=== PATIENT | female | born 1945 | race Caucasian/White ===

== ENCOUNTER 2017-12-05 09:08 | Day surgery (SDC) | payer MEDICARE ==
[2017-12-03 10:54] VITALS: BMI 25.8
[~2017-12-05 09:08] MED LIST: LACTATED RINGERS 1,000 ML IV ONE; LIDOCAINE 1% 20 ML VIAL (10MG/ML) FOR IV START INTRADERMA PRN
[2017-12-05 09:32] VITALS: RESP 16; TEMP 97.8
[2017-12-05 09:34] LABS: Glucose,Whole Blood 150 mg/dL (75-99)
[2017-12-05] MEDS ORDERED: PROPOFOL 10 MG/ML 20 ML VIAL IV ONE (10:19)
--- NOTE | 2017-12-05 10:48 | P.PCN ---
Date of Procedure: 12/05/17 Procedure(s) Performed: BRIEF HISTORY: Patient is a 72-year-old pleasant white female, scheduled for an elective colonoscopy as a part of evaluation of change in bowel habits for the last 2 months duration. She has severe constipation but denies any rectal bleeding. PROCEDURE PERFORMED: Colonoscopy with biopsy. PREOPERATIVE DIAGNOSIS: Change in bowel habits. IV sedation per Anesthesia. PROCEDURE: After informed consent was obtained, the patient, was brought into the endoscopy unit. IV sedation was administered by Anesthesia under continuous monitoring. Digital rectal examination revealed prolapsed rectal mucosa measuring 2 cm. Initially the Olympus CF-160 flexible video colonoscope was then inserted in the rectum, gradually advanced into the cecum without any difficulty. Careful examination was performed as the scope was gradually being withdrawn. Ileocecal valve and the appendiceal orifice were visualized and appeared normal. Prep was excellent. Mucosa of the cecum, ascending colon, transverse colon, descending colon, sigmoid colon, and rectum appeared normal. Retroflexion was performed in the rectum and 2 cm polypoid area identified with slightly friable mucosa and multiple biopsies were done from this area to evaluate for rectal prolapse versus rectal polyp. The patient tolerated the procedure well. IMPRESSION: 2 cm polypoid area in the distal rectum possibly representing rectal prolapse versus rectal polyp status post multiple biopsies Rest of the colon appeared normal Small internal hemorrhoids. RECOMMENDATIONS: Findings of this examination were discussed with the patient as well as a family. She was advised to start on MiraLAX 1 scoop daily and continue with a high-fiber diet. She'll be seen in the office in 2 weeks to discuss the biopsy results.
[2017-12-05 11:18] VITALS: BP 152/70; PULSE 80
== END 2017-12-05 11:41 | disposition home or self-care (01) ==
LOC: ORWHC2ENDO 09:08
PROVIDERS: ATTEND Internal Medicine Gastroenterology
DX: K62.1 Rectal polyp (principal); K64.8 Other hemorrhoids; K62.3 Rectal prolapse; I10 Essential (primary) hypertension; J44.9 Chronic obstructive pulmonary disease, unspecified; Z87.891 Personal history of nicotine dependence; Z88.1 Allergy status to other antibiotic agents; Z86.73 Personal history of transient ischemic attack (TIA), and cerebral infarction without residual deficits; Z79.899 Other long term (current) drug therapy; Z79.84 Long term (current) use of oral hypoglycemic drugs
CPT/HCPCS: 88305; 45380; J2704

== ENCOUNTER 2018-05-06 10:05 | Observation (INO) | payer MEDICARE ==
[2018-05-06] MEDS ORDERED: ONDANSETRON 4 MG/2 ML VIAL IVP STA ×2 (11:00→15:19)
[2018-05-06] MEDS ORDERED: SODIUM CHLORIDE 0.9% 500 ML IV STA (11:00)
[2018-05-06] MEDS ORDERED: SODIUM CHLORIDE 0.9% 1,000 ML IV STA (11:00)
[2018-05-06] MEDS ORDERED: FAMOTIDINE 20 MG/2 ML VIAL IV STA (11:01)
[2018-05-06] MEDS ORDERED: fentaNYL (PF) 50 MCG/ML 2 ML AMP IV STA (11:01)
--- NOTE | 2018-05-06 11:08 | ED ---
Abdominal Pain HPI - General Chief Complaint: Abdominal Pain Stated Complaint: Stomach pain Time Seen by Provider: 05/06/18 10:35 Source: patient, family, RN notes reviewed Mode of arrival: ambulatory Limitations: no limitations - History of Present Illness Initial Comments: This is a 72-year-old female who states she's had about one month of constant midepigastric achy pain. She states she's had a 13 pound weight loss since this time with decrease oral intake. She does have a history of GERD ulcers many years ago cholecystectomy and was told she has low iron. She states the pain is 9/10 severity some associated nausea she also states she's been having intermittent episodes of left CVA/flank pain he gets better with urination. No prior history kidney stones. No other associated symptoms at this time she was told to come in by her doctor because of the unrelenting pain she does have a scheduled appointment with Dr. Moise from GI but has not told next month. She states she has had some black stools does admit to taking Pepto-Bismol but she has not taken any for 3 days and still is having black stools. MD Complaint: abdominal pain - Related Data Home Medications Medication Instructions Recorded Confirmed Allopurinol [Zyloprim] 100 mg PO BID 07/05/16 05/06/18 Lisinopril [Prinivil] 20 mg PO BID 07/05/16 05/06/18 Multivitamins, Thera [Multivitamin] 1 tab PO DAILY 07/05/16 05/06/18 amLODIPine BESYLATE [Norvasc] 5 mg PO BID 07/05/16 05/06/18 glipiZIDE [Glucotrol] 5 mg PO QAM 07/05/16 05/06/18 Gabapentin [Neurontin] 300 mg PO BID 09/13/17 05/06/18 Lovastatin [Mevacor] 40 mg PO HS 09/13/17 05/06/18 Acetaminophen [Tylenol Arthritis] 650 mg PO BID 05/06/18 05/06/18 Cholecalciferol [Vitamin D3] 5,000 unit PO DAILY 05/06/18 05/06/18 Omeprazole 20 mg PO DAILY 05/06/18 05/06/18 traMADol HCL [Ultram] 100 mg PO BID 05/06/18 05/06/18 Allergies Allergy/AdvReac Type Severity Reaction Status Date / Time erythromycin base Allergy Severe TONGUE Verified 05/06/18 13:48 MARILYNN gatifloxacin [From Tequin] Allergy Severe TONGUE Verified 05/06/18 13:48 MARLIYNN Review of Systems ROS Statement: Those systems with pertinent positive or pertinent negative responses have been documented in the HPI. ROS Other: All systems not noted in ROS Statement are negative. Past Medical History Past Medical History: CVA/TIA, Diabetes Mellitus, GERD/Reflux, Hyperlipidemia, Hypertension, Osteoarthritis (OA), Skin Disorder Additional Past Medical History / Comment(s): TIA 2012-rt side weakness, varicose veins, sore on rt leg, constipation, hx frequent nighttime urination, History of Any Multi-Drug Resistant Organisms: None Reported Past Surgical History: Appendectomy, Bladder Surgery, Breast Surgery, Hysterectomy, Tonsillectomy Additional Past Surgical History / Comment(s): left oophorectomy, martinez breast implants, Past Anesthesia/Blood Transfusion Reactions: Motion Sickness Past Psychological History: Depression Smoking Status: Former smoker Past Alcohol Use History: None Reported Past Drug Use History: None Reported - Past Family History Mother Family Medical History: No Reported History General Exam - General Exam Comments Initial Comments: This is a well-developed asthenic appearing female who is awake and alert oriented 3 Limitations: no limitations General appearance: alert, in no apparent distress Head exam: Present: atraumatic, normocephalic, normal inspection Eye exam: Present: normal appearance, PERRL, EOMI. Absent: scleral icterus, conjunctival injection, periorbital swelling ENT exam: Present: mucous membranes dry Neck exam: Present: normal inspection. Absent: tenderness, meningismus, lymphadenopathy Respiratory exam: Present: normal lung sounds bilaterally. Absent: respiratory distress, wheezes, rales, rhonchi, stridor Cardiovascular Exam: Present: regular rate, normal rhythm, normal heart sounds. Absent: systolic murmur, diastolic murmur, rubs, gallop, clicks GI/Abdominal exam: Present: soft, tenderness (Tennis palpation of the midepigastrium with no guarding rebound masses or bruits some mild left flank pain left CVA tenderness palpation or percussion.), normal bowel sounds. Absent : distended, guarding, rebound, rigid Extremities exam: Present: normal inspection, full ROM, normal capillary refill. Absent: tenderness, pedal edema, joint swelling, calf tenderness Back exam: Present: normal inspection, full ROM, CVA tenderness (L). Absent: CVA tenderness (R), muscle spasm, paraspinal tenderness, vertebral tenderness, rash noted Neurological exam: Present: alert, oriented X3, CN II-XII intact Psychiatric exam: Present: normal affect, normal mood Skin exam: Present: warm, dry, intact, normal color. Absent: rash Course Vital Signs 05/06/18 05/06/18 05/06/18 10:28 13:35 15:38 Temperature 97.9 F Pulse Rate 78 79 84 Respiratory 18 18 18 Rate Blood Pressure 152/72 137/65 163/72 O2 Sat by Pulse 98 93 L 96 Oximetry Medical Decision Making - Medical Decision Making Patient persisted having nausea and abdominal pain. She will be admitted I did discuss case with Dr. Nunez. - Lab Data Result diagrams: 05/06/18 12:38 05/06/18 12:38 Lab Results 05/06/18 05/06/18 05/06/18 Range/Units 12:38 12:38 12:38 WBC 9.0 (3.8-10.6) k/uL RBC 4.48 (3.80-5.40) m/uL Hgb 11.1 L (11.4-16.0) gm/dL Hct 35.2 (34.0-46.0) % MCV 78.4 L (80.0-100.0) fL MCH 24.8 L (25.0-35.0) pg MCHC 31.6 (31.0-37.0) g/dL RDW 17.8 H (11.5-15.5) % Plt Count 377 (150-450) k/uL Neutrophils % 69 % Lymphocytes % 21 % Monocytes % 7 % Eosinophils % 1 % Basophils % 1 % Neutrophils # 6.2 (1.3-7.7) k/uL Lymphocytes # 1.9 (1.0-4.8) k/uL Monocytes # 0.6 (0-1.0) k/uL Eosinophils # 0.1 (0-0.7) k/uL Basophils # 0.1 (0-0.2) k/uL Hypochromasia Slight Anisocytosis Slight Microcytosis Slight PT (9.0-12.0) sec INR (<1.2) APTT (22.0-30.0) sec Sodium 142 (137-145) mmol/L Potassium 4.6 (3.5-5.1) mmol/L Chloride 104 (98-107) mmol/L Carbon Dioxide 29 (22-30) mmol/L Anion Gap 9 mmol/L BUN 28 H (7-17) mg/dL Creatinine 1.10 H (0.52-1.04) mg/dL Est GFR (CKD-EPI)AfAm 58 (>60 ml/min/1.73 sqM) Est GFR (CKD-EPI)NonAf 50 (>60 ml/min/1.73 sqM) Glucose 88 (74-99) mg/dL Plasma Lactic Acid Ariel (0.7-2.0) mmol/L Calcium 9.8 (8.4-10.2) mg/dL Total Bilirubin 0.3 (0.2-1.3) mg/dL AST 15 (14-36) U/L ALT 18 (9-52) U/L Alkaline Phosphatase 93 (38-126) U/L Total Creatine Kinase 35 (30-135) U/L CK-MB (CK-2) 0.9 (0.0-2.4) ng/mL CK-MB (CK-2) Rel Index 2.6 Troponin I <0.012 (0.000-0.034) ng/mL Total Protein 7.9 (6.3-8.2) g/dL Albumin 4.2 (3.5-5.0) g/dL Amylase 39 (30-110) U/L Lipase 64 (23-300) U/L Urine Color Urine Appearance (Clear) Urine pH (5.0-8.0) Ur Specific [place] (1.001-1.035) Urine Protein (Negative) Urine Glucose (UA) (Negative) Urine Ketones (Negative) Urine Blood (Negative) Urine Nitrite (Negative) Urine Bilirubin (Negative) Urine Urobilinogen (<2.0) mg/dL Ur Leukocyte Esterase (Negative) Stool Occult Blood (Negative) Blood Type Blood Type Recheck Antibody Screen Spec Expiration Date 05/06/18 05/06/18 05/06/18 Range/Units 12:38 12:38 12:38 WBC (3.8-10.6) k/uL RBC (3.80-5.40) m/uL Hgb (11.4-16.0) gm/dL Hct (34.0-46.0) % MCV (80.0-100.0) fL MCH (25.0-35.0) pg MCHC (31.0-37.0) g/dL RDW (11.5-15.5) % Plt Count (150-450) k/uL Neutrophils % % Lymphocytes % % Monocytes % % Eosinophils % % Basophils % % Neutrophils # (1.3-7.7) k/uL Lymphocytes # (1.0-4.8) k/uL Monocytes # (0-1.0) k/uL Eosinophils # (0-0.7) k/uL Basophils # (0-0.2) k/uL Hypochromasia Anisocytosis Microcytosis PT 10.2 (9.0-12.0) sec INR 1.0 (<1.2) APTT 23.0 (22.0-30.0) sec Sodium (137-145) mmol/L Potassium (3.5-5.1) mmol/L Chloride (98-107) mmol/L Carbon Dioxide (22-30) mmol/L Anion Gap mmol/L BUN (7-17) mg/dL Creatinine (0.52-1.04) mg/dL Est GFR (CKD-EPI)AfAm (>60 ml/min/1.73 sqM) Est GFR (CKD-EPI)NonAf (>60 ml/min/1.73 sqM) Glucose (74-99) mg/dL Plasma Lactic Acid Ariel 0.8 (0.7-2.0) mmol/L Calcium (8.4-10.2) mg/dL Total Bilirubin (0.2-1.3) mg/dL AST (14-36) U/L ALT (9-52) U/L Alkaline Phosphatase (38-126) U/L Total Creatine Kinase (30-135) U/L CK-MB (CK-2) (0.0-2.4) ng/mL CK-MB (CK-2) Rel Index Troponin I (0.000-0.034) ng/mL Total Protein (6.3-8.2) g/dL Albumin (3.5-5.0) g/dL Amylase (30-110) U/L Lipase (23-300) U/L Urine Color Urine Appearance (Clear) Urine pH (5.0-8.0) Ur Specific [place] (1.001-1.035) Urine Protein (Negative) Urine Glucose (UA) (Negative) Urine Ketones (Negative) Urine Blood (Negative) Urine Nitrite (Negative) Urine Bilirubin (Negative) Urine Urobilinogen (<2.0) mg/dL Ur Leukocyte Esterase (Negative) Stool Occult Blood (Negative) Blood Type A Positive Blood Type Recheck No Antibody Screen NEGATIVE Spec Expiration Date 05/09/2018233705/06/18 05/06/18 Range/Units 15:00 15:00 WBC (3.8-10.6) k/uL RBC (3.80-5.40) m/uL Hgb (11.4-16.0) gm/dL Hct (34.0-46.0) % MCV (80.0-100.0) fL MCH (25.0-35.0) pg MCHC (31.0-37.0) g/dL RDW (11.5-15.5) % Plt Count (150-450) k/uL Neutrophils % % Lymphocytes % % Monocytes % % Eosinophils % % Basophils % % Neutrophils # (1.3-7.7) k/uL Lymphocytes # (1.0-4.8) k/uL Monocytes # (0-1.0) k/uL Eosinophils # (0-0.7) k/uL Basophils # (0-0.2) k/uL Hypochromasia Anisocytosis Microcytosis PT (9.0-12.0) sec INR (<1.2) APTT (22.0-30.0) sec Sodium (137-145) mmol/L Potassium (3.5-5.1) mmol/L Chloride (98-107) mmol/L Carbon Dioxide (22-30) mmol/L Anion Gap mmol/L BUN (7-17) mg/dL Creatinine (0.52-1.04) mg/dL Est GFR (CKD-EPI)AfAm (>60 ml/min/1.73 sqM) Est GFR (CKD-EPI)NonAf (>60 ml/min/1.73 sqM) Glucose (74-99) mg/dL Plasma Lactic Acid Ariel (0.7-2.0) mmol/L Calcium (8.4-10.2) mg/dL Total Bilirubin (0.2-1.3) mg/dL AST (14-36) U/L ALT (9-52) U/L Alkaline Phosphatase (38-126) U/L Total Creatine Kinase (30-135) U/L CK-MB (CK-2) (0.0-2.4) ng/mL CK-MB (CK-2) Rel Index Troponin I (0.000-0.034) ng/mL Total Protein (6.3-8.2) g/dL Albumin (3.5-5.0) g/dL Amylase (30-110) U/L Lipase (23-300) U/L Urine Color Light Yellow Urine Appearance Clear (Clear) Urine pH 6.5 (5.0-8.0) Ur Specific [place] 1.014 (1.001-1.035) Urine Protein Negative (Negative) Urine Glucose (UA) Negative (Negative) Urine Ketones Negative (Negative) Urine Blood Negative (Negative) Urine Nitrite Negative (Negative) Urine Bilirubin Negative (Negative) Urine Urobilinogen <2.0 (<2.0) mg/dL Ur Leukocyte Esterase Negative (Negative) Stool Occult Blood Negative (Negative) Blood Type Blood Type Recheck Antibody Screen Spec Expiration Date - Radiology Data Radiology results: report reviewed (I did review the imaging and report no acute findings.), image reviewed Disposition Clinical Impression: Abdominal pain, Intractable nausea and vomiting, Renal insufficiency Disposition: ADMITTED IP TO THIS [facility] Condition: Stable Referrals: David Turner DO [Primary Care Provider] - 1-2 days
[2018-05-06 13:02] LABS: Anisocytosis Slight; Basophils # (A) 0.1 k/uL (0-0.2); Basophils % (A) 1 %; Eosinophils # (A) 0.1 k/uL (0-0.7); Eosinophils % (A) 1 %; HCT 35.2 % (34.0-46.0); HGB 11.1 gm/dL (11.4-16.0); Hypochromasia Slight; Lymphocytes # (A) 1.9 k/uL (1.0-4.8); Lymphocytes % (A) 21 %; MCH 24.8 pg (25.0-35.0); MCHC 31.6 g/dL (31.0-37.0); MCV 78.4 fL (80.0-100.0); Mean Platelet Volume 6.8; Microcytosis Slight; Monocytes # (A) 0.6 k/uL (0-1.0); Monocytes % (A) 7 %; Neutrophils # (A) 6.2 k/uL (1.3-7.7); Neutrophils % (A) 69 %; Platelet Count 377 k/uL (150-450); RBC 4.48 m/uL (3.80-5.40); RDW 17.8 % (11.5-15.5)
--- NOTE | 2018-05-06 13:09 | XR ---
EXAMINATION TYPE: XR KUB DATE OF EXAM: 05/06/2018 COMPARISON: NONE HISTORY: Pain TECHNIQUE: One view abdominal series FINDINGS: The osseous structures are intact. The bowel gas pattern is nonspecific. Lung bases are clear. Curv ature the spine with degenerative changes are seen. There are punctate calcifications overlying the m id right kidney which may represent tiny right renal calculi. Surgical clip overlying the left inferi or pubic ramus. Arthropathy of the hips. Vascular calcifications noted. IMPRESSION: 1. Nonspecific abdomen. 2. Correlate for right-sided renal calculi.
[2018-05-06 13:13] LABS: Prothrombin Time 10.2 sec (9.0-12.0)
[2018-05-06 13:17] LABS: Albumin 4.2 g/dL (3.5-5.0); Calcium 9.8 mg/dL (8.4-10.2); Potassium 4.6 mmol/L (3.5-5.1); Total Bilirubin 0.3 mg/dL (0.2-1.3); Total Protein 7.9 g/dL (6.3-8.2)
[2018-05-06 13:24] LABS: Creatine Kinase 35 U/L (30-135)
[2018-05-06 13:36] LABS: Creatine Kinase MB 0.9 ng/mL (0.0-2.4); Troponin I <0.012 ng/mL (0.000-0.034)
[2018-05-06 15:17] LABS: Appearance,Urine Clear (Clear); Bilirubin,Urine Negative (Negative); Blood,Urine Negative (Negative); Color,Urine Light Yellow; Glucose,Urine (UA) Negative (Negative); Ketones,Urine Negative (Negative); Leukocyte Esterase,Urine Negative (Negative); Nitrite,Urine Negative (Negative); PH, Urine 6.5 (5.0-8.0); Protein,Urine Negative (Negative); Specific Gravity,Urine 1.014 (1.001-1.035); Urobilinogen,Urine <2.0 mg/dL (<2.0)
[2018-05-06] MEDS ORDERED: NALOXONE 0.4 MG/ML 1 ML VIAL IV PRN (16:06)
[2018-05-06] MEDS: SODIUM CHLORIDE 0.9% 1,000 ML IV SCH (17:32)
[2018-05-06] MEDS: LISINOPRIL 20 MG TAB PO SCH (17:32)
[2018-05-06] MEDS: amLODIPine 5 MG TAB PO SCH (17:32)
[2018-05-06 17:47] LABS: Glucose,Whole Blood 75 mg/dL (75-99)
[2018-05-06] MEDS: ONDANSETRON 4 MG/2 ML VIAL IVP PRN (20:14)
[2018-05-06] MEDS: HYDROmorphone 1 MG/ML 1 ML SYRINGE IVP PRN (20:15)
[2018-05-06 21:03] LABS: Glucose,Whole Blood 115 mg/dL (75-99)
[2018-05-06] MEDS: ALLOPURINOL 100 MG TAB PO SCH (22:13)
[2018-05-06] MEDS: PANTOPRAZOLE 40 MG/10 ML VIAL IV SCH (22:13)
[2018-05-06] MEDS: ATORVASTATIN 10 MG TAB PO SCH (22:13)
[2018-05-06] MEDS: MELATONIN 5 MG TABLET PO SCH (22:13)
[2018-05-06] MEDS: GABAPENTIN 300 MG CAP PO SCH (22:13)
[2018-05-06] MEDS: traMADol 50 MG TAB PO SCH (22:25)
[2018-05-06] MEDS: ACETAMINOPHEN TAB 325 MG TAB PO SCH (22:25)
[2018-05-07] MEDS ORDERED: ALPRAZolam 0.25 MG TAB PO PRN (00:48)
[2018-05-07] MEDS ORDERED: TEMAZEPAM 15 MG CAP PO PRN (00:48)
[2018-05-07] MEDS ORDERED: HYDROcodone/APAP 5-325MG 1 EACH TAB PO PRN (00:48)
[2018-05-07 04:21] LABS: T4, Free (Free Thyroxine) 1.83 ng/dL (0.78-2.19)
[2018-05-07] MEDS: IOPAMIDOL-300 CONTRAST 30 ML VIAL (ORAL USE) PO PRN ×2 (06:30→07:40)
[2018-05-07] MEDS: SODIUM CHLORIDE 0.9% 1,000 ML IV SCH ×2 (06:31→17:09)
--- NOTE | 2018-05-07 06:45 | HP ---
HISTORY AND PHYSICAL DATE OF SERVICE: 05/06/2018 CHIEF COMPLAINT: Abdominal pain. HISTORY OF PRESENT ILLNESS: This 72-year-old woman with a past medical history of multiple medical problems including CVA, TIA, diabetes mellitus, GERD, hypertension, hyperlipidemia, history of appendectomy, history of bladder surgery, being followed by Dr. Turner in the outpatient setting complaining of abdominal pain for the last several days. The pain is mostly in the epigastrium and the patient also reported about a 13-pound weight loss. The patient also had history of GERD. Patient also had cholecystectomy. Because of severe pain and some nausea, the patient came to [facility] and admitted for evaluation and treatment. The patient had a scheduled appointment with Dr. Moise next month. The patient had some black stools. Patient is also taking Pepto- Bismol. There is no history of fever, rigors. No history of headache, loss of conscious or seizures. PAST MEDICAL HISTORY: History of CVA, TIA, diabetes mellitus, GERD, hypertension, hyperlipidemia, history of DJD, history of TIA. MEDICATIONS: Medications prior to admission include home medications are: 1. Ultram 100 mg p.o. b.i.d. 2. Glucotrol 5 mg p.o. q.a.m. 3. Norvasc 5 mg p.o. b.i.d. 4. Omeprazole 20 mg daily. 5. Multivitamins 1 p.o. daily. 6. Mevacor 40 mg at bedtime. 7. Prinivil 10 mg p.o. b.i.d. 8. Neurontin 300 mg p.o. b.i.d. 9. Vitamin D3, 5000 daily. 10.Zyloprim 100 mg p.o. b.i.d. 11.Tylenol 650 mg p.o. b.i.d. ALLERGIES: ERYTHROMYCIN BASE, TEQUIN. FAMILY HISTORY: No history of heart disease or strokes in the family. SOCIAL HISTORY: Previous history of smoking. No history of current smoking or alcohol intake. REVIEW OF SYSTEMS: ENT: No diminished hearing or diminished vision. CARDIOVASCULAR SYSTEM: No angina. RESPIRATORY SYSTEM: As mentioned earlier. GI: No nausea. : No dysuria. NERVOUS SYSTEM: No numbness or weakness. ALLERGY/IMMUNOLOGY: No asthma. MUSCULOSKELETAL: As mentioned earlier. HEMATOLOGY/ONCOLOGY: No history of anemia. ENDOCRINE: Diabetes mellitus. CONSTITUTIONAL: As mentioned earlier. DERMATOLOGY: Negative. RHEUMATOLOGY: Negative. PSYCHIATRY: As mentioned earlier. PHYSICAL EXAMINATION: The patient is alert and oriented x3. Pulse 73, blood pressure 117/64, respiration 18, temperature 97.1, pulse ox 94% on room air. HEENT: Conjunctivae normal. Oral mucosa moist. Neck is no jugular venous distention. No carotid bruit. No lymph node enlargement. CARDIOVASCULAR: S1 and S2 muffled. No S3 or S4. RESPIRATORY: Breath sounds diminished at the bases. No rhonchi, no crackles. ABDOMEN: Soft. Mild diffuse tenderness in the epigastrium present. No guarding. No rigidity. No mass palpable. LEGS: No edema. No swelling. NERVOUS SYSTEM: Higher function as mentioned earlier. Moves all 4 limbs. No focal motor or sensory deficits. LYMPHATICS: No lymphadenopathy of the neck, axillae or groin. SKIN: No ulcer, rash or bleeding. LABS: Labs are at this time WBC 9 hemoglobin 11.1. Creatinine is 1.10. ASSESSMENT: 1. Intractable abdominal pain with failure of outpatient treatment, possibly peptic ulcer disease. 2. History of weight loss. 3. Cerebrovascular accident, transient ischemic attack. 4. Diabetes mellitus type 2. 5. Gastroesophageal reflux disease. 6. Hypertension. 7. Hyperlipidemia. 8. History of degenerative joint disease. 9. History of transient ischemic attack. 10.History of appendectomy. 11.History of bladder surgery. 12.Depression. 13.Remote history of nicotine dependence. RECOMMENDATIONS AND DISCUSSION: This 72-year-old woman who presented with multiple complex medical issues at this time I recommend to continue current medications and symptomatic treatment. I recommend gastroenterology evaluation for possible EGD and colonoscopy. I would also recommend a CAT of the abdomen and pelvis because of history of weight loss to rule out the possibly malignancy. Otherwise I would recommend continue the rest of the medications and I would also resume the home medications and closely follow with Dr. Turner. Protonix IV b.i.d. has been recommended. See orders for the details. Prognosis guarded because of multiple complex medical issues. Further recommendations to follow. MMODL / IJN: [id number] / MTDD
[2018-05-07 07:35] LABS: Glucose,Whole Blood 95 mg/dL (75-99)
[2018-05-07] MEDS: PANTOPRAZOLE 40 MG/10 ML VIAL IV SCH ×2 (07:43→20:48)
[2018-05-07] MEDS: glipiZIDE 5 MG TAB PO SCH (07:46)
[2018-05-07] MEDS: amLODIPine 5 MG TAB PO SCH ×2 (08:33→20:48)
[2018-05-07] MEDS: ALLOPURINOL 100 MG TAB PO SCH ×2 (08:33→20:48)
[2018-05-07] MEDS: ACETAMINOPHEN TAB 325 MG TAB PO SCH ×2 (08:33→20:48)
[2018-05-07] MEDS: MULTIVITAMINS, THERA 1 EACH TAB PO SCH (08:33)
[2018-05-07] MEDS: LISINOPRIL 20 MG TAB PO SCH ×2 (08:33→20:48)
[2018-05-07] MEDS: traMADol 50 MG TAB PO SCH ×2 (08:33→20:47)
[2018-05-07] MEDS: GABAPENTIN 300 MG CAP PO SCH ×2 (08:33→20:47)
[2018-05-07] MEDS: ONDANSETRON 4 MG/2 ML VIAL IVP PRN (08:34)
[2018-05-07] MEDS: HEPARIN SODIUM,PORCINE 5,000 UNIT/ML 1 ML VIAL SQ SCH ×2 (08:36→20:48)
--- NOTE | 2018-05-07 08:45 | CT ---
EXAMINATION TYPE: CT abdomen pelvis w con DATE OF EXAM: 05/07/2018 COMPARISON: 02/24/2012 HISTORY: generalized pain CT DLP: 1189 mGycm CONTRAST: CT scan of the abdomen and pelvis is performed with Oral Contrast and with IV Contrast, patient injec godwin with 80 mL of Isovue 300. FINDINGS: LUNG BASES-: No visible nodule. No infiltrate. Basilar scarring noted. Small sliding-type hiatal her sabino. LIVER/GB: No calcified gallstones. No space occupying hepatic lesion. Biliary tree is of normal ca liber. PANCREAS: No inflammation. No distinct mass. SPLEEN: No splenic enlargement. No lesion seen. ADRENALS: No nodule. No thickening. KIDNEYS/BLADDER: No hydronephrosis. No nephrolithiasis. No distinct renal mass. Urinary bladder g rossly unremarkable. BOWEL: Normal appendix. Normal bowel caliber. No inflammation. Sigmoid diverticulosis without diver ticulitis. GENITAL ORGANS: No gross abnormality. LYMPH NODES: No greater than 1cm abdominal or pelvic lymph nodes are appreciated. AORTA: Atheromatous and ectatic change noted. OSSEOUS STRUCTURES: Degenerative changes lumbar spine. Grade 1 anterolisthesis L4 and L5. OTHER: No significant additional abnormality is seen. IMPRESSION: 1. Sigmoid diverticulosis without diverticulitis. 2. No acute process appreciated at this time.
[2018-05-07] MEDS: CHOLECALCIFEROL 1,000 UNIT TAB PO SCH (09:27)
[2018-05-07 11:56] LABS: Glucose,Whole Blood 106 mg/dL (75-99)
[2018-05-07 14:01] LABS: Anisocytosis Slight; Basophils % (A) 1 %; Eosinophils # (A) 0.2 k/uL (0-0.7); Eosinophils % (A) 3 %; Hypochromasia Moderate; Lymphocytes # (A) 1.4 k/uL (1.0-4.8); Lymphocytes % (A) 26 %; MCH 25.1 pg (25.0-35.0); MCHC 31.1 g/dL (31.0-37.0); MCV 80.5 fL (80.0-100.0); Microcytosis Slight; Monocytes # (A) 0.4 k/uL (0-1.0); Monocytes % (A) 6 %; Neutrophils # (A) 3.6 k/uL (1.3-7.7); Neutrophils % (A) 63 %; Platelet Count 266 k/uL (150-450); RBC 3.85 m/uL (3.80-5.40); RDW 17.8 % (11.5-15.5); WBC 5.6 k/uL (3.8-10.6)
[2018-05-07 14:02] LABS: HGB 9.7 gm/dL (11.4-16.0)
[2018-05-07 14:05] LABS: Calcium 8.5 mg/dL (8.4-10.2)
--- NOTE | 2018-05-07 15:09 | P.PN ---
Subjective Progress Note Date: 05/07/18 Progress note being dictated for Dr. Muñoz Interval history: This is a 72-year-old female admitted with intractable abdominal pain, failure of outpatient treatment, possibly peptic ulcer disease and multiple other medical issues. Maintained on PPI and gentle IV fluid hydration. CT of abdomen and pelvis reporting sigmoid diverticulosis without diverticulitis, no acute process. Complains of diffuse abdominal pain, relieved by Ultram. Nausea, no emesis. No diarrhea, no bowel movement. Denies any hemoptysis, rectal bleeding. Hemoglobin decreased to 9.7. GI consult in place with recommendations pending. Denies chest pain, palpitations or increasing shortness of breath. Objective - Vital Signs Vital signs: Vital Signs Temp 97.2 F L 05/07/18 14:13 Pulse 68 05/07/18 14:13 Resp 16 05/07/18 14:13 BP 110/59 05/07/18 14:13 Pulse Ox 91 L 05/07/18 14:13 Intake & Output 05/06/18 05/07/18 05/07/18 18:59 06:59 18:59 Intake Total 2290 650 640 Balance 2290 650 640 Weight 72.575 kg Intake: IV 640 Sodium Chloride 0.9% 1, 640 000 ml @ 80 mls/hr IV . [id number] MARIBEL Rx#:[id number] Amount of Fluid Infused ( 2000 ml) Oral 290 650 Other: Voiding Method Toilet # Voids 2 2 2 - Exam PHYSICAL EXAM: VITAL SIGNS: As above GENERAL: Sitting up in bed, visiting with family at bedside, no acute distress HEENT: Conjunctivae normal. eyes normal. Oral mucosa moist NECK: No JVD. No thyroid enlargement. No LNs CARDIOVASCULAR: S1, S2 muffled. No murmur RESPIRATION: Breath sounds diminished in the bases. No rhonchi or crackles. ABDOMEN: Soft, mild diffuse epigastric tenderness. No guarding. no masses palpable. Bowel sounds heard. LEGS: No edema. no swelling PSYCHIATRY: Alert and oriented -3, mood and affect normal. NERVOUS SYSTEM: Cranial N 2-12 grossly normal. Moves all 4 limbs. Diffuse weakness No focal deficits. Skin: no ulcer no rash Lymphatic system. No LN neck axilla or groin. - Labs CBC & Chem 7: 05/07/18 13:38 05/07/18 13:38 Labs: Abnormal Lab Results - Last 24 Hours (Table) 05/06/18 05/06/18 05/07/18 Range/Units 12:38 20:54 11:47 Hgb (11.4-16.0) gm/dL Hct (34.0-46.0) % RDW (11.5-15.5) % Glucose (74-99) mg/dL POC Glucose (mg/dL) 115 H 106 H (75-99) mg/dL TSH 0.289 L (0.465-4.680) mIU/L 05/07/18 05/07/18 Range/Units 13:38 13:38 Hgb 9.7 L (11.4-16.0) gm/dL Hct 31.0 L (34.0-46.0) % RDW 17.8 H (11.5-15.5) % Glucose 128 H (74-99) mg/dL POC Glucose (mg/dL) (75-99) mg/dL TSH (0.465-4.680) mIU/L Assessment and Plan Assessment: 1. Intractable abdominal pain with failure of outpatient treatment, possibly peptic ulcer disease 2. History of weight loss 3. History of CVA, TIA 4. Diabetes mellitus type 2 5. Gastroesophageal reflux disease Plan: Continue on current medication regime ,monitoring and symptomatic treatment. Maintain gentle IV fluid hydration, PPI. GI consult in place with recommendations pending, possibly endoscopy. Close monitoring of hemoglobin with repeat labs ordered for a.m. Further recommendations to follow. Discharge planning in progress for tomorrow, pending GI clearance. The impression and plan of care has been dictated as directed. : I performed a history and examination of this patient, discussed the same with the dictator. I agree with the dictator's note ,documented as a scribe. Any additional findings or plans will be noted.
[2018-05-07 17:03] LABS: Glucose,Whole Blood 101 mg/dL (75-99)
[2018-05-07 20:48] LABS: Glucose,Whole Blood 141 mg/dL (75-99)
[2018-05-07] MEDS: MELATONIN 5 MG TABLET PO SCH (20:48)
[2018-05-07] MEDS: ATORVASTATIN 10 MG TAB PO SCH (20:48)
[2018-05-07] MEDS: DRY MOUTH SPRAY 44.3 SPRAY/44.3 ML SPRAY MUCOUS MEM PRN (21:31)
--- NOTE | 2018-05-08 00:18 | P.CONS ---
History of Present Illness - Reason for Consult Consult date: 05/07/18 Abdominal pain - Chief Complaint Abdominal pain - History of Present Illness Patient is a pleasant 72-year-old female who presents with complaints of abdominal pain and nausea without vomiting. The patient reports that the abdominal pain has been present for approximately one month in duration. She reports that over this time she has lost approximately 13 pounds secondary to the pain. She describes the pain as constant and achy in nature. She reports that at times the pain can be very severe. She does report a remote history of peptic ulcer disease approximately 25 years ago but denies any history of upper endoscopy. The patient also has a long-standing history of constipation for which she reports approximately 2 bowel movements per week. She reports that she started MiraLAX therapy with improvement of her constipation. The patient is on home PPI therapy with omeprazole taken daily, she denies any NSAID use. During our conversation the patient denies any signs or symptoms of GI bleeding with no hematochezia, melena or hematemesis. However on review of documentation in the EMR patient did state that she had episodes of melena while using Pepto-Bismol which continued even after she stopped using the Pepto- Bismol. The patient had a CT of the abdomen and pelvis on presentation which was significant for diverticular disease without any evidence of diverticulitis. She was noted to have a normocytic anemia on presentation and had a stool test for blood which was negative. She reports a recent colonoscopy this past summer which she states was positive for rectal prolapse but has not had upper endoscopy as stated. Review of Systems Constitutional: Reports fatigue, Reports weakness, Reports weight loss, Denies chills, Denies fever Eyes: denies pain, denies photophobia Cardiovascular: Denies chest pain, Denies edema, Denies irregular heart beat, Denies syncope Respiratory: Denies cough, Denies hemoptysis, Denies wheezing Gastrointestinal: Reports abdominal pain, Reports change in bowel habits, Reports constipation, Reports heartburn, Denies BRBPR, Denies coffee ground emesis, Denies hematemesis, Denies hematochezia, Denies jaundice, Denies melena Integumentary: Denies pruritus, Denies rash Neurological: Denies confusion, Denies convulsions, Denies seizures Endocrine: Reports fatigue Past Medical History Past Medical History: CVA/TIA, Diabetes Mellitus, GERD/Reflux, Hyperlipidemia, Hypertension, Osteoarthritis (OA), Skin Disorder Additional Past Medical History / Comment(s): TIA 2012-rt side weakness, varicose veins, sore on rt leg, constipation, hx frequent nighttime urination, History of Any Multi-Drug Resistant Organisms: None Reported Past Surgical History: Appendectomy, Bladder Surgery, Breast Surgery, Hysterectomy, Tonsillectomy Additional Past Surgical History / Comment(s): left oophorectomy, martinez breast implants, Past Anesthesia/Blood Transfusion Reactions: No Reported Reaction Smoking Status: Former smoker - Past Family History Mother Family Medical History: No Reported History Additional Family Medical History / Comment(s): mom is healthy at age 90 and smokes 2ppd Father History Unknown: Yes Medications and Allergies Home Medications Medication Instructions Recorded Confirmed Type Allopurinol [Zyloprim] 100 mg PO BID 07/05/16 05/06/18 History Lisinopril [Prinivil] 20 mg PO BID 07/05/16 05/06/18 History Multivitamins, Thera [Multivitamin] 1 tab PO DAILY 07/05/16 05/06/18 History amLODIPine BESYLATE [Norvasc] 5 mg PO BID 07/05/16 05/06/18 History glipiZIDE [Glucotrol] 5 mg PO QAM 07/05/16 05/06/18 History Gabapentin [Neurontin] 300 mg PO BID 09/13/17 05/06/18 History Lovastatin [Mevacor] 40 mg PO HS 09/13/17 05/06/18 History Acetaminophen [Tylenol Arthritis] 650 mg PO BID 05/06/18 05/06/18 History Cholecalciferol [Vitamin D3] 5,000 unit PO DAILY 05/06/18 05/06/18 History Omeprazole 20 mg PO DAILY 05/06/18 05/06/18 History traMADol HCL [Ultram] 100 mg PO BID 05/06/18 05/06/18 History Allergies Allergy/AdvReac Type Severity Reaction Status Date / Time erythromycin base Allergy Severe TONGUE Verified 05/06/18 13:48 SWELLS gatifloxacin [From Tequin] Allergy Severe TONGUE Verified 05/06/18 13:48 SWELLS Physical Exam Vitals: Vital Signs Temp Pulse Resp BP Pulse Ox 05/07/18 23:00 97.3 F L 62 18 108/53 90 L 05/07/18 14:13 97.2 F L 68 16 110/59 91 L 05/07/18 06:29 97.3 F L 63 18 121/64 97 Intake and Output 05/07/18 05/07/18 05/08/18 14:59 22:59 06:59 Intake Total 640 350 Balance 640 350 Intake: IV 640 Sodium Chloride 0.9% 1, 640 000 ml @ 80 mls/hr IV . [id number] [facility] Rx#:[id number] Oral 350 Other: Voiding Method Toilet # Voids 2 3 Weight 72.575 kg - Constitutional General appearance: average body habitus, cooperative - EENT Eyes: EOMI, no scleral icterus - Respiratory Respiratory: bilateral: diminished, negative: rhonchi, wheezing - Cardiovascular Rhythm: regular Heart sounds: normal: S1, S2 - Gastrointestinal General gastrointestinal: no distended, normal bowel sounds, soft, tenderness Localized gastrointestinal: tender: epigastric periumbilical - Integumentary Integumentary: no cellulitis, no jaundiced, no rash - Psychiatric Psychiatric: A&O x's 3, appropriate affect Results CBC & Chem 7: 05/07/18 13:38 05/07/18 13:38 Labs: Abnormal Lab Results - Last 24 Hours (Table) 05/06/18 05/07/18 05/07/18 Range/Units 12:38 11:47 13:38 Hgb 9.7 L (11.4-16.0) gm/dL Hct 31.0 L (34.0-46.0) % RDW 17.8 H (11.5-15.5) % Glucose (74-99) mg/dL POC Glucose (mg/dL) 106 H (75-99) mg/dL TSH 0.289 L (0.465-4.680) mIU/L 05/07/18 05/07/18 05/07/18 Range/Units 13:38 16:59 20:42 Hgb (11.4-16.0) gm/dL Hct (34.0-46.0) % RDW (11.5-15.5) % Glucose 128 H (74-99) mg/dL POC Glucose (mg/dL) 101 H 141 H (75-99) mg/dL TSH (0.465-4.680) mIU/L CT scan - abdomen: report reviewed Assessment and Plan (1) Abdominal pain Narrative/Plan: The patient reports approximately one month of intractable epigastric abdominal pain. The patient does report a prior history of peptic ulcer disease but denies any current risk factors such as NSAID use and is on omeprazole therapy. She reports a recent colonoscopy but has not had evaluation with EGD. She was found to be anemic on presentation with a hemoglobin of 9.7 with normocytic indices. Stool testing for blood was negative. In the setting of these findings the differential is broad including peptic ulcer disease, gastritis, dyspepsia, functional bowel disease or other etiology. Current Visit: Yes Status: Acute Code(s): R10.9 - UNSPECIFIED ABDOMINAL PAIN SNOMED Code(s): 61900077 (2) Normocytic anemia Narrative/Plan: Hemoglobin 9.7 on presentation with normal MCV and stool test negative for blood. Per the patient's recent colonoscopy was negative for any pathology related to anemia. She has not had an EGD in the past but does report prior history of peptic ulcer disease. Current Visit: Yes Status: Acute Code(s): D64.9 - ANEMIA, UNSPECIFIED SNOMED Code(s): 660714025 (3) Intractable nausea and vomiting Narrative/Plan: Secondary to above. Current Visit: Yes Status: Acute Code(s): R11.2 - NAUSEA WITH VOMITING, UNSPECIFIED SNOMED Code(s): 676182879 Plan: 1. Continue supportive care. 2. Okay for clear liquid diets with nothing by mouth after midnight. 3. Will plan for EGD in tomorrow. 4. Continue PPI therapy with Protonix. 5. Iron studies ordered. 6. Reticulocyte count, B12 and folate levels ordered. 7. Will continue to follow. Thank you for the opportunity to participate in care of this patient.
[2018-05-08] MEDS: SODIUM CHLORIDE 0.9% 1,000 ML IV SCH ×2 (04:43→17:05)
[2018-05-08 07:11] VITALS: TEMP 98.7
[2018-05-08] MEDS: DRY MOUTH SPRAY 44.3 SPRAY/44.3 ML SPRAY MUCOUS MEM PRN ×2 (07:33→15:58)
[2018-05-08 07:38] LABS: Glucose,Whole Blood 89 mg/dL (75-99)
[2018-05-08] MEDS: HYDROmorphone 1 MG/ML 1 ML SYRINGE IVP PRN ×2 (08:02→13:50)
[2018-05-08] MEDS: ONDANSETRON 4 MG/2 ML VIAL IVP PRN (08:02)
[2018-05-08] MEDS: PANTOPRAZOLE 40 MG/10 ML VIAL IV SCH (08:02)
[2018-05-08 08:25] LABS: Anisocytosis Slight; Basophils % (A) 1 %; Eosinophils # (A) 0.1 k/uL (0-0.7); Eosinophils % (A) 2 %; HCT 29.7 % (34.0-46.0); HGB 9.2 gm/dL (11.4-16.0); Hypochromasia Moderate; Lymphocytes # (A) 1.1 k/uL (1.0-4.8); Lymphocytes % (A) 18 %; MCH 24.8 pg (25.0-35.0); MCHC 30.9 g/dL (31.0-37.0); MCV 80.2 fL (80.0-100.0); Mean Platelet Volume 6.8; Microcytosis Slight; Monocytes # (A) 0.4 k/uL (0-1.0); Monocytes % (A) 7 %; Neutrophils # (A) 4.3 k/uL (1.3-7.7); Neutrophils % (A) 71 %; Platelet Count 260 k/uL (150-450); RDW 17.7 % (11.5-15.5); WBC 5.9 k/uL (3.8-10.6)
[2018-05-08 08:34] LABS: Calcium 8.6 mg/dL (8.4-10.2); Potassium 4.2 mmol/L (3.5-5.1)
[2018-05-08 09:40] LABS: Reticulocyte % 1.8 % (0.5-2.0)
[2018-05-08 12:47] LABS: Glucose,Whole Blood 92 mg/dL (75-99)
[2018-05-08] MEDS: glipiZIDE 5 MG TAB PO SCH (12:57)
[2018-05-08] MEDS: HEPARIN SODIUM,PORCINE 5,000 UNIT/ML 1 ML VIAL SQ SCH (12:57)
[2018-05-08] MEDS: ACETAMINOPHEN TAB 325 MG TAB PO SCH (12:57)
[2018-05-08] MEDS: ALLOPURINOL 100 MG TAB PO SCH (13:52)
[2018-05-08] MEDS: LISINOPRIL 20 MG TAB PO SCH (13:52)
[2018-05-08] MEDS: GABAPENTIN 300 MG CAP PO SCH (13:52)
[2018-05-08] MEDS: amLODIPine 5 MG TAB PO SCH (13:52)
[2018-05-08] MEDS: traMADol 50 MG TAB PO SCH (13:53)
[2018-05-08] MEDS ORDERED: PROPOFOL 10 MG/ML 20 ML VIAL IV ONE (15:02)
[2018-05-08] MEDS ORDERED: LIDOCAINE 1% INJ 10MG/ML (20 ML MDV) ONE (15:02)
[2018-05-08] MEDS ORDERED: MIDAZOLAM 2 MG/2 ML VIAL ONE (15:02)
[2018-05-08] MEDS ORDERED: fentaNYL (PF) 50 MCG/ML 2 ML AMP ONE (15:02)
[2018-05-08] MEDS ORDERED: IV FLUID CONTINUATION 1,000 ML IV ONE (15:14)
[2018-05-08] MEDS: MULTIVITAMINS, THERA 1 EACH TAB PO SCH (15:55)
[2018-05-08] MEDS: CHOLECALCIFEROL 1,000 UNIT TAB PO SCH (15:55)
--- NOTE | 2018-05-08 16:02 | P.PCN ---
Date of Procedure: 05/08/18 Description of Procedure: BRIEF HISTORY: Patient is a 72-year-old, pleasant, female with a known history of gastroesophageal reflux disease on daily PPI therapy who presents with complaints of severe epigastric pain of 1 month duration. The patient denies any NSAID use and reports that the abdominal pain has been associated with weight loss. She has had a recent colonoscopy with Dr. Moise as an outpatient. PROCEDURE PERFORMED: Esophagogastroduodenoscopy. PREOPERATIVE DIAGNOSIS: Epigastric abdominal pain, known history of GERD. IV sedation per anesthesia. PROCEDURE: After informed consent was obtained, the patient was brought into the endoscopy unit. IV sedation was administered by Anesthesia under continuous monitoring. Initially the Olympus GIF-160 video endoscope was inserted into the mouth. Esophagus intubated without any difficulty. It was gradually advanced into the stomach and duodenum and carefully examined. The bulb and the second part of the duodenum appeared normal. The scope at this time was withdrawn to the stomach, adequately insufflated with air, and upon careful examination, mucosa of the antrum, body, cardia and the fundus appeared grossly normal except for scattered areas of mild erythema suggestive of gastritis in the body and antrum which were biopsied. The scope was then withdrawn into the esophagus. The Z line and GE junction appeared normal. The esophagus appeared normal, with a small hiatal hernia noted. There were no erosions or ulcerations seen and the patient tolerated the procedure well. IMPRESSION: 1. Mild gastritis of the antrum and body, biopsied. 2. Small hiatal hernia. RECOMMENDATIONS: The findings of this examination were discussed with the patient and she was instructed to follow-up with the GI clinic. The patient was instructed to increase her PPI therapy to twice daily and follow-up for further evaluation as an outpatient of her epigastric abdominal pain. The patient would likely benefit from an outpatient ultrasound to rule out symptomatic cholelithiasis. She also has a known history of constipation and is being treated with MiraLAX with some success. The patient is okay to restart regular diet. Lifestyle modifications for improvement of GERD have been discussed with the patient.
[2018-05-08 16:36] VITALS: BP 152/78; PULSE 73; RESP 16
[2018-05-08 17:08] LABS: Iron Saturation 8.17 (12.00-45.00)
[2018-05-08 17:18] LABS: Folate, Serum 22.4 ng/mL
--- NOTE | 2018-05-08 22:34 | DS ---
DISCHARGE SUMMARY FINAL DIAGNOSES: 1. Epigastric pain. Possibly gastritis, peptic ulcer ruled out. 2. Mild hiatal hernia. 3. History of weight loss. 4. Cerebrovascular accident/transient ischemic attack. 5. Diabetes type 2. 6. Gastroesophageal reflux disease. DISCHARGE DISPOSITION: The patient being discharged in stable condition with guarded prognosis. Discharge cleared by gastroenterology. HISTORY OF PRESENT ILLNESS: This 72-year-old with a past medical history of multiple medical problems was admitted with intractable abdominal pain, treated symptomatically. Patient improved significantly. Gastroenterology performed EGD which showed mild gastritis of the antrum body and small hiatal hernia. On exam vitals are stable. Cardiovascular: S1, S2. Abdomen soft. Central nervous system: No focal deficits. DISCHARGE MEDICATIONS AND ADVICE: 1. Diet is cardiac diet. 2. Activity limited until followup. 3. Follow up with Dr. Turner in 2-3 days. 4. Follow up with the graphics specialist as advised. MEDS: Medications will be as follows: 1. Tylenol 650 p.o. b.i.d. 2. Zyloprim 100 mg p.o. b.i.d. 3. Amlodipine 5 mg p.o. b.i.d. 4. Vitamin D3 5000 daily. 5. Neurontin 300 mg b.i.d. 6. Glucotrol 5 mg q.a.m. 7. Prinivil 20 mg b.i.d. 8. Mevacor 40 mg q.h.s. 9. Multivitamins 1 p.o. daily. 10.Ultram 50 mg p.o. b.i.d. 11.Protonix 40 mg p.o. b.i.d. Once again, the patient is being discharged in stable condition with guarded prognosis. MMODL / IJN: [id number] /
== END 2018-05-08 17:36 | disposition home or self-care (01) ==
LOC: EC 10:05 → 4MS4W 16:06
PROVIDERS: ADMIT Internal Medicine; ATTEND Internal Medicine
DX: R10.13 Epigastric pain (principal); R11.2 Nausea with vomiting, unspecified; K44.9 Diaphragmatic hernia without obstruction or gangrene; R63.4 Abnormal weight loss; E11.9 Type 2 diabetes mellitus without complications; K21.9 Gastro-esophageal reflux disease without esophagitis; Z90.49 Acquired absence of other specified parts of digestive tract; E78.5 Hyperlipidemia, unspecified; I10 Essential (primary) hypertension; M19.90 Unspecified osteoarthritis, unspecified site; I69.351 Hemiplegia and hemiparesis following cerebral infarction affecting right dominant side; I83.90 Asymptomatic varicose veins of unspecified lower extremity; K59.00 Constipation, unspecified; F32.9 Major depressive disorder, single episode, unspecified; Z87.891 Personal history of nicotine dependence; Z87.11 Personal history of peptic ulcer disease; D64.9 Anemia, unspecified; K62.3 Rectal prolapse; N28.9 Disorder of kidney and ureter, unspecified; Z79.84 Long term (current) use of oral hypoglycemic drugs; Z79.891 Long term (current) use of opiate analgesic; Z79.899 Other long term (current) drug therapy; Z98.82 Breast implant status; Z88.1 Allergy status to other antibiotic agents; Z88.8 Allergy status to other drugs, medicaments and biological substances
CPT/HCPCS: 99285; 96374 ×2; 96375 ×4; 96376 ×5; 96361 ×9; 96372; 36415; 86900; 86901; 84439; 80053; 80048 ×2; 84443; 82607; 82728; 82150; 82550; 82553; 82746; 83540; 83550; 83605; 83690; 84484; 85025 ×3; 85610; 85045; 85730; 86850; 82272; 81003; 84466; 74018; 74177; 43239; G0378 ×3; J2250; J1644; J2405 ×3; J2001; J3010 ×2; J1170 ×2; J2704; C9113 ×3; Q9967; 88305

== ENCOUNTER → 2018-05-22 | Outpatient (CLI) | payer MEDICARE ==
--- NOTE | 2018-05-22 13:27 | US ---
EXAMINATION TYPE: US abdomen complete DATE OF EXAM: 05/22/2018 COMPARISON: NONE CLINICAL HISTORY: 72-year-old female R10.11 right upper quadrant pain. TECHNIQUE: Multiple sonographic images of the abdomen are obtained. FINDINGS: EXAM MEASUREMENTS: Liver Length: 15.4 cm Gallbladder Wall: 0.2 cm CBD: 0.6 cm Spleen: 7.5 cm Right Kidney: 10.2 x 4.4 x 4.6 cm Left Kidney: 8.4 x 4.2 x 3.9 cm Pancreas: Tail obscured by overlying bowel gas Liver: wnl Gallbladder: wnl Evidence for sonographic Wen's sign: No CBD: wnl for patient's age Spleen: wnl Right Kidney: wnl Left Kidney: No hydronephrosis. Measuring smaller than the right Upper IVC: wnl Abd Aorta: Atherosclerotic changed visualized . Mid and distal abdominal aorta ectatic at 2.6 cm. IMPRESSION: 1. Ectatic mid and distal abdominal aorta at 2.6 cm. 2. Slightly atrophic left kidney. 3. Otherwise, no specific abnormality seen.
== END | disposition home or self-care (01) ==
LOC: RADUSWWP 09:18
PROVIDERS: ATTEND Family Medicine
DX: N26.1 Atrophy of kidney (terminal) (principal); I77.811 Abdominal aortic ectasia
CPT/HCPCS: 76700

== ENCOUNTER → 2018-11-23 | Outpatient (CLI) | payer MEDICARE ==
--- NOTE | 2018-11-23 15:18 | US ---
EXAMINATION TYPE: US kidneys/renal and bladder DATE OF EXAM: 11/23/2018 COMPARISON: US abdomen 05/22/2018 CLINICAL HISTORY: Acute Kidney Injury N17.9. Difficult exam due to overlying bowel gas EXAM MEASUREMENTS: Right Kidney: 10.1 x 4.3 x 4.0 cm Left Kidney: 9.1 x 3.9 x 3.6 cm Right Kidney: No hydronephrosis or masses seen Left Kidney: No hydronephrosis or masses seen Bladder: wnl Bilateral Jets seen: Right jet only visualized There is no evidence for hydronephrosis at this point in time. No nephrolithiasis is seen. No john s are identified. The urinary bladder is anechoic. Right ureteral jet are seen. IMPRESSION: No sonographic evidence of hydronephrosis or nephrolithiasis.
== END ==
LOC: RADUSWWP 14:34
PROVIDERS: ATTEND Internal Medicine Nephrology
DX: N17.9 Acute kidney failure, unspecified (principal)
CPT/HCPCS: 76770

== ENCOUNTER → 2019-06-08 | Outpatient (CLI) | payer MEDICARE ==
[2019-06-08 13:40] LABS: Anisocytosis Slight; HCT 38.6 % (34.0-46.0); Hypochromasia Slight; MCH 26.9 pg (25.0-35.0); MCV 86.8 fL (80.0-100.0); Mean Platelet Volume 6.6; Platelet Count 361 k/uL (150-450); RBC 4.44 m/uL (3.80-5.40); RDW 16.7 % (11.5-15.5)
[2019-06-08 13:51] LABS: Potassium 4.7 mmol/L (3.5-5.1)
== END | disposition home or self-care (01) ==
LOC: LABPAT 12:45
PROVIDERS: ATTEND Internal Medicine Cardiovascular Disease
DX: Z01.812 Encounter for preprocedural laboratory examination (principal); I48.3 Typical atrial flutter
CPT/HCPCS: 36415; 80051; 82565; 84520; 85027

== ENCOUNTER 2019-06-15 06:20 | Day surgery (SDC) | payer MEDICARE ==
[~2019-06-15 06:20] MED LIST changes: -LACTATED RINGERS 1,000 ML IV ONE; -LIDOCAINE 1% 20 ML VIAL (10MG/ML) FOR IV START INTRADERMA PRN; +SODIUM CHLORIDE 0.9% 1,000 ML IV SCH
[2019-06-15] MEDS ORDERED: ceFAZolin 1,000 MG in SODIUM CHLORIDE 0.9% IRRIGATIO 250 ML IRRIGATION ONE (06:30)
[2019-06-15 07:08] LABS: Glucose,Whole Blood 124 mg/dL (75-99)
[2019-06-15] MEDS ORDERED: SODIUM CHLORIDE 0.9% 500 ML 500 ML IV ONE (07:13)
[2019-06-15] MEDS: fentaNYL (PF) 50 MCG/ML 2 ML AMP IV ONE ×2 (07:54→08:02)
[2019-06-15] MEDS: MIDAZOLAM (PF) 2 MG/2 ML VIAL IVP ONE ×2 (07:54→08:02)
[2019-06-15] MEDS ORDERED: IOPAMIDOL-370 50ML BTL INJ ONE (08:00)
[2019-06-15] MEDS ORDERED: LIDOCAINE 1% INJ 10MG/ML (20 ML MDV) SQ ONE ×2 (08:07→08:10)
[2019-06-15] MEDS: METOPROLOL TARTRATE 5 MG/5 ML VIAL IVP ONE ×2 (08:16→08:40)
[2019-06-15] MEDS ORDERED: ACETAMINOPHEN TAB 325 MG TAB PO PRN (08:47)
--- NOTE | 2019-06-15 08:56 | P.PCN ---
Date of Procedure: 06/15/19 Preoperative Diagnosis: Sick sinus syndrome Postoperative Diagnosis: The same Procedure(s) Performed: Single-chamber permanent pacemaker implantation, axillary venography Description of Procedure: HISTORY: This is a 73-year-old female with history of sick sinus syndrome with atrial fibrillation with rapid ventricular response and pauses of more than 5 seconds associated with dizziness. Patient is advised to have permanent pac emaker implantation. CONSENT:I have discussed the risks, benefits and alternative therapies for the above-mentioned procedure and for both sedation/analgesia as well as necessary blood product administration, if indicated, as they pertain to this patient. The patient has indicated understanding and acceptance of the risks and procedures discussed. PROCEDURE: Patient was brought to the lab in a fasting state. Patient was prepped and draped in the usual fashion. Patient was given IV sedation with fentanyl and Versed. The skin below the left clavicle was infiltrated with lidocaine. An incision was made parallel to deltopectoral groove was deepened until the pectoral fascia was exposed. A pocket was created by blunt dissection and cautery. Axillary venography was performed to delineate the course of the axillary vein. A single venous stick were performed into extrathoracic portion of the axillary vein and a single sheath was advanced over the guidewires and left in subclavian vein. Conscious Sedation: Versed 1mg Fentanyl 50 g Duration 36minutes LEADS: VENTRICULAR: This is manufactured by [employer]. Model number is 5076-52 and the serial number is [id number]. THE DEVICE: This is manufactured by [employer]. Model number is [id number] and the serial number is [id number]. The ventricular lead is maneuvered l with help of a straight and curved stylets into the left ventricle apical region. Satisfactory position was obtained and threshold measurements were made. THRESHOLDS: VENTRICLE: The minimal patient threshold is 0.7 at pulse width of 0.5. The impedance is 5099. The R-wave is 8.6 The leads and pulse generator remained in the pocket after it was washed with antibiotics. Pocket was closed in the usual fashion. The fascia was closed with 2-0 Prolene ,the subcutaneous tissue was closed with 3-0 Prolene and the skin was closed with 4-0 Prolene. PROGRAMMING: MODE: VVIR RATE: 60 to 130 OUTPUT: Ventricle: 3.5 FINAL IMPRESSION: #1. Successful implantation of single-chamber permanent pacemaker #2. Axillary venography COMPLICATIONS: None PLAN:. Patient will monitored on the telemetry unit. A lactic antibacterial be continued. Patient will resume her on beta blockers. The anti-coagulation therapy will be started from tomorrow.
[2019-06-15] MEDS: METOPROLOL TARTRATE 25 MG TAB PO SCH ×2 (12:15→19:57)
[2019-06-15] MEDS: glipiZIDE 5 MG TAB PO SCH (12:15)
[2019-06-15] MEDS: ACETAMINOPHEN TAB 500 MG TAB PO SCH ×2 (12:22→19:59)
[2019-06-15 12:46] VITALS: RESP 18
[2019-06-15 13:06] VITALS: BMI 27.0
[2019-06-15] MEDS: traMADol 50 MG TAB PO PRN (15:34)
[2019-06-15 16:41] LABS: Glucose,Whole Blood 139 mg/dL (75-99)
[2019-06-15] MEDS: PANTOPRAZOLE 40 MG TABLET PO SCH (17:10)
[2019-06-15] MEDS: ALLOPURINOL 100 MG TAB PO SCH (19:58)
[2019-06-15] MEDS: GABAPENTIN 300 MG CAP PO SCH (20:00)
[2019-06-15] MEDS ORDERED: TROSPIUM CHLORIDE 20 MG TABLET PO SCH (20:30)
[2019-06-15 20:39] LABS: Glucose,Whole Blood 143 mg/dL (75-99)
[2019-06-15] MEDS ORDERED: ATORVASTATIN 10 MG TAB PO SCH (21:00)
[2019-06-16 06:39] LABS: Glucose,Whole Blood 138 mg/dL (75-99)
[2019-06-16 07:28] VITALS: BP 130/78; PULSE 67; TEMP 98
--- NOTE | 2019-06-16 08:14 | P.DS ---
Providers Date of admission: 06/15/2019 Attending physician: Susanne Galan Primary care physician: David Turner - Discharge Diagnosis(es) (1) Sick sinus syndrome Current Visit: Yes Status: Acute (2) Chronic atrial flutter Current Visit: Yes Status: Acute (3) Presence of permanent cardiac pacemaker Current Visit: Yes Status: Acute Hospital Course: This patient was brought in as an outpatient for permanent pacemaker implantation because of sick sinus syndrome. Patient had a single-chamber device. Yesterday. Patient remained stable. Chest x-ray showed proper lead position without any evidence of complications, like pneumothorax. The site looks good without any hematoma. The patient's rate is controlled since we restart the beta jed. Patient is receiving antibiotics. Patient will be discharged home later today after completion of the antibiotics and after the device is interrogated by [employer]. Follow-up in the office in one week. She'll follow usual instructions. Especially she is advised to white anemia, lifting, pushing and pulling with the left arm. She is also advised to keep the left arm into the shoulder level. She is advised to call the office if she any and the swelling, fever, chills. Plan - Discharge Summary Discharge Rx Participant: No New Discharge Prescriptions: New Metoprolol Tartrate 25 mg PO BID #60 tab No Action Lisinopril [Prinivil] 20 mg PO QAM glipiZIDE [Glucotrol] 5 mg PO QAM Allopurinol [Zyloprim] 100 mg PO BID amLODIPine BESYLATE [Norvasc] 5 mg PO QAM Lovastatin [Mevacor] 40 mg PO HS Gabapentin [Neurontin] 300 mg PO BID traMADol HCL [Ultram] 100 mg PO Q6HR PRN PRN Reason: Pain Acetaminophen [Tylenol Arthritis] 1,300 mg PO BID Pantoprazole Sodium [Protonix] 40 mg PO BID #60 tablet. Apixaban [Eliquis] 2.5 mg PO BID Solifenacin Succinate [Vesicare] 5 mg PO 2030 Cannabidiol (Cbd) Extract [Epidiolex] 0 mg PO DAILY PRN PRN Reason: Pain Discharge Medication List Allopurinol [Zyloprim] 100 mg PO BID 07/05/16 [History] Lisinopril [Prinivil] 20 mg PO QAM 07/05/16 [History] amLODIPine BESYLATE [Norvasc] 5 mg PO QAM 07/05/16 [History] glipiZIDE [Glucotrol] 5 mg PO QAM 07/05/16 [History] Gabapentin [Neurontin] 300 mg PO BID 09/13/17 [History] Lovastatin [Mevacor] 40 mg PO HS 09/13/17 [History] Acetaminophen [Tylenol Arthritis] 1,300 mg PO BID 05/06/18 [History] traMADol HCL [Ultram] 100 mg PO Q6HR PRN 05/06/18 [History] Pantoprazole Sodium [Protonix] 40 mg PO BID #60 tablet. 05/08/18 [Rx] Apixaban [Eliquis] 2.5 mg PO BID 06/10/19 [History] Cannabidiol (Cbd) Extract [Epidiolex] 0 mg PO DAILY PRN 06/10/19 [History] Solifenacin Succinate [Vesicare] 5 mg PO 2030 06/10/19 [History] Metoprolol Tartrate 25 mg PO BID #60 tab 06/16/19 [Rx] Follow up Appointment(s)/Referral(s): Susanne Galan MD [STAFF PHYSICIAN] - 1 Week Discharge Disposition: HOME SELF-CARE
[2019-06-16] MEDS: METOPROLOL TARTRATE 25 MG TAB PO SCH (08:20)
[2019-06-16] MEDS: ALLOPURINOL 100 MG TAB PO SCH (08:20)
[2019-06-16] MEDS: GABAPENTIN 300 MG CAP PO SCH (08:21)
[2019-06-16] MEDS: ACETAMINOPHEN TAB 500 MG TAB PO SCH (08:21)
[2019-06-16] MEDS: glipiZIDE 5 MG TAB PO SCH (08:21)
[2019-06-16] MEDS: PANTOPRAZOLE 40 MG TABLET PO SCH (08:21)
[2019-06-16] MEDS: traMADol 50 MG TAB PO PRN (08:22)
[2019-06-16] MEDS ORDERED: amLODIPine 5 MG TAB PO SCH (09:00)
[2019-06-16] MEDS ORDERED: LISINOPRIL 20 MG TAB PO SCH (09:00)
--- NOTE | 2019-06-16 09:07 | XR ---
EXAMINATION TYPE: XR chest 2V DATE OF EXAM: 06/16/2019 COMPARISON: Prior chest x-ray 07/17/2012 HISTORY: Lead placement check TECHNIQUE: Frontal and lateral views of the chest are obtained. FINDINGS: There is been interval placement of a generator in the left pectoral region, lead is prese nt in the right ventricle. There are overlying cardiac leads. No evident pneumothorax or pleural effu bal. Prominence of pulmonary artery may be indicative of pulmonary artery hypertension. Aorta is den se. Heart size is within normal limits. There is spinal curvature. Arthropathy noted in the shoulders . IMPRESSION: No evident complication status post lead placement. Additional findings above.
== END 2019-06-16 10:32 | disposition home or self-care (01) ==
LOC: CATHEP 06:20 → 1SOBS 08:36 → CATHEP 06-16 10:32
PROVIDERS: ATTEND Internal Medicine Cardiovascular Disease
DX: I49.5 Sick sinus syndrome (principal); Z79.01 Long term (current) use of anticoagulants; Z79.84 Long term (current) use of oral hypoglycemic drugs; Z79.899 Other long term (current) drug therapy; I48.91 Unspecified atrial fibrillation
CPT/HCPCS: 33207; 71046; C1769 ×2; C1892; C1898; C1786; J0690 ×2; J2001; J3010; Q9967; J2250

== ENCOUNTER 2019-09-02 01:12 | Inpatient (IN) | payer MEDICARE ==
[2019-09-02 01:25] LABS: Glucose,Whole Blood 168 mg/dL (75-99)
[2019-09-02 01:32] LABS: Basophils # (A) 0.1 k/uL (0-0.2); Basophils % (A) 1 %; Eosinophils # (A) 0.4 k/uL (0-0.7); Eosinophils % (A) 4 %; HCT 36.5 % (34.0-46.0); HGB 11.6 gm/dL (11.4-16.0); Hypochromasia Slight; Lymphocytes # (A) 2.7 k/uL (1.0-4.8); Lymphocytes % (A) 28 %; MCHC 31.7 g/dL (31.0-37.0); MCV 88.5 fL (80.0-100.0); Mean Platelet Volume 7.7; Monocytes # (A) 0.6 k/uL (0-1.0); Monocytes % (A) 6 %; Neutrophils # (A) 5.8 k/uL (1.3-7.7); Neutrophils % (A) 60 %; Platelet Count 269 k/uL (150-450); RBC 4.13 m/uL (3.80-5.40); RDW 15.7 % (11.5-15.5); WBC 9.8 k/uL (3.8-10.6)
--- NOTE | 2019-09-02 01:37 | XR ---
EXAMINATION TYPE: XR chest 1V portable DATE OF EXAM: 09/02/2019 COMPARISON: 06/16/2019 HISTORY: Short of breath TECHNIQUE: Single view FINDINGS: There is coarse linear interstitial density in the mid and lower lung lewis. There is no d efinite heart failure. Costophrenic angles are fairly clear. There is a left axillary pacemaker with the lead tip in the right ventricle. There are chest leads. IMPRESSION: Patchy bilateral atelectasis is new compared to last exam. No obvious heart failure. Pace maker unchanged.
[2019-09-02 01:45] LABS: Albumin 4.1 g/dL (3.5-5.0); Calcium 9.1 mg/dL (8.4-10.2); Partial Thromboplastin Time 26.5 sec (22.0-30.0); Prothrombin Time 10.6 sec (9.0-12.0); Total Bilirubin 0.8 mg/dL (0.2-1.3)
[2019-09-02 01:55] LABS: D-Dimer 2.17 mg/L FEU (<0.60)
[2019-09-02 01:56] LABS: Potassium 4.3 mmol/L (3.5-5.1)
[2019-09-02] MEDS ORDERED: ENOXAPARIN 80 MG/0.8 ML SYRINGE SQ STA (01:56)
[2019-09-02] MEDS ORDERED: MORPHINE SULFATE 4 MG/ML SYRINGE IV STA (01:57)
[2019-09-02] MEDS ORDERED: NITROGLYCERIN OINT 1 INCH/GM PACKET TOPICAL STA (01:57)
--- NOTE | 2019-09-02 02:06 | ED ---
SOB HPI - General Chief Complaint: Shortness of Breath Stated Complaint: Resp failure Time Seen by Provider: 09/02/19 01:21 Source: patient, EMS Mode of arrival: EMS Limitations: no limitations - History of Present Illness Initial Comments: This patient is 74-year-old woman who presents by ambulance to be evaluated for shortness of breath. The patient states that her symptoms had started approximately 4 hours ago with a little bit of shortness of breath and then seemed to progress over the next few hours. She had not had preceding fever or chills. No cough. No chest pain. Patient denies change in urination, leg pain or swelling. MD Complaint: shortness of breath Onset/Timin -: hour(s) Consistency: constant Improves With: oxygen Associated Symptoms: cough Treatments Prior to Arrival: bronchodilator, NIPPV - Related Data Home Oxygen Therapy: No Home Medications Medication Instructions Recorded Confirmed Allopurinol [Zyloprim] 100 mg PO BID 07/05/16 06/15/19 Lisinopril [Prinivil] 20 mg PO QAM 07/05/16 06/15/19 amLODIPine BESYLATE [Norvasc] 5 mg PO QAM 07/05/16 06/15/19 glipiZIDE [Glucotrol] 5 mg PO QAM 07/05/16 06/15/19 Gabapentin [Neurontin] 300 mg PO BID 09/13/17 06/15/19 Lovastatin [Mevacor] 40 mg PO HS 09/13/17 06/15/19 Acetaminophen [Tylenol Arthritis] 1,300 mg PO BID 05/06/18 06/15/19 traMADol HCL [Ultram] 100 mg PO Q6HR PRN 05/06/18 06/15/19 Apixaban [Eliquis] 2.5 mg PO BID 06/10/19 06/15/19 Cannabidiol (Cbd) Extract 0 mg PO DAILY PRN 06/10/19 06/15/19 [Epidiolex] Solifenacin Succinate [Vesicare] 5 mg PO 2030 06/10/19 06/15/19 Previous Rx's Medication Instructions Recorded Pantoprazole Sodium [Protonix] 40 mg PO BID #60 tablet. 05/08/18 Metoprolol Tartrate 25 mg PO BID #60 tab 06/16/19 Allergies Allergy/AdvReac Type Severity Reaction Status Date / Time erythromycin base Allergy Severe TONGUE Verified 06/10/19 15:40 SWELLS gatifloxacin [From Tequin] Allergy Severe TONGUE Verified 06/10/19 15:40 SWELLS aspirin AdvReac Nausea Verified 06/10/19 15:46 Review of Systems ROS Statement: Those systems with pertinent positive or pertinent negative responses have been documented in the HPI. ROS Other: All systems not noted in ROS Statement are negative. Constitutional: Denies: fever, chills Respiratory: Reports: dyspnea. Denies: cough, hemoptysis Cardiovascular: Reports: orthopnea. Denies: chest pain, palpitations, edema, syncope Gastrointestinal: Denies: abdominal pain, vomiting, diarrhea, melena, hematochezia Genitourinary: Denies: dysuria, hematuria Musculoskeletal: Denies: back pain Skin: Denies: rash Neurological: Denies: headache, weakness Past Medical History Past Medical History: Atrial Fibrillation, Blood Disorder, CVA/TIA, Diabetes Mellitus, GERD/Reflux, Hyperlipidemia, Hypertension, Osteoarthritis (OA), Pneumonia, Renal Disease, Vascular Disorder Additional Past Medical History / Comment(s): TIA 2011-no residual effects, varicose veins, constipation, hx frequent nighttime urination, urinary leakage, constipation, gout, hx anemia, History of Any Multi-Drug Resistant Organisms: None Reported Past Surgical History: Appendectomy, Bladder Surgery, Breast Surgery, H ysterectomy, Tonsillectomy Additional Past Surgical History / Comment(s): left oophorectomy, martinez breast implants, bladder suspension Past Anesthesia/Blood Transfusion Reactions: No Reported Reaction Past Psychological History: No Psychological Hx Reported Smoking Status: Former smoker Past Alcohol Use History: None Reported Past Drug Use History: Marijuana - Past Family History Father History Unknown: Yes Family Medical History: Cancer Additional Family Medical History / Comment(s): lung General Exam Limitations: no limitations General appearance: alert, in distress Head exam: Present: atraumatic, normocephalic Eye exam: Present: normal appearance. Absent: scleral icterus, conjunctival injection Neck exam: Present: normal inspection Respiratory exam: Present: respiratory distress, wheezes, rales, accessory muscle use. Absent: rhonchi, stridor, decreased breath sounds, prolonged expiratory Cardiovascular Exam: Present: regular rate, normal rhythm, normal heart sounds. Absent: systolic murmur, diastolic murmur, rubs, gallop GI/Abdominal exam: Present: soft. Absent: distended, tenderness, guarding, rebound, rigid Extremities exam: Present: normal inspection, normal capillary refill. Absent: pedal edema, calf tenderness Back exam: Present: normal inspection. Absent: CVA tenderness (R), CVA tenderness (L) Neurological exam: Present: alert Skin exam: Present: warm, dry, intact, normal color. Absent: rash Course Vital Signs 09/02/19 01:14 Temperature 97.6 F Pulse Rate 95 Respiratory 23 Rate Blood Pressure 150/80 O2 Sat by Pulse 93 L Oximetry Medical Decision Making - Medical Decision Making Patient is 74-year-old woman presenting by ambulance for dyspnea. At this point suspect is multifactorial in origin. There appears to be component of acute exacerbation CHF. Based on patient's history suspect there is also some underlying pulmonary hypertension and possibly some underlying COPD. The patient's vital signs are improving with the BiPAP and patient be admitted for further evaluation and treatment. - Lab Data Result diagrams: 09/02/19 01:15 09/02/19 01:15 Lab Results 09/02/19 09/02/19 09/02/19 Range/Units 01:15 01:15 01:15 WBC 9.8 (3.8-10.6) k/uL RBC 4.13 (3.80-5.40) m/uL Hgb 11.6 (11.4-16.0) gm/dL Hct 36.5 (34.0-46.0) % MCV 88.5 (80.0-100.0) fL MCH 28.0 (25.0-35.0) pg MCHC 31.7 (31.0-37.0) g/dL RDW 15.7 H (11.5-15.5) % Plt Count 269 (150-450) k/uL Neutrophils % 60 % Lymphocytes % 28 % Monocytes % 6 % Eosinophils % 4 % Basophils % 1 % Neutrophils # 5.8 (1.3-7.7) k/uL Lymphocytes # 2.7 (1.0-4.8) k/uL Monocytes # 0.6 (0-1.0) k/uL Eosinophils # 0.4 (0-0.7) k/uL Basophils # 0.1 (0-0.2) k/uL Hypochromasia Slight PT 10.6 (9.0-12.0) sec INR 1.0 (<1.2) APTT 26.5 (22.0-30.0) sec D-Dimer 2.17 H (<0.60) mg/L FEU Sodium 139 (137-145) mmol/L Potassium 4.3 (3.5-5.1) mmol/L Chloride 104 (98-107) mmol/L Carbon Dioxide 24 (22-30) mmol/L Anion Gap 11 mmol/L BUN 30 H (7-17) mg/dL Creatinine 1.31 H (0.52-1.04) mg/dL Est GFR (CKD-EPI)AfAm 46 (>60 ml/min/1.73 sqM) Est GFR (CKD-EPI)NonAf 40 (>60 ml/min/1.73 sqM) Glucose 174 H (74-99) mg/dL POC Glucose (mg/dL) (75-99) mg/dL POC Glu Battery Mechanic ID Plasma Lactic Acid Ariel (0.7-2.0) mmol/L Calcium 9.1 (8.4-10.2) mg/dL Total Bilirubin 0.8 (0.2-1.3) mg/dL AST 23 (14-36) U/L ALT 15 (9-52) U/L Alkaline Phosphatase 86 (38-126) U/L Troponin I (0.000-0.034) ng/mL NT-Pro-B Natriuret Pep pg/mL Total Protein 8.0 (6.3-8.2) g/dL Albumin 4.1 (3.5-5.0) g/dL 09/02/19 09/02/19 09/02/19 Range/Units 01:15 01:15 01:15 WBC (3.8-10.6) k/uL RBC (3.80-5.40) m/uL Hgb (11.4-16.0) gm/dL Hct (34.0-46.0) % MCV (80.0-100.0) fL MCH (25.0-35.0) pg MCHC (31.0-37.0) g/dL RDW (11.5-15.5) % Plt Count (150-450) k/uL Neutrophils % % Lymphocytes % % Monocytes % % Eosinophils % % Basophils % % Neutrophils # (1.3-7.7) k/uL Lymphocytes # (1.0-4.8) k/uL Monocytes # (0-1.0) k/uL Eosinophils # (0-0.7) k/uL Basophils # (0-0.2) k/uL Hypochromasia PT (9.0-12.0) sec INR (<1.2) APTT (22.0-30.0) sec D-Dimer (<0.60) mg/L FEU Sodium (137-145) mmol/L Potassium (3.5-5.1) mmol/L Chloride (98-107) mmol/L Carbon Dioxide (22-30) mmol/L Anion Gap mmol/L BUN (7-17) mg/dL Creatinine (0.52-1.04) mg/dL Est GFR (CKD-EPI)AfAm (>60 ml/min/1.73 sqM) Est GFR (CKD-EPI)NonAf (>60 ml/min/1.73 sqM) Glucose (74-99) mg/dL POC Glucose (mg/dL) (75-99) mg/dL POC Glu Battery Mechanic ID Plasma Lactic Acid Ariel 1.6 (0.7-2.0) mmol/L Calcium (8.4-10.2) mg/dL Total Bilirubin (0.2-1.3) mg/dL AST (14-36) U/L ALT (9-52) U/L Alkaline Phosphatase (38-126) U/L Troponin I 0.020 (0.000-0.034) ng/mL NT-Pro-B Natriuret Pep 1970 pg/mL Total Protein (6.3-8.2) g/dL Albumin (3.5-5.0) g/dL 09/02/19 Range/Units 01:22 WBC (3.8-10.6) k/uL RBC (3.80-5.40) m/uL Hgb (11.4-16.0) gm/dL Hct (34.0-46.0) % MCV (80.0-100.0) fL MCH (25.0-35.0) pg MCHC (31.0-37.0) g/dL RDW (11.5-15.5) % Plt Count (150-450) k/uL Neutrophils % % Lymphocytes % % Monocytes % % Eosinophils % % Basophils % % Neutrophils # (1.3-7.7) k/uL Lymphocytes # (1.0-4.8) k/uL Monocytes # (0-1.0) k/uL Eosinophils # (0-0.7) k/uL Basophils # (0-0.2) k/uL Hypochromasia PT (9.0-12.0) sec INR (<1.2) APTT (22.0-30.0) sec D-Dimer (<0.60) mg/L FEU Sodium (137-145) mmol/L Potassium (3.5-5.1) mmol/L Chloride (98-107) mmol/L Carbon Dioxide (22-30) mmol/L Anion Gap mmol/L BUN (7-17) mg/dL Creatinine (0.52-1.04) mg/dL Est GFR (CKD-EPI)AfAm (>60 ml/min/1.73 sqM) Est GFR (CKD-EPI)NonAf (>60 ml/min/1.73 sqM) Glucose (74-99) mg/dL POC Glucose (mg/dL) 168 H (75-99) mg/dL POC Glu Battery Mechanic Sonal Trevino Plasma Lactic Acid Ariel (0.7-2.0) mmol/L Calcium (8.4-10.2) mg/dL Total Bilirubin (0.2-1.3) mg/dL AST (14-36) U/L ALT (9-52) U/L Alkaline Phosphatase (38-126) U/L Troponin I (0.000-0.034) ng/mL NT-Pro-B Natriuret Pep pg/mL Total Protein (6.3-8.2) g/dL Albumin (3.5-5.0) g/dL - EKG Data -: EKG Interpreted by Me Interpretation: other (Paced rhythm rate approximate 92 bpm.) Critical Care Time Critical Care Time: Yes (35 minutes) Disposition Clinical Impression: Congestive heart failure, Dyspnea Disposition: ADMITTED IP TO THIS [facility] Condition: Poor Referrals: David Turner DO [Primary Care Provider] - 1-2 days
[2019-09-02] MEDS ORDERED: traMADol 50 MG TAB PO PRN (06:00)
[2019-09-02] MEDS ORDERED: amLODIPine 5 MG TAB PO SCH (09:00)
[2019-09-02] MEDS ORDERED: APIXABAN 2.5 MG TABLET PO SCH (09:00)
[2019-09-02] MEDS ORDERED: METOPROLOL TARTRATE 25 MG TAB PO SCH (09:00)
--- NOTE | 2019-09-02 10:01 | NM ---
EXAMINATION TYPE: NM pul vent and perfuse DATE OF EXAM: 09/02/2019 COMPARISON: NONE HISTORY: Shortness of breath rule out PE TECHNIQUE: Utilizing inhalation of 35.1 mCi Tc 99m DTPA aerosol and intravenous injection of 5.02 mC i of Tc 99m MAA, ventilation and perfusion images are acquired post injection in multiple projections . FINDINGS: There is central distribution radiotracer compatible with COPD. No perfusion ventilation mismatches a re identified. IMPRESSION: Low probability for PE
[2019-09-02] MEDS: ACETAMINOPHEN TAB 500 MG TAB PO SCH ×2 (10:07→20:34)
[2019-09-02] MEDS: GABAPENTIN 300 MG CAP PO SCH ×2 (10:08→20:33)
[2019-09-02] MEDS: amLODIPine 5 MG TAB PO SCH ×2 (10:08→20:33)
[2019-09-02] MEDS: ALLOPURINOL 100 MG TAB PO SCH ×2 (10:08→20:32)
[2019-09-02] MEDS: LISINOPRIL 20 MG TAB PO SCH (10:09)
[2019-09-02] MEDS: PANTOPRAZOLE 40 MG TABLET PO SCH ×2 (10:09→20:33)
[2019-09-02] MEDS: METOPROLOL TARTRATE 25 MG TAB PO SCH ×3 (10:10→20:33)
[2019-09-02] MEDS: NITROGLYCERIN OINT 1 INCH/GM PACKET TOPICAL SCH ×4 (10:12→22:16)
[2019-09-02] MEDS ORDERED: NON FORMULARY DRUG (Glipizide Xl 5 MG) PO SCH (10:15)
[2019-09-02 12:48] LABS: Glucose,Whole Blood 220 mg/dL (75-99)
[2019-09-02 12:48] LABS: Glucose,Whole Blood 265 mg/dL (75-99)
[2019-09-02] MEDS: INSULIN ASPART (NovoLOG) 100 UNIT/ML VIAL SQ SCH ×3 (13:01→20:33)
[2019-09-02] MEDS ORDERED: FUROSEMIDE 10 MG/ML 2 ML VIAL IV SCH (14:15)
[2019-09-02 17:03] LABS: Glucose,Whole Blood 230 mg/dL (75-99)
--- NOTE | 2019-09-02 19:08 | CONS ---
CONSULTATION Mrs. Bassett is a 74-year-old female who is seen for cardiac evaluation in the emergency room. This patient presented to the emergency room with a complaint of shortness of breath for a few hours prior to coming to the emergency room. When the EMS arrived, the patient was in atrial fibrillation with a rapid ventricular response and patient had some associated cough and wheezing. Patient was given nebulizer, with relief of the symptoms, and subsequently patient came to the ER. Patient did not complain of any chest pain. The patient does not smoke. There is no definite prior history of COPD. 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 Patient's home medications include: 1. Zyloprim 100 mg b.i.d. 2. Lisinopril 20 mg daily. 3. Norvasc 5 mg daily. 4. Glucotrol 5 mg daily. 5. Mevacor 40 mg daily. 6. Eliquis 2.5 mg b.i.d. 7. VESIcare. PAST MEDICAL HISTORY: Past medical history includes: 1. History of TIA in 2011. 2. History of atrial fibrillation. 3. History of blood disorder. 4. History of renal disease. 5. Osteoarthritis. 6. Varicose veins. 7. Incontinence of urine. 8. History of appendicectomy. 9. Bladder surgery. 10.Left oophorectomy. 11.Bilateral breast implants. 12.Bladder suspension. PHYSICAL EXAMINATION: Physical examination at present reveals a 74-year-old female who at present does not appear to be in any acute distress. Patient currently has a paced rhythm. Her heart rate is 70 to 100 per minute. Blood pressure is 150/80 mmHg. Her oxygen saturation in the emergency room was 93%. Head and ENT examination is negative. Neck is supple. There is no increase in jugular venous pressure. Both the carotid pulses are felt. There is no bruit. Chest is symmetrical. HEART: The PMI is not felt. First and second heart sounds are heard. Lungs reveal bilateral scattered wheezes. Abdomen is soft. EXTREMITIES: Peripheral pulsations are 1+. Patient's chest x-ray did not show any evidence of acute heart failure. Patient's BNP level is only mildly elevated. The initial monitor strip from the emergency notes was reviewed, which showed evidence of atrial fibrillation with a rapid ventricular response. Patient had a mildly elevated D-dimer, underwent a V/Q scan which showed low probability of pulmonary embolism. FINAL IMPRESSION: This patient is admitted with symptoms of shortness of breath which is most likely secondary to atrial fibrillation with a rapid ventricular response. At present patient's heart rate is under control. There is no evidence of any significant overt heart failure. The patient has a mildly elevated BNP level at present which is predominantly in paced rhythm. RECOMMENDATIONS: We will continue the current medications. Lopressor 25 mg t.i.d. will be continued to control her heart rate. We will give Lasix 20 mg IV. Apixaban will be increased to 5 mg b.i.d. Echo and Doppler study will be done. [id number] / IJN: [id number] /
[2019-09-02] MEDS: SOLIFENACIN SUCCINATE 5 MG PO SCH (20:23)
[2019-09-02 20:29] LABS: Glucose,Whole Blood 285 mg/dL (75-99)
[2019-09-02] MEDS: APIXABAN 5 MG TAB PO SCH (20:33)
[2019-09-02] MEDS: ATORVASTATIN 10 MG TAB PO SCH (20:33)
[2019-09-02] MEDS ORDERED: INSULIN ASPART (NovoLOG) 100 UNIT/ML VIAL SQ SCH (21:00)
--- NOTE | 2019-09-02 21:01 | P.HPIM ---
History of Present Illness H&P Date: 09/02/19 Chief Complaint: short of breath History of presenting complaint: This is a very pleasant 74-year-old patient of Dr. oliver. Chronic stable medical conditions include diabetes, fibromyalgia, GERD, hypertension, hyperlipidemia, osteoarthritis, peripheral neuropathy. Patient is on pacemaker. Also as chronic kidney disease stage III. Patient's is an ex-smoker. Patient about a day ago started becoming increasingly short of breath. Her other congested. Had a wet cough. Also has lower extremity edema which has been coming on for some time. There is no fever no chills. Appetite has been okay. Some wheezing shortness of breath. No chest pressure. Presented to the ER. Review of systems: GEN.: Tired EYES: None HEENT: None NECK: None RESPIRATORY: As above] CARDIOVASCULAR: None GASTROINTESTINAL: None GENITOURINARY: Urinary incontinence MUSCULOSKELETAL: Joint pains LYMPHATICS: None HEMATOLOGICAL: None PSYCHIATRY: None NEUROLOGICAL: [Some numbness peripheral Social history: Lives alone. Does use a cane. Smoked up to 2 packs a day for over 50 years stopped in 2011. No alcohol. Does use marijuana and CBD oil. Physical examination: VITAL SIGNS: 97.6, 95, 23, 150/80, 93% on CPAP GENERAL: BMI 27.1, laying in bed short of breath. EYES: Pupils equal. Conjunctiva normal. HEENT: External appearance of nose and ears normal, oral cavity grossly normal. NECK: JVDy unable to assess; masses not palpable. HEART: First and second heart sounds are normal; edema present. LUNGS: Respiratory rate increased; scattered crackles and some wheezing. ABDOMEN: Soft, nontender, liver spleen not palpable, no masses palpable. PSYCH: Alert and oriented x3; mood and affect tiredl. NEUROLOGICAL: Cranial nerves grossly intact; no facial asymmetry, power and sensation grossly intact. LYMPHATICS: No lymph nodes palpable in the axilla and neck. MUSCULOSKELETAL: Evidence of OA especially in the hands INVESTIGATIONS, reviewed in the clinical context: White count 9.8 hemoglobin 11.6 potassium 4.3 bun 30 creatinine 1.3 ProBNP 1970 Troponin I 0.020, 0.034, 0.019 Chest x-ray film personally reviewed by me-bilateral pulmonary edema with infiltrates EKG tracing personally reviewed by me-paced rhythm Assessment: -Bilateral pneumonia suspect gram-negative organism -Acute on chronic congestive heart failure exacerbation EF not known -Acute COPD exacerbation in an ex-smoker -Persistent atrial flutter fibrillation chronically on eliquis -Diabetes mellitus type 2 -Chronic fibromyalgia -GERD -Hyperlipidemia -Essential hypertension -Primary osteoarthritis -Chronic kidney disease stage III from diabetic nephropathy and hypertensive nephrosclerosis -Permanent pacemaker extremity peripheral neuropathy -Rotator cuff dysfunction, left -Chronic urinary stress incontinence chronic gout -Chronic gait dysfunction uses a cane Plan: -Essential clear if there was a significant amount of CHF. We'll give the patient Lasix drip overnight and see how she responds for the same. Patient also put on IV antibiotics form of ceftriaxone. Also put on nebulized bro nchodilators inhaled and IV steroids. Home medications are to be continued. Care was discussed with the patient. Questions were answered. Consultation to cardiology was bit. Past Medical History Past Medical History: Atrial Fibrillation, Atrial Flutter, Blood Disorder, Cancer, CVA/TIA, Diabetes Mellitus, Fibromyalgia, GERD/Reflux, Hyperlipidemia, Hypertension, Osteoarthritis (OA), Pneumonia, Renal Disease, Vascular Disorder Additional Past Medical History / Comment(s): 05/2019 admitted with SSS and had pacer insertion, 2011 TIA, NIDDM tyep II, neuropathy bilateral feet, arthritis bilateral hands/knees, L rotator cuff problem, bronchitis, CKD stage III, UTI, urinary leakage at times, anemia with iron infusions in the past, skin cancer with removals, varicosities bilateral legs, constipation, gout bilateral feet, History of Any Multi-Drug Resistant Organisms: None Reported Past Surgical History: Appendectomy, Bladder Surgery, Breast Surgery, Hysterectomy, Tonsillectomy Additional Past Surgical History / Comment(s): 06/15/19 pacemaker, bladder suspension, bilateral breast implants, L oophorectomy, colonoscopies, skin cancer removals, L leg varicose vein stripping, cystoscopy. Past Anesthesia/Blood Transfusion Reactions: No Reported Reaction Smoking Status: Former smoker - Past Family History Father History Unknown: Yes Family Medical History: Cancer Additional Family Medical History / Comment(s): Father of lung cancer in his 40s. Mother Family Medical History: No Reported History Additional Family Medical History / Comment(s): Mother is 92 yrs old. Medications and Allergies Home Medications Medication Instructions Recorded Confirmed Type Allopurinol [Zyloprim] 100 mg PO BID 07/05/16 09/02/19 History Lisinopril [Prinivil] 20 mg PO QAM 07/05/16 09/02/19 History amLODIPine BESYLATE [Norvasc] 5 mg PO BID 07/05/16 09/02/19 History Gabapentin [Neurontin] 300 mg PO BID 09/13/17 09/02/19 History Lovastatin [Mevacor] 40 mg PO HS 09/13/17 09/02/19 History Acetaminophen [Tylenol Arthritis] 1,300 mg PO BID 05/06/18 09/02/19 History traMADol HCL [Ultram] 100 mg PO Q6HR PRN 05/06/18 09/02/19 History Pantoprazole Sodium [Protonix] 40 mg PO BID #60 tablet. 05/08/18 09/02/19 Rx Apixaban [Eliquis] 2.5 mg PO BID 06/10/19 09/02/19 History Solifenacin Succinate [Vesicare] 5 mg PO DAILY@2030 06/10/19 09/02/19 History Furosemide [Lasix] 20 mg PO Q48H 09/02/19 09/02/19 History Metoprolol Tartrate [Lopressor] 25 mg PO TID 09/02/19 09/02/19 History glipiZIDE XL [Glucotrol Xl] 5 mg PO DAILY 09/02/19 09/02/19 History Allergies Allergy/AdvReac Type Severity Reaction Status Date / Time erythromycin base Allergy Severe TONGUE Verified 09/02/19 07:10 SWELLS gatifloxacin [From Tequin] Allergy Severe TONGUE Verified 09/02/19 07:10 SWELLS aspirin AdvReac Nausea Verified 09/02/19 07:10 Physical Exam Vitals: Vital Signs Temp Pulse Pulse Resp BP BP Pulse Ox 09/02/19 17:02 98 F 85 20 144/78 94 L 09/02/19 15:31 97.9 F 88 14 126/82 96 09/02/19 15:06 62 16 09/02/19 12:00 98.2 F 62 16 119/62 95 09/02/19 10:20 76 18 128/55 98 09/02/19 08:00 98.5 F 80 18 136/71 96 09/02/19 06:17 97 09/02/19 06:00 86 24 129/69 96 09/02/19 01:14 97.6 F 95 23 150/80 93 L Intake and Output 09/02/19 09/02/19 09/02/19 06:59 14:59 22:59 Intake Total 480 236 Balance 480 236 Intake: Oral 480 236 Other: # Voids 2 2 Weight 71.668 kg 71.668 kg Results CBC & Chem 7: 09/02/19 01:15 09/02/19 01:15 Labs: Abnormal Lab Results - Last 24 Hours (Table) 09/02/19 09/02/19 09/02/19 Range/Units 01:15 01:15 01:15 RDW 15.7 H (11.5-15.5) % D-Dimer 2.17 H (<0.60) mg/L FEU BUN 30 H (7-17) mg/dL Creatinine 1.31 H (0.52-1.04) mg/dL Glucose 174 H (74-99) mg/dL POC Glucose (mg/dL) (75-99) mg/dL 09/02/19 09/02/19 09/02/19 Range/Units 01:22 12:45 12:46 RDW (11.5-15.5) % D-Dimer (<0.60) mg/L FEU BUN (7-17) mg/dL Creatinine (0.52-1.04) mg/dL Glucose (74-99) mg/dL POC Glucose (mg/dL) 168 H 220 H 265 H (75-99) mg/dL 09/02/19 09/02/19 Range/Units 17:02 20:28 RDW (11.5-15.5) % D-Dimer (<0.60) mg/L FEU BUN (7-17) mg/dL Creatinine (0.52-1.04) mg/dL Glucose (74-99) mg/dL POC Glucose (mg/dL) 230 H 285 H (75-99) mg/dL Thrombosis Risk Factor Assmnt - Choose All That Apply Any of the Below Risk Factors Present?: Yes Each Factor Represents 1 point: Heart failure (<1month), Obesity (BMI >25), Varicose veins Other Risk Factors: Yes Each Risk Factor Represents 2 Points: Age 61-74 years Other congenital or acquired thrombophilia - If yes, enter type in comment: No Thrombosis Risk Factor Assessment Total Risk Factor Score: 5 Thrombosis Risk Factor Assessment Level: High Risk
[2019-09-02] MEDS: FUROSEMIDE 100 MG in SODIUM CHLORIDE 0.9% 90 ML IV SCH (21:04)
[2019-09-02] MEDS: methylPREDNISolone SOD SUCCI 40 MG/ML 1 ML VIAL IV SCH ×2 (21:04→23:28)
[2019-09-02] MEDS: BUDESONIDE 1 MG/2 ML NEBU INHALATION SCH (21:06)
[2019-09-02] MEDS: IPRATROPIUM-ALBUTEROL 3 ML NEB INHALATION SCH (21:06)
[2019-09-03] MEDS: FUROSEMIDE 100 MG in SODIUM CHLORIDE 0.9% 90 ML IV SCH (03:23)
[2019-09-03 06:09] LABS: Glucose,Whole Blood 272 mg/dL (75-99)
[2019-09-03] MEDS: INSULIN ASPART (NovoLOG) 100 UNIT/ML VIAL SQ SCH ×4 (06:22→22:16)
[2019-09-03] MEDS: IPRATROPIUM-ALBUTEROL 3 ML NEB INHALATION SCH ×4 (08:25→20:27)
[2019-09-03] MEDS: BUDESONIDE 1 MG/2 ML NEBU INHALATION SCH ×2 (08:25→20:27)
[2019-09-03] MEDS: amLODIPine 5 MG TAB PO SCH ×2 (08:35→22:15)
[2019-09-03] MEDS: LISINOPRIL 20 MG TAB PO SCH (08:35)
[2019-09-03] MEDS: APIXABAN 5 MG TAB PO SCH ×2 (08:35→22:14)
[2019-09-03] MEDS: ALLOPURINOL 100 MG TAB PO SCH ×2 (08:35→22:14)
[2019-09-03] MEDS: METOPROLOL TARTRATE 25 MG TAB PO SCH ×3 (08:35→22:15)
[2019-09-03] MEDS: GABAPENTIN 300 MG CAP PO SCH ×2 (08:35→22:13)
[2019-09-03] MEDS: PANTOPRAZOLE 40 MG TABLET PO SCH ×2 (08:35→22:15)
[2019-09-03] MEDS: methylPREDNISolone SOD SUCCI 40 MG/ML 1 ML VIAL IV SCH ×2 (08:36→17:41)
[2019-09-03] MEDS: NITROGLYCERIN OINT 1 INCH/GM PACKET TOPICAL SCH ×3 (08:36→17:41)
[2019-09-03] MEDS: ACETAMINOPHEN TAB 500 MG TAB PO SCH ×2 (08:38→22:14)
--- NOTE | 2019-09-03 09:51 | ECHOF ---
Referral Reason:chf MEASUREMENTS -------- HEIGHT: 162.6 cm WEIGHT: 71.7 kg BP: RVIDd: 3.6 cm (< 3.3) IVSd: 1.6 cm (0.6 - 1.1) LVIDd: 3.6 cm (3.9 - 5.3) LVPWd: 1.6 cm (0.6 - 1.1) IVSs: 1.9 cm LVIDs: 2.1 cm LVPWs: 2.0 cm LAESV Index (A-L): 43.61 ml/m Ao Diam: 2.8 cm (2.0 - 3.7) AV Cusp: 1.9 cm (1.5 - 2.6) LA Diam: 2.9 cm (2.7 - 3.8) MV EXCURSION: 11.106 mm (> 18.000) MV EF SLOPE: 61 mm/s (70 - 150) EPSS: 0.8 cm MV E Tigre: 1.01 m/s MV DecT: 175 ms MV A Tigre: 0.56 m/s MV E/A Ratio: 1.80 RAP: 15.00 mmHg RVSP: 44.04 mmHg TAPSE: 23.97 mm FINDINGS -------- Sinus rhythm. This was a technically good study. The left ventricular size is normal. There is moderate concentric left ventricular hypertrophy. O verall left ventricular systolic function is normal with, an EF between 55 - 60 %. Normal LAP Grade 1 Diastolic Dysfunction. The right ventricle is mildly enlarged. The right ventricular systolic function is normal. LA is severely dilated >40 ml/m2 The right atrial size is normal. Interatrial and interventricular septum intact. The aortic valve is trileaflet and appears structurally normal. The mitral valve is normal. The mitral valve leaflets are mildly thickened. [id number] mitr al regurgitation is present. The tricuspid valve appears structurally normal. Moderate tricuspid regurgitation present. There is mild pulmonary hypertension. The right ventricular systolic pressure, as measured by Doppler, is 44.04mmHg. There is no pulmonic regurgitation present. The aortic root size is normal. The inferior vena cava is mildly dilated. There is no pericardial effusion. CONCLUSIONS -------- 1. Sinus rhythm. 2. This was a technically good study. 3. The left ventricular size is normal. 4. There is moderate concentric left ventricular hypertrophy. 5. Overall left ventricular systolic function is normal with, an EF between 55 - 60 %. 6. Normal LAP Grade 1 Diastolic Dysfunction. 7. The right ventricle is mildly enlarged. 8. The right ventricular systolic function is normal. 9. LA is severely dilated >40 ml/m2 10. The right atrial size is normal. 11. Interatrial and interventricular septum intact. 12. The aortic valve is trileaflet and appears structurally normal. 13. The mitral valve is normal. 14. The mitral valve leaflets are mildly thickened. 15. [id number] mitral regurgitation is present. 16. The tricuspid valve appears structurally normal. 17. Moderate tricuspid regurgitation present. 18. There is mild pulmonary hypertension. 19. The right ventricular systolic pressure, as measured by Doppler, is 44.04mmHg. 20. There is no pulmonic regurgitation present. 21. The aortic root size is normal. 22. The inferior vena cava is mildly dilated. 23. There is no pericardial effusion. PSYCHOLOGY LECTURER: Svetlana Burk RDCS
[2019-09-03 11:57] LABS: Glucose,Whole Blood 251 mg/dL (75-99)
--- NOTE | 2019-09-03 12:20 | P.PN ---
Subjective Progress Note Date: 09/03/19 This is 74-year-old female who initially presented to the hospital with symptoms of shortness of breath. She was seen in consultation yesterday by Dr. VC Ortega. Does have history of prior pacemaker implantation for tachybradycardia syndrome, diabetes, hypertension, hyperlipidemia, paroxysmal A. fib, prior TIA, history of renal insufficiency. Dose of Eliquis was increased to 5 mg by mouth twice a day yesterday. Echocardiogram with Doppler study was performed which revealed an ejection fraction of 55-60% with mild to moderate mitral regurgitation and moderate tricuspid regurg. Blood pressure 132/60 with a heart rate in the 60s, 97% on 2 L of oxygen. Patient had been given a one- time dose of IV Lasix however she only had mild heart failure, mostly COPD. We'll discontinue the Lasix drip that was initiated and put the patient on 20 mg of by mouth Lasix, check lytes BUN and creatinine today. Objective - Vital Signs Vital signs: Vital Signs Temp 97.6 F 09/03/19 08:40 Pulse 70 09/03/19 12:07 Resp 16 09/03/19 08:40 BP 133/64 09/03/19 08:40 Pulse Ox 97 09/03/19 08:40 Intake & Output 09/02/19 09/03/19 09/03/19 18:59 06:59 18:59 Intake Total 716 680 118 Output Total 2049 Balance 716 -1370 118 Weight 71.668 kg 73 kg Intake: Intake, IV Titration 100 Amount Furosemide 100 mg In 100 Sodium Chloride 0.9% 90 ml @ 10 MG/HR 10 mls/hr IV .Q10H [facility] Rx#: [id number] Oral 716 580 118 Output: Urine 2049 Other: Voiding Method Toilet Toilet Bedside Commode Bedside Commode # Voids 2 2 - Exam PHYSICAL EXAMINATION: GENERAL: 84-year-old female in no acute distress at the time of my examination HEENT: Head is atraumatic, normocephalic. Pupils equal, round. Sclera anicteric. Conjunctiva are clear. Mucous membranes of the mouth are moist. Neck is supple. There is no elevated jugular venous pressure. No carotid bruit is heard. HEART EXAMINATION: Heart S1 S2 1 systolic murmur is heard CHEST EXAMINATION: Lungs are clear to auscultation ABDOMEN: Soft, nontender. Bowel sounds are heard. No organomegaly noted. EXTREMITIES: 2+ peripheral pulses with no evidence of peripheral edema and no calf tenderness noted. NEUROLOGIC patient is awake, alert and oriented 3 . . - Labs CBC & Chem 7: 09/02/19 01:15 09/02/19 01:15 Labs: Abnormal Lab Results - Last 24 Hours (Table) 09/02/19 09/02/19 09/02/19 Range/Units 12:45 12:46 17:02 POC Glucose (mg/dL) 220 H 265 H 230 H (75-99) mg/dL 09/02/19 09/03/19 09/03/19 Range/Units 20:28 06:07 11:50 POC Glucose (mg/dL) 285 H 272 H 251 H (75-99) mg/dL Assessment and Plan Plan: Assessment and plan #1 atrial fibrillation with rapid ventricular response #2 history of paroxysmal A. fib #3 symptoms of shortness of breath, mostly secondary to A. fib with RVR, no significant evidence of congestive cardiac failure #4 COPD #5 diabetes #6 hypertension #7 hyperlipidemia Plan We will discontinue the Lasix drip that was initiated and put the patient on 20 mg by mouth Lasix. Continue 5 mg of Eliquis one tablet by mouth twice a day. Check lytes BUN and creatinine today. DNP note has been reviewed, I agree with a documented findings and plan of care. Patient was seen and examined.
[2019-09-03 12:54] LABS: Calcium 10.1 mg/dL (8.4-10.2); Potassium 3.6 mmol/L (3.5-5.1)
[2019-09-03 15:11] VITALS: BMI 27.6
[2019-09-03 17:15] LABS: Glucose,Whole Blood 217 mg/dL (75-99)
--- NOTE | 2019-09-03 18:55 | P.PN ---
Progress Note - Text Progress Note Date: 09/03/19 Chief Complaint: short of breath interval history: This is a very pleasant 74-year-old patient of Dr. oliver. Chronic stable medical conditions include diabetes, fibromyalgia, GERD, hypertension, hyperlipidemia, osteoarthritis, peripheral neuropathy. Patient is on pacemaker. Also as chronic kidney disease stage III. Patient's is an ex-smoker. Patient about a day ago started becoming increasingly short of breath. Her other congested. Had a wet cough. Also has lower extremity edema which has been coming on for some time. There is no fever no chills. Appetite has been okay. Some wheezing shortness of breath. No chest pressure. Presented to the ER. admitted with-bilateral pneumonia, CHF exacerbation, COPD exacerbation. Treated with IV Lasix drip, nebulized bronchodilator steroids,IV ceftriaxone Today-.feeling better. Less short of breath. Decreased cough. Did tolerate some diet. Did make good urine with IV Lasix. Daughter is present. Review of systems: Was done for constitutional, cardiovascular, GI, pulmonary. relevant finding as above. Active Medications Acetaminophen (Tylenol Tab) 1,000 mg PO BID [facility] Last Admin: 09/03/19 08:38 Dose: Not Given Documented by: Albuterol/Ipratropium (Duoneb 0.5 Mg-3 Mg/3 Ml Soln) 3 ml INHALATION RT-QID [facility] Last Admin: 09/03/19 16:38 Dose: 3 ml Documented by: Allopurinol (Zyloprim) 100 mg PO BID [facility] Last Admin: 09/03/19 08:35 Dose: 100 mg Documented by: Amlodipine Besylate (Norvasc) 5 mg PO BID [facility] Last Admin: 09/03/19 08:35 Dose: 5 mg Documented by: Apixaban (Eliquis) 5 mg PO BID [facility] Last Admin: 09/03/19 08:35 Dose: 5 mg Documented by: Atorvastatin Calcium (Lipitor) 10 mg PO HS [facility] Last Admin: 09/02/19 20:33 Dose: 10 mg Documented by: Budesonide (Pulmicort) 1 mg INHALATION RT-BID [facility] Last Admin: 09/03/19 08:25 Dose: 1 mg Documented by: Furosemide (Lasix) 20 mg PO DAILY [facility] Gabapentin (Neurontin) 300 mg PO BID [facility] Last Admin: 09/03/19 08:35 Dose: 300 mg Documented by: Glipizide (Glucotrol) 2.5 mg PO AC-BID [facility] Last Admin: 09/03/19 17:41 Dose: 2.5 mg Documented by: Insulin Aspart (Novolog) 0 unit SQ ACHS [facility]; Protocol Last Admin: 09/03/19 17:41 Dose: 3 unit Documented by: Lisinopril (Zestril) 20 mg PO QAM [facility] Last Admin: 09/03/19 08:35 Dose: 20 mg Documented by: Metoprolol Tartrate (Lopressor) 25 mg PO TID [facility] Last Admin: 09/03/19 17:41 Dose: 25 mg Documented by: Non-Formulary Medication (Solifenacin Succinate [Vesicare]) 5 mg PO 2030 [facility] Last Admin: 09/02/19 20:23 Dose: Not Given Documented by: Pantoprazole Sodium (Protonix) 40 mg PO BID [facility] Last Admin: 09/03/19 08:35 Dose: 40 mg Documented by: Prednisone () 40 mg PO DAILY [facility] Sodium Chloride (Saline Flush) 10 ml IV BID [facility] Last Admin: 09/03/19 08:38 Dose: Not Given Documented by: Tramadol HCl (Ultram) 100 mg PO Q6HR PRN PRN Reason: Pain Physical examination: VITAL SIGNS: GENERAL: sitting at the edge of the bed, breathing better. EYES: Pupils equal. Conjunctiva normal. HEENT: External appearance of nose and ears normal, oral cavity grossly normal. NECK: JVDy unable to assess; masses not palpable. HEART: First and second heart sounds are normal; edema present. LUNGS: Respiratory rate better; decreased breath sounds, prolonged expiration. ABDOMEN: Soft, nontender, liver spleen not palpable, no masses palpable. PSYCH: Alert and oriented x3; mood and affect tiredl. . MUSCULOSKELETAL: Evidence of OA especially in the hands INVESTIGATIONS, reviewed in the clinical context: White count 9.8 hemoglobin 11.6 potassium 4.3 bun 30 creatinine 1.3 ProBNP 1970 Troponin I 0.020, 0.034, 0.019 Chest x-ray film personally reviewed by me-bilateral pulmonary edema with infiltrates EKG tracing personally reviewed by me-paced rhythm Assessment: -Bilateral pneumonia suspect gram-negative organism, responded -Acute on chronic congestive heart failure exacerbation from diastolic dysfunction EF 50-60%, improved -Acute COPD exacerbation in an ex-smoker, improving -Persistent atrial flutter fibrillation chronically on eliquis -Diabetes mellitus type 2 -Chronic fibromyalgia -GERD -Hyperlipidemia -Essential hypertension -Primary osteoarthritis -Chronic kidney disease stage III from diabetic nephropathy and hypertensive nephrosclerosis -Permanent pacemaker extremity peripheral neuropathy -Rotator cuff dysfunction, left -Chronic urinary stress incontinence chronic gout -Chronic gait dysfunction uses a cane Plan: seen by cardiology earlier today. Switch to by mouth Lasix. We'll switch the patient to by mouth prednisone. Repeat electrolytes, pro calcitonin and a proBNP the morning. Encouraged the patient to ambulate. Repeat chest x-ray in the morning. Care discussed with the patient daughter the bedside.
[2019-09-03 20:25] LABS: Glucose,Whole Blood 339 mg/dL (75-99)
[2019-09-03] MEDS: predniSONE 20 MG TAB PO SCH (22:13)
[2019-09-03] MEDS: SOLIFENACIN SUCCINATE 5 MG PO SCH (22:13)
[2019-09-03] MEDS: ATORVASTATIN 10 MG TAB PO SCH (22:15)
[2019-09-04 06:26] LABS: Glucose,Whole Blood 223 mg/dL (75-99)
[2019-09-04 06:28] LABS: Calcium 9.4 mg/dL (8.4-10.2); Potassium 3.7 mmol/L (3.5-5.1)
[2019-09-04] MEDS: INSULIN ASPART (NovoLOG) 100 UNIT/ML VIAL SQ SCH ×2 (06:47→12:31)
--- NOTE | 2019-09-04 06:50 | XR ---
EXAMINATION TYPE: XR chest 2V DATE OF EXAM: 09/04/2019 HISTORY: pneumonia/CHF. REFERENCE: Previous study dated 09/02/2019. FINDINGS: There is a unipolar pacemaker place on the left. Lung volumes are prominent. There is improved pulmonary vasculature and reduced interstitial change. Heart size upper limits of normal. There is increased opacity in the right CP angle which may represe nt fluid or a small patch of airspace disease. The overall appearance has improved. IMPRESSION: 1. RESOLVING CHANGES OF PULMONARY EDEMA. 2. RESIDUAL OPACITY, RIGHT CP ANGLE MAY REPRESENT FLUID OR SMALL PATCH OF AIRSPACE DISEASE.
[2019-09-04] MEDS: IPRATROPIUM-ALBUTEROL 3 ML NEB INHALATION SCH ×2 (08:30→13:14)
[2019-09-04] MEDS: BUDESONIDE 1 MG/2 ML NEBU INHALATION SCH (08:30)
[2019-09-04] MEDS ORDERED: FUROSEMIDE 20 MG TAB PO SCH (09:00)
[2019-09-04 09:04] VITALS: BP 129/58; PULSE 70; RESP 16; TEMP 97
[2019-09-04] MEDS: PANTOPRAZOLE 40 MG TABLET PO SCH (09:10)
[2019-09-04] MEDS: GABAPENTIN 300 MG CAP PO SCH (09:10)
[2019-09-04] MEDS: ACETAMINOPHEN TAB 500 MG TAB PO SCH (09:10)
[2019-09-04] MEDS: LISINOPRIL 20 MG TAB PO SCH (09:10)
[2019-09-04] MEDS: METOPROLOL TARTRATE 25 MG TAB PO SCH (09:11)
[2019-09-04] MEDS: APIXABAN 5 MG TAB PO SCH (09:11)
[2019-09-04] MEDS: predniSONE 20 MG TAB PO SCH (09:11)
[2019-09-04] MEDS: ALLOPURINOL 100 MG TAB PO SCH (09:11)
[2019-09-04] MEDS: amLODIPine 5 MG TAB PO SCH (09:11)
[2019-09-04 12:25] LABS: Glucose,Whole Blood 330 mg/dL (75-99)
--- NOTE | 2019-09-04 22:41 | P.DS ---
Providers Date of admission: 09/02/19 02:59 Expected date of discharge: 09/04/19 Attending physician: Bipin Rivera Consults: 09/02/19 02:58 Consult Physician Routine Consulting Provider: Linwood Savage Consult Reason/Comments: CHF Exacerbation Do you want consulting provider notified?: Yes Primary care physician: David Turner [facility] Course: Chief Complaint: short of breath Hospital course: This is a very pleasant 74-year-old patient of Dr. turner. Chronic stable medical conditions include diabetes, fibromyalgia, GERD, hypertension, hyperlipidemia, osteoarthritis, peripheral neuropathy. Patient is on pacemaker. Also as chronic kidney disease stage III. Patient's is an ex-smoker. Patient about a day ago started becoming increasingly short of breath. Her other congested. Had a wet cough. Also has lower extremity edema which has been coming on for some time. There is no fever no chills. Appetite has been okay. Some wheezing shortness of breath. No chest pressure. Presented to the ER. admitted with-bilateral pneumonia, CHF exacerbation, COPD exacerbation. Treated with IV Lasix drip, nebulized bronchodilator steroids,IV ceftriaxone today-care was discussed with the patient daughter. Did much better. Pulse ox was checked on room air. Doing well. Patient did walk on the hallway. Questions were answered. Chest x-ray improved. Discussion and discharge planning more than 35 minutes consultation: Dr. VC Ortega from cardiology Physical examination: VITAL SIGNS: 97, 70, 16, 129/58, 94% on room air GENERAL: sitting at the edge of the bed, comfortable EYES: Pupils equal. Conjunctiva normal. HEENT: External appearance of nose and ears normal, oral cavity grossly normal. NECK: JVDy unable to assess; masses not palpable. HEART: First and second heart sounds are normal; edema present. LUNGS: Respiratory rate normal; decreased breath sounds, ABDOMEN: Soft, nontender, liver spleen not palpable, no masses palpable. PSYCH: Alert and oriented x3; mood and affect tiredl. . MUSCULOSKELETAL: Evidence of OA especially in the hands INVESTIGATIONS, reviewed in the clinical context: Potassium 3.7 creatinine 1.3 on checks x-ray film personally reviewed by me shows much improved Previous testing White count 9.8 hemoglobin 11.6 potassium 4.3 bun 30 creatinine 1.3 ProBNP 1970 Troponin I 0.020, 0.034, 0.019 Chest x-ray film personally reviewed by me-bilateral pulmonary edema with infiltrates EKG tracing personally reviewed by me-paced rhythm Assessment: -Bilateral pneumonia suspect gram-negative organism, improved -Acute on chronic congestive heart failure exacerbation from diastolic dysfunction EF 50-60%, improved -Acute COPD exacerbation in an ex-smoker,improved -Persistent atrial flutter fibrillation chronically on eliquis -Diabetes mellitus type 2 -Chronic fibromyalgia -GERD -Hyperlipidemia -Essential hypertension -Primary osteoarthritis -Chronic kidney disease stage III from diabetic nephropathy and hypertensive nephrosclerosis -Permanent pacemaker extremity peripheral neuropathy -Rotator cuff dysfunction, left -Chronic urinary stress incontinence chronic gout -Chronic gait dysfunction uses a cane disposition: Home Plan - Discharge Summary Discharge Rx Participant: No New Discharge Prescriptions: New Cefuroxime Axetil [Ceftin] 500 mg PO BID 3 Days #6 tab predniSONE 0 mg PO DIRECTED #10 tab Ipratropium Milton [Atrovent Hfa] 2 puff INHALATION QID #1 inhaler Albuterol Inhaler [Ventolin Hfa Inhaler] 1 - 2 puff INHALATION RT-Q6H PRN #1 inhaler PRN Reason: Wheezing Continue Lisinopril [Prinivil] 20 mg PO QAM Allopurinol [Zyloprim] 100 mg PO BID amLODIPine BESYLATE [Norvasc] 5 mg PO BID Lovastatin [Mevacor] 40 mg PO HS Gabapentin [Neurontin] 300 mg PO BID traMADol HCL [Ultram] 100 mg PO Q6HR PRN PRN Reason: Pain Acetaminophen [Tylenol Arthritis] 1,300 mg PO BID Pantoprazole Sodium [Protonix] 40 mg PO BID #60 tablet. Apixaban [Eliquis] 2.5 mg PO BID Solifenacin Succinate [Vesicare] 5 mg PO DAILY@2029 Metoprolol Tartrate [Lopressor] 25 mg PO TID glipiZIDE XL [Glucotrol XL] 5 mg PO DAILY Changed Furosemide [Lasix] 20 mg PO DAILY #0 Discharge Medication List Allopurinol [Zyloprim] 100 mg PO BID 07/05/16 [History] Lisinopril [Prinivil] 20 mg PO QAM 07/05/16 [History] amLODIPine BESYLATE [Norvasc] 5 mg PO BID 07/05/16 [History] Gabapentin [Neurontin] 300 mg PO BID 09/13/17 [History] Lovastatin [Mevacor] 40 mg PO HS 09/13/17 [History] Acetaminophen [Tylenol Arthritis] 1,300 mg PO BID 05/06/18 [History] traMADol HCL [Ultram] 100 mg PO Q6HR PRN 05/06/18 [History] Pantoprazole Sodium [Protonix] 40 mg PO BID #60 tablet. 05/08/18 [Rx] Apixaban [Eliquis] 2.5 mg PO BID 06/10/19 [History] Solifenacin Succinate [Vesicare] 5 mg PO DAILY@2030 06/10/19 [History] Metoprolol Tartrate [Lopressor] 25 mg PO TID 09/02/19 [History] glipiZIDE XL [Glucotrol XL] 5 mg PO DAILY 09/02/19 [History] Albuterol Inhaler [Ventolin Hfa Inhaler] 1 - 2 puff INHALATION RT-Q6H PRN #1 in haler 09/04/19 [Rx] Cefuroxime Axetil [Ceftin] 500 mg PO BID 3 Days #6 tab 09/04/19 [Rx] Furosemide [Lasix] 20 mg PO DAILY #0 09/04/19 [Rx] Ipratropium Milton [Atrovent Hfa] 2 puff INHALATION QID #1 inhaler 09/04/19 [Rx] predniSONE 0 mg PO DIRECTED #10 tab 09/04/19 [Rx] Follow up Appointment(s)/Referral(s): David Turner DO [Primary Care Provider] - 3 Days (call office when open to schedule follow up) Patient Instructions/Handouts: Heart Failure (DC), Dyspnea (DC) Discharge Disposition: HOME SELF-CARE
== END 2019-09-04 13:25 | disposition home or self-care (01) | DRG 177 ==
LOC: EC 01:12 → 3SCARD 02:59
PROVIDERS: ADMIT Hospitalist; ATTEND Hospitalist
PROC: 5A09357 Assistance with Respiratory Ventilation, Less than 24 Consecutive Hours, Continuous Positive Airway Pressure (ICD-10-PCS; principal; 2019-09-02)
DX: J15.6 Pneumonia due to other Gram-negative bacteria (principal); I50.33 Acute on chronic diastolic (congestive) heart failure; I13.0 Hypertensive heart and chronic kidney disease with heart failure and stage 1 through stage 4 chronic kidney disease, or unspecified chronic kidney disease; J44.0 Chronic obstructive pulmonary disease with (acute) lower respiratory infection; J44.1 Chronic obstructive pulmonary disease with (acute) exacerbation; E11.22 Type 2 diabetes mellitus with diabetic chronic kidney disease; E11.42 Type 2 diabetes mellitus with diabetic polyneuropathy; E78.5 Hyperlipidemia, unspecified; F12.90 Cannabis use, unspecified, uncomplicated; I08.1 Rheumatic disorders of both mitral and tricuspid valves; M79.7 Fibromyalgia; M19.041 Primary osteoarthritis, right hand; M19.042 Primary osteoarthritis, left hand; K21.9 Gastro-esophageal reflux disease without esophagitis; N18.3 Chronic kidney disease, stage 3 (moderate); N39.3 Stress incontinence (female) (male); R26.9 Unspecified abnormalities of gait and mobility; I48.0 Paroxysmal atrial fibrillation; M1A.9XX0 Chronic gout, unspecified, without tophus (tophi); Z79.84 Long term (current) use of oral hypoglycemic drugs; Z79.01 Long term (current) use of anticoagulants; Z79.899 Other long term (current) drug therapy; Z80.1 Family history of malignant neoplasm of trachea, bronchus and lung; Z85.828 Personal history of other malignant neoplasm of skin; Z86.73 Personal history of transient ischemic attack (TIA), and cerebral infarction without residual deficits; Z87.891 Personal history of nicotine dependence; Z90.721 Acquired absence of ovaries, unilateral; Z90.710 Acquired absence of both cervix and uterus; Z95.0 Presence of cardiac pacemaker; Z98.82 Breast implant status; Z90.49 Acquired absence of other specified parts of digestive tract; Z98.890 Other specified postprocedural states; Z88.6 Allergy status to analgesic agent; Z88.1 Allergy status to other antibiotic agents
CPT/HCPCS: 36415; 71045; 71046; 78582; 80048; 80053; 83605; 83880; 84145; 84484; 85025; 85379; 85610; 85730; 93005; 93306; 94640; 94660; 96374; 99291

== ENCOUNTER 2020-12-27 19:05 | Observation (INO) | payer MEDICARE ==
[2020-12-27] MEDS ORDERED: fentaNYL (PF) 50 MCG/ML 2 ML AMP IVP STA (20:04)
[2020-12-27 20:42] LABS: Basophils # (A) 0.1 k/uL (0-0.2); Basophils % (A) 1 %; Eosinophils # (A) 0.2 k/uL (0-0.7); Eosinophils % (A) 2 %; HGB 11.4 gm/dL (11.4-16.0); Lymphocytes % (A) 11 %; MCH 29.2 pg (25.0-35.0); MCHC 34.4 g/dL (31.0-37.0); Mean Platelet Volume 7.2; Monocytes # (A) 0.4 k/uL (0-1.0); Monocytes % (A) 5 %; Neutrophils # (A) 7.3 k/uL (1.3-7.7); Neutrophils % (A) 80 %; Platelet Count 251 k/uL (150-450); RBC 3.89 m/uL (3.80-5.40); RDW 15.7 % (11.5-15.5); WBC 9.1 k/uL (3.8-10.6)
--- NOTE | 2020-12-27 20:44 | ED ---
General Adult HPI - General Chief complaint: Fall Stated complaint: Fall Source: patient, family Mode of arrival: EMS Limitations: no limitations - History of Present Illness Initial comments: 75-year-old female past medical history of A. fib, diabetes, hypertension, hyperlipidemia who presents to the emergency department after she was found down in her garden. Daughter states that she got off of work and called her mother like she always does. Mother did not answer the phone. States that she persistently called and she was concerned about her. She arrived to her house and the patient was not in the house. She went outside and found her unresponsive in the garden. Patient was laying flat on her back. She did have a skin scrape to her left wrist and was complaining of left shoulder pain. Patient does have a left rotator cuff tear with chronic pain however pain appear to be worse. EMS was called. The patient did slowly aroused. She was able to answer questions appropriately. Patient does not remember any events of the day. Patient arrives alert and oriented 3. Patient denies any headaches or visual changes. No neck pain. She does arrive in a c-collar. Denies any chest pain. No abdominal pain. No pain in her lower extremity. No other alleviat ing, precipitating or modifying factors - Related Data Home Medications Medication Instructions Recorded Confirmed Allopurinol [Zyloprim] 100 mg PO BID 07/05/16 12/27/20 lisinopriL [Prinivil] 20 mg PO DAILY 07/05/16 12/27/20 Gabapentin [Neurontin] 300 mg PO BID 09/13/17 12/27/20 Lovastatin [Mevacor] 40 mg PO HS 09/13/17 12/27/20 traMADol HCL [Ultram] 100 mg PO Q6HR PRN 05/06/18 12/27/20 Apixaban [Eliquis] 2.5 mg PO BID 06/10/19 12/27/20 Solifenacin Succinate [Vesicare] 5 mg PO HS 06/10/19 12/27/20 Metoprolol Tartrate [Lopressor] 25 mg PO TID 09/02/19 12/27/20 glipiZIDE XL [Glucotrol XL] 5 mg PO DAILY 09/02/19 12/27/20 Albuterol Inhaler [Ventolin Hfa 2 puff INHALATION RT-QID PRN 12/27/20 12/27/20 Inhaler] metFORMIN HCL 500 mg PO DAILY 12/27/20 12/28/20 amLODIPine [Norvasc] 5 mg PO DAILY 12/28/20 12/28/20 Previous Rx's Medication Instructions Recorded Pantoprazole Sodium [Protonix] 40 mg PO BID #60 tablet. 05/08/18 Furosemide [Lasix] 20 mg PO DAILY #0 09/04/19 Cephalexin [Keflex] 250 mg PO Q8HR #15 capsule 12/28/20 Allergies Allergy/AdvReac Type Severity Reaction Status Date / Time erythromycin base Allergy Severe TONGUE Verified 12/27/20 22:43 SWELLS gatifloxacin [From Tequin] Allergy Severe TONGUE Verified 12/27/20 22:43 SWELLS aspirin AdvReac Nausea Verified 12/27/20 22:43 Review of Systems ROS Statement: Those systems with pertinent positive or pertinent negative responses have been documented in the HPI. ROS Other: All systems not noted in ROS Statement are negative. Past Medical History Past Medical History: Atrial Fibrillation, Atrial Flutter, Blood Disorder, Cancer, CVA/TIA, Diabetes Mellitus, Fibromyalgia, GERD/Reflux, Hyperlipidemia, Hypertension, Osteoarthritis (OA), Pneumonia, Renal Disease, Vascular Disorder Additional Past Medical History / Comment(s): 05/2019 admitted with SSS and had pacer insertion, 2011 TIA, NIDDM tyep II, neuropathy bilateral feet, arthritis bilateral hands/knees, L rotator cuff problem, bronchitis, CKD stage III, UTI, urinary leakage at times, anemia with iron infusions in the past, skin cancer with removals, varicosities bilateral legs, constipation, gout bilateral feet, History of Any Multi-Drug Resistant Organisms: None Reported Past Surgical History: Appendectomy, Bladder Surgery, Breast Surgery, Hysterectomy, Tonsillectomy Additional Past Surgical History / Comment(s): 06/15/19 pacemaker, bladder suspension, bilateral breast implants, L oophorectomy, colonoscopies, skin cancer removals, L leg varicose vein stripping, cystoscopy. Past Anesthesia/Blood Transfusion Reactions: No Reported Reaction Past Psychological History: No Psychological Hx Reported Past Alcohol Use History: None Reported Past Drug Use History: Marijuana - Past Family History Father History Unknown: Yes Family Medical History: Cancer Additional Family Medical History / Comment(s): Father of lung cancer in his 40s. Mother Family Medical History: No Reported History Additional Family Medical History / Comment(s): Mother is 92 yrs old. General Exam Limitations: no limitations General appearance: alert, in no apparent distress Head exam: Present: atraumatic, normocephalic, normal inspection Eye exam: Present: normal appearance, PERRL, EOMI. Absent: scleral icterus, conjunctival injection, periorbital swelling ENT exam: Present: normal exam, mucous membranes moist Neck exam: Present: normal inspection. Absent: tenderness, meningismus, lymp hadenopathy Respiratory exam: Present: normal lung sounds bilaterally. Absent: respiratory distress, wheezes, rales, rhonchi, stridor Cardiovascular Exam: Present: regular rate, normal rhythm, normal heart sounds. Absent: systolic murmur, diastolic murmur, rubs, gallop, clicks GI/Abdominal exam: Present: soft, normal bowel sounds. Absent: distended, tenderness, guarding, rebound, rigid Extremities exam: Present: tenderness (tenderness to palpation of left glenohumeral joint), normal capillary refill, other (skin abrasion left dorsal wrist). Absent: pedal edema, joint swelling, calf tenderness Back exam: Present: normal inspection Neurological exam: Present: alert, oriented X3, CN II-XII intact Psychiatric exam: Present: normal affect, normal mood Skin exam: Present: warm, dry, intact, normal color. Absent: rash Course Vital Signs 12/27/20 12/28/20 12/28/20 19:28 01:32 05:30 Temperature 99.6 F Pulse Rate 63 60 60 Respiratory 20 18 20 Rate Blood Pressure 138/72 114/66 132/74 O2 Sat by Pulse 94 L 96 97 Oximetry 12/28/20 12/28/20 07:25 09:05 Temperature 97.8 F Pulse Rate 60 64 Respiratory 18 18 Rate Blood Pressure 120/99 153/67 O2 Sat by Pulse 97 97 Oximetry Medical Decision Making - Medical Decision Making Upon arrival patient is placed into room 5. Thorough history and physical exam is performed. Patient is alert and oriented at this time. He is complaining of left shoulder pain. She is sent over for a CT of her brain and cervical spine which demonstrates no acute intracranial process. No cervical fractures. C-col lar is removed. Patient is denying neck pain at this time. Laboratory studies are conducted. 12-lead EKG was performed. Patient went for a left shoulder, left wrist, chest and pelvic x-ray. I discussed results with the patient and her daughter at bedside. Did recommend hospitalization for which the patient did agree to. I spoke with Dr. Rivera who agreed to admit the patient. Patient is currently awaiting a bed on the floor - Lab Data Result diagrams: 12/28/20 02:56 12/28/20 02:56 Lab Results 12/27/20 12/27/20 12/27/20 Range/Units 20:29 20:29 20:29 WBC 9.1 (3.8-10.6) k/uL RBC 3.89 (3.80-5.40) m/uL Hgb 11.4 (11.4-16.0) gm/dL Hct 33.0 L (34.0-46.0) % MCV 85.0 (80.0-100.0) fL MCH 29.2 (25.0-35.0) pg MCHC 34.4 (31.0-37.0) g/dL RDW 15.7 H (11.5-15.5) % Plt Count 251 (150-450) k/uL MPV 7.2 Neutrophils % 80 % Lymphocytes % 11 % Monocytes % 5 % Eosinophils % 2 % Basophils % 1 % Neutrophils # 7.3 (1.3-7.7) k/uL Lymphocytes # 1.0 (1.0-4.8) k/uL Monocytes # 0.4 (0-1.0) k/uL Eosinophils # 0.2 (0-0.7) k/uL Basophils # 0.1 (0-0.2) k/uL PT 11.1 (9.0-12.0) sec INR 1.1 (<1.2) APTT 24.6 (22.0-30.0) sec Sodium 139 (137-145) mmol/L Potassium 4.2 (3.5-5.1) mmol/L Chloride 102 (98-107) mmol/L Carbon Dioxide 27 (22-30) mmol/L Anion Gap 10 mmol/L BUN 26 H (7-17) mg/dL Creatinine 1.34 H (0.52-1.04) mg/dL Est GFR (CKD-EPI)AfAm 45 (>60 ml/min/1.73 sqM) Est GFR (CKD-EPI)NonAf 39 (>60 ml/min/1.73 sqM) Glucose 137 H (74-99) mg/dL Calcium 9.2 (8.4-10.2) mg/dL Magnesium 1.8 (1.6-2.3) mg/dL Total Bilirubin 0.6 (0.2-1.3) mg/dL AST 16 (14-36) U/L ALT 7 (4-34) U/L Alkaline Phosphatase 81 (38-126) U/L Creatine Kinase 40 (30-135) U/L Troponin I (0.000-0.034) ng/mL Total Protein 6.5 (6.3-8.2) g/dL Albumin 3.7 (3.5-5.0) g/dL 12/27/20 Range/Units 20:29 WBC (3.8-10.6) k/uL RBC (3.80-5.40) m/uL Hgb (11.4-16.0) gm/dL Hct (34.0-46.0) % MCV (80.0-100.0) fL MCH (25.0-35.0) pg MCHC (31.0-37.0) g/dL RDW (11.5-15.5) % Plt Count (150-450) k/uL MPV Neutrophils % % Lymphocytes % % Monocytes % % Eosinophils % % Basophils % % Neutrophils # (1.3-7.7) k/uL Lymphocytes # (1.0-4.8) k/uL Monocytes # (0-1.0) k/uL Eosinophils # (0-0.7) k/uL Basophils # (0-0.2) k/uL PT (9.0-12.0) sec INR (<1.2) APTT (22.0-30.0) sec Sodium (137-145) mmol/L Potassium (3.5-5.1) mmol/L Chloride (98-107) mmol/L Carbon Dioxide (22-30) mmol/L Anion Gap mmol/L BUN (7-17) mg/dL Creatinine (0.52-1.04) mg/dL Est GFR (CKD-EPI)AfAm (>60 ml/min/1.73 sqM) Est GFR (CKD-EPI)NonAf (>60 ml/min/1.73 sqM) Glucose (74-99) mg/dL Calcium (8.4-10.2) mg/dL Magnesium (1.6-2.3) mg/dL Total Bilirubin (0.2-1.3) mg/dL AST (14-36) U/L ALT (4-34) U/L Alkaline Phosphatase (38-126) U/L Creatine Kinase (30-135) U/L Troponin I 0.018 (0.000-0.034) ng/mL Total Protein (6.3-8.2) g/dL Albumin (3.5-5.0) g/dL - EKG Data EKG Comments: EKG demonstrates a ventricularly paced rhythm with a rate of 62. QRS 178. QTC of 509. Pacemaker captures appropriately. Negative for sgarbossa criteria Disposition Clinical Impression: Syncope, Left shoulder pain Disposition: ADMITTED IP TO THIS HOSP Condition: Stable Is patient prescribed a controlled substance at d/c from ED?: No Decision to Admit Reason: Admit from EC Decision Date: 12/27/20 Decision Time: 22:21
[2020-12-27 20:51] LABS: Albumin 3.7 g/dL (3.5-5.0); Calcium 9.2 mg/dL (8.4-10.2); Magnesium 1.8 mg/dL (1.6-2.3); Potassium 4.2 mmol/L (3.5-5.1); Total Bilirubin 0.6 mg/dL (0.2-1.3); Total Protein 6.5 g/dL (6.3-8.2)
[2020-12-27 20:56] LABS: INR 1.1 (<1.2); Partial Thromboplastin Time 24.6 sec (22.0-30.0); Prothrombin Time 11.1 sec (9.0-12.0)
--- NOTE | 2020-12-27 21:38 | CT ---
EXAMINATION TYPE: CT brain chayo wo con DATE OF EXAM: 12/27/2020 COMPARISON: 10/24/2015. HISTORY: syncope, fall CT DLP: 1324.6 mGycm Automated exposure control for dose reduction was used. TECHNIQUE: CT scan of the head and cervical spine are performed without contrast. FINDINGS: There is no acute intracranial hemorrhage, mass effect, or midline shift identified. The ventricles and sulci are within normal limits in size. The globes are intact. There is mild opacifi cation of the right maxillary and ethmoid sinus. There is also mild opacification of the right mastoi d air cells.. Cervical spine is visualized in its entirety from C1 through upper thoracic levels and demonstrates s atisfactory alignment without evidence of acute fracture or dislocation. There is mild to moderate ce rvical spondylosis. Prevertebral soft tissue appears within normal limits. The C1-C2 articulation i s unremarkable. IMPRESSION: 1. There is no acute fracture or dislocation evident in the cervical spine. 2. No acute intracranial hemorrhage, mass effect, or midline shift is seen.
--- NOTE | 2020-12-27 22:17 | XR ---
EXAMINATION TYPE: XR chest 2V DATE OF EXAM: 12/27/2020 COMPARISON: 09/04/2019 HISTORY: Pneumonia. CHF. TECHNIQUE: 2 views FINDINGS: There is no heart failure. There is left axillary pacemaker. Heart is top normal in size. T here is no pleural effusion. There are no hilar masses. There is some arthritic change in the shoulde r joints. IMPRESSION: No active cardiopulmonary disease. There is clearing of the small pleural effusions orlando red to old exam.
[2020-12-27] MEDS ORDERED: NALOXONE 0.4 MG/ML 1 ML VIAL IV PRN (22:21)
--- NOTE | 2020-12-27 22:23 | XR ---
EXAMINATION TYPE: XR shoulder complete LT DATE OF EXAM: 12/27/2020 COMPARISON: NONE HISTORY: Shoulder pain TECHNIQUE: 3 views FINDINGS: There is narrowing of the shoulder joint space with spur formation. I see no fracture nor d islocation. AC joint is intact. IMPRESSION: Moderately severe osteoarthritis. No fracture seen.
--- NOTE | 2020-12-27 22:25 | XR ---
EXAMINATION TYPE: XR wrist complete LT DATE OF EXAM: 12/27/2020 COMPARISON: NONE HISTORY: Left wrist pain TECHNIQUE: 4 views FINDINGS: There is nondisplaced fracture of the waist of the scaphoid bone. The other carpal bones ar e intact. Distal radius and ulna appear intact. IMPRESSION: Nondisplaced scaphoid fracture.
--- NOTE | 2020-12-27 22:27 | XR ---
EXAMINATION TYPE: XR pelvis AP view DATE OF EXAM: 12/27/2020 COMPARISON: NONE HISTORY: Hip pain TECHNIQUE: Single view FINDINGS: Pelvic ring is intact. Proximal femurs and hip joints are intact. Sacroiliac joints are nor mal. IMPRESSION: Negative exam. No fracture.
[2020-12-28 03:46] LABS: Basophils # (A) 0.1 k/uL (0-0.2); Basophils % (A) 1 %; Eosinophils # (A) 0.1 k/uL (0-0.7); Eosinophils % (A) 2 %; HCT 33.3 % (34.0-46.0); HGB 11.1 gm/dL (11.4-16.0); Lymphocytes # (A) 1.6 k/uL (1.0-4.8); Lymphocytes % (A) 22 %; MCH 28.8 pg (25.0-35.0); MCHC 33.2 g/dL (31.0-37.0); MCV 86.6 fL (80.0-100.0); Mean Platelet Volume 7.2; Monocytes # (A) 0.6 k/uL (0-1.0); Monocytes % (A) 9 %; Neutrophils # (A) 4.8 k/uL (1.3-7.7); Neutrophils % (A) 65 %; Platelet Count 219 k/uL (150-450); RBC 3.84 m/uL (3.80-5.40); RDW 15.6 % (11.5-15.5); WBC 7.3 k/uL (3.8-10.6)
[2020-12-28 03:51] LABS: Calcium 9.2 mg/dL (8.4-10.2); Potassium 4.1 mmol/L (3.5-5.1)
[2020-12-28] MEDS ORDERED: traMADol 50 MG TAB PO PRN (08:05)
[2020-12-28] MEDS ORDERED: lisinopriL 20 MG TAB PO STA (08:08)
[2020-12-28] MEDS ORDERED: ATORVASTATIN 10 MG TAB PO SCH (09:00)
[2020-12-28] MEDS ORDERED: FUROSEMIDE 20 MG TAB PO SCH (09:00)
[2020-12-28] MEDS ORDERED: allopurinoL 100 MG TAB PO SCH (09:00)
[2020-12-28] MEDS ORDERED: GABAPENTIN 300 MG CAP PO SCH (09:00)
[2020-12-28] MEDS ORDERED: APIXABAN 2.5 MG TABLET PO SCH (09:00)
[2020-12-28] MEDS: METOPROLOL TARTRATE 25 MG TAB PO SCH ×2 (09:02→15:14)
--- NOTE | 2020-12-28 10:33 | P.CRDCN ---
History of Present Illness Consult date: 12/28/20 History of present illness: HISTORY OF PRESENT ILLNESS: his is a 79-year-old female with a past medical history significant for atrial fibrillation, CVA/TIA, diabetes mellitus, fibromyalgia, hypertension, hyperlipidemia, and pacemaker insertion. Patient follows in the office with Dr. Galan. We have been asked to see the patient in consultation for syncope. Patient examined at the bedside in the emergency room. Patients daughter devon loera. Patient states she was out standing in her garden pulling weeds yesterday and was feeling in her normal state of health. The patient then passed out in her garden. She does report she did not drink much water during the day yesterday. The patient does not remember feeling dizzy or lightheaded. She does not remember falling to the ground. The patient's daughter was attempting to call her and did not get an answer so she drove over to her house. She found her mother laying on the back in the garden. She states the patient wasn't awake but was breathing. She called 911 and shortly afterwards the patient began to open her eyes. EKG reveals ventricular paced rhythm Chest xray no active cardiac pulmonary disease. There is clearing of small pleural effusions compared to old exam. Laboratory data: WBC 7.3. Hemoglobin 11.1. Platelet count 219. Sodium 139. Potassium 4.1. BUN 26. Creatinine 1.39. Troponin negative 3. Current home cardiac medications include lisinopril 20 mg daily, metoprolol tartrate 25 mg 3 times a day, Lasix 20 mg daily, Eliquis 2.5 mg twice a day Most recent echocardiogram obtained in August 2019 reveals ejection fraction 55-60%, mild to moderate mitral regurgitation, moderate tricuspid regurgitation, and mild pulmonary hypertension REVIEW OF SYSTEMS: At the time of my exam: CONSTITUTIONAL: Denies fever or chills. HEENT: Denies blurred vision, vision changes, or eye pain. Denies hemoptysis CARDIOVASCULAR: Denies chest pain. Denies orthopnea. Denies PND. Denies palpitations RESPIRATORY: Denies shortness of breath. GASTROINTESTINAL: Denies abdominal pain. Denies nausea or vomiting. HEMATOLOGIC: Denies bleeding disorders. GENITOURINARY: Denies any blood in urine. SKIN: Denies pruitis. Denies rash. PHYSICAL EXAM: VITAL SIGNS: Reviewed. GENERAL: Well-developed in no acute distress. HEENT: Head is normocephalic. Pupils are equal, round. Sclerae anicteric. Mucous membranes of the mouth are moist. Neck supple. No JVD or thyromegaly LUNGS: Respirations even and unlabored. Lungs essentially clear to auscultation bilaterally. HEART: Telemetry reveals paced rhythm. Regular rate and rhythm. S1 and S2 heard. ABDOMEN: Soft. Nondistended. Nontender. EXTREMITIES: Normal range of motion. No clubbing or cyanosis. Peripheral pulses intact. Chronic discoloration noted to lower extremities. NEUROLOGIC: Awake and alert. Oriented x 3. ASSESSMENT: Syncope, etiology unclear Nondisplaced scaphoid fracture Paroxysmal atrial fibrillation, on anticoagulation with Eliquis Sick sinus syndrome with permanent pacemaker implantation, 2018 CVA/TIA Hypertension Hyperlipidemia Diabetes mellitus Febrile myalgia GERD Former nicotine dependence PLAN: Obtain 2D echo to assess cardiac structure and function Resume home cardiac medications Device interrogation reviewed and unremarkable Continue telemetry monitoring Obtain orthostatic blood pressures Further recommendations pending patient's course Nurse practitioner note has been reviewed by physician. Signing provider agrees with the documented findings, assessment, and plan of care. Past Medical History Past Medical History: Atrial Fibrillation, Atrial Flutter, Blood Disorder, Cancer, Heart Failure, COPD, CVA/TIA, Diabetes Mellitus, Fibromyalgia, GERD/Reflux, Hyperlipidemia, Hypertension, Osteoarthritis (OA), Pneumonia, Renal Disease, Vascular Disorder Additional Past Medical History / Comment(s): 05/2019 admitted with SSS and had pacer insertion, 2011 TIA, NIDDM tyep II, neuropathy bilateral feet, arthritis L shoulder/ bilateral hands/knees, L rotator cuff problem, bronchitis, CKD stage III, UTI, urinary leakage at times, anemia with iron infusions in the past, skin cancer with removals, varicosities bilateral legs, constipation, gout bilateral feet, History of Any Multi-Drug Resistant Organisms: None Reported Past Surgical History: Appendectomy, Bladder Surgery, Breast Surgery, Hysterectomy, Tonsillectomy Additional Past Surgical History / Comment(s): 06/15/19 pacemaker, bladder suspension, bilateral breast implants, L oophorectomy, colonoscopies, skin cancer removals, L leg varicose vein stripping, cystoscopy. Past Anesthesia/Blood Transfusion Reactions: No Reported Reaction Past Psychological History: No Psychological Hx Reported Additional Psychological History / Comment(s): Pt resides alone. She uses a cane to ambulate. She drives. Her ricarda goes grocery shopping for pt. Smoking Status: Former smoker Past Alcohol Use History: None Reported Additional Past Alcohol Use History / Comment(s): quit smoking 2011, starting smoking age 15, 2 1/2 PPD Past Drug Use History: Marijuana Additional Drug Use History / Comment(s): CBD oil - Past Family History Father History Unknown: Yes Family Medical History: Cancer Additional Family Medical History / Comment(s): Father of lung cancer in his 40s. Mother Family Medical History: No Reported History Additional Family Medical History / Comment(s): Mother is 95 yrs old. Medications and Allergies Home Medications Medication Instructions Recorded Confirmed Type Allopurinol [Zyloprim] 100 mg PO BID 07/05/16 12/27/20 History lisinopriL [Prinivil] 20 mg PO DAILY 07/05/16 12/27/20 History Gabapentin [Neurontin] 300 mg PO BID 09/13/17 12/27/20 History Lovastatin [Mevacor] 40 mg PO HS 09/13/17 12/27/20 History traMADol HCL [Ultram] 100 mg PO Q6HR PRN 05/06/18 12/27/20 History Pantoprazole Sodium [Protonix] 40 mg PO BID #60 tablet. 05/08/18 12/27/20 Rx Apixaban [Eliquis] 2.5 mg PO BID 06/10/19 12/27/20 History Solifenacin Succinate [Vesicare] 5 mg PO HS 06/10/19 12/27/20 History Metoprolol Tartrate [Lopressor] 25 mg PO TID 09/02/19 12/27/20 History glipiZIDE XL [Glucotrol XL] 5 mg PO DAILY 09/02/19 12/27/20 History Furosemide [Lasix] 20 mg PO DAILY #0 09/04/19 12/27/20 Rx Albuterol Inhaler [Ventolin Hfa 2 puff INHALATION RT-QID PRN 12/27/20 12/27/20 History Inhaler] metFORMIN HCL 500 mg PO BID 12/27/20 12/27/20 History Allergies Allergy/AdvReac Type Severity Reaction Status Date / Time erythromycin base Allergy Severe TONGUE Verified 12/27/20 22:43 SWELLS gatifloxacin [From Tequin] Allergy Severe TONGUE Verified 12/27/20 22:43 SWELLS aspirin AdvReac Nausea Verified 12/27/20 22:43 Physical Exam Vitals: Vital Signs Temp Pulse Resp BP Pulse Ox 12/28/20 09:05 64 18 153/67 97 12/28/20 07:25 97.8 F 60 18 120/99 97 12/28/20 05:30 60 20 132/74 97 12/28/20 01:32 60 18 114/66 96 12/27/20 19:28 99.6 F 63 20 138/72 94 L Intake and Output 12/27/20 12/28/20 12/28/20 22:59 06:59 14:59 Other: Weight 78.018 kg Results 12/28/20 02:56 12/28/20 02:56 Cardiac Enzymes 12/27/20 12/27/20 12/27/20 Range/Units 20:29 20:29 23:33 AST 16 (14-36) U/L Troponin I 0.018 0.020 (0.000-0.034) ng/mL 12/28/20 Range/Units 02:56 AST (14-36) U/L Troponin I 0.019 (0.000-0.034) ng/mL Coagulation 12/27/20 Range/Units 20:29 PT 11.1 (9.0-12.0) sec APTT 24.6 (22.0-30.0) sec CBC 12/27/20 12/28/20 Range/Units 20:29 02:56 WBC 9.1 7.3 (3.8-10.6) k/uL RBC 3.89 3.84 (3.80-5.40) m/uL Hgb 11.4 11.1 L (11.4-16.0) gm/dL Hct 33.0 L 33.3 L (34.0-46.0) % Plt Count 251 219 (150-450) k/uL Comprehensive Metabolic Panel 12/27/20 12/28/20 Range/Units 20:29 02:56 Sodium 139 139 (137-145) mmol/L Potassium 4.2 4.1 (3.5-5.1) mmol/L Chloride 102 101 (98-107) mmol/L Carbon Dioxide 27 30 (22-30) mmol/L BUN 26 H 26 H (7-17) mg/dL Creatinine 1.34 H 1.39 H (0.52-1.04) mg/dL Glucose 137 H 107 H (74-99) mg/dL Calcium 9.2 9.2 (8.4-10.2) mg/dL AST 16 (14-36) U/L ALT 7 (4-34) U/L Alkaline Phosphatase 81 (38-126) U/L Total Protein 6.5 (6.3-8.2) g/dL Albumin 3.7 (3.5-5.0) g/dL Current Medications Generic Name Dose Route Start Last Admin Trade Name Freq PRN Reason Stop Dose Admin Allopurinol 100 mg 12/28/20 09:00 12/28/20 09:03 Allopurinol 100 Mg Tab PO 100 mg BID MARIBEL Administration Apixaban 2.5 mg 12/28/20 09:00 12/28/20 09:03 Apixaban 2.5 Mg Tablet PO 2.5 mg BID MARIBEL Administration Atorvastatin Calcium 10 mg 12/28/20 09:00 12/28/20 09:04 Atorvastatin 10 Mg Tab PO 10 mg DAILY MARIBEL Administration Furosemide 20 mg 12/28/20 09:00 12/28/20 09:04 Furosemide 20 Mg Tab PO 20 mg DAILY MARIBEL Administration Gabapentin 300 mg 12/28/20 09:00 12/28/20 09:03 Gabapentin 300 Mg Cap PO 300 mg BID MARIBEL Administration Glipizide 5 mg 12/28/20 17:30 Glipizide 5 Mg Tab PO AC-BID MARIBEL Metformin HCl 500 mg 12/28/20 17:30 Metformin 500 Mg Tab PO BID-W/MEALS [facility] Metoprolol Tartrate 25 mg 12/28/20 09:00 12/28/20 09:02 Metoprolol Tartrate 25 Mg Tab PO 25 mg TID MARIBEL Administration Naloxone HCl 0.2 mg 12/27/20 22:21 Naloxone 0.4 Mg/Ml 1 Ml Vial IV Q2M PRN Opioid Reversal Pantoprazole Sodium 40 mg 12/28/20 17:30 Pantoprazole 40 Mg Tablet PO AC-BID MARIBEL Tramadol HCl 100 mg 12/28/20 08:05 12/28/20 09:01 Tramadol 50 Mg Tab PO 100 mg QID PRN Administration Moderate Pain Trospium 20 mg 12/28/20 21:00 Trospium Chloride 20 Mg Tablet PO HS MARIBEL Intake and Output 12/27/20 12/28/20 12/28/20 22:59 06:59 14:59 Other: Weight 78.018 kg 12/28/20 02:56 12/28/20 02:56
--- NOTE | 2020-12-28 11:19 | P.CNOR ---
History of Present Illness - [facility] Consult date: 12/28/20 Consult reason: other (Left wrist pain) History of present illness: This is a 75-year-old female who was found unresponsive in her yard yesterday by family after a syncopal episode. She complained of pain about the left wrist. X-rays were taken in the emergency department. There was concern for possible scaphoid fracture. We're consulted for orthopedic evaluation. Past Medical History Past Medical History: Atrial Fibrillation, Atrial Flutter, Blood Disorder, Cancer, Heart Failure, COPD, CVA/TIA, Diabetes Mellitus, Fibromyalgia, GERD/Reflux, Hyperlipidemia, Hypertension, Osteoarthritis (OA), Pneumonia, Renal Disease, Vascular Disorder Additional Past Medical History / Comment(s): 05/2019 admitted with SSS and had pacer insertion, 2011 TIA, NIDDM tyep II, neuropathy bilateral feet, arthritis L shoulder/ bilateral hands/knees, L rotator cuff problem, bronchitis, CKD stage III, UTI, urinary leakage at times, anemia with iron infusions in the past, skin cancer with removals, varicosities bilateral legs, constipation, gout bilateral feet, History of Any Multi-Drug Resistant Organisms: None Reported Past Surgical History: Appendectomy, Bladder Surgery, Breast Surgery, Hysterectomy, Tonsillectomy Additional Past Surgical History / Comment(s): 06/15/19 pacemaker, bladder suspension, bilateral breast implants, L oophorectomy, colonoscopies, skin cancer removals, L leg varicose vein stripping, cystoscopy. Past Anesthesia/Blood Transfusion Reactions: No Reported Reaction Past Psychological History: No Psychological Hx Reported Additional Psychological History / Comment(s): Pt resides alone. She uses a cane to ambulate. She drives. Her ricarda goes grocery shopping for pt. Smoking Status: Former smoker Past Alcohol Use History: None Reported Additional Past Alcohol Use History / Comment(s): quit smoking 2011, starting smoking age 15, 2 1/2 PPD Past Drug Use History: Marijuana Additional Drug Use History / Comment(s): CBD oil - Past Family History Father History Unknown: Yes Family Medical History: Cancer Additional Family Medical History / Comment(s): Father of lung cancer in his 40s. Mother Family Medical History: No Reported History Additional Family Medical History / Comment(s): Mother is 95 yrs old. Medications and Allergies Home Medications Medication Instructions Recorded Confirmed Type Allopurinol [Zyloprim] 100 mg PO BID 07/05/16 12/27/20 History lisinopriL [Prinivil] 20 mg PO DAILY 07/05/16 12/27/20 History Gabapentin [Neurontin] 300 mg PO BID 09/13/17 12/27/20 History Lovastatin [Mevacor] 40 mg PO HS 09/13/17 12/27/20 History traMADol HCL [Ultram] 100 mg PO Q6HR PRN 05/06/18 12/27/20 History Pantoprazole Sodium [Protonix] 40 mg PO BID #60 tablet. 05/08/18 12/27/20 Rx Apixaban [Eliquis] 2.5 mg PO BID 06/10/19 12/27/20 History Solifenacin Succinate [Vesicare] 5 mg PO HS 06/10/19 12/27/20 History Metoprolol Tartrate [Lopressor] 25 mg PO TID 09/02/19 12/27/20 History glipiZIDE XL [Glucotrol XL] 5 mg PO DAILY 09/02/19 12/27/20 History Furosemide [Lasix] 20 mg PO DAILY #0 09/04/19 12/27/20 Rx Albuterol Inhaler [Ventolin Hfa 2 puff INHALATION RT-QID PRN 12/27/20 12/27/20 History Inhaler] metFORMIN HCL 500 mg PO BID 12/27/20 12/27/20 History Allergies Allergy/AdvReac Type Severity Reaction Status Date / Time erythromycin base Allergy Severe TONGUE Verified 12/27/20 22:43 SWELLS gatifloxacin [From Tequin] Allergy Severe TONGUE Verified 12/27/20 22:43 SWELLS aspirin AdvReac Nausea Verified 12/27/20 22:43 Physical Examination This is a pleasant 75-year-old female in no acute distress. She is alert and oriented 3. Her daughter is present at bedside. Nurses are taking orthostatic pressures at time of the exam. Exam of the head neck reveal no obvious deformity. The patient has full cer vical spine motion without difficulty or pain. No pain with palpation about cervical spine or paraspinal musculature. Exam the upper extremities reveals limited motion of the left shoulder which is baseline for her. Splint to the left wrist is removed. She has full wrist motion without difficulty or pain. There is no swelling, no erythema or ecchymosis. There is a small abrasion about the ulnar aspect of the wrist. She is nontender over the distal radius or ulna. She has no snuffbox tenderness. No pain in the wrist with compression or grinding of the thumb. Full finger motion without difficulty or pain. Neurovascular status to the left upper extremity is intact. Exam of the right upper extremity is unremarkable. Full shoulder, elbow, wrist and finger motion. Exam of the lower extremities the patient has full hip range of motion bilaterally. She is able to stand on her own and ambulate. Full knee, foot and ankle motion bilaterally. She has mild cellulitis to bilateral lower legs with findings consistent with chronic venous stasis. Neurovascular status of lower extremities is grossly intact. Results Wrist x-rays are read as a scaphoid waist fracture. These may be chronic findings. I see no evidence of acute scaphoid fracture on x-ray, confirmed by exam. X-rays of the pelvis reveals mild degenerative changes to the hips. No acute fracture noted. X-ray of the left shoulder reveals moderate to severe degenerative arthritis to the glenohumeral joint. No acute fractures identified. - Labs Labs: Abnormal Lab Results - Last 24 Hours (Table) 12/27/20 12/27/20 12/28/20 Range/Units 20:29 20:29 02:56 Hgb 11.1 L (11.4-16.0) gm/dL Hct 33.0 L 33.3 L (34.0-46.0) % RDW 15.7 H 15.6 H (11.5-15.5) % BUN 26 H (7-17) mg/dL Creatinine 1.34 H (0.52-1.04) mg/dL Glucose 137 H (74-99) mg/dL 12/28/20 Range/Units 02:56 Hgb (11.4-16.0) gm/dL Hct (34.0-46.0) % RDW (11.5-15.5) % BUN 26 H (7-17) mg/dL Creatinine 1.39 H (0.52-1.04) mg/dL Glucose 107 H (74-99) mg/dL H & H 12/27/20 12/28/20 Range/Units 20:29 02:56 Hgb 11.4 11.1 L (11.4-16.0) gm/dL Hct 33.0 L 33.3 L (34.0-46.0) % Coagulation 12/27/20 Range/Units 20:29 INR 1.1 (<1.2) Result Diagrams: 12/28/20 02:56 12/28/20 02:56 Assessment and Plan (1) Left shoulder pain Current Visit: Yes Status: Acute Code(s): M25.512 - PAIN IN LEFT SHOULDER SNOMED Code(s): 35409336 (2) Syncope Current Visit: Yes Status: Acute Code(s): R55 - SYNCOPE AND COLLAPSE SNOMED Code(s): 049672715 Plan: The clinical and x-ray findings are discussed with the patient and her daughter. Splint is removed today. It is discussed that I see no evidence of acute fracture in the wrist on x-ray or exam today. She may remain out of splint. She is to report any new symptoms of pain to the extremities to nursing staff.
[2020-12-28 11:39] LABS: Appearance,Urine Cloudy (Clear); Bacteria,Urine Rare /hpf; Bilirubin,Urine Negative (Negative); Blood,Urine Negative (Negative); Color,Urine Yellow; Glucose,Urine (UA) Negative (Negative); Hyaline Casts,Urine 4 /lpf (0-2); Ketones,Urine Negative (Negative); Leukocyte Esterase,Urine Small (Negative); Mucus,Urine Rare /hpf; Nitrite,Urine Negative (Negative); Protein,Urine Trace (Negative); RBC,Urine 2 /hpf (0-5); Specific Gravity,Urine 1.012 (1.001-1.035); Squamous Epithelial Cell,Urine 9 /hpf (0-4); Urobilinogen,Urine <2.0 mg/dL (<2.0); WBC,Urine 7 /hpf (0-5)
[2020-12-28 12:04] LABS: Glucose,Whole Blood 132 mg/dL (75-99)
[2020-12-28 14:44] VITALS: BP 100/66; PULSE 60; RESP 20; TEMP 97.8
[2020-12-28] MEDS ORDERED: CEPHALEXIN 500 MG CAP PO STA (14:53)
[2020-12-28] MEDS ORDERED: PANTOPRAZOLE 40 MG TABLET PO SCH (17:30)
[2020-12-28] MEDS ORDERED: glipiZIDE 5 MG TAB PO SCH (17:30)
[2020-12-28] MEDS ORDERED: metFORMIN 500 MG TAB PO SCH (17:30)
--- NOTE | 2020-12-28 17:49 | P.HPIM ---
History of Present Illness H&P Date: 12/28/20 Chief Complaint: Past out History of presenting complaint: This is a very pleasant 75-year-old patient of Dr. Turner. Patient's daughter the bedside. Chronic stable medical conditions include atrial flutter fibrillation, CHF, COPD, diabetes, fibromyalgia, GERD, hypertension, hyperlipidemia, prostatitis, permanent pacemaker for sick sinus syndrome, diabetes type 2 with peripheral neuropathy, arthritis of multiple joints, chronic kidney disease stage III, urinary incontinence iron deficiency anemia gout. At her baseline patient is unsteady and does use a cane. She lives by herself. Patient yesterday decided to go to the house and take out some weeds in the garden. She was wearing crocs, and was in uneven grounds. She remembers going out around 4:00. She had a small lunch. It was around 80 outside. Does not drink enough fluids. Patient has some cognitive impairment. Normally does not remain more detail events. Daughter, 1 on 6:00 and found her on the grounds with somewhat on her face also. Some bruising on the left forearm. EMS was called. Patient was AO 1 when the EMS arrived. On signs are stable. Glucose was fine. Patient does not remember having any chest pain. When I saw the patient this afternoon daughter said patient's is back to her baseline. Review of systems: GEN.: None EYES: None HEENT: None NECK: None RESPIRATORY: None CARDIOVASCULAR: None GASTROINTESTINAL: None GENITOURINARY: Urinary incontinence MUSCULOSKELETAL: Multiple chronic joint pains LYMPHATICS: None HEMATOLOGICAL: None PSYCHIATRY: Forgetful NEUROLOGICAL: No tongue biting Past medical history to include: Atrial flutter fibrillation, CHF, COPD, diabetes, fibromyalgia, GERD, hypertension, hyperlipidemia, osteoarthritis, permanent pacemaker for sick sinus syndrome, TIA, diabetes type 2 with peripheral neuropathy, arthritis in multiple joints, left rotator cuff problem, chronic kidney disease, urinary incontinence, iron deficiency anemia, skin cancer that was removed, bilateral lower extremity varicosities, gout, chronic gait dysfunction does use a cane Social history: Does use a cane. Lives alone. Patient smoked for 52 years. Packs a day stoppe d in 2011. No alcohol. Does use CBD ordered. Physical examination: VITAL SIGNS: 99.6, 63, 20, 138/72, 94% on 2 L GENERAL: BMI 26.2, laying in bed, comfortable. EYES: Pupils equal. Conjunctiva normal. HEENT: External appearance of nose and ears normal, oral cavity grossly normal. NECK: JVD not raised; masses not palpable. HEART: First and second heart sounds are normal; no edema. LUNGS: Respiratory rate normal; clear to auscultation. ABDOMEN: Soft, nontender, liver spleen not palpable, no masses palpable. PSYCH: Alert and oriented x3; mood and affect normal MUSCULAR skeletal: Evidence of OA in multiple joints. Some bruising on the left wrist. Fair range of motion. EXTREMITIES: Evidence of mild cellulitis bilateral lower extremity above the ankles. NEUROLOGICAL: Cranial nerves grossly intact; no facial asymmetry, power and sensation grossly intact. Gait witnessed with the doctor and myself. As per the daughter, at baseline a bit unsteady LYMPHATICS: No lymph nodes palpable in the axilla and neck INVESTIGATIONS, reviewed in the clinical context: WBC 7.3 hemoglobin 11.1 platelets 219 potassium 4.1 bun 26 creatinine 1.39 Coronavirus [PCL]-not detected X-ray of the pelvis, wrist, shoulder had cervical spine-no fracture. Chronic changes and evidence of arthritis Chest x-ray film personally reviewed by me-pacemaker, possibly chronic changes EKG tracing personally reviewed by me-ventricle paced rhythm Assessment and plan: -This is a patient who was found on the ground also the house. She had a very small lunch. Not taking much fluids. It was pretty warm outside. Temperature be 80. No clinical evidence of seizure activity. Patient was not hypoglycem ic. Patient's electrolytes 1 patient's baseline. Telemetry did not reveal any abnormalities. Most likely vasovagal with a contribution from dehydration. Short episode of arrhythmia cannot be ruled out. Pacemaker to be checked. Patient placed on telemetry. Follow vital signs -Persistent atrial flutter fibrillation. Rate controlled Chronically on eliquis Continue with telemetry -Acute mild bilateral lower extremity cellulitis, likely from dry skin of the feet being the source of infection. Skin care was discussed with the patient daughter the bedside. Topical Silvadene and a short course of Keflex -Chronic congestive heart failure. EF not known We'll resume Lasix -COPD in a previous smoker Uses inhaler when necessary -Diabetes mellitus type 2 Continue with Glucotrol XL. Follow Accu-Cheks -Diabetic peripheral neuropathy Continue with Neurontin -Chronic fibromyalgia Continue with Ultram when necessary -GERD Use Pepcid when necessary Hyperlipidemia Continue with lovastatin -Essential hypertension Resume patient's Norvasc and Prinivil Lopressor -Primary osteoarthritis multiple joints Uses Ultram when necessary -Chronic kidney disease likely secondary to diabetic nephropathy and hypertensive nephrosclerosis stage III, at baseline Follow electrolytes -Chronic urinary stress incontinence Continue with Vesicare -Bilateral lower extremity varicosities Follow as outpatient -Chronic gout Continue with allopurinol -Moderate cognitive impairment likely from the late onset Alzheimer's dementia For further workup as outpatient by family doctor -Chronic gait dysfunction of the baseline patient uses a cane Fall precautions Past Medical History Past Medical History: Atrial Fibrillation, Atrial Flutter, Blood Disorder, Ca ncer, CVA/TIA, Diabetes Mellitus, Fibromyalgia, GERD/Reflux, Hyperlipidemia, Hypertension, Osteoarthritis (OA), Pneumonia, Renal Disease, Vascular Disorder Additional Past Medical History / Comment(s): 05/2019 admitted with SSS and had pacer insertion, 2011 TIA, NIDDM tyep II, neuropathy bilateral feet, arthritis bilateral hands/knees, L rotator cuff problem, bronchitis, CKD stage III, UTI, urinary leakage at times, anemia with iron infusions in the past, skin cancer with removals, varicosities bilateral legs, constipation, gout bilateral feet, History of Any Multi-Drug Resistant Organisms: None Reported Past Surgical History: Appendectomy, Bladder Surgery, Breast Surgery, Hysterectomy, Tonsillectomy Additional Past Surgical History / Comment(s): 06/15/19 pacemaker, bladder suspension, bilateral breast implants, L oophorectomy, colonoscopies, skin cancer removals, L leg varicose vein stripping, cystoscopy. Past Anesthesia/Blood Transfusion Reactions: No Reported Reaction Past Psychological History: No Psychological Hx Reported Past Alcohol Use History: None Reported Past Drug Use History: Marijuana - Past Family History Father History Unknown: Yes Family Medical History: Cancer Additional Family Medical History / Comment(s): Father of lung cancer in his 40s. Mother Family Medical History: No Reported History Additional Family Medical History / Comment(s): Mother is 92 yrs old. Medications and Allergies Home Medications Medication Instructions Recorded Confirmed Type Allopurinol [Zyloprim] 100 mg PO BID 07/05/16 12/27/20 History lisinopriL [Prinivil] 20 mg PO DAILY 07/05/16 12/27/20 History Gabapentin [Neurontin] 300 mg PO BID 09/13/17 12/27/20 History Lovastatin [Mevacor] 40 mg PO HS 09/13/17 12/27/20 History traMADol HCL [Ultram] 100 mg PO Q6HR PRN 05/06/18 12/27/20 History Pantoprazole Sodium [Protonix] 40 mg PO BID #60 tablet. 05/08/18 12/27/20 Rx Apixaban [Eliquis] 2.5 mg PO BID 06/10/19 12/27/20 History Solifenacin Succinate [Vesicare] 5 mg PO HS 06/10/19 12/27/20 History Metoprolol Tartrate [Lopressor] 25 mg PO TID 09/02/19 12/27/20 History glipiZIDE XL [Glucotrol XL] 5 mg PO DAILY 09/02/19 12/27/20 History Furosemide [Lasix] 20 mg PO DAILY #0 09/04/19 12/27/20 Rx Albuterol Inhaler [Ventolin Hfa 2 puff INHALATION RT-QID PRN 12/27/20 12/27/20 History Inhaler] metFORMIN HCL 500 mg PO DAILY 12/27/20 12/28/20 History Cephalexin [Keflex] 250 mg PO Q8HR #15 capsule 12/28/20 Rx amLODIPine [Norvasc] 5 mg PO DAILY 12/28/20 12/28/20 History Allergies Allergy/AdvReac Type Severity Reaction Status Date / Time erythromycin base Allergy Severe TONGUE Verified 12/27/20 22:43 SWELLS gatifloxacin [From Tequin] Allergy Severe TONGUE Verified 12/27/20 22:43 SWELLS aspirin AdvReac Nausea Verified 12/27/20 22:43 Physical Exam Vitals: Vital Signs Temp Pulse Resp BP Pulse Ox 12/28/20 09:05 64 18 153/67 97 12/28/20 07:25 97.8 F 60 18 120/99 97 12/28/20 05:30 60 20 132/74 97 12/28/20 01:32 60 18 114/66 96 12/27/20 19:28 99.6 F 63 20 138/72 94 L Intake and Output 12/27/20 12/28/20 12/28/20 22:59 06:59 14:59 Other: Weight 78.018 kg Results CBC & Chem 7: 12/28/20 02:56 12/28/20 02:56 Labs: Abnormal Lab Results - Last 24 Hours (Table) 12/27/20 12/27/20 12/28/20 Range/Units 20:29 20:29 02:56 Hgb 11.1 L (11.4-16.0) gm/dL Hct 33.0 L 33.3 L (34.0-46.0) % RDW 15.7 H 15.6 H (11.5-15.5) % BUN 26 H (7-17) mg/dL Creatinine 1.34 H (0.52-1.04) mg/dL Glucose 137 H (74-99) mg/dL 12/28/20 Range/Units 02:56 Hgb (11.4-16.0) gm/dL Hct (34.0-46.0) % RDW (11.5-15.5) % BUN 26 H (7-17) mg/dL Creatinine 1.39 H (0.52-1.04) mg/dL Glucose 107 H (74-99) mg/dL
[2020-12-28] MEDS ORDERED: TROSPIUM CHLORIDE 20 MG TABLET PO SCH (21:00)
--- NOTE | 2020-12-28 23:28 | P.DS ---
Providers Date of admission: 12/27/20 22:21 Expected date of discharge: 12/28/20 Attending physician: Bipin Rivera Consults: 12/27/20 22:24 Consult Physician Urgent Consulting Provider: [facility] Consult Reason/Comments: acute syncope Do you want consulting provider notified?: Yes 12/27/20 22:47 Consult Physician Urgent Consulting Provider: Santi Peguero Consult Reason/Comments: possible left scaphoid facture Do you want consulting provider notified?: Yes, Notify in am Primary care physician: [facility] Course: Chief Complaint: Past out History of presenting complaint: This is a very pleasant 75-year-old patient of Dr. Turner. Patient's daughter the bedside. Chronic stable medical conditions include atrial flutter fibrillation, CHF, COPD, diabetes, fibromyalgia, GERD, hypertension, hyperlipidemia, prostatitis, permanent pacemaker for sick sinus syndrome, diabetes type 2 with peripheral neuropathy, arthritis of multiple joints, chronic kidney disease stage III, urinary incontinence iron deficiency anemia gout. At her baseline patient is unsteady and does use a cane. She lives by herself. Patient yesterday decided to go to the house and take out some weeds in the garden. She was wearing crocs, and was in uneven grounds. She remembers going out around 4:00. She had a small lunch. It was around 80 outside. Does not drink enough fluids. Patient has some cognitive impairment. Normally does not remain more detail events. Daughter, 1 on 6:00 and found her on the grounds with somewhat on her face also. Some bruising on the left forearm. EMS was called. Patient was AO 1 when the EMS arrived. On signs are stable. Glucose was fine. Patient does not remember having any chest pain. When I saw the patient this afternoon daughter said patient's is back to her baseline. Patient did not have any evidence of seizure activity. Patient's felt to have dehydration leading to vasovagal syncope and therefore passing out. Electrolyte for good. Had a lengthy talk with the patient's daughter. Patient be discharged home and she stated the patient. Patient will follow-up with cardiology. As outpatient Consultation: [facility] Past medical history to include: Atrial flutter fibrillation, CHF, COPD, diabetes, fibromyalgia, GERD, hypertension, hyperlipidemia, osteoarthritis, permanent pacemaker for sick sinus syndrome, TIA, diabetes type 2 with peripheral neuropathy, arthritis in multiple joints, left rotator cuff problem, chronic kidney disease, urinary incontinence, iron deficiency anemia, skin cancer that was removed, bilateral lower extremity varicosities, gout, chronic gait dysfunction does use a cane Social history: Does use a cane. Lives alone. Patient smoked for 52 years. Packs a day stopped in 2011. No alcohol. Does use CBD ordered. Physical examination: VITAL SIGNS: 97.8, 60, 20, 100/66 GENERAL: BMI 26.2, laying in bed, comfortable. EYES: Pupils equal. Conjunctiva normal. HEENT: External appearance of nose and ears normal, oral cavity grossly normal. NECK: JVD not raised; masses not palpable. HEART: First and second heart sounds are normal; no edema. LUNGS: Respiratory rate normal; clear to auscultation. ABDOMEN: Soft, nontender, liver spleen not palpable, no masses palpable. PSYCH: Alert and oriented x3; mood and affect normal MUSCULAR skeletal: Evidence of OA in multiple joints. Some bruising on the left wrist. Fair range of motion. EXTREMITIES: Evidence of mild cellulitis bilateral lower extremity above the ankles. NEUROLOGICAL: Cranial nerves grossly intact; no facial asymmetry, power and sensation grossly intact. Gait witnessed with the daughter and myself. As per the daughter, at baseline a bit unsteady LYMPHATICS: No lymph nodes palpable in the axilla and neck INVESTIGATIONS, reviewed in the clinical context: WBC 7.3 hemoglobin 11.1 platelets 219 potassium 4.1 bun 26 creatinine 1.39 Coronavirus [PCL]-not detected X-ray of the pelvis, wrist, shoulder had cervical spine-no fracture. Chronic changes and evidence of arthritis Chest x-ray film personally reviewed by me-pacemaker, possibly chronic changes EKG tracing personally reviewed by me-ventricle paced rhythm Assessment and plan: -This is a patient who was found on the ground also the house. She had a very small lunch. Not taking much fluids. It was pretty warm outside. Temperature be 80. No clinical evidence of seizure activity. Patient was not hypoglycemic. Patient's electrolytes 1 patient's baseline. Telemetry did not reveal any abnormalities. Most likely vasovagal with a contribution from dehydration. Short episode of arrhythmia cannot be ruled out. Pacemaker checked. Patient placed on telemetry. Negative for orthostatics -Persistent atrial flutter fibrillation. Rate controlled Chronically on eliquis Continue with telemetry -Acute mild bilateral lower extremity cellulitis, likely from dry skin of the feet being the source of infection. Skin care was discussed with the patient daughter the bedside. Topical Silvadene and a short course of Keflex -Chronic congestive heart failure. EF not known We'll resume Lasix -COPD in a previous smoker Uses inhaler when necessary -Diabetes mellitus type 2 Continue with Glucotrol XL. Follow Accu-Cheks -Diabetic peripheral neuropathy Continue with Neurontin -Chronic fibromyalgia Continue with Ultram when necessary -GERD Use Pepcid when necessary Hyperlipidemia Continue with lovastatin -Essential hypertension Resume patient's Norvasc and Prinivil Lopressor -Primary osteoarthritis multiple joints Uses Ultram when necessary -Chronic kidney disease likely secondary to diabetic nephropathy and hypertensive nephrosclerosis stage III, at baseline Follow electrolytes -Chronic urinary stress incontinence Continue with Vesicare -Bilateral lower extremity varicosities Follow as outpatient -Chronic gout Continue with allopurinol -Moderate cognitive impairment likely from the late onset Alzheimer's dementia For further workup as outpatient by family doctor -Chronic gait dysfunction of the baseline patient uses a cane Fall precautions Disposition: Home withdaughter Patient Condition at Discharge: Stable Plan - Discharge Summary Discharge Rx Participant: No New Discharge Prescriptions: New Cephalexin [Keflex] 250 mg PO Q8HR #15 capsule Continue lisinopriL [Prinivil] 20 mg PO DAILY Allopurinol [Zyloprim] 100 mg PO BID Lovastatin [Mevacor] 40 mg PO HS Gabapentin [Neurontin] 300 mg PO BID traMADol HCL [Ultram] 100 mg PO Q6HR PRN PRN Reason: Pain Pantoprazole Sodium [Protonix] 40 mg PO BID #60 tablet. Apixaban [Eliquis] 2.5 mg PO BID Solifenacin Succinate [Vesicare] 5 mg PO HS Metoprolol Tartrate [Lopressor] 25 mg PO TID glipiZIDE XL [Glucotrol XL] 5 mg PO DAILY Furosemide [Lasix] 20 mg PO DAILY #0 Albuterol Inhaler [Ventolin Hfa Inhaler] 2 puff INHALATION RT-QID PRN PRN Reason: Shortness Of Breath metFORMIN HCL 500 mg PO DAILY amLODIPine [Norvasc] 5 mg PO DAILY Discharge Medication List Allopurinol [Zyloprim] 100 mg PO BID 07/05/16 [History] lisinopriL [Prinivil] 20 mg PO DAILY 07/05/16 [History] Gabapentin [Neurontin] 300 mg PO BID 09/13/17 [History] Lovastatin [Mevacor] 40 mg PO HS 09/13/17 [History] traMADol HCL [Ultram] 100 mg PO Q6HR PRN 05/06/18 [History] Pantoprazole Sodium [Protonix] 40 mg PO BID #60 tablet. 05/08/18 [Rx] Apixaban [Eliquis] 2.5 mg PO BID 06/10/19 [History] Solifenacin Succinate [Vesicare] 5 mg PO HS 06/10/19 [History] Metoprolol Tartrate [Lopressor] 25 mg PO TID 09/02/19 [History] glipiZIDE XL [Glucotrol XL] 5 mg PO DAILY 09/02/19 [History] Furosemide [Lasix] 20 mg PO DAILY #0 09/04/19 [Rx] Albuterol Inhaler [Ventolin Hfa Inhaler] 2 puff INHALATION RT-QID PRN 12/27/20 [History] metFORMIN HCL 500 mg PO DAILY 12/27/20 [History] Cephalexin [Keflex] 250 mg PO Q8HR #15 capsule 12/28/20 [Rx] amLODIPine [Norvasc] 5 mg PO DAILY 12/28/20 [History] Follow up Appointment(s)/Referral(s): David Turner DO [Primary Care Provider] - 1-2 days (Office will call with appointment and time.) Santi Peguero DO [Doctor of Osteopathic Medicine] - 01/05/21 2:45 pm [facility], [NON-STAFF] - 1 Week Patient Instructions/Handouts: Syncope (DC) Discharge Disposition: HOME SELF-CARE
[2020-12-29] MEDS ORDERED: glipiZIDE 5 MG TAB PO SCH (09:00)
[2020-12-29] MEDS ORDERED: allopurinoL 100 MG TAB PO SCH (09:00)
[2020-12-29] MEDS ORDERED: metFORMIN 500 MG TAB PO SCH (09:00)
--- NOTE | 2020-12-29 10:21 | ECHOF ---
Referral Reason:syncope, lv function MEASUREMENTS -------- HEIGHT: 172.7 cm WEIGHT: 78.0 kg BP: 120/99 RVIDd: 4.5 cm (< 3.3) IVSd: 1.9 cm (0.6 - 1.1) LVIDd: 4.4 cm (3.9 - 5.3) LVPWd: 1.5 cm (0.6 - 1.1) IVSs: 2.1 cm LVIDs: 2.4 cm LVPWs: 1.8 cm LAESV Index (A-L): 57.72 ml/m Ao Diam: 3.1 cm (2.0 - 3.7) AV Cusp: 2.3 cm (1.5 - 2.6) LA Diam: 5.4 cm (2.7 - 3.8) MV EXCURSION: 12.685 mm (> 18.000) MV EF SLOPE: 79 mm/s (70 - 150) EPSS: 0.4 cm RAP: 20.00 mmHg RVSP: 53.02 mmHg FINDINGS -------- Atrial fibrillation. This was a technically adequate study. The left ventricular size is normal. There is moderate concentric left ventricular hypertrophy. O verall left ventricular systolic function is low-normal with, an EF between 50 - 55 %. Septal wall motion is delayed, and consistent with ventricular pacing. The right ventricle is severely enlarged. LA is severely dilated >40 ml/m2 The right atrium is mildly enlarged. Electronic pacemaker lead seen in the right atrial cavity. Interatrial and interventricular septum intact. The aortic valve is trileaflet and appears structurally normal. There is no evidence of aortic regu rgitation. There is no evidence of aortic stenosis. Moderate mitral regurgitation is present. Severe tricuspid regurgitation present. There is moderate to severe pulmonary hypertension. The r ight ventricular systolic pressure, as measured by Doppler, is 53.02mmHg. There is no pulmonic regurgitation present. The aortic root size is normal. The inferior vena cava is dilated with poor inspiratory collapse which is consistent with estimated r ight atrial pressure of 20 mmHg. There is no pericardial effusion. CONCLUSIONS -------- 1. The left ventricular size is normal. 2. There is moderate concentric left ventricular hypertrophy. 3. Overall left ventricular systolic function is low-normal with, an EF between 50 - 55 %. 4. The right ventricle is severely enlarged. 5. LA is severely dilated >40 ml/m2 6. The right atrium is mildly enlarged. 7. Moderate mitral regurgitation is present. 8. Severe tricuspid regurgitation present. 9. There is moderate to severe pulmonary hypertension. 10. The right ventricular systolic pressure, as measured by Doppler, is 53.02mmHg. 11. The inferior vena cava is dilated with poor inspiratory collapse which is consistent with estimat ed right atrial pressure of 20 mmHg. PRICING CLERK: Kalli Vasquez RDCS
== END 2020-12-28 15:37 | disposition home or self-care (01) ==
LOC: EC 19:05 → 6NMEDSUR 22:21
PROVIDERS: ADMIT Hospitalist; ATTEND Hospitalist
DX: R55 Syncope and collapse (principal); E86.0 Dehydration; I48.19 Other persistent atrial fibrillation; I13.0 Hypertensive heart and chronic kidney disease with heart failure and stage 1 through stage 4 chronic kidney disease, or unspecified chronic kidney disease; N18.30 Chronic kidney disease, stage 3 unspecified; I50.9 Heart failure, unspecified; E11.22 Type 2 diabetes mellitus with diabetic chronic kidney disease; E11.42 Type 2 diabetes mellitus with diabetic polyneuropathy; M19.012 Primary osteoarthritis, left shoulder; S60.212A Contusion of left wrist, initial encounter; L03.116 Cellulitis of left lower limb; L03.115 Cellulitis of right lower limb; I49.5 Sick sinus syndrome; M19.041 Primary osteoarthritis, right hand; M19.042 Primary osteoarthritis, left hand; M17.0 Bilateral primary osteoarthritis of knee; G89.29 Other chronic pain; M75.102 Unspecified rotator cuff tear or rupture of left shoulder, not specified as traumatic; M47.812 Spondylosis without myelopathy or radiculopathy, cervical region; D50.9 Iron deficiency anemia, unspecified; E78.5 Hyperlipidemia, unspecified; I48.92 Unspecified atrial flutter; J44.9 Chronic obstructive pulmonary disease, unspecified; K21.9 Gastro-esophageal reflux disease without esophagitis; M1A.9XX0 Chronic gout, unspecified, without tophus (tophi); M79.7 Fibromyalgia; I08.1 Rheumatic disorders of both mitral and tricuspid valves; I27.20 Pulmonary hypertension, unspecified; N39.3 Stress incontinence (female) (male); R41.89 Other symptoms and signs involving cognitive functions and awareness; R26.9 Unspecified abnormalities of gait and mobility; I83.90 Asymptomatic varicose veins of unspecified lower extremity; J90 Pleural effusion, not elsewhere classified; W19.XXXA Unspecified fall, initial encounter; Z20.822 Contact with and (suspected) exposure to COVID-19; Y92.007 Garden or yard of unspecified non-institutional (private) residence as the place of occurrence of the external cause; Z79.01 Long term (current) use of anticoagulants; Z79.84 Long term (current) use of oral hypoglycemic drugs; Z79.891 Long term (current) use of opiate analgesic; Z79.899 Other long term (current) drug therapy; Z88.6 Allergy status to analgesic agent; Z88.1 Allergy status to other antibiotic agents; Z85.828 Personal history of other malignant neoplasm of skin; Z86.73 Personal history of transient ischemic attack (TIA), and cerebral infarction without residual deficits; Z87.891 Personal history of nicotine dependence; Z87.01 Personal history of pneumonia (recurrent); Z95.0 Presence of cardiac pacemaker; Z87.440 Personal history of urinary (tract) infections; Z90.721 Acquired absence of ovaries, unilateral; Z98.82 Breast implant status; Z90.710 Acquired absence of both cervix and uterus; Z98.890 Other specified postprocedural states; Z80.1 Family history of malignant neoplasm of trachea, bronchus and lung
CPT/HCPCS: 96374; 99285; 36415; 93005; 93306; 80053; 80048; 82550; 83735; 84484 ×2; 85025 ×2; 85610; 85730; 81001; 87635; 72170; 73030; 73110; 71046; 72125; 70450; G0378 ×2; J3010; Q9967

== ENCOUNTER 2021-01-13 09:05 | Inpatient (IN) | payer MEDICARE ==
[2021-01-13] MEDS ORDERED: ACETAMINOPHEN TAB 500 MG TAB PO STA (09:28)
[2021-01-13] MEDS ORDERED: SODIUM CHLORIDE 0.9% 500 ML 500 ML IV STA (09:29)
[2021-01-13] MEDS ORDERED: IPRATROPIUM-ALBUTEROL 3 ML NEB INHALATION STA (09:30)
[2021-01-13] MEDS ORDERED: methylPREDNISolone SOD SUCCI 125 MG/2 ML VIAL IV STA (09:30)
[2021-01-13 09:47] LABS: Anisocytosis Slight; Basophils % (A) 0 %; Eosinophils # (A) 0.1 k/uL (0-0.7); Eosinophils % (A) 0 %; HGB 11.7 gm/dL (11.4-16.0); Hypochromasia Slight; Lymphocytes # (A) 0.5 k/uL (1.0-4.8); Lymphocytes % (A) 5 %; MCH 28.3 pg (25.0-35.0); MCHC 32.6 g/dL (31.0-37.0); MCV 86.9 fL (80.0-100.0); Mean Platelet Volume 7.1; Monocytes # (A) 0.5 k/uL (0-1.0); Monocytes % (A) 4 %; Neutrophils # (A) 9.6 k/uL (1.3-7.7); Neutrophils % (A) 90 %; Platelet Count 259 k/uL (150-450); RBC 4.15 m/uL (3.80-5.40); RDW 16.6 % (11.5-15.5); WBC 10.7 k/uL (3.8-10.6)
[2021-01-13 09:57] LABS: INR 1.1 (<1.2); Partial Thromboplastin Time 22.9 sec (22.0-30.0); Prothrombin Time 11.5 sec (9.0-12.0)
[2021-01-13 09:58] LABS: Albumin 3.8 g/dL (3.5-5.0); Calcium 9.2 mg/dL (8.4-10.2); Potassium 3.8 mmol/L (3.5-5.1); Total Bilirubin 0.9 mg/dL (0.2-1.3)
--- NOTE | 2021-01-13 10:04 | ED ---
General Adult HPI - General Chief complaint: Fall Stated complaint: Fall Time Seen by Provider: 01/13/21 09:11 Source: patient Mode of arrival: ambulatory Limitations: no limitations - History of Present Illness Initial comments: 75-year-old female with a complicated past medical history including COPD, heart failure presents to the emergency room for a chief complaint of fall. Patient states she got up to go to the bathroom this morning and fell. Patient does not know why she fell, does admit that she was weak at this time. She denies lightheadedness or dizziness or chest pain preceding the fall. Denies a loss of consciousness. Patient states she was unable to get up off the floor and did lay on the floor for about 3 hours until EMS came. Patient denying any pain. Admits to slight shortness of breath. Denies any other complaints.Patient has no other complaints at this time including chest pain, abdominal pain, nausea or vomiting, headache, or visual changes. - Related Data Home Medications Medication Instructions Recorded Confirmed Allopurinol [Zyloprim] 100 mg PO BID 07/05/16 01/13/21 lisinopriL [Prinivil] 20 mg PO DAILY 07/05/16 01/13/21 Gabapentin [Neurontin] 300 mg PO BID 09/13/17 01/13/21 Lovastatin [Mevacor] 40 mg PO HS 09/13/17 01/13/21 Apixaban [Eliquis] 2.5 mg PO BID 06/10/19 01/13/21 Solifenacin Succinate [Vesicare] 5 mg PO HS 06/10/19 01/13/21 Metoprolol Tartrate [Lopressor] 25 mg PO TID 09/02/19 01/13/21 glipiZIDE XL [Glucotrol XL] 5 mg PO DAILY 09/02/19 01/13/21 Albuterol Inhaler [Ventolin Hfa 2 puff INHALATION RT-QID PRN 12/27/20 01/13/21 Inhaler] metFORMIN HCL 500 mg PO DAILY 12/27/20 01/13/21 amLODIPine [Norvasc] 5 mg PO DAILY 12/28/20 01/13/21 Docusate [Colace] 100 mg PO DAILY 01/13/21 01/13/21 Previous Rx's Medication Instructions Recorded Pantoprazole Sodium [Protonix] 40 mg PO BID #60 tablet. 05/08/18 Furosemide [Lasix] 20 mg PO DAILY #0 09/04/19 Allergies Allergy/AdvReac Type Severity Reaction Status Date / Time erythromycin base Allergy Severe TONGUE Verified 01/13/21 10:49 SWELLS gatifloxacin [From Tequin] Allergy Severe TONGUE Verified 01/13/21 10:49 SWELLS aspirin AdvReac Nausea Verified 01/13/21 10:49 Review of Systems ROS Statement: Those systems with pertinent positive or pertinent negative responses have been documented in the HPI. ROS Other: All systems not noted in ROS Statement are negative. Past Medical History Past Medical History: Atrial Fibrillation, Atrial Flutter, Blood Disorder, Cancer, CVA/TIA, Diabetes Mellitus, Fibromyalgia, GERD/Reflux, Hyperlipidemia, Hypertension, Osteoarthritis (OA), Pneumonia, Renal Disease, Vascular Disorder Additional Past Medical History / Comment(s): 05/2019 admitted with SSS and had pacer insertion, 2011 TIA, NIDDM tyep II, neuropathy bilateral feet, arthritis bilateral hands/knees, L rotator cuff problem, bronchitis, CKD stage III, UTI, urinary leakage at times, anemia with iron infusions in the past, skin cancer with removals, varicosities bilateral legs, constipation, gout bilateral feet, History of Any Multi-Drug Resistant Organisms: None Reported Past Surgical History: Appendectomy, Bladder Surgery, Breast Surgery, Hysterectomy, Tonsillectomy Additional Past Surgical History / Comment(s): 06/15/19 pacemaker, bladder suspension, bilateral breast implants, L oophorectomy, colonoscopies, skin cancer removals, L leg varicose vein stripping, cystoscopy. Past Anesthesia/Blood Transfusion Reactions: No Reported Reaction Past Psychological History: No Psychological Hx Reported Smoking Status: Never smoker Past Alcohol Use History: None Reported Past Drug Use History: Marijuana - Past Family History Father History Unknown: Yes Family Medical History: Cancer Additional Family Medical History / Comment(s): Father of lung cancer in his 40s. Mother Family Medical History: No Reported History Additional Family Medical History / Comment(s): Mother is 92 yrs old. General Exam Limitations: no limitations General appearance: alert, in no apparent distress Head exam: Present: atraumatic Eye exam: Present: normal appearance, PERRL, EOMI. Absent: scleral icterus, conjunctival injection, periorbital swelling ENT exam: Present: normal exam, mucous membranes moist Neck exam: Present: normal inspection. Absent: tenderness, meningismus, lymphadenopathy Respiratory exam: Present: wheezes (Left lung wheezing). Absent: respiratory distress, rales, rhonchi, stridor Cardiovascular Exam: Present: regular rate, normal rhythm, normal heart sounds. Absent: systolic murmur, diastolic murmur, rubs, gallop, clicks GI/Abdominal exam: Present: soft, normal bowel sounds. Absent: distended, tenderness, guarding, rebound, rigid Course Vital Signs 01/13/21 01/13/21 01/13/21 09:09 11:04 11:13 Temperature 100.3 F H Pulse Rate 60 68 66 Respiratory 18 18 18 Rate Blood Pressure 98/63 O2 Sat by Pulse 90 L Oximetry EKG Findings - EKG Comments: EKG Findings:: Sinus rhythm, ventricular rate 65, OR Interval 220, QTC 492 Medical Decision Making - Medical Decision Making Vitals are stable however patient does present hypoxic on her first 3-4 L of oxygen. Patient does have a low-grade fever of 100.3 however I have not located a source of infection. blood cx ry be drawn. This could be secondary to second Covid shot yesterday as well. Patient does have history of cellulitis with slight erythema of BLE which could be related. Patient presents for fall and weakness. Labs do reveal evidence of heart failure with a BNP of 5900 and a c hest x-ray showing interstitial edema. Slightly elevated troponin noted, suspect related to CHF. No CP. Lactic acid of 2.3 likely related to dehydration. However patient does have a history of lower ext cellulitis. She will be given a dose of Rocephin to cover this and we will trend the white blood cell count. Fluid bolus was not given secondary to CHF. CT chest was obtained to rule out PE, no evidence of PE, there is evidence of heart failure. Patient will be admitted for cardiology consultation. Case discussed with Dr. Muñoz. I did discuss this case with the daughter who did come to the bedside. She feels that patient requires placement to a halfway facility for rehabilitation. Does not feel patient is safe going home - Lab Data Result diagrams: 01/13/21 09:31 01/13/21 09:31 Lab Results 01/13/21 01/13/21 01/13/21 Range/Units 09:31 09:31 09:31 WBC 10.7 H (3.8-10.6) k/uL RBC 4.15 (3.80-5.40) m/uL Hgb 11.7 (11.4-16.0) gm/dL Hct 36.0 (34.0-46.0) % MCV 86.9 (80.0-100.0) fL MCH 28.3 (25.0-35.0) pg MCHC 32.6 (31.0-37.0) g/dL RDW 16.6 H (11.5-15.5) % Plt Count 259 (150-450) k/uL MPV 7.1 Neutrophils % 90 % Lymphocytes % 5 % Monocytes % 4 % Eosinophils % 0 % Basophils % 0 % Neutrophils # 9.6 H (1.3-7.7) k/uL Lymphocytes # 0.5 L (1.0-4.8) k/uL Monocytes # 0.5 (0-1.0) k/uL Eosinophils # 0.1 (0-0.7) k/uL Basophils # 0.0 (0-0.2) k/uL Hypochromasia Slight Anisocytosis Slight PT 11.5 (9.0-12.0) sec INR 1.1 (<1.2) APTT 22.9 (22.0-30.0) sec D-Dimer (<0.60) mg/L FEU Sodium (137-145) mmol/L Potassium (3.5-5.1) mmol/L Chloride (98-107) mmol/L Carbon Dioxide (22-30) mmol/L Anion Gap mmol/L BUN (7-17) mg/dL Creatinine (0.52-1.04) mg/dL Est GFR (CKD-EPI)AfAm (>60 ml/min/1.73 sqM) Est GFR (CKD-EPI)NonAf (>60 ml/min/1.73 sqM) Glucose (74-99) mg/dL Plasma Lactic Acid Ariel (0.7-2.0) mmol/L Calcium (8.4-10.2) mg/dL Total Bilirubin (0.2-1.3) mg/dL AST (14-36) U/L ALT (4-34) U/L Alkaline Phosphatase (38-126) U/L Creatine Kinase (30-135) U/L Troponin I (0.000-0.034) ng/mL NT-Pro-B Natriuret Pep pg/mL Total Protein (6.3-8.2) g/dL Albumin (3.5-5.0) g/dL Urine Color Light Yellow Urine Appearance Clear (Clear) Urine pH 6.5 (5.0-8.0) Ur Specific [place] 1.013 (1.001-1.035) Urine Protein Negative (Negative) Urine Glucose (UA) Negative (Negative) Urine Ketones Negative (Negative) Urine Blood Negative (Negative) Urine Nitrite Negative (Negative) Urine Bilirubin Negative (Negative) Urine Urobilinogen <2.0 (<2.0) mg/dL Ur Leukocyte Esterase Negative (Negative) Coronavirus (PCR) (Not Detectd) 01/13/21 01/13/21 01/13/21 Range/Units 09:31 09:31 09:31 WBC (3.8-10.6) k/uL RBC (3.80-5.40) m/uL Hgb (11.4-16.0) gm/dL Hct (34.0-46.0) % MCV (80.0-100.0) fL MCH (25.0-35.0) pg MCHC (31.0-37.0) g/dL RDW (11.5-15.5) % Plt Count (150-450) k/uL MPV Neutrophils % % Lymphocytes % % Monocytes % % Eosinophils % % Basophils % % Neutrophils # (1.3-7.7) k/uL Lymphocytes # (1.0-4.8) k/uL Monocytes # (0-1.0) k/uL Eosinophils # (0-0.7) k/uL Basophils # (0-0.2) k/uL Hypochromasia Anisocytosis PT (9.0-12.0) sec INR (<1.2) APTT (22.0-30.0) sec D-Dimer (<0.60) mg/L FEU Sodium 142 (137-145) mmol/L Potassium 3.8 (3.5-5.1) mmol/L Chloride 104 (98-107) mmol/L Carbon Dioxide 26 (22-30) mmol/L Anion Gap 12 mmol/L BUN 33 H (7-17) mg/dL Creatinine 1.28 H (0.52-1.04) mg/dL Est GFR (CKD-EPI)AfAm 48 (>60 ml/min/1.73 sqM) Est GFR (CKD-EPI)NonAf 41 (>60 ml/min/1.73 sqM) Glucose 175 H (74-99) mg/dL Plasma Lactic Acid Ariel 2.3 H* (0.7-2.0) mmol/L Calcium 9.2 (8.4-10.2) mg/dL Total Bilirubin 0.9 (0.2-1.3) mg/dL AST 29 (14-36) U/L ALT 17 (4-34) U/L Alkaline Phosphatase 131 H (38-126) U/L Creatine Kinase 88 (30-135) U/L Troponin I 0.055 H* (0.000-0.034) ng/mL NT-Pro-B Natriuret Pep pg/mL Total Protein 7.0 (6.3-8.2) g/dL Albumin 3.8 (3.5-5.0) g/dL Urine Color Urine Appearance (Clear) Urine pH (5.0-8.0) Ur Specific [place] (1.001-1.035) Urine Protein (Negative) Urine Glucose (UA) (Negative) Urine Ketones (Negative) Urine Blood (Negative) Urine Nitrite (Negative) Urine Bilirubin (Negative) Urine Urobilinogen (<2.0) mg/dL Ur Leukocyte Esterase (Negative) Coronavirus (PCR) (Not Detectd) 01/13/21 01/13/21 01/13/21 Range/Units 09:31 09:31 09:31 WBC (3.8-10.6) k/uL RBC (3.80-5.40) m/uL Hgb (11.4-16.0) gm/dL Hct (34.0-46.0) % MCV (80.0-100.0) fL MCH (25.0-35.0) pg MCHC (31.0-37.0) g/dL RDW (11.5-15.5) % Plt Count (150-450) k/uL MPV Neutrophils % % Lymphocytes % % Monocytes % % Eosinophils % % Basophils % % Neutrophils # (1.3-7.7) k/uL Lymphocytes # (1.0-4.8) k/uL Monocytes # (0-1.0) k/uL Eosinophils # (0-0.7) k/uL Basophils # (0-0.2) k/uL Hypochromasia Anisocytosis PT (9.0-12.0) sec INR (<1.2) APTT (22.0-30.0) sec D-Dimer 1.54 H (<0.60) mg/L FEU Sodium (137-145) mmol/L Potassium (3.5-5.1) mmol/L Chloride (98-107) mmol/L Carbon Dioxide (22-30) mmol/L Anion Gap mmol/L BUN (7-17) mg/dL Creatinine (0.52-1.04) mg/dL Est GFR (CKD-EPI)AfAm (>60 ml/min/1.73 sqM) Est GFR (CKD-EPI)NonAf (>60 ml/min/1.73 sqM) Glucose (74-99) mg/dL Plasma Lactic Acid Ariel (0.7-2.0) mmol/L Calcium (8.4-10.2) mg/dL Total Bilirubin (0.2-1.3) mg/dL AST (14-36) U/L ALT (4-34) U/L Alkaline Phosphatase (38-126) U/L Creatine Kinase (30-135) U/L Troponin I (0.000-0.034) ng/mL NT-Pro-B Natriuret Pep 5940 pg/mL Total Protein (6.3-8.2) g/dL Albumin (3.5-5.0) g/dL Urine Color Urine Appearance (Clear) Urine pH (5.0-8.0) Ur Specific [place] (1.001-1.035) Urine Protein (Negative) Urine Glucose (UA) (Negative) Urine Ketones (Negative) Urine Blood (Negative) Urine Nitrite (Negative) Urine Bilirubin (Negative) Urine Urobilinogen (<2.0) mg/dL Ur Leukocyte Esterase (Negative) Coronavirus (PCR) Not Detected (Not Detectd) Disposition Clinical Impression: COPD (chronic obstructive pulmonary disease), Heart failure, Fall, Weakness, Elevated troponin, Lactic acidosis, Cellulitis Disposition: ADMITTED IP TO THIS HOSP Is patient prescribed a controlled substance at d/c from ED?: No Referrals: David Turner DO [Primary Care Provider] - 1-2 days Time of Disposition: 12:02
--- NOTE | 2021-01-13 10:06 | XR ---
EXAMINATION TYPE: XR chest 2V DATE OF EXAM: 01/13/2021 COMPARISON: Chest x-ray 12/27/2020 HISTORY: Fever TECHNIQUE: Frontal and lateral views of the chest are obtained. FINDINGS: There is blunting the posterior costophrenic angles which is an interval finding. Generato rs present in left pectoral region, lead in the right ventricle. Heart is enlarged. Interstitium is i ncreased. No evident pneumothorax or pleural effusion. There is calcification in the massive aorta. A rthropathy noted in the shoulders. There are overlying leads. IMPRESSION: Correlate for pulmonary venous hypertension and interstitial edema, possible small effus ion
[2021-01-13 10:09] LABS: Appearance,Urine Clear (Clear); Bilirubin,Urine Negative (Negative); Blood,Urine Negative (Negative); Color,Urine Light Yellow; Glucose,Urine (UA) Negative (Negative); Ketones,Urine Negative (Negative); Leukocyte Esterase,Urine Negative (Negative); Nitrite,Urine Negative (Negative); PH, Urine 6.5 (5.0-8.0); Protein,Urine Negative (Negative); Specific Gravity,Urine 1.013 (1.001-1.035); Urobilinogen,Urine <2.0 mg/dL (<2.0)
--- NOTE | 2021-01-13 11:13 | CT ---
EXAMINATION TYPE: CT brain cspine wo con DATE OF EXAM: 01/13/2021 COMPARISON: Prior CT 01/06/2021 HISTORY: Fall trauma and pain CT DLP: 1322.5 mGycm Automated exposure control for dose reduction was used. TECHNIQUE: CT scan of the head and cervical spine are performed without contrast. FINDINGS: There is no acute intracranial hemorrhage, mass effect, or midline shift identified. The ventricles and sulci are within normal limits in size. The globes are intact and the visualized sin uses are clear. Brain shows a stable appearance compared to prior exam, clear infarct towards the loki lamus, posterior limb of the internal capsule on the left, there is cortical atrophy, cerebral vascul ar calcifications, periventricular white matter low-attenuation Cervical spine is visualized in its entirety from C1 through upper thoracic levels and demonstrates s atisfactory alignment without evidence of acute fracture or dislocation. Prevertebral soft tissue ap pears within normal limits. The C1-C2 articulation is unremarkable. Cervical spine shows a stable a ppearance. There are some facet arthropathy changes. Bilateral airspace disease is present within the lungs. IMPRESSION: 1. There is no acute fracture or dislocation evident in the cervical spine. 2. No acute intracranial hemorrhage, mass effect, or midline shift is seen. 3. Correlate for bilateral pneumonia, edema
--- NOTE | 2021-01-13 11:35 | CT ---
EXAMINATION TYPE: CT chest angio for PE DATE OF EXAM: 01/13/2021 COMPARISON: Chest x-ray same date HISTORY: Hypoxia, Elev. Ddimer CT DLP: 481.9 mGycm Automated exposure control for dose reduction was used. CONTRAST: CT Chest for pulmonary embolism performed with with IV Contrast, patient injected with 86 mL of Isovu e 370. Three-dimensional reconstructions performed on an alternate workstation FINDINGS: LUNGS: The lungs are remarkable for bilateral airspace disease, there is no concerning parenchymal ma ss or nodule identified. There are small pleural effusions bilaterally. The tracheobronchial tree is patent. MEDIASTINUM: There is satisfactory enhancement of the pulmonary artery and its central branches, ther e is poor filling of right upper lobe branches possibly related to underlying airspace disease. Ther e are no greater than 1 cm hilar or mediastinal lymph nodes. No pericardial effusion is seen. AORTA: No additional significant abnormality is seen. OTHER: Bilateral calcified breast prostheses are present there is a intracardiac lead.. IMPRESSION: No central pulmonary embolus. Poor filling of some peripheral branches in the upper lobe on the right without definite filling defect to suggest pulmonary embolus. Correlate for congestive heart failure as noted on patient's chest x-ray
[2021-01-13] MEDS ORDERED: cefTRIAXone IN SWFI 1,000 MG/10 ML SYRINGE IVP STA (11:43)
[2021-01-13] MEDS ORDERED: FUROSEMIDE 10 MG/ML 4 ML VIAL IV STA (11:57)
[2021-01-13] MEDS ORDERED: ASPIRIN 325 MG TAB PO STA (11:57)
[2021-01-13] MEDS: IPRATROPIUM-ALBUTEROL 3 ML NEB INHALATION SCH ×2 (14:56→19:14)
[2021-01-13] MEDS: FUROSEMIDE 10 MG/ML 4 ML VIAL IV SCH ×2 (20:19→23:21)
[2021-01-13] MEDS: methylPREDNISolone SOD SUCCI 125 MG/2 ML VIAL IV SCH ×2 (20:22→23:21)
[2021-01-13] MEDS: PANTOPRAZOLE 40 MG TABLET PO SCH (20:22)
[2021-01-13 20:50] LABS: Glucose,Whole Blood 246 mg/dL (75-99)
[2021-01-13] MEDS: ATORVASTATIN 10 MG TAB PO SCH (21:29)
[2021-01-13] MEDS: GABAPENTIN 300 MG CAP PO SCH (21:29)
[2021-01-13] MEDS: METOPROLOL TARTRATE 25 MG TAB PO SCH (21:29)
[2021-01-13] MEDS: APIXABAN 2.5 MG TABLET PO SCH (21:29)
[2021-01-13] MEDS: allopurinoL 100 MG TAB PO SCH (21:29)
[2021-01-13] MEDS: INSULIN ASPART (NovoLOG) 100 UNIT/ML VIAL SQ SCH (21:30)
[2021-01-13] MEDS: TROSPIUM CHLORIDE 20 MG TABLET PO SCH (21:30)
--- NOTE | 2021-01-13 22:13 | HP ---
HISTORY AND PHYSICAL DATE OF SERVICE: 01/13/2021 CHIEF COMPLAINTS: Fall and hypoxia. HISTORY OF PRESENT ILLNESS: This 75-year-old woman with a past medical history of multiple medical problems including history of atrial flutter fibrillation, history of CVA, TIA, diabetes, fibromyalgia, GERD, hypertension, hyperlipidemia, DJD, being followed by Dr. Turner in the outpatient setting, was brought to the hospital with complaints of fall. The patient was found to be hypoxic and the patient got up to the bathroom and the patient fell. Patient had previous history of fall. The patient was extremely weak and feeling dizziness. The patient was unable to get up off the floor, laid on the floor for 3 hours before the EMS got in and the patient taken to [facility] for further evaluation and treatment. Patient had multiple abnormalities including elevated WBC, lactic acidosis, and creatinine and elevated troponin up to 0.064. The chest x-ray which was done in the ER and reviewed personally by me showed evidence of CHF. A chest CT was done which showed no definite evidence of pulmonary embolism was detected. CT scan of the chest and cervical spine was also done which showed no acute stroke, but possibly bilateral pneumonia was suspected. There is no history of fever, rigors. No history of headache, loss of consciousness. The patient recently completed a 2nd dose of COVID-[address] angio was reviewed personally showed significant infiltrates versus fluid in both lung lewis. The patient had fever on admission. PAST MEDICAL HISTORY: History of atrial flutter/fibrillation, history of CVA, diabetes type 2, fibromyalgia, GERD, hypertension. MEDICATIONS: Medications prior to admission home medications are: Metformin, Prinivil, Glucotrol, Norvasc,Protonix, Lopressor, Neurontin, Lasix, Colace, Eliquis, Zyloprim, Ventolin. Doses are reviewed. ALLERGIES: ERYTHROMYCIN, GATIFLOXACIN, ASPIRIN. FAMILY HISTORY: History of cancer in the family. SOCIAL HISTORY: Previous history of smoking. Occasional THC and CBD oil. REVIEW OF SYSTEMS: ENT: Diminished vision. Diminished hearing. CARDIOVASCULAR: No angina or palpitations. RESPIRATORY: As mentioned earlier. GI: As mentioned earlier. as mentioned earlier. NERVOUS SYSTEM: As mentioned earlier. ALLERGY/IMMUNOLOGY: No asthma or hayfever. MUSCULOSKELETAL: As mentioned earlier. HEMATOLOGY/ONCOLOGY: No history of anemia. ENDOCRINE: As mentioned earlier. CONSTITUTIONAL: As mentioned earlier. DERMATOLOGY: Negative. RHEUMATOLOGY: Negative. PSYCHIATRIC: As mentioned earlier. PHYSICAL EXAM: Patient is alert, oriented x3. Pulse 75, blood pressure 140/66, respiratory rate 16, temperature 98.2, pulse ox 98% on room air. HEENT: Conjunctivae normal. NECK: No JVD. No carotid bruit. No lymph node enlargement. CARDIOVASCULAR: S1, S2 muffled. RESPIRATORY: Breath sounds diminished in the bases. A few scattered rhonchi and crackles. ABDOMEN: Soft, nontender. No mass palpable. LEGS: No edema. No swelling. On examination of the legs excoriation of the legs present. NERVOUS SYSTEM: Higher functions as mentioned earlier. Moves all four limbs. LYMPHATICS: No lymph nodes palpable in the neck, axillae or groin. SKIN: No ulcer, no rash and no bleeding. JOINTS: No active deforming arthropathy. ASSESSMENT: 1. Possible bilateral interstitial pneumonia with sepsis and acute hypoxic respiratory present on admission. 2. Rule out congestive heart failure. 3. Change in mental status acute metabolic encephalopathy. 4. Elevated D-dimer with no evidence of pulmonary embolism. 5. Increased creatinine with acute renal failure, acute tubular necrosis. 6. Gait dysfunction. 7. Completed course of COVID-19 vaccination recently. 8. Atrial flutter fibrillation. 9. History of cerebrovascular accident, transient ischemic attack. 10.Diabetes mellitus type 2. 11.Fibromyalgia. 12.Gastroesophageal reflux disease. 13.Hypertension. 14.Hyperlipidemia. 15.History of degenerative joint disease. 16.History of sick sinus syndrome. 17.History of appendectomy. 18.History of bladder surgery. 19.History of nicotine dependence. 20.History of THC. 21.Increased plasma lactic acid with possible sepsis. 22.Troponin 0.064, indeterminate. RECOMMENDATIONS AND DISCUSSION: In this 75-year-old woman admitted with multiple complex medical issues, at this time, I recommend continue the current medications, management and symptomatic treatment. Recommend broad-spectrum IV antibiotics, steroids and also recommend pulmonary and cardiology consultations. Otherwise, Covid 19 testing was negative. D-dimer is elevated. I would also recommend other inflammatory markers also. Overall prognosis guarded because of multiple complex medical issues. Further recommendations to follow. Lasix has been given. We will continue the Lasix and we will monitor the renal function also closely. Once again, the prognosis guarded. Discussed with the family and patient has very poor home support at this time, so we will obtain PT/OT evaluation, possible ECF rehab also. Further recommendations to follow. MOSES / AN: [id number] / JESSICA
[2021-01-14 06:34] LABS: Glucose,Whole Blood 211 mg/dL (75-99)
[2021-01-14] MEDS: methylPREDNISolone SOD SUCCI 125 MG/2 ML VIAL IV SCH ×2 (06:38→11:09)
[2021-01-14] MEDS: PANTOPRAZOLE 40 MG TABLET PO SCH ×2 (06:38→17:43)
[2021-01-14] MEDS: INSULIN ASPART (NovoLOG) 100 UNIT/ML VIAL SQ SCH ×4 (06:39→20:46)
[2021-01-14 08:52] LABS: Anisocytosis Slight; Basophils % (A) 0 %; Eosinophils % (A) 0 %; HCT 33.6 % (34.0-46.0); Hypochromasia Slight; Lymphocytes # (A) 0.6 k/uL (1.0-4.8); Lymphocytes % (A) 6 %; MCHC 32.6 g/dL (31.0-37.0); MCV 85.8 fL (80.0-100.0); Monocytes # (A) 0.4 k/uL (0-1.0); Monocytes % (A) 4 %; Neutrophils # (A) 8.9 k/uL (1.3-7.7); Neutrophils % (A) 90 %; Platelet Count 244 k/uL (150-450); RBC 3.91 m/uL (3.80-5.40); RDW 16.8 % (11.5-15.5); WBC 9.9 k/uL (3.8-10.6)
[2021-01-14] MEDS ORDERED: cefTRIAXone IN SWFI 1,000 MG/10 ML SYRINGE IVP SCH (09:00)
[2021-01-14 10:30] LABS: Albumin 3.4 g/dL (3.5-5.0); Calcium 9.1 mg/dL (8.4-10.2); Potassium 3.2 mmol/L (3.5-5.1); Total Bilirubin 0.8 mg/dL (0.2-1.3); Total Protein 6.4 g/dL (6.3-8.2)
[2021-01-14] MEDS: FUROSEMIDE 10 MG/ML 4 ML VIAL IV SCH ×2 (11:08→20:46)
[2021-01-14] MEDS: amLODIPine 5 MG TAB PO SCH (11:09)
[2021-01-14] MEDS: DOCUSATE 100 MG CAP PO SCH (11:09)
[2021-01-14] MEDS: APIXABAN 2.5 MG TABLET PO SCH ×2 (11:09→20:45)
[2021-01-14] MEDS: allopurinoL 100 MG TAB PO SCH ×2 (11:09→20:46)
[2021-01-14] MEDS: METOPROLOL TARTRATE 25 MG TAB PO SCH ×3 (11:09→20:45)
[2021-01-14] MEDS: GABAPENTIN 300 MG CAP PO SCH ×2 (11:09→20:46)
[2021-01-14 12:02] LABS: Glucose,Whole Blood 188 mg/dL (75-99)
--- NOTE | 2021-01-14 12:30 | XR ---
EXAMINATION TYPE: XR chest 1V portable DATE OF EXAM: 01/14/2021 COMPARISON: Chest x-ray 01/13/2021 HISTORY: Pneumonia TECHNIQUE: Single frontal view of the chest is obtained. FINDINGS: There is an enlarged heart as on prior exam. Intracardiac defibrillator lead is stable, he art is enlarged. Interstitium is increased. No evident pneumothorax or pleural effusion. Question mariama e minimal patchy airspace disease, there is overall improved aeration, improvement in interstitium, p erihilar vascular indistinctness. Aorta is dense. IMPRESSION: Improvement in patient's volume status and aeration. Additional follow-up recommended.
--- NOTE | 2021-01-14 15:52 | P.CNPUL ---
History of Present Illness Consult date: 01/14/21 Requesting physician: Gabriel Muñoz Reason for consult: other (Falling and unsteady on her feet) Chief complaint: Status post fall History of present illness: This is a 75-year-old female with history of COPD, history of CVA, patient has chronic ataxia, patient fell in the bathroom yesterday, and she felt extremely weak. Normally patient is a very poor balance, and she is ataxic she was unable to get up off the floor, and she laid down on the floor for about 3 hours until EMS came. Upon evaluation in the ER, patient was complaining of minimal shortness of breath, chest x-ray showed evidence of interstitial edema, patient was admitted, placed on diuretics, and follow-up chest x-ray today showed significant improvement. However the admitting physician was concerned about potential pneumonia hence this consult was initiated. Patient denies any cough, no fever, no chills, no hemoptysis, no chest pain. She had no clinical symptoms whatsoever to suggest pneumonia in addition to this he she had a chest x-ray that showed interstitial edema and improved after a good course of diuresis. Review of Systems Constitutional: Weakness no fever, no chills, no weight loss. Chronic ataxia. HEENT: Negative. Pulmonary: As noted in HPI. Cardiac: Negative. GI: Negative. Musculoskeletal: Chronic weakness she had previous CVA. Neurologic: Previous CVA and chronic ataxia and imbalance. Endocrine: Negative Hematologic: Negative Psychiatric: Negative Skin: Negative Genitourinary:: Negative Past Medical History Past Medical History: Atrial Fibrillation, Atrial Flutter, Blood Disorder, Cancer, CVA/TIA, Diabetes Mellitus, Fibromyalgia, GERD/Reflux, Hyperlipidemia, Hypertension, Osteoarthritis (OA), Pneumonia, Renal Disease, Vascular Disorder Additional Past Medical History / Comment(s): 05/2019 admitted with SSS and had pacer insertion, 2011 TIA, NIDDM tyep II, neuropathy bilateral feet, arthritis bilateral hands/knees, L rotator cuff problem, bronchitis, CKD stage III, UTI, urinary leakage at times, anemia with iron infusions in the past, skin cancer with removals, varicosities bilateral legs, constipation, gout bilateral feet, History of Any Multi-Drug Resistant Organisms: None Reported Past Surgical History: Appendectomy, Bladder Surgery, Breast Surgery, Hysterectomy, Tonsillectomy Additional Past Surgical History / Comment(s): 06/15/19 pacemaker, bladder suspension, bilateral breast implants, L oophorectomy, colonoscopies, skin cancer removals, L leg varicose vein stripping, cystoscopy. Past Anesthesia/Blood Transfusion Reactions: No Reported Reaction Past Psychological History: No Psychological Hx Reported Additional Psychological History / Comment(s): Pt resides alone. She uses a cane to ambulate. She drives. Her ricarda goes grocery shopping for pt. Smoking Status: Former smoker Past Alcohol Use History: None Reported Additional Past Alcohol Use History / Comment(s): quit smoking 2011, starting smoking age 15, 2 1/2 PPD Additional Drug Use History / Comment(s): CBD oil - Past Family History Father History Unknown: Yes Family Medical History: Cancer Additional Family Medical History / Comment(s): Father of lung cancer in his 40s. Mother Family Medical History: No Reported History Additional Family Medical History / Comment(s): Mother is 92 yrs old. Medications and Allergies Home Medications Medication Instructions Recorded Confirmed Type Allopurinol [Zyloprim] 100 mg PO BID 07/05/16 01/13/21 History lisinopriL [Prinivil] 20 mg PO DAILY 07/05/16 01/13/21 History Gabapentin [Neurontin] 300 mg PO BID 09/13/17 01/13/21 History Lovastatin [Mevacor] 40 mg PO HS 09/13/17 01/13/21 History Pantoprazole Sodium [Protonix] 40 mg PO BID #60 tablet. 05/08/18 01/13/21 Rx Apixaban [Eliquis] 2.5 mg PO BID 06/10/19 01/13/21 History Solifenacin Succinate [Vesicare] 5 mg PO HS 06/10/19 01/13/21 History Metoprolol Tartrate [Lopressor] 25 mg PO TID 09/02/19 01/13/21 History glipiZIDE XL [Glucotrol XL] 5 mg PO DAILY 09/02/19 01/13/21 History Furosemide [Lasix] 20 mg PO DAILY #0 09/04/19 01/13/21 Rx Albuterol Inhaler [Ventolin Hfa 2 puff INHALATION RT-QID PRN 12/27/20 01/13/21 History Inhaler] metFORMIN HCL 500 mg PO DAILY 12/27/20 01/13/21 History amLODIPine [Norvasc] 5 mg PO DAILY 12/28/20 01/13/21 History Docusate [Colace] 100 mg PO DAILY 01/13/21 01/13/21 History Allergies Allergy/AdvReac Type Severity Reaction Status Date / Time erythromycin base Allergy Severe TONGUE Verified 01/13/21 10:49 SWELLS gatifloxacin [From Tequin] Allergy Severe TONGUE Verified 01/13/21 10:49 SWELLS aspirin AdvReac Nausea Verified 01/13/21 10:49 Physical Exam Vitals: Vital Signs Temp Pulse Pulse Resp BP BP Pulse Ox 01/14/21 14:45 20 97 01/14/21 12:00 71 20 193/74 79 L 01/14/21 08:00 98.1 F 71 18 162/66 97 01/14/21 04:00 98.4 F 72 16 162/77 93 L 01/14/21 00:00 98.4 F 68 19 158/71 92 L 01/13/21 20:00 98.1 F 74 18 128/74 94 L 01/13/21 19:07 98.6 F 69 20 140/68 93 L 01/13/21 17:53 75 16 144/61 99 01/13/21 15:55 98.3 F Intake and Output 01/14/21 01/14/21 01/14/21 06:59 14:59 22:59 Intake Total 0 Output Total 1300 1200 Balance -1300 -1200 Intake: Oral 0 Output: Urine 1300 1200 Other: Voiding Method External Catheter Weight 73 kg General appearance: Revealed a 75-year-old female on 2 L nasal cannula, in no distress. Head exam: Atraumatic, normocephalic. Eye exam:: normal appearance, PERRL, EOMI. Absent: scleral icterus, conjunctival injection, periorbital swelling ENT exam: normal exam, mucous membranes moist Neck exam: Supple no neck masses, no thyromegaly, no lymphadenopathy, Respiratory exam: Symmetrical chest expansion, clear breath sound bilaterally no crackles or rhonchi or wheezes. Cardiovascular Exam: Normal S1 and S2, no S3 gallop, no murmur. GI/Abdominal exam: Soft nontender no megaly no rebound no guarding. Extremities: No clubbing edema or cyanosis. Neurologic: No gross focal neurologic deficits. Alert and oriented 3. Results - Laboratory Findings CBC and BMP: 01/14/21 08:27 01/14/21 08:27 PT/INR, D-dimer PT 11.5 sec (9.0-12.0) 01/13/21 09:31 INR 1.1 (<1.2) 01/13/21 09:31 D-Dimer 1.54 mg/L FEU (<0.60) H 01/13/21 09:31 Abnormal lab findings: Abnormal Labs 01/13/21 01/13/21 01/13/21 09:31 09:31 09:31 WBC 10.7 H Hgb Hct RDW 16.6 H Neutrophils # 9.6 H Lymphocytes # 0.5 L D-Dimer Potassium BUN 33 H Creatinine 1.28 H Glucose 175 H POC Glucose (mg/dL) Plasma Lactic Acid Ariel 2.3 H* Alkaline Phosphatase 131 H Troponin I Albumin 01/13/21 01/13/21 01/13/21 09:31 09:31 12:09 WBC Hgb Hct RDW Neutrophils # Lymphocytes # D-Dimer 1.54 H Potassium BUN Creatinine Glucose POC Glucose (mg/dL) Plasma Lactic Acid Ariel Alkaline Phosphatase Troponin I 0.055 H* 0.064 H* Albumin 01/13/21 01/13/21 01/14/21 14:31 20:22 06:31 WBC Hgb Hct RDW Neutrophils # Lymphocytes # D-Dimer Potassium BUN Creatinine Glucose POC Glucose (mg/dL) 246 H 211 H Plasma Lactic Acid Ariel Alkaline Phosphatase Troponin I 0.068 H* Albumin 01/14/21 01/14/21 01/14/21 08:27 08:27 12:01 WBC Hgb 11.0 L Hct 33.6 L RDW 16.8 H Neutrophils # 8.9 H Lymphocytes # 0.6 L D-Dimer Potassium 3.2 L BUN 29 H Creatinine 1.09 H Glucose 207 H POC Glucose (mg/dL) 188 H Plasma Lactic Acid Ariel Alkaline Phosphatase Troponin I Albumin 3.4 L - Diagnostic Findings Chest x-ray: image reviewed (As noted in HPI.) Assessment and Plan Assessment: Impression: Acute on chronic hypoxic respiratory failure , multifactorial secondary to un derlying COPD, and acute congestive heart failure, it is not clear to me whether this is systolic or diastolic, echocardiogram is pending. No evidence of pneumonia based on chest x-ray findings and based on the clinical history. Acute kidney injury Chronic atrial fibrillation. History of CVA and chronic weakness as well as ataxia related to CVA. Type 2 diabetes. Fibromyalgia. History of sick sinus syndrome and previous pacemaker implantation. Ex-smoker. Benign essential hypertension. Recommendation: Patient is doing quite well, she has no active pulmonary symptoms today whatsoever. And her lungs are clear. Chest x-ray showed significant improvement compared to the admission chest x-ray. Suggest continue the same medications that she is presently on. Consider discharge planning in the next 24 hours. Suggest echocardiogram and possibly cardiac evaluation prior to discharge. Continue her home medication/bronchodilators. We will see the patient on when necessary basis. Time with Patient: Greater than 30
--- NOTE | 2021-01-14 16:17 | PN ---
PROGRESS NOTE DATE OF SERVICE: 01/14/2021 This 75-year-old woman is admitted with fall and hypoxia reported to have bilateral pneumonia. Covid 19 is negative. Patient being treated with empiric antibiotics. Patient also had progressive weakness and history of falls. The patient also has peripheral neuropathy. Patient also had poor p.o. intake also. The patient is being closely monitored at this time. PT/OT evaluating the patient. ECF rehab is also being considered. I had a detailed discussion with the daughter More at bedside. The potassium 3.2, which is corrected and troponin 0.068. Past medical history reviewed. REVIEW OF SYSTEMS: CARDIOVASCULAR SYSTEM: As mentioned earlier. RESPIRATORY: As mentioned earlier. GI: As mentioned earlier. no dysuria. NERVOUS SYSTEM: No numbness or weakness. CURRENT MEDICATIONS: Reviewed and include Ventolin, Zyloprim, Xanax, Norvasc, Eliquis, Lipitor, Rocephin. Doses reviewed. PHYSICAL EXAMINATION: The patient is alert and oriented times three. Pulse 71. Blood pressure 193/74, respiration 20, temperature 98.2, pulse ox 97% on 2 L. HEENT: Conjunctivae normal. NECK: No JVD. CARDIOVASCULAR: S1, S2 muffled. RESPIRATIONS: Breath sounds diminished in the bases. A few scattered rhonchi. ABDOMEN: Soft, nontender. LEGS are dry skin present. Otherwise excoriation on the left lance also present, diffusely weak. Significant proximal muscle wasting present. JOINTS: No active deforming arthropathy. LABS: WBC 9.2, hemoglobin 11, sodium 130, potassium 3.2, creatinine is 1.09. ASSESSMENT: 1. Bilateral interstitial pneumonia with sepsis and acute hypoxic respiratory failure, present on admission. 2. Possible congestive heart failure acute exacerbation with acute on chronic diastolic dysfunction, ejection fraction 50-55 percent. 3. Moderate mitral regurgitation and severe tricuspid regurgitation. 4. Moderate to severe pulmonary hypertension. 5. Change in mental status, acute metabolic encephalopathy. 6. Severe gait dysfunction. 7. Elevated D-dimer without any evidence of pulmonary embolism. 8. Elevated creatinine with acute renal failure, acute tubular necrosis. 9. Gait dysfunction. 10.Completed course of COVID-19 vaccination recently. 11.Atrial flutter fibrillation. 12.History of cerebrovascular accident/transient ischemic attack. 13.Diabetes mellitus type 2. 14.Fibromyalgia. 15.Gastroesophageal reflux disease. 16.Hypertension. 17.Hyperlipidemia. 18.History of degenerative joint disease. 19.History of sick sinus syndrome. 20.History of appendectomy. 21.History of bladder surgery. 22.History of nicotine dependency. 23.History of THC. 24.Increased plasma lactic acid, possible sepsis present on admission. 25.Troponin 0.064 indeterminate. RECOMMENDATIONS AND DISCUSSION: Continue current medications, management and symptomatic treatment. Continue with empiric antibiotics. Closely follow with Cardiology and pulmonology. PT/OT evaluation, possible ECF rehab. Continue with steroids. Monitor blood sugars closely. Continue the home medications. Guarded prognosis because of multiple complex medical issues. Further recommendations to follow. We will repeat labs in the morning. Discussed with the patient and family. Understands and agrees. MMODL / IJN: [id number] /
--- NOTE | 2021-01-14 16:48 | P.CRDCN ---
History of Present Illness History of present illness: HISTORY OF PRESENTING ILLNESS Patient is a pleasant 75-year-old female with history of atrial fibrillation, stroke, diabetes mellitus type 2, fibromyalgia, hypertension, hyperlipidemia, sick sinus syndrome status post permanent pacemaker and debility with recent falls who presents after another fall. Patient follows in the office with Dr. Galan. Patient is with daughter at bedside who checks in on her and she lives alone at home. Daughter normally checks on patient at 7 in the morning and found patient on the floor however alert. Patient states she recalls getting up to go the bathroom and cannot tell if she lost consciousness or not however could not get up from the ground then. She had a episode 2 and half weeks ago where she was found lying on the grass outside and unclear if she actually passed out that time either. Daughter states she has been very unsteady on her feet which had been attributed to increased lower extremity edema a few weeks ago and generalized weakness. She denies any preceding chest pain, pressure, shortness breath. EKG was performed which showed sinus rhythm, normal axis, diffuse T-wave inversions in lead V3 through V6 and 2 and aVF. White blood cell count 10.7, hemoglobin 11.7, d-dimer 1.5, BUN 33, creatinine 1.28, lactic acid 2.3, proBNP 5940, troponin 0.05, 0.06, 0.06, urinalysis negative, coronal virus negative. Initial vital signs showed a borderline fever 100.3, blood pressure 98/63. Patient was given IV fluids with improvement with blood pressure up to 145/73 and her blood pressures been better since that time. Previous admission echocardiogram was performed with ejection fraction 50-55%, RV severely enlarged, RVSP 53, moderate mitral regurgitation, severe tricuspid regurgitation. Patient had a CTA performed and showed no central pulmonary embolus and chronic congestive heart failure with small bilateral pleural effusions. Pacemaker was interrogated last admission with no acute process, normal interrogation. REVIEW OF SYSTEMS At the time of my exam: CONSTITUTIONAL: Denies fever or chills. CARDIOVASCULAR: Denies chest pain, shortness of breath, orthopnea, PND or palpitations. RESPIRATORY: Denies cough. GASTROINTESTINAL: Denies abdominal pain, diarrhea, constipation, nausea or vomiting. MUSCULOSKELETAL: Denies myalgias. NEUROLOGIC: Denies numbness, tingling or weakness. ENDOCRINE: Denies fatigue, weight change, polydipsia or polyurina. GENITOURINARY: Denies burning, hematuria or urgency with micturation. HEMATOLOGIC: Denies history of anemia or bleeding. PHYSICAL EXAMINATION Vital signs reviewed. CONSTITUTIONAL: No apparent distress, chronically ill-appearing HEENT: Head is normocephalic. Pupils are equal, round. Sclerae anicteric. Mucous membranes of the mouth are moist. No JVD. No carotid bruit. CHEST EXAMINATION: Lungs are clear to auscultation. No chest wall tenderness is noted on palpation or with deep breathing. HEART EXAMINATION: Regular rate and rhythm. S1, S2 heard. No murmurs, gallops or rub. ABDOMEN: Soft, nontender. Positive bowel sounds. EXTREMITIES: Poor peripheral pulses, no lower extremity edema and no calf tenderness. Chronic venous stasis changes NEUROLOGIC EXAMINATION: Patient is awake, alert and oriented x3. ASSESSMENT 1. Recurrent falls, unclear if truly had syncope. Likely multifactorial secondary to possible dehydration with patient having borderline blood pressures on admission to ER 90s over 50s along with patient's debility 2. Temp 100.3 on admission with mild leukocytosis 10.7 and mildly elevated lactic acid on admission, no obvious infection 3. Severely dilated right ventricle, CTA no large central PE, likely related to pulmonary hypertension and tricuspid regurgitation 4. Pulmonary hypertension 5. Severe tricuspid regurgitation 6. Moderate mitral regurgitation 7. Chronic diastolic heart failure, appears euvolemic to dry 8. Chronic respiratory insufficiency, COPD 9. Sick sinus syndrome status post permanent pacemaker 10. Paroxysmal atrial fibrillation 11. Mildly elevated troponins, 0.05, 0.06, no obvious angina however deep T- wave inversions 12. Abnormal EKG with deep T-wave inversions. May be ischemic versus cardiac memory phenomenon from previous pacing PLAN Patient's fall is not clear if she actually lost consciousness and suspect may be a component of multiple factors. Previous work up to a half weeks ago unrevealing with echo showing normal left ventricular function however she does have significant severe tricuspid regurgitation, significant RV dilation and pulmonary hypertension. Do not suspect acute heart failure and appears she was predominantly right-sided heart failure previously and currently without any lower extremity edema and no JVD. Blood pressure is borderline on admission however now improved. Check limited repeat 2-D echo and repeat EKG given ischemic appearing T-wave inversions and mildly elevated troponins. If both unrevealing, patient likely may be discharged to subacute rehab tomorrow. Past Medical History Past Medical History: Atrial Fibrillation, Atrial Flutter, Blood Disorder, Cancer, CVA/TIA, Diabetes Mellitus, Fibromyalgia, GERD/Reflux, Hyperlipidemia, Hypertension, Osteoarthritis (OA), Pneumonia, Renal Disease, Vascular Disorder Additional Past Medical History / Comment(s): 05/2019 admitted with SSS and had pacer insertion, 2011 TIA, NIDDM tyep II, neuropathy bilateral feet, arthritis b ilateral hands/knees, L rotator cuff problem, bronchitis, CKD stage III, UTI, urinary leakage at times, anemia with iron infusions in the past, skin cancer with removals, varicosities bilateral legs, constipation, gout bilateral feet, History of Any Multi-Drug Resistant Organisms: None Reported Past Surgical History: Appendectomy, Bladder Surgery, Breast Surgery, Hysterectomy, Tonsillectomy Additional Past Surgical History / Comment(s): 06/15/19 pacemaker, bladder suspension, bilateral breast implants, L oophorectomy, colonoscopies, skin cancer removals, L leg varicose vein stripping, cystoscopy. Past Anesthesia/Blood Transfusion Reactions: No Reported Reaction Past Psychological History: No Psychological Hx Reported Additional Psychological History / Comment(s): Pt resides alone. She uses a cane to ambulate. She drives. Her ricarda goes grocery shopping for pt. Smoking Status: Former smoker Past Alcohol Use History: None Reported Additional Past Alcohol Use History / Comment(s): quit smoking 2011, starting smoking age 15, 2 1/2 PPD Additional Drug Use History / Comment(s): CBD oil - Past Family History Father History Unknown: Yes Family Medical History: Cancer Additional Family Medical History / Comment(s): Father of lung cancer in his 40s. Mother Family Medical History: No Reported History Additional Family Medical History / Comment(s): Mother is 92 yrs old. Medications and Allergies Home Medications Medication Instructions Recorded Confirmed Type Allopurinol [Zyloprim] 100 mg PO BID 07/05/16 01/13/21 History lisinopriL [Prinivil] 20 mg PO DAILY 07/05/16 01/13/21 History Gabapentin [Neurontin] 300 mg PO BID 09/13/17 01/13/21 History Lovastatin [Mevacor] 40 mg PO HS 09/13/17 01/13/21 History Pantoprazole Sodium [Protonix] 40 mg PO BID #60 tablet. 05/08/18 01/13/21 Rx Apixaban [Eliquis] 2.5 mg PO BID 06/10/19 01/13/21 History Solifenacin Succinate [Vesicare] 5 mg PO HS 06/10/19 01/13/21 History Metoprolol Tartrate [Lopressor] 25 mg PO TID 09/02/19 01/13/21 History glipiZIDE XL [Glucotrol XL] 5 mg PO DAILY 09/02/19 01/13/21 History Furosemide [Lasix] 20 mg PO DAILY #0 09/04/19 01/13/21 Rx Albuterol Inhaler [Ventolin Hfa 2 puff INHALATION RT-QID PRN 12/27/20 01/13/21 History Inhaler] metFORMIN HCL 500 mg PO DAILY 12/27/20 01/13/21 History amLODIPine [Norvasc] 5 mg PO DAILY 12/28/20 01/13/21 History Docusate [Colace] 100 mg PO DAILY 01/13/21 01/13/21 History Allergies Allergy/AdvReac Type Severity Reaction Status Date / Time erythromycin base Allergy Severe TONGUE Verified 01/13/21 10:49 SWELLS gatifloxacin [From Tequin] Allergy Severe TONGUE Verified 01/13/21 10:49 SWELLS aspirin AdvReac Nausea Verified 01/13/21 10:49 Physical Exam Vitals: Vital Signs Temp Pulse Pulse Resp BP BP Pulse Ox 01/14/21 14:45 20 97 01/14/21 12:00 71 20 193/74 79 L 01/14/21 08:00 98.1 F 71 18 162/66 97 01/14/21 04:00 98.4 F 72 16 162/77 93 L 01/14/21 00:00 98.4 F 68 19 158/71 92 L 01/13/21 20:00 98.1 F 74 18 128/74 94 L 01/13/21 19:07 98.6 F 69 20 140/68 93 L 01/13/21 17:53 75 16 144/61 99 Intake and Output 01/14/21 01/14/21 01/14/21 06:59 14:59 22:59 Intake Total 0 Output Total 1300 1200 Balance -1300 -1200 Intake: Oral 0 Output: Urine 1300 1200 Other: Voiding Method External Catheter Weight 73 kg Results 01/14/21 08:27 01/14/21 08:27 Cardiac Enzymes 01/14/21 Range/Units 08:27 AST 20 (14-36) U/L CBC 01/14/21 Range/Units 08:27 WBC 9.9 (3.8-10.6) k/uL RBC 3.91 (3.80-5.40) m/uL Hgb 11.0 L (11.4-16.0) gm/dL Hct 33.6 L (34.0-46.0) % Plt Count 244 (150-450) k/uL Comprehensive Metabolic Panel 01/14/21 Range/Units 08:27 Sodium 139 (137-145) mmol/L Potassium 3.2 L (3.5-5.1) mmol/L Chloride 102 (98-107) mmol/L Carbon Dioxide 30 (22-30) mmol/L BUN 29 H (7-17) mg/dL Creatinine 1.09 H (0.52-1.04) mg/dL Glucose 207 H (74-99) mg/dL Calcium 9.1 (8.4-10.2) mg/dL AST 20 (14-36) U/L ALT 13 (4-34) U/L Alkaline Phosphatase 105 (38-126) U/L Total Protein 6.4 (6.3-8.2) g/dL Albumin 3.4 L (3.5-5.0) g/dL Current Medications Generic Name Dose Route Start Last Admin Trade Name Freq PRN Reason Stop Dose Admin Albuterol Sulfate 2.5 mg 01/13/21 18:18 Albuterol Nebulized 2.5 Mg/3 Ml INHALATION RT-QID PRN Shortness Of Breath Allopurinol 100 mg 01/13/21 21:00 01/14/21 11:09 Allopurinol 100 Mg Tab PO 100 mg BID MARIBEL Administration Alprazolam 0.25 mg 01/13/21 18:20 Alprazolam 0.25 Mg Tab PO TID PRN Anxiety Amlodipine Besylate 5 mg 01/14/21 09:00 01/14/21 11:09 Amlodipine 5 Mg Tab PO 5 mg DAILY MARIBEL Administration Apixaban 2.5 mg 01/13/21 21:00 01/14/21 11:09 Apixaban 2.5 Mg Tablet PO 2.5 mg BID MARIBEL Administration Atorvastatin Calcium 10 mg 01/13/21 21:00 01/13/21 21:29 Atorvastatin 10 Mg Tab PO 10 mg HS MARIBEL Administration Docusate Sodium 100 mg 01/14/21 09:00 01/14/21 11:09 Docusate 100 Mg Cap PO 100 mg DAILY MARIBEL Administration Furosemide 40 mg 01/14/21 21:00 Furosemide 10 Mg/Ml 4 Ml Vial IV Q12HR MARIBEL Gabapentin 300 mg 01/13/21 21:00 01/14/21 11:09 Gabapentin 300 Mg Cap PO 300 mg BID MARIBEL Administration Glipizide 2.5 mg 01/14/21 09:00 01/14/21 11:09 Glipizide 2.5 Mg Tab PO 2.5 mg BID MARIBEL Administration Insulin Aspart 0 unit 01/13/21 21:00 01/14/21 13:49 Insulin Aspart (Novolog) 100 Unit/Ml Vial SQ Not Given ACHS [facility] Protocol Metoprolol Tartrate 25 mg 01/13/21 22:00 01/14/21 11:09 Metoprolol Tartrate 25 Mg Tab PO 25 mg TID MARIBEL Administration Pantoprazole Sodium 40 mg 01/13/21 18:30 01/14/21 06:38 Pantoprazole 40 Mg Tablet PO 40 mg AC-BID MARIBEL Administration Trospium 20 mg 01/13/21 21:00 01/13/21 21:30 Trospium Chloride 20 Mg Tablet PO 20 mg HS MARIBEL Administration Intake and Output 01/14/21 01/14/21 01/14/21 06:59 14:59 22:59 Intake Total 0 Output Total 1300 1200 Balance -1300 -1200 Intake: Oral 0 Output: Urine 1300 1200 Other: Voiding Method External Catheter Weight 73 kg 01/14/21 08:27 01/14/21 08:27
[2021-01-14 16:57] LABS: Glucose,Whole Blood 245 mg/dL (75-99)
[2021-01-14 20:34] LABS: Glucose,Whole Blood 259 mg/dL (75-99)
[2021-01-14] MEDS: ATORVASTATIN 10 MG TAB PO SCH (20:45)
[2021-01-14] MEDS: TROSPIUM CHLORIDE 20 MG TABLET PO SCH (20:45)
[2021-01-15] MEDS: ALPRAZolam 0.25 MG TAB PO PRN ×2 (00:34→23:43)
[2021-01-15] MEDS: PANTOPRAZOLE 40 MG TABLET PO SCH ×2 (06:47→17:25)
[2021-01-15] MEDS: INSULIN ASPART (NovoLOG) 100 UNIT/ML VIAL SQ SCH ×4 (06:47→21:30)
[2021-01-15 06:56] LABS: Glucose,Whole Blood 192 mg/dL (75-99)
[2021-01-15] MEDS: GABAPENTIN 300 MG CAP PO SCH ×2 (08:31→21:29)
[2021-01-15] MEDS: allopurinoL 100 MG TAB PO SCH ×2 (08:31→21:30)
[2021-01-15] MEDS: amLODIPine 5 MG TAB PO SCH (08:31)
[2021-01-15] MEDS: DOCUSATE 100 MG CAP PO SCH (08:31)
[2021-01-15] MEDS: METOPROLOL TARTRATE 25 MG TAB PO SCH ×3 (08:31→21:29)
[2021-01-15] MEDS: APIXABAN 2.5 MG TABLET PO SCH ×2 (08:31→21:29)
[2021-01-15] MEDS: FUROSEMIDE 10 MG/ML 4 ML VIAL IV SCH (08:32)
[2021-01-15 09:36] LABS: Anisocytosis Slight; Basophils % (A) 0 %; Eosinophils % (A) 0 %; HCT 36.9 % (34.0-46.0); HGB 11.9 gm/dL (11.4-16.0); Hypochromasia Slight; Lymphocytes # (A) 0.9 k/uL (1.0-4.8); Lymphocytes % (A) 7 %; MCH 28.1 pg (25.0-35.0); MCHC 32.2 g/dL (31.0-37.0); MCV 87.3 fL (80.0-100.0); Mean Platelet Volume 7.1; Monocytes # (A) 0.9 k/uL (0-1.0); Monocytes % (A) 7 %; Neutrophils # (A) 11.2 k/uL (1.3-7.7); Neutrophils % (A) 85 %; Platelet Count 289 k/uL (150-450); RBC 4.23 m/uL (3.80-5.40); RDW 16.8 % (11.5-15.5); WBC 13.2 k/uL (3.8-10.6)
[2021-01-15 09:48] LABS: Albumin 3.8 g/dL (3.5-5.0); Potassium 3.4 mmol/L (3.5-5.1); Total Bilirubin 0.7 mg/dL (0.2-1.3); Total Protein 6.8 g/dL (6.3-8.2)
[2021-01-15] MEDS ORDERED: POTASSIUM CHLORIDE ER 20 MEQ TAB.ER PO STA (10:16)
[2021-01-15 11:25] VITALS: BMI 23.3
--- NOTE | 2021-01-15 11:32 | ECHOF ---
Referral Reason:re: elevated troponin, T wave inversions, Syncope MEASUREMENTS -------- HEIGHT: 172.7 cm WEIGHT: 69.4 kg BP: 164/80 IVSd: 1.4 cm (0.6 - 1.1) LVIDd: 4.1 cm (3.9 - 5.3) LVPWd: 1.4 cm (0.6 - 1.1) IVSs: 1.6 cm LVIDs: 3.0 cm LVPWs: 1.9 cm LAESV Index (A-L): 65.23 ml/m Ao Diam: 3.3 cm (2.0 - 3.7) AV Cusp: 1.9 cm (1.5 - 2.6) LA Diam: 4.1 cm (2.7 - 3.8) MV EXCURSION: 21.333 mm (> 18.000) MV EF SLOPE: 124 mm/s (70 - 150) EPSS: 0.5 cm RAP: 5.00 mmHg RVSP: 44.67 mmHg FINDINGS -------- Sinus rhythm. Pacerwire seen in RV and RA. This was a technically adequate study. Limited Study The left ventricular size is normal. There is moderate concentric left ventricular hypertrophy. O verall left ventricular systolic function is normal with, an EF between 55 - 60 %. The right ventricle is normal in size. LA is severely dilated >40 ml/m2 The right atrial size is normal. There is mild aortic valve sclerosis. Mild mitral annular calcification present. Lpwlpfzt-sh-cqrloo mitral regurgitation is present. Moderate tricuspid regurgitation present. There is mild to moderate pulmonary hypertension. The r ight ventricular systolic pressure, as measured by Doppler, is 44.67mmHg. The pulmonic valve was not well visualized. There is no pericardial effusion. CONCLUSIONS -------- 1. Pacerwire seen in RV and RA. 2. There is moderate concentric left ventricular hypertrophy. 3. Overall left ventricular systolic function is normal with, an EF between 55 - 60 %. 4. LA is severely dilated >40 ml/m2 5. There is mild aortic valve sclerosis. 6. Oqruzgsd-ra-pkyuef mitral regurgitation is present. 7. Moderate tricuspid regurgitation present. 8. There is mild to moderate pulmonary hypertension. INTERNET MARKETING CONSULTANT: Kalli Vasquez RDCS
[2021-01-15] MEDS ORDERED: Potassium Replacement Protocol 1 EACH MISC MISCELLANE PRN (11:39)
[2021-01-15] MEDS ORDERED: Magnesium Replacement Protocol 1 EACH MISC MISCELLANE PRN (11:39)
[2021-01-15 12:21] LABS: Glucose,Whole Blood 223 mg/dL (75-99)
--- NOTE | 2021-01-15 14:48 | P.PN ---
Subjective Progress Note Date: 01/15/21 01/14/21pt is a pleasant 75-year-old female with history of atrial fibrillation, stroke, diabetes mellitus type 2, fibromyalgia, hypertension, hyperlipidemia, sick sinus syndrome status post permanent pacemaker and debility with recent falls who presents after another fall. Patient follows in the off ce with Dr. Galan. Patient is with daughter at bedside who checks in on her and she lives alone at home. Daughter normally checks on patient at 7 in the morning and found patient on the floor however alert. Patient states she recalls getting up to go the bathroom and cannot tell if she lost consciousness or not however could not get up from the ground then. She had a episode 2 and half weeks ago where she was found lying on the grass outside and unclear if she actually passed out that time either. Daughter states she has been very unsteady on her feet which had been attributed to increased lower extremity edema a few weeks ago and generalized weakness. She denies any preceding chest pain, pressure, shortness breath. EKG was performed which showed sinus rhythm, normal axis, diffuse T-wave inversions in lead V3 through V6 and 2 and aVF. White blood cell count 10.7, hemoglobin 11.7, d-dimer 1.5, BUN 33, creatinine 1.28, lactic acid 2.3, proBNP 5940, troponin 0.05, 0.06, 0.06, urinalysis negative, coronal virus negative. Initial vital signs showed a borderline fever 100.3, blood pressure 98/63. Patient was given IV fluids with improvement with blood pressure up to 145/73 and her blood pressures been better since that time. Previous admission echocardiogram was performed with ejection fraction 50-55%, RV severely enlarged, RVSP 53, moderate mitral regurgitation, severe tricuspid regurgitation. Patient had a CTA performed and showed no central pulmonary embolus and chronic congestive heart failure with small bilateral pleural effusions. Pacemaker was interrogated last admission with no acute process, normal interrogation. : 01/15/2025: Patient is admitted with episodes of unsteadiness and dizziness. Apparently patient had significant edema and was treated the diuretics. At this point. Her legs are very dry seemed to be dehydrated. I'm going discontinue Lasix. Check her blood pressure for postural changes. Repeat EKG showed deep T-wave motion anterolateral leads. Echo Cardec gram did not show any segmental wall motion defects. Most probably these are related to her underlying defect of the pacemaker rhythm. She is not having any chest pain. Continue rest of the management Objective - Vital Signs Vital signs: Vital Signs Temp 97.6 F 01/15/21 11:52 Pulse 62 01/15/21 11:52 Resp 20 01/15/21 11:52 BP 117/65 01/15/21 11:52 Pulse Ox 96 01/15/21 11:52 Intake & Output 01/14/21 01/15/21 01/15/21 18:59 06:59 18:59 Intake Total 230 118 Output Total 1200 1800 Balance -970 -1800 118 Weight 69.5 kg 69.5 kg Intake: Oral 230 118 Output: Urine 1200 1800 Other: Voiding Method External Catheter External Catheter # Bowel Movements 1 - Exam GENERAL EXAM: Patient is alert and oriented and doesn't appear to be in any acute distress. Patient appears to be frail and weak HEENT: Normocephalic. Normal reaction of pupils, equal size, normal range of extraocular motion. No erythema or exudates in the throat. NECK: No masses, no nuchal rigidity. CHEST: No chest wall deformity. LUNGS: Equal air entry with no crackles or wheeze. HEART: S1 and S2 normal with no audible mumurs or gallops. Regular rhythm, femorals equal on both sides.. ABDOMEN: No hepatosplenomegaly, normal bowel sounds, no guarding or rigidity. SKIN: No rashes CENTRAL NERVOUS SYSTEM: No focal deficits. EXTREMITIES: No cyanosis, clubbing or edema. - Labs CBC & Chem 7: 01/15/21 08:59 01/15/21 08:59 Labs: Abnormal Lab Results - Last 24 Hours (Table) 01/14/21 01/14/21 01/15/21 Range/Units 16:56 20:32 06:42 WBC (3.8-10.6) k/uL RDW (11.5-15.5) % Neutrophils # (1.3-7.7) k/uL Lymphocytes # (1.0-4.8) k/uL Potassium (3.5-5.1) mmol/L Chloride (98-107) mmol/L Carbon Dioxide (22-30) mmol/L BUN (7-17) mg/dL Creatinine (0.52-1.04) mg/dL Glucose (74-99) mg/dL POC Glucose (mg/dL) 245 H 259 H 192 H (75-99) mg/dL 01/15/21 01/15/21 01/15/21 Range/Units 08:59 08:59 12:08 WBC 13.2 H (3.8-10.6) k/uL RDW 16.8 H (11.5-15.5) % Neutrophils # 11.2 H (1.3-7.7) k/uL Lymphocytes # 0.9 L (1.0-4.8) k/uL Potassium 3.4 L (3.5-5.1) mmol/L Chloride 96 L (98-107) mmol/L Carbon Dioxide 32 H (22-30) mmol/L BUN 42 H (7-17) mg/dL Creatinine 1.10 H (0.52-1.04) mg/dL Glucose 254 H (74-99) mg/dL POC Glucose (mg/dL) 223 H (75-99) mg/dL Microbiology - Last 24 Hours (Table) 01/13/21 11:50 Blood Culture - Preliminary Blood No Growth after 48 hours 01/13/21 11:45 Blood Culture - Preliminary Blood No Growth after 48 hours Assessment and Plan Assessment: Admitted with dizziness and unsteadiness and falls. EKG is abnormal but patient doesn't have any symptoms of angina. Echo is normal. It appears that patient may be dehydrated. We will discontinue IV Lasix and continue to hydrate. Monitor her blood pressure for any postural changes. Further recommendations depend upon the thecal course.
--- NOTE | 2021-01-15 14:59 | P.PN ---
Subjective Progress Note Date: 01/15/21 This is a 75-year-old female who was recently admitted with fall and hypoxia and reported to have bilateral pneumonia and is being closely monitored. Patient was initiated on empiric antibiotics which have been discontinued and pulmonary along with cardiology are following closely. Patient continues to be extremely weak and PT/OT evaluated the patient recommending subacute rehab and family along with patient are agreeable with this. IV Lasix has been discontinued. Case management and social work following and working on accepting facility for ECF placement. Potassium slightly low at 3.4 and will replace and current creatinine is 1.10 and repeat a.m. labs. Review of systems: Constitutional: No reports of fatigue, fever, or chills Cardiovascular: No reports of chest pain or palpitations Respiratory: No reports of shortness of breath or cough GI: No reports of nausea, vomiting, or diarrhea : No reports of dysuria or retention Neurovascular: Reports generalized weakness All medications have been reviewed Active Medications Albuterol Sulfate (Albuterol Nebulized 2.5 Mg/3 Ml) 2.5 mg INHALATION RT-QID PRN PRN Reason: Shortness Of Breath Allopurinol (Allopurinol 100 Mg Tab) 100 mg PO BID [facility] Last Admin: 01/15/21 08:31 Dose: 100 mg Documented by: Alprazolam (Alprazolam 0.25 Mg Tab) 0.25 mg PO TID PRN PRN Reason: Anxiety Last Admin: 01/15/21 00:34 Dose: 0.25 mg Documented by: Amlodipine Besylate (Amlodipine 5 Mg Tab) 5 mg PO DAILY [facility] Last Admin: 01/15/21 08:31 Dose: 5 mg Documented by: Apixaban (Apixaban 2.5 Mg Tablet) 2.5 mg PO BID [facility] Last Admin: 01/15/21 08:31 Dose: 2.5 mg Documented by: Atorvastatin Calcium (Atorvastatin 10 Mg Tab) 10 mg PO HS [facility] Last Admin: 01/14/21 20:45 Dose: 10 mg Documented by: Docusate Sodium (Docusate 100 Mg Cap) 100 mg PO DAILY [facility] Last Admin: 01/15/21 08:31 Dose: 100 mg Documented by: Gabapentin (Gabapentin 300 Mg Cap) 300 mg PO BID [facility] Last Admin: 01/15/21 08:31 Dose: 300 mg Documented by: Glipizide (Glipizide 2.5 Mg Tab) 2.5 mg PO BID [facility] Last Admin: 01/15/21 08:31 Dose: 2.5 mg Documented by: Insulin Aspart (Insulin Aspart (Novolog) 100 Unit/Ml Vial) 0 unit SQ ACHS [facility]; Protocol Last Admin: 01/15/21 12:32 Dose: 3 unit Documented by: Metoprolol Tartrate (Metoprolol Tartrate 25 Mg Tab) 25 mg PO TID [facility] Last Admin: 01/15/21 08:31 Dose: 25 mg Documented by: Miscellaneous Information (Magnesium Replacement Protocol 1 Each Misc) 1 each MISCELLANE DAILY PRN; Protocol PRN Reason: Per Protocol Miscellaneous Information (Potassium Replacement Protocol 1 Each Misc) 1 each MISCELLANE DAILY PRN; Protocol PRN Reason: Per Protocol Pantoprazole Sodium (Pantoprazole 40 Mg Tablet) 40 mg PO AC-BID [facility] Last Admin: 01/15/21 06:47 Dose: 40 mg Documented by: Trospium (Trospium Chloride 20 Mg Tablet) 20 mg PO HS [facility] Last Admin: 01/14/21 20:45 Dose: 20 mg Documented by: Objective - Vital Signs Vital signs: Vital Signs Temp 97.6 F 01/15/21 11:52 Pulse 62 01/15/21 11:52 Resp 20 01/15/21 11:52 BP 117/65 01/15/21 11:52 Pulse Ox 96 01/15/21 11:52 Intake & Output 01/14/21 01/15/21 01/15/21 18:59 06:59 18:59 Intake Total 230 118 Output Total 1200 1800 Balance -970 -1800 118 Weight 69.5 kg 69.5 kg Intake: Oral 230 118 Output: Urine 1200 1800 Other: Voiding Method External Catheter External Catheter # Bowel Movements 1 - Exam Gen: This is a 5-year-old female awake, alert and oriented 3, well-developed, well-nourished. Temp is 97.9F, pulse is 60, respirations are 20, blood pressure is 167/69, oxygen saturation is 97% on 2 L via nasal cannula. HEENT: Head is atraumatic, normocephalic. Pupils equal, round. Sclerae is anicteric. NECK: Supple. No JVD. No lymphadenopathy. No thyromegaly. LUNGS: Breath sounds diminished with some scattered rhonchi noted No interco stal retractions. HEART: S1, S2 are muffled ABDOMEN: Soft. Bowel sounds are present. No masses. No tenderness. EXTREMITIES: No pedal edema. No calf tenderness. Bilateral lower extremities skin are dry and flaky with excoriation noted on the left lance with significant muscle wasting present NEUROLOGICAL: Patient is awake, alert and oriented x3. Diffusely weak. - Labs CBC & Chem 7: 01/15/21 08:59 01/15/21 08:59 Labs: Abnormal Lab Results - Last 24 Hours (Table) 01/14/21 01/14/21 01/15/21 Range/Units 16:56 20:32 06:42 WBC (3.8-10.6) k/uL RDW (11.5-15.5) % Neutrophils # (1.3-7.7) k/uL Lymphocytes # (1.0-4.8) k/uL Potassium (3.5-5.1) mmol/L Chloride (98-107) mmol/L Carbon Dioxide (22-30) mmol/L BUN (7-17) mg/dL Creatinine (0.52-1.04) mg/dL Glucose (74-99) mg/dL POC Glucose (mg/dL) 245 H 259 H 192 H (75-99) mg/dL 01/15/21 01/15/21 01/15/21 Range/Units 08:59 08:59 12:08 WBC 13.2 H (3.8-10.6) k/uL RDW 16.8 H (11.5-15.5) % Neutrophils # 11.2 H (1.3-7.7) k/uL Lymphocytes # 0.9 L (1.0-4.8) k/uL Potassium 3.4 L (3.5-5.1) mmol/L Chloride 96 L (98-107) mmol/L Carbon Dioxide 32 H (22-30) mmol/L BUN 42 H (7-17) mg/dL Creatinine 1.10 H (0.52-1.04) mg/dL Glucose 254 H (74-99) mg/dL POC Glucose (mg/dL) 223 H (75-99) mg/dL Microbiology - Last 24 Hours (Table) 01/13/21 11:50 Blood Culture - Preliminary Blood No Growth after 48 hours 01/13/21 11:45 Blood Culture - Preliminary Blood No Growth after 48 hours Assessment and Plan Assessment: Bilateral interstitial pneumonia with sepsis and acute hypoxic respiratory failure, present on admission Possible congestive heart failure acute exacerbation with acute on chronic diastolic dysfunction, ejection fraction 50-55% Moderate mitral regurgitation and severe tricuspid regurgitation Moderate to severe pulmonary hypertension Change in mental status, acute metabolic encephalopathy Severe gait dysfunction Elevated d-dimer without any evidence of pulmonary embolism Elevated creatinine with acute renal failure, acute tubular necrosis Gait dysfunction Completed course of COVID-19 vaccination recently Atrial flutter fibrillation Diabetes mellitus type 2 History of CVA, TIA Fibromyalgia Gastroesophageal reflux disease Hypertension Hyperlipidemia history of degenerative joint disease History of sick sinus syndrome History of appendectomy History of bladder surgery History of nicotine dependency history of THC Increased plasma lactic acid, possible sepsis present on admission Troponin 0.064 indeterminant No code Recommendations and discussion: Sinuous current medications and management. Patient is maintained on breathing inhalational treatments and will continue. Pulmonary is following along with c ardiology. Lasix has been discontinued. Patient underwent 2-D echo showing moderate concentric left ventricular hypertrophy with overall LV systolic function is normal with an EF of 55-60%. Patient continues to be extremely weak and was seen and evaluated by physical therapy recommending subacute rehab and family at the bedside and patient are agreeable with rehab for continued strength and mobility and would like to go to [facility]. Case management and social work following and working on discharge planning and accepting facility. Potassium slightly low at 3.4 and will replace and current creatinine is 1.1 and will repeat a.m. labs and continue to monitor closely. Possible discharge in 24-48 hours.
[2021-01-15 17:16] LABS: Glucose,Whole Blood 119 mg/dL (75-99)
[2021-01-15 21:22] LABS: Glucose,Whole Blood 217 mg/dL (75-99)
[2021-01-15] MEDS: ATORVASTATIN 10 MG TAB PO SCH (21:29)
[2021-01-15] MEDS: TROSPIUM CHLORIDE 20 MG TABLET PO SCH (21:30)
[2021-01-16 05:39] VITALS: RESP 20
[2021-01-16] MEDS: INSULIN ASPART (NovoLOG) 100 UNIT/ML VIAL SQ SCH ×2 (06:49→12:29)
[2021-01-16] MEDS: PANTOPRAZOLE 40 MG TABLET PO SCH (06:49)
[2021-01-16] MEDS: ALBUTEROL NEBULIZED 2.5 MG/3 ML INHALATION PRN ×2 (08:05→11:49)
[2021-01-16 08:18] LABS: Glucose,Whole Blood 148 mg/dL (75-99)
[2021-01-16] MEDS: APIXABAN 2.5 MG TABLET PO SCH (08:21)
[2021-01-16] MEDS: METOPROLOL TARTRATE 25 MG TAB PO SCH (08:21)
[2021-01-16] MEDS: amLODIPine 5 MG TAB PO SCH (08:21)
[2021-01-16] MEDS: DOCUSATE 100 MG CAP PO SCH (08:21)
[2021-01-16] MEDS: GABAPENTIN 300 MG CAP PO SCH (08:21)
[2021-01-16] MEDS: allopurinoL 100 MG TAB PO SCH (08:21)
[2021-01-16 09:29] LABS: Calcium 8.9 mg/dL (8.4-10.2); Potassium 3.6 mmol/L (3.5-5.1)
[2021-01-16 11:46] LABS: Anisocytosis Slight; Basophils % (A) 0 %; Eosinophils # (A) 0.2 k/uL (0-0.7); Eosinophils % (A) 2 %; HCT 40.3 % (34.0-46.0); HGB 12.2 gm/dL (11.4-16.0); Hypochromasia Marked; Lymphocytes # (A) 1.8 k/uL (1.0-4.8); Lymphocytes % (A) 20 %; MCH 27.1 pg (25.0-35.0); MCHC 30.2 g/dL (31.0-37.0); MCV 89.7 fL (80.0-100.0); Mean Platelet Volume 8.4; Monocytes # (A) 0.7 k/uL (0-1.0); Monocytes % (A) 7 %; Neutrophils # (A) 6.1 k/uL (1.3-7.7); Neutrophils % (A) 68 %; Platelet Count 315 k/uL (150-450); RBC 4.49 m/uL (3.80-5.40); RDW 16.4 % (11.5-15.5); WBC 8.9 k/uL (3.8-10.6)
[2021-01-16 11:55] VITALS: BP 133/74; TEMP 97.9
[2021-01-16 12:01] VITALS: PULSE 63
[2021-01-16 12:20] LABS: Glucose,Whole Blood 187 mg/dL (75-99)
--- NOTE | 2021-01-16 13:31 | P.DS ---
Providers Date of admission: 01/13/21 11:57 Expected date of discharge: 01/16/21 Attending physician: Bipin Rivera Consults: 01/13/21 11:57 Consult Physician Routine Consulting Provider: [facility] Reason/Comments: CHF, elevated trop Do you want consulting provider notified?: Yes 01/13/21 18:19 Consult Physician Routine Consulting Provider: Bradley Dang Reason/Comments: pneumonia Do you want consulting provider notified?: Yes Primary care physician: David Turner [facility] Course: Final diagnosis Bilateral interstitial pneumonia with sepsis and acute hypoxic respiratory failure, present on admission Possible congestive heart failure acute exacerbation with acute on chronic diastolic dysfunction, ejection fraction 50-55% Moderate mitral regurgitation and severe tricuspid regurgitation Moderate to severe pulmonary hypertension Change in mental status, acute metabolic encephalopathy Severe gait dysfunction Elevated d-dimer without any evidence of pulmonary embolism Elevated creatinine with acute renal failure, acute tubular necrosis Gait dysfunction Completed course of COVID-19 vaccination recently Atrial flutter fibrillation Diabetes mellitus type 2 History of CVA, TIA Fibromyalgia Gastroesophageal reflux disease Hypertension Hyperlipidemia history of degenerative joint disease History of sick sinus syndrome History of appendectomy History of bladder surgery History of nicotine dependency history of THC Increased plasma lactic acid, possible sepsis present on admission Troponin 0.064 indeterminant No code Discharge disposition Patient is being discharged in a stable condition with guarded prognosis to [facility] for continued PT/OT therapy. Patient will follow-up with Dr. Turner in the outpatient setting upon discharge. Patient is also to follow-up with cardiology Dr. Galan in one week. Total time taken is greater than 35 minutes. Hospital course This is a 75-year-old female who was recently admitted with fall and hypoxia and reported to have bilateral pneumonia and is being closely monitored. Patient was initiated on empiric antibiotics which have been discontinued and pulmonary along with cardiology are following closely. Patient continues to be extremely weak and PT/OT evaluated the patient recommending subacute rehab and family along with patient are agreeable with this. IV Lasix has been discontinued. Case management and social work following and working on accepting facility for ECF placement. Potassium slightly low at 3.4 and will replace and current creatinine is 1.10 and repeat a.m. labs. 01/16/2021 Patient is seen in follow up this morning with no acute overnight issues. Patient is a bit drowsy per family at the bedside and was told that she has been receiving Xanax which has been discontinued. Patient will continue with Melatonin as needed. Patient will continue with PT/OT while at the F. Patient will continue with current diet and ensures TID between meals. Recommend repeat labs in 2 to 3 days to closely monitor. Currently no reports of chest pain, shortness of breath, or palpitations. Patient is afebrile. No reports of nausea or vomiting and patient is tolerating diet. Patient will be going to [facility] today. On exam vital signs are stable. Cardio S1, S2 are muffled. Respiratory system shows diminished breath sounds at the bases with no wheezing or rhonchi noted. Abdomen is soft and nontender. Nervous system shows diffuse weakness. Please refer to medication reconciliation sheet for a list of medications. Patient Condition at Discharge: Stable Plan - Discharge Summary Discharge Rx Participant: No New Discharge Prescriptions: New INSULIN ASPART (NovoLOG) [NovoLOG (formulary)] 0 unit SQ ACHS vial Melatonin 3 mg PO HS #6 tablet Continue Allopurinol [Zyloprim] 100 mg PO BID Lovastatin [Mevacor] 40 mg PO HS Pantoprazole Sodium [Protonix] 40 mg PO BID #60 tablet. Apixaban [Eliquis] 2.5 mg PO BID Solifenacin Succinate [Vesicare] 5 mg PO HS Metoprolol Tartrate [Lopressor] 25 mg PO TID glipiZIDE XL [Glucotrol XL] 5 mg PO DAILY Albuterol Inhaler [Ventolin Hfa Inhaler] 2 puff INHALATION RT-QID PRN PRN Reason: Shortness Of Breath amLODIPine [Norvasc] 5 mg PO DAILY Docusate [Colace] 100 mg PO DAILY Gabapentin [Neurontin] 300 mg PO BID #12 cap Discontinued lisinopriL [Prinivil] 20 mg PO DAILY Furosemide [Lasix] 20 mg PO DAILY #0 metFORMIN HCL 500 mg PO DAILY Discharge Medication List Allopurinol [Zyloprim] 100 mg PO BID 07/05/16 [History] Lovastatin [Mevacor] 40 mg PO HS 09/13/17 [History] Pantoprazole Sodium [Protonix] 40 mg PO BID #60 tablet. 05/08/18 [Rx] Apixaban [Eliquis] 2.5 mg PO BID 06/10/19 [History] Solifenacin Succinate [Vesicare] 5 mg PO HS 06/10/19 [History] Metoprolol Tartrate [Lopressor] 25 mg PO TID 09/02/19 [History] glipiZIDE XL [Glucotrol XL] 5 mg PO DAILY 09/02/19 [History] Albuterol Inhaler [Ventolin Hfa Inhaler] 2 puff INHALATION RT-QID PRN 12/27/20 [History] amLODIPine [Norvasc] 5 mg PO DAILY 12/28/20 [History] Docusate [Colace] 100 mg PO DAILY 01/13/21 [History] Gabapentin [Neurontin] 300 mg PO BID #12 cap 01/16/21 [Rx] INSULIN ASPART (NovoLOG) [NovoLOG (formulary)] 0 unit SQ ACHS vial 01/16/21 [Rx] Melatonin 3 mg PO HS #6 tablet 01/16/21 [Rx] Follow up Appointment(s)/Referral(s): David Turner DO [Primary Care Provider] - 1-2 days Susanne Galan MD [STAFF PHYSICIAN] - 1 Week Ambulatory/Diagnostic Orders: Basic Metabolic Panel [LAB.AMB] Time Frame: 3 Days, Location: None Selected Activity/Diet/Wound Care/Special Instructions: Patient is going to [facility] Activity as tolerated Continue to encourage meals and use ensures 3 times daily between meals Continue current heart healthy diet Repeat BMP in 2-3 days continue physical therapy Follow-up cardiology outpatient Continue to monitor blood sugars before meals and at bedtime NovoLog sliding scale 0-150 equals 0 units 151-200 equals 2 units 201-250 equals 4 units 251-300 equals 6 units 301-350 equals 8 units 351-400 equals 10 units Please notify provider if blood sugar is 400 or above Discharge Disposition: TRANSFER TO SNF/ECF
--- NOTE | 2021-01-16 14:30 | P.PN ---
Subjective Patient is a pleasant 75-year-old female with history of atrial fibrillation, stroke, diabetes mellitus type 2, fibromyalgia, hypertension, hyperlipidemia, sick sinus syndrome status post permanent pacemaker and debility with recent falls who presents after another fall. Patient follows in the office with Dr. Galan. We're being consultation for episodes of unsteadiness and dizziness. Patient was admitted with significant edema was treated with diuretics. Diuretics were discontinued yesterday. EKG was performed which showed sinus rhythm, normal axis, diffuse T-wave inversions in lead V3 through V6 and 2 and aVF 01/16/21: Patient seen and examined at bedside, no acute distress. Daughter at bedside. Patient was driving examined him yesterday and IV diuretics were discontinued. Patient appears pleasantly confused. Orthostatics were not significant. Blood pressure 133/74, heart 61, afebrile, maintaining oxygen saturation is 97% on room air. Patient is being discharged today. Patient is rate controlled GENERAL: Appears dry Well-appearing, well-nourished and in no acute distress. NECK: Supple without JVD or thyromegaly. LUNGS: Breath sounds clear to auscultation bilaterally. Respiration equal and unlabored. No wheezes, rales or rhonchi. HEART: Regular rate and rhythm without murmurs, rubs or gallops. S1 and S2 heard. EXTREMITIES: Normal range of motion, no edema. No clubbing or cyanosis. Peripheral pulses intact. ASSESSMENT Recurrent falls, unclear if truly had syncope. Likely multifactorial secondary to possible dehydration with patient having borderline blood pressures on admission to ER 90s over 50s along with patient's debility Severely dilated right ventricle, CTA no large central PE, likely related to pulmonary hypertension and tricuspid regurgitation Pulmonary hypertension Chronic diastolic heart failure, appears euvolemic to dry Chronic respiratory insufficiency, COPD Sick sinus syndrome status post permanent pacemaker Paroxysmal atrial fibrillation - on eliauis Mildly elevated troponins, 0.05, 0.06, no obvious angina however deep T-wave inversions Abnormal EKG with deep T-wave inversions. May be ischemic versus cardiac memory phenomenon from previous pacing PLAN: Patient being discharged today From cardiology standpoint no further changes, can continue home cardiac medications Patient can follow up with Dr. Galan Objective - Vital Signs Vital signs: Vital Signs Temp 97.9 F 01/16/21 11:54 Pulse 63 01/16/21 12:01 Resp 20 01/16/21 11:54 BP 133/74 01/16/21 11:54 Pulse Ox 97 01/16/21 11:54 Intake & Output 01/15/21 01/16/21 01/16/21 18:59 06:59 18:59 Intake Total 358 240 240 Output Total 450 900 Balance -92 -660 240 Weight 69.5 kg 70.5 kg Intake: Oral 358 240 240 Output: Urine 450 900 Other: Voiding Method External Catheter External Catheter External Catheter # Voids 2 - Labs CBC & Chem 7: 01/16/21 08:16 01/16/21 08:16 Labs: Abnormal Lab Results - Last 24 Hours (Table) 01/15/21 01/15/21 01/16/21 Range/Units 17:13 21:20 06:44 MCHC (31.0-37.0) g/dL RDW (11.5-15.5) % Carbon Dioxide (22-30) mmol/L BUN (7-17) mg/dL Creatinine (0.52-1.04) mg/dL Glucose (74-99) mg/dL POC Glucose (mg/dL) 119 H 217 H 148 H (75-99) mg/dL 01/16/21 01/16/21 01/16/21 Range/Units 08:16 08:16 12:18 MCHC 30.2 L (31.0-37.0) g/dL RDW 16.4 H (11.5-15.5) % Carbon Dioxide 31 H (22-30) mmol/L BUN 54 H (7-17) mg/dL Creatinine 1.19 H (0.52-1.04) mg/dL Glucose 130 H (74-99) mg/dL POC Glucose (mg/dL) 187 H (75-99) mg/dL Microbiology - Last 24 Hours (Table) 01/13/21 11:50 Blood Culture - Preliminary Blood No Growth after 72 hours 01/13/21 11:45 Blood Culture - Preliminary Blood No Growth after 72 hours
== END 2021-01-16 15:47 | DRG 871 ==
LOC: EC 09:05 → 3SCARD 11:57
PROVIDERS: ADMIT Hospitalist; ATTEND Hospitalist
DX: A41.9 Sepsis, unspecified organism (principal); G93.41 Metabolic encephalopathy; I50.33 Acute on chronic diastolic (congestive) heart failure; J18.9 Pneumonia, unspecified organism; J96.01 Acute respiratory failure with hypoxia; N17.0 Acute kidney failure with tubular necrosis; E87.2 Acidosis; I13.0 Hypertensive heart and chronic kidney disease with heart failure and stage 1 through stage 4 chronic kidney disease, or unspecified chronic kidney disease; I48.20 Chronic atrial fibrillation, unspecified; I48.92 Unspecified atrial flutter; J44.0 Chronic obstructive pulmonary disease with (acute) lower respiratory infection; E11.22 Type 2 diabetes mellitus with diabetic chronic kidney disease; E78.5 Hyperlipidemia, unspecified; E86.0 Dehydration; E11.42 Type 2 diabetes mellitus with diabetic polyneuropathy; Z79.84 Long term (current) use of oral hypoglycemic drugs; I08.1 Rheumatic disorders of both mitral and tricuspid valves; I27.20 Pulmonary hypertension, unspecified; Z20.822 Contact with and (suspected) exposure to COVID-19; I48.0 Paroxysmal atrial fibrillation; I69.393 Ataxia following cerebral infarction; K21.9 Gastro-esophageal reflux disease without esophagitis; L53.9 Erythematous condition, unspecified; M19.041 Primary osteoarthritis, right hand; M19.042 Primary osteoarthritis, left hand; M17.0 Bilateral primary osteoarthritis of knee; M79.7 Fibromyalgia; N18.30 Chronic kidney disease, stage 3 unspecified; R29.6 Repeated falls; R26.81 Unsteadiness on feet; Z79.01 Long term (current) use of anticoagulants; Z79.899 Other long term (current) drug therapy; Z80.1 Family history of malignant neoplasm of trachea, bronchus and lung; M10.9 Gout, unspecified; Z85.828 Personal history of other malignant neoplasm of skin; Z87.891 Personal history of nicotine dependence; Z90.49 Acquired absence of other specified parts of digestive tract; Z90.710 Acquired absence of both cervix and uterus; Z90.721 Acquired absence of ovaries, unilateral; Z91.81 History of falling; Z95.0 Presence of cardiac pacemaker; Z98.82 Breast implant status; Z60.2 Problems related to living alone; R79.89 Other specified abnormal findings of blood chemistry; K59.00 Constipation, unspecified; Z90.89 Acquired absence of other organs
CPT/HCPCS: 36415; 70450; 71045; 71046; 71275; 72125; 80048; 80053; 81003; 82550; 83605; 83735; 83880; 84484; 85025; 85379; 85610; 85730; 87040; 87635; 93005; 93308; 94640; 96361; 96374; 99285

== ENCOUNTER 2022-01-29 19:41 | Inpatient (IN) | payer MEDICARE ==
[2022-01-29 20:00] LABS: Glucose,Whole Blood 211 mg/dL (75-99)
[2022-01-29 20:11] LABS: Anisocytosis Slight; Basophils # (A) 0.1 k/uL (0-0.2); Basophils % (A) 1 %; Eosinophils # (A) 0.1 k/uL (0-0.7); Eosinophils % (A) 1 %; HCT 39.2 % (34.0-46.0); HGB 12.5 gm/dL (11.4-16.0); Lymphocytes # (A) 1.4 k/uL (1.0-4.8); Lymphocytes % (A) 13 %; MCH 28.6 pg (25.0-35.0); MCHC 31.9 g/dL (31.0-37.0); MCV 89.7 fL (80.0-100.0); Mean Platelet Volume 7.7; Monocytes # (A) 0.4 k/uL (0-1.0); Monocytes % (A) 3 %; Neutrophils # (A) 8.3 k/uL (1.3-7.7); Neutrophils % (A) 80 %; Platelet Count 338 k/uL (150-450); RBC 4.37 m/uL (3.80-5.40); RDW 16.4 % (11.5-15.5); WBC 10.4 k/uL (3.8-10.6)
[2022-01-29 20:27] LABS: Partial Thromboplastin Time 23.3 sec (22.0-30.0); Prothrombin Time 11.2 sec (9.0-12.0)
[2022-01-29 20:30] LABS: Albumin 4.3 g/dL (3.5-5.0); Calcium 9.4 mg/dL (8.4-10.2); Potassium 4.5 mmol/L (3.5-5.1); Total Bilirubin 0.7 mg/dL (0.2-1.3); Total Protein 7.8 g/dL (6.3-8.2)
[2022-01-29] MEDS ORDERED: ACETAMINOPHEN TAB 325 MG TAB PO STA (20:49)
[2022-01-29 21:11] LABS: Appearance,Urine Cloudy (Clear); Bilirubin,Urine Negative (Negative); Blood,Urine Trace (Negative); Color,Urine Yellow; Glucose,Urine (UA) Negative (Negative); Hyaline Casts,Urine 8 /lpf (0-2); Ketones,Urine Negative (Negative); Leukocyte Esterase,Urine Large (Negative); Mucus,Urine Rare /hpf; Nitrite,Urine Negative (Negative); PH, Urine 5.5 (5.0-8.0); Protein,Urine Trace (Negative); RBC,Urine 4 /hpf (0-5); Specific Gravity,Urine 1.012 (1.001-1.035); Squamous Epithelial Cell,Urine <1 /hpf (0-4); Urobilinogen,Urine <2.0 mg/dL (<2.0); WBC,Urine >182 /hpf (0-5)
[2022-01-29 21:18] LABS: Amphetamine Screen,Urine Not Detected (NotDetected); Barbiturate Screen,Urine Not Detected (NotDetected); Benzodiazepines Screen,Urine Not Detected (NotDetected); Cocaine Screen,Urine Not Detected (NotDetected); Methadone Screen, Urine Not Detected (NotDetected); Opiate Screen,Urine Not Detected (NotDetected); Oxycodone Screen, Urine Not Detected (NotDetected); Phencyclidine Screen,Urine Not Detected (NotDetected); Tricyclic Antidepressant,Urine Not Detected (NotDetected); Urn Cannabinoid Scrn Not Detected (NotDetected)
[2022-01-29] MEDS: SODIUM CHLORIDE 0.9% 1,000 ML IV SCH (21:25)
[2022-01-29] MEDS ORDERED: cefTRIAXone IN SWFI 1,000 MG/10 ML SYRINGE IVP STA (21:26)
--- NOTE | 2022-01-29 21:29 | ED ---
Altered Mental Status HPI - General Chief Complaint: Altered Mental Status Stated Complaint: Altered Mental Status Time Seen by Provider: 01/29/22 19:43 Source: EMS Mode of arrival: EMS Limitations: altered mental status - History of Present Illness Initial Comments: 76 year old female with past medical history of A. fib, CVA, diabetes presents to the emergency department with altered mental status. Daughter and EMS provided the history. She does reside at [facility]. The patient was last seen well earlier in the day by the staff there. Daughter attempted to call her around 4 PM and she didn't answer. She then went over to check on her at 4:30 and found her outside on her porch sitting in the sun. She was slumped over in her chair. It was unknown how long the patient had been on the son unresponsive like that. Patient's was nonverbal for EMS. She was found to have 103. Daughter denies that she has been recently ill. No lateralizing deficits. No other alleviating, precipitating or modifying factors - Related Data Home Medications Medication Instructions Recorded Confirmed Allopurinol [Zyloprim] 100 mg PO BID 07/05/16 01/29/22 Lovastatin [Mevacor] 20 mg PO HS 09/13/17 01/29/22 Apixaban [Eliquis] 2.5 mg PO BID 06/10/19 01/29/22 Metoprolol Tartrate [Lopressor] 25 mg PO TID 09/02/19 01/29/22 glipiZIDE XL [Glucotrol XL] 5 mg PO W/BRKFST 09/02/19 01/29/22 amLODIPine [Norvasc] 5 mg PO DAILY 12/28/20 01/29/22 Docusate [Colace] 100 mg PO BID PRN 01/13/21 01/29/22 Calcium Carbonate [Tums] 1,000 mg PO TID PRN 01/29/22 01/29/22 Diclofenac Sodium Gel [Voltaren 2 gm TOPICAL QID PRN 01/29/22 01/29/22 Gel] Solifenacin Succinate [Vesicare] 10 mg PO DAILY 01/29/22 01/29/22 Zzzquil Melatonin Gummies 2 tab PO HS PRN 01/29/22 01/29/22 lisinopriL [Prinivil] 20 mg PO DAILY 01/29/22 01/29/22 metFORMIN HCL [Glucophage] 500 mg PO BID 01/29/22 01/29/22 traMADol HCL 50 mg PO HS 01/29/22 01/29/22 traMADol HCl [Ultram] 50 mg PO Q6HR PRN 01/29/22 01/29/22 Previous Rx's Medication Instructions Recorded Pantoprazole Sodium [Protonix] 40 mg PO BID #60 tablet. 05/08/18 Cephalexin [Keflex] 500 mg PO Q6HR #12 cap 02/01/22 Chlorthalidone 25 mg PO DAILY #30 tab 02/01/22 Allergies Allergy/AdvReac Type Severity Reaction Status Date / Time erythromycin base Allergy Severe TONGUE Verified 01/29/22 21:05 SWELLS gatifloxacin [From Tequin] Allergy Severe TONGUE Verified 01/29/22 21:05 SWELLS aspirin AdvReac Nausea Verified 01/29/22 21:05 Review of Systems ROS Statement: Those systems with pertinent positive or pertinent negative responses have been documented in the HPI. ROS Other: All systems not noted in ROS Statement are negative. Past Medical History Past Medical History: Atrial Fibrillation, Atrial Flutter, Blood Disorder, Cancer, CVA/TIA, Diabetes Mellitus, Fibromyalgia, GERD/Reflux, Hyperlipidemia, Hypertension, Osteoarthritis (OA), Pneumonia, Renal Disease, Vascular Disorder Additional Past Medical History / Comment(s): 05/2019 admitted with SSS and had pacer insertion, 2011 TIA, NIDDM tyep II, neuropathy bilateral feet, arthritis bilateral hands/knees, L rotator cuff problem, bronchitis, CKD stage III, UTI, urinary leakage at times, anemia with iron infusions in the past, skin cancer with removals, varicosities bilateral legs, constipation, gout bilateral feet, History of Any Multi-Drug Resistant Organisms: None Reported Past Surgical History: Appendectomy, Bladder Surgery, Breast Surgery, Hysterectomy, Tonsillectomy Additional Past Surgical History / Comment(s): 06/15/19 pacemaker, bladder suspension, bilateral breast implants, L oophorectomy, colonoscopies, skin cancer removals, L leg varicose vein stripping, cystoscopy. Past Anesthesia/Blood Transfusion Reactions: No Reported Reaction Past Psychological History: No Psychological Hx Reported Smoking Status: Former smoker Past Alcohol Use History: None Reported - Past Family History Father History Unknown: Yes Family Medical History: Cancer Additional Family Medical History / Comment(s): Father of lung cancer in his 40s. Mother Family Medical History: No Reported History Additional Family Medical History / Comment(s): Mother is 92 yrs old. General Exam Limitations: altered mental status General appearance: lethargic Head exam: Present: atraumatic, normocephalic, normal inspection ENT exam: Present: mucous membranes dry Neck exam: Present: normal inspection. Absent: tenderness, meningismus, lymphadenopathy Respiratory exam: Present: normal lung sounds bilaterally. Absent: respiratory distress, wheezes, rales, rhonchi, stridor Cardiovascular Exam: Present: regular rate, normal rhythm, normal heart sounds. Absent: systolic murmur, diastolic murmur, rubs, gallop, clicks GI/Abdominal exam: Present: soft, normal bowel sounds. Absent: distended, tenderness, guarding, rebound, rigid Extremities exam: Present: normal inspection, full ROM, normal capillary refill. Absent: tenderness, pedal edema, joint swelling, calf tenderness Back exam: Present: normal inspection Neurological exam: Present: altered Skin exam: Present: warm, diaphoretic Course Vital Signs 01/29/22 01/29/22 01/29/22 19:58 20:10 22:16 Temperature 102.1 F H 99 F 98.2 F Pulse Rate 60 62 60 Pulse Rate [ Pulse Oximetery ] Respiratory 24 14 12 Rate Blood Pressure 144/60 125/53 94/54 Blood Pressure [Left Arm] O2 Sat by Pulse 87 L 93 L 94 L Oximetry 01/29/22 01/30/22 01/30/22 23:00 00:00 01:00 Temperature 97.3 F L Pulse Rate 60 59 L 60 Pulse Rate [ Pulse Oximetery ] Respiratory 18 18 18 Rate Blood Pressure 99/54 93/48 Blood Pressure [Left Arm] O2 Sat by Pulse 96 97 97 Oximetry 01/30/22 01/30/22 01/30/22 02:00 03:00 04:00 Temperature Pulse Rate 60 60 60 Pulse Rate [ Pulse Oximetery ] Respiratory 18 18 19 Rate Blood Pressure Blood Pressure [Left Arm] O2 Sat by Pulse 96 96 Oximetry 01/30/22 01/30/22 01/30/22 05:00 07:00 07:04 Temperature 96.9 F L 97.4 F L 98 F Pulse Rate 60 67 Pulse Rate [ 55 L Pulse Oximetery ] Respiratory 18 16 16 Rate Blood Pressure 112/57 137/68 Blood Pressure 133/73 [Left Arm] O2 Sat by Pulse 96 97 99 Oximetry Medical Decision Making - Medical Decision Making Upon arrival patient is placed into room 10. A thorough history and physical exam was performed. Patient does have 102.1 fever and is saturating 87%. Daughter states that this is not abnormal for her to have low oxygen saturations. She does not wear oxygen at home. IV is established and the patient is started on 100 mL of normal saline per hour. Laboratory studies are conducted and reviewed. Patient has a creatinine of 1.8 which is near her baseline. Urinalysis does demonstrate greater than 182 white blood cells and few white blood cell clumps. Chest x-ray demonstrates an improving left basilar pneumonia. CT of the head demonstrates no acute abnormality. Patient does have improvement in her mentation after fluid administration and antibiotics. Spoke with Dr. lim agreed to admit the patient. She is currently awaiting a medical floor in stable condition - Lab Data Result diagrams: 01/30/22 06:29 02/01/22 06:21 Lab Results 01/29/22 01/29/22 01/29/22 Range/Units 19:57 19:57 19:57 WBC 10.4 (3.8-10.6) k/uL RBC 4.37 (3.80-5.40) m/uL Hgb 12.5 (11.4-16.0) gm/dL Hct 39.2 (34.0-46.0) % MCV 89.7 (80.0-100.0) fL MCH 28.6 (25.0-35.0) pg MCHC 31.9 (31.0-37.0) g/dL RDW 16.4 H (11.5-15.5) % Plt Count 338 (150-450) k/uL MPV 7.7 Neutrophils % 80 % Lymphocytes % 13 % Monocytes % 3 % Eosinophils % 1 % Basophils % 1 % Neutrophils # 8.3 H (1.3-7.7) k/uL Lymphocytes # 1.4 (1.0-4.8) k/uL Monocytes # 0.4 (0-1.0) k/uL Eosinophils # 0.1 (0-0.7) k/uL Basophils # 0.1 (0-0.2) k/uL Anisocytosis Slight PT 11.2 (9.0-12.0) sec INR 1.0 (<1.2) APTT 23.3 (22.0-30.0) sec Sodium 137 (137-145) mmol/L Potassium 4.5 (3.5-5.1) mmol/L Chloride 100 (98-107) mmol/L Carbon Dioxide 23 (22-30) mmol/L Anion Gap 14 mmol/L BUN 37 H (7-17) mg/dL Creatinine 1.87 H (0.52-1.04) mg/dL Est GFR (CKD-EPI)AfAm 30 (>60 ml/min/1.73 sqM) Est GFR (CKD-EPI)NonAf 26 (>60 ml/min/1.73 sqM) Glucose 217 H (74-99) mg/dL POC Glucose (mg/dL) (75-99) mg/dL POC Glu Carpet Or Rug Layer Helper ID Calcium 9.4 (8.4-10.2) mg/dL Total Bilirubin 0.7 (0.2-1.3) mg/dL AST 18 (14-36) U/L ALT 12 (4-34) U/L Alkaline Phosphatase 84 (38-126) U/L Troponin I (0.000-0.034) ng/mL Total Protein 7.8 (6.3-8.2) g/dL Albumin 4.3 (3.5-5.0) g/dL Urine Color Urine Appearance (Clear) Urine pH (5.0-8.0) Ur Specific [place] (1.001-1.035) Urine Protein (Negative) Urine Glucose (UA) (Negative) Urine Ketones (Negative) Urine Blood (Negative) Urine Nitrite (Negative) Urine Bilirubin (Negative) Urine Urobilinogen (<2.0) mg/dL Ur Leukocyte Esterase (Negative) Urine RBC (0-5) /hpf Urine WBC (0-5) /hpf Urine WBC Clumps (None) /hpf Ur Squamous Epith Cells (0-4) /hpf Hyaline Casts (0-2) /lpf Urine Mucus (None) /hpf Urine Opiates Screen (NotDetected) Ur Oxycodone Screen (NotDetected) Urine Methadone Screen (NotDetected) Ur Propoxyphene Screen (NotDetected) Ur Barbiturates Screen (NotDetected) U Tricyclic Antidepress (NotDetected) Ur Phencyclidine Scrn (NotDetected) Ur Amphetamines Screen (NotDetected) U Methamphetamines Scrn (NotDetected) U Benzodiazepines Scrn (NotDetected) Urine Cocaine Screen (NotDetected) U Marijuana (THC) Screen (NotDetected) Coronavirus (PCR) (Not Detectd) Influenza Type A RNA (Not Detectd) Influenza Type B (PCR) (Not Detectd) 01/29/22 01/29/22 01/29/22 Range/Units 19:57 19:57 19:57 WBC (3.8-10.6) k/uL RBC (3.80-5.40) m/uL Hgb (11.4-16.0) gm/dL Hct (34.0-46.0) % MCV (80.0-100.0) fL MCH (25.0-35.0) pg MCHC (31.0-37.0) g/dL RDW (11.5-15.5) % Plt Count (150-450) k/uL MPV Neutrophils % % Lymphocytes % % Monocytes % % Eosinophils % % Basophils % % Neutrophils # (1.3-7.7) k/uL Lymphocytes # (1.0-4.8) k/uL Monocytes # (0-1.0) k/uL Eosinophils # (0-0.7) k/uL Basophils # (0-0.2) k/uL Anisocytosis PT (9.0-12.0) sec INR (<1.2) APTT (22.0-30.0) sec Sodium (137-145) mmol/L Potassium (3.5-5.1) mmol/L Chloride (98-107) mmol/L Carbon Dioxide (22-30) mmol/L Anion Gap mmol/L BUN (7-17) mg/dL Creatinine (0.52-1.04) mg/dL Est GFR (CKD-EPI)AfAm (>60 ml/min/1.73 sqM) Est GFR (CKD-EPI)NonAf (>60 ml/min/1.73 sqM) Glucose (74-99) mg/dL POC Glucose (mg/dL) (75-99) mg/dL POC Glu Carpet Or Rug Layer Helper ID Calcium (8.4-10.2) mg/dL Total Bilirubin (0.2-1.3) mg/dL AST (14-36) U/L ALT (4-34) U/L Alkaline Phosphatase (38-126) U/L Troponin I 0.025 (0.000-0.034) ng/mL Total Protein (6.3-8.2) g/dL Albumin (3.5-5.0) g/dL Urine Color Urine Appearance (Clear) Urine pH (5.0-8.0) Ur Specific [place] (1.001-1.035) Urine Protein (Negative) Urine Glucose (UA) (Negative) Urine Ketones (Negative) Urine Blood (Negative) Urine Nitrite (Negative) Urine Bilirubin (Negative) Urine Urobilinogen (<2.0) mg/dL Ur Leukocyte Esterase (Negative) Urine RBC (0-5) /hpf Urine WBC (0-5) /hpf Urine WBC Clumps (None) /hpf Ur Squamous Epith Cells (0-4) /hpf Hyaline Casts (0-2) /lpf Urine Mucus (None) /hpf Urine Opiates Screen (NotDetected) Ur Oxycodone Screen (NotDetected) Urine Methadone Screen (NotDetected) Ur Propoxyphene Screen (NotDetected) Ur Barbiturates Screen (NotDetected) U Tricyclic Antidepress (NotDetected) Ur Phencyclidine Scrn (NotDetected) Ur Amphetamines Screen (NotDetected) U Methamphetamines Scrn (NotDetected) U Benzodiazepines Scrn (NotDetected) Urine Cocaine Screen (NotDetected) U Marijuana (THC) Screen (NotDetected) Coronavirus (PCR) Not Detected (Not Detectd) Influenza Type A RNA Not Detected (Not Detectd) Influenza Type B (PCR) Not Detected (Not Detectd) 01/29/22 01/29/22 Range/Units 19:59 20:45 WBC (3.8-10.6) k/uL RBC (3.80-5.40) m/uL Hgb (11.4-16.0) gm/dL Hct (34.0-46.0) % MCV (80.0-100.0) fL MCH (25.0-35.0) pg MCHC (31.0-37.0) g/dL RDW (11.5-15.5) % Plt Count (150-450) k/uL MPV Neutrophils % % Lymphocytes % % Monocytes % % Eosinophils % % Basophils % % Neutrophils # (1.3-7.7) k/uL Lymphocytes # (1.0-4.8) k/uL Monocytes # (0-1.0) k/uL Eosinophils # (0-0.7) k/uL Basophils # (0-0.2) k/uL Anisocytosis PT (9.0-12.0) sec INR (<1.2) APTT (22.0-30.0) sec Sodium (137-145) mmol/L Potassium (3.5-5.1) mmol/L Chloride (98-107) mmol/L Carbon Dioxide (22-30) mmol/L Anion Gap mmol/L BUN (7-17) mg/dL Creatinine (0.52-1.04) mg/dL Est GFR (CKD-EPI)AfAm (>60 ml/min/1.73 sqM) Est GFR (CKD-EPI)NonAf (>60 ml/min/1.73 sqM) Glucose (74-99) mg/dL POC Glucose (mg/dL) 211 H (75-99) mg/dL POC Glu Carpet Or Rug Layer Helper ID Christen Ramirez Calcium (8.4-10.2) mg/dL Total Bilirubin (0.2-1.3) mg/dL AST (14-36) U/L ALT (4-34) U/L Alkaline Phosphatase (38-126) U/L Troponin I (0.000-0.034) ng/mL Total Protein (6.3-8.2) g/dL Albumin (3.5-5.0) g/dL Urine Color Yellow Urine Appearance Cloudy H (Clear) Urine pH 5.5 (5.0-8.0) Ur Specific [place] 1.012 (1.001-1.035) Urine Protein Trace H (Negative) Urine Glucose (UA) Negative (Negative) Urine Ketones Negative (Negative) Urine Blood Trace H (Negative) Urine Nitrite Negative (Negative) Urine Bilirubin Negative (Negative) Urine Urobilinogen <2.0 (<2.0) mg/dL Ur Leukocyte Esterase Large H (Negative) Urine RBC 4 (0-5) /hpf Urine WBC >182 H (0-5) /hpf Urine WBC Clumps Few H (None) /hpf Ur Squamous Epith Cells <1 (0-4) /hpf Hyaline Casts 8 H (0-2) /lpf Urine Mucus Rare H (None) /hpf Urine Opiates Screen Not Detected (NotDetected) Ur Oxycodone Screen Not Detected (NotDetected) Urine Methadone Screen Not Detected (NotDetected) Ur Propoxyphene Screen Not Detected (NotDetected) Ur Barbiturates Screen Not Detected (NotDetected) U Tricyclic Antidepress Not Detected (NotDetected) Ur Phencyclidine Scrn Not Detected (NotDetected) Ur Amphetamines Screen Not Detected (NotDetected) U Methamphetamines Scrn Not Detected (NotDetected) U Benzodiazepines Scrn Not Detected (NotDetected) Urine Cocaine Screen Not Detected (NotDetected) U Marijuana (THC) Screen Not Detected (NotDetected) Coronavirus (PCR) (Not Detectd) Influenza Type A RNA (Not Detectd) Influenza Type B (PCR) (Not Detectd) - EKG Data EKG Comments: EKG demonstrates a paced rhythm with a rate of 75. QRS 181. QTC of 460. Pacemaker captures appropriately. Negative for sgarbossa criteria Disposition Clinical Impression: Heat causing collapse, Acute encephalopathy, UTI (urinary tract infection) Disposition: ADMITTED IP TO THIS HOSP Is patient prescribed a controlled substance at d/c from ED?: No Decision to Admit Reason: Admit from EC Decision Date: 01/29/22 Decision Time: 23:26
--- NOTE | 2022-01-29 21:44 | XR ---
EXAMINATION TYPE: XR chest 2V DATE OF EXAM: 01/29/2022 COMPARISON: 01/14/2021 HISTORY: Altered mental status TECHNIQUE: 2 views FINDINGS: Heart is enlarged. No heart failure. There is left axillary pacemaker. There is some infilt rate at the left lung base.. There are no hilar masses. IMPRESSION: There is infiltrate left lung base which is improved compared to old exam.
--- NOTE | 2022-01-29 22:10 | CT ---
EXAMINATION TYPE: CT brain wo con DATE OF EXAM: 01/29/2022 COMPARISON: 01/13/2021 HISTORY: AMS CT DLP: 1076.4 mGycm Automated exposure control for dose reduction was used. There is cerebral cortical atrophy. No mass effect or midline shift. No sign of intracranial hemorrha ge. The calvarium is intact. There is normal aeration of the mastoid sinuses. There is 5 mm old lacun ar infarct in the left thalamus. IMPRESSION: Cerebral atrophy. No acute intracranial abnormality. No change.
[2022-01-29] MEDS ORDERED: NALOXONE 0.4 MG/ML 1 ML VIAL IV PRN (23:26)
[2022-01-29] MEDS ORDERED: ACETAMINOPHEN TAB 325 MG TAB PO PRN (23:26)
[2022-01-29] MEDS ORDERED: IBUPROFEN 400 MG TAB PO PRN (23:26)
[2022-01-30 07:04] LABS: Basophils # (A) 0.1 k/uL (0-0.2); Basophils % (A) 1 %; Eosinophils # (A) 0.1 k/uL (0-0.7); Eosinophils % (A) 1 %; HCT 36.8 % (34.0-46.0); HGB 11.5 gm/dL (11.4-16.0); Hypochromasia Slight; Lymphocytes # (A) 2.1 k/uL (1.0-4.8); Lymphocytes % (A) 22 %; MCH 28.2 pg (25.0-35.0); MCHC 31.2 g/dL (31.0-37.0); MCV 90.5 fL (80.0-100.0); Mean Platelet Volume 7.9; Monocytes # (A) 0.6 k/uL (0-1.0); Monocytes % (A) 7 %; Neutrophils # (A) 6.8 k/uL (1.3-7.7); Neutrophils % (A) 68 %; Platelet Count 243 k/uL (150-450); RBC 4.06 m/uL (3.80-5.40); RDW 15.7 % (11.5-15.5); WBC 9.9 k/uL (3.8-10.6)
[2022-01-30 07:23] LABS: Glucose,Whole Blood 109 mg/dL (75-99)
[2022-01-30 07:29] LABS: Calcium 8.7 mg/dL (8.4-10.2)
[2022-01-30] MEDS: SOLIFENACIN SUCCINATE 10 MG PO SCH (08:20)
[2022-01-30] MEDS: SODIUM CHLORIDE 0.9% 1,000 ML IV SCH ×2 (08:37→17:35)
[2022-01-30] MEDS: allopurinoL 100 MG TAB PO SCH ×2 (08:37→20:30)
[2022-01-30] MEDS: PANTOPRAZOLE 40 MG TABLET PO SCH ×2 (08:37→20:30)
[2022-01-30] MEDS: METOPROLOL TARTRATE 25 MG TAB PO SCH ×3 (08:37→20:30)
[2022-01-30] MEDS: APIXABAN 2.5 MG TABLET PO SCH ×2 (08:37→20:30)
[2022-01-30] MEDS ORDERED: CALCIUM CARBONATE 500 MG CHEWABLE PO PRN (11:25)
[2022-01-30] MEDS ORDERED: DICLOFENAC SODIUM GEL 100 GM TUBE TOPICAL PRN (11:25)
[2022-01-30] MEDS ORDERED: traMADol 50 MG TAB PO PRN (11:25)
[2022-01-30 12:07] LABS: Glucose,Whole Blood 197 mg/dL (75-99)
[2022-01-30 16:48] LABS: Glucose,Whole Blood 169 mg/dL (75-99)
--- NOTE | 2022-01-30 17:19 | P.HPIM ---
History of Present Illness H&P Date: 01/30/22 Chief Complaint: Altered mental status This is a pleasant 76-year-old patient of Dr. Turner. daughter More at the bedside. Chronic stable medical conditions include atrial flutter fibrillation, CHF, COPD, diabetes, fibromyalgia, GERD, hypertension, hyperlipidemia, , perm anent pacemaker for sick sinus syndrome, diabetes type 2 with peripheral neuropathy, arthritis of multiple joints, chronic kidney disease stage III, urinary incontinence iron deficiency anemia gout. At her baseline patient is unsteady and does use a cane. She lives by herself. And a baseline has cognitive impairment. Patient is brought into the ER following the patient was found sitting out in the sun. On a chair. Passed out. Found over temperature off 102 on arrival to the ER. Apparently patient walk from the bathroom or to the porch. Computed tomography scan was negative for any stroke. Patient denies anysymptoms. UA was found to be positive. Patient doing a bit better this morning. Tired. Review of systems: GEN.: Tired EYES: None HEENT: None NECK: None RESPIRATORY: None CARDIOVASCULAR: None GASTROINTESTINAL: None GENITOURINARY: None MUSCULOSKELETAL: Joint pains LYMPHATICS: None HEMATOLOGICAL: None PSYCHIATRY: Forgetful NEUROLOGICAL: Does use a walker Past medical history to include: Atrial flutter fibrillation, CHF, COPD, diabetes, fibromyalgia, GERD, hypertension, hyperlipidemia, osteoarthritis, permanent pacemaker for sick sinus syndrome, TIA, diabetes type 2 with peripheral neuropathy, arthritis in multiple joints, left rotator cuff problem, chronic kidney disease, urinary incontinence, iron deficiency anemia, skin cancer that was removed, bilateral lower extremity varicosities, gout, chronic gait dysfunction does use a cane Social history: Does use a walker. Lives alone. Patient smoked for 52 years. Packs a day stopped in 2011. No alcohol. Does use CBD ordered. Physical examination: VITAL SIGNS: 102.1, 60, 24, 140/60, 94% room air GENERAL: BMI 25.8, laying in bed, tired awake EYES: Pupils equal. Conjunctiva normal. HEENT: External appearance of nose and ears normal, oral cavity grossly normal. NECK: JVD not raised; masses not palpable. HEART: First and second heart sounds are normal; no edema. LUNGS: Respiratory rate normal; clear to auscultation. ABDOMEN: Soft, nontender, liver spleen not palpable, no masses palpable. PSYCH: Patient answering simple questions MUSCULAR skeletal: Evidence of OA in multiple joints. NEUROLOGICAL: Cranial nerves grossly intact; no facial asymmetry, power and sensation grossly intact. Gait, at baseline a bit unsteady LYMPHATICS: No lymph nodes palpable in the axilla and neck INVESTIGATIONS, reviewed in the clinical context: White count 9.9 hemoglobin 11.5 platelets 243 potassium 4 BUN 39 creatinine 2.0 UA: Positive for leukoesterase, WBC, WBC clumps. Urine drug screen: Negative EKG tracing personally reviewed by me-ventricular paced rhythm. Rate 75 Chest x-ray film personally reviewed by me-possible infiltrate Computed tomography scan brain: Cerebral atrophy Previous lab: Creatinine 1.19 on 01/16/2021 Assessment and plan: -Patient found unconscious possibly from underlying sepsis/dehydration -Pneumonia suspected gram-negative organism IV ceftriaxone -Acute UTI with cystitis IV ceftriaxone -Persistent atrial flutter fibrillation. Rate controlled Continue with telemetry. Chronically on eliquis 2.5 mg twice a day -Chronic congestive heart failure. From diastolic dysfunction. EF 55-60%. Hold Lasix -COPD in a previous smoker Uses inhaler when necessary -Diabetes mellitus type 2, chronically on oral hypoglycemic Continue with Glucotrol Follow Accu-Cheks -Diabetic peripheral neuropathy -Chronic fibromyalgia Ultram 50 mg every 6 when necessary -GERD Protonix 40 mg twice a day -Chronic urinary incontinence Vesicare 10 mg daily Hyperlipidemia Mevacor 20 mg daily at bedtime -Essential hypertension Lopressor 25 mg 3 times a day. Hold other antihypertensive. -Primary osteoarthritis multiple joints Uses Ultram when necessary -Chronic kidney disease likely secondary to diabetic nephropathy and hypertensive nephrosclerosis stage III, at baseline Baseline creatinine 1.19 -Chronic urinary stress incontinence Continue with Vesicare -Bilateral lower extremity varicosities Follow as outpatient -Chronic gout Albuterol 100 mg twice a day -Moderate cognitive impairment likely from the late onset Alzheimer's dementia For further workup as outpatient by family doctor -Chronic gait dysfunction of the baseline patient uses a walker Fall precautions IV ceftriaxone. Normal saline. Hold antihypertensive. Follow Accu-Cheks. Follow labs. Fall precautions. Care was discussed with the daughter the bedside. No clinical suspicion of stroke. Given the complexity and severity of patient's condition expect the patient to be in the hospital at least for 2 overnights Past Medical History Past Medical History: Atrial Fibrillation, Atrial Flutter, Blood Disorder, Cancer, CVA/TIA, Diabetes Mellitus, Fibromyalgia, GERD/Reflux, Hyperlipidemia, Hypertension, Osteoarthritis (OA), Pneumonia, Renal Disease, Vascular Disorder Additional Past Medical History / Comment(s): 05/2019 admitted with SSS and had pacer insertion, 2011 TIA, NIDDM tyep II, neuropathy bilateral feet, arthritis bilateral hands/knees, L rotator cuff problem, bronchitis, CKD stage III, UTI, urinary leakage at times, anemia with iron infusions in the past, skin cancer with removals, varicosities bilateral legs, constipation, gout bilateral feet, History of Any Multi-Drug Resistant Organisms: None Reported Past Surgical History: Appendectomy, Bladder Surgery, Breast Surgery, Hysterectomy, Tonsillectomy Additional Past Surgical History / Comment(s): 06/15/19 pacemaker, bladder suspension, bilateral breast implants, L oophorectomy, colonoscopies, skin cancer removals, L leg varicose vein stripping, cystoscopy. Past Anesthesia/Blood Transfusion Reactions: No Reported Reaction Past Psychological History: No Psychological Hx Reported Additional Psychological History / Comment(s): Pt resides alone. She uses a cane to ambulate. She drives. Her ricarda goes grocery shopping for pt. Smoking Status: Former smoker Past Alcohol Use History: None Reported Additional Past Alcohol Use History / Comment(s): quit smoking 2011, starting smoking age 15, 2 1/2 PPD Past Drug Use History: Marijuana Additional Drug Use History / Comment(s): CBD oil - Past Family History Father History Unknown: Yes Family Medical History: Cancer Additional Family Medical History / Comment(s): Father of lung cancer in his 40s. Mother Family Medical History: No Reported History Additional Family Medical History / Comment(s): Mother is 92 yrs old. Medications and Allergies Home Medications Medication Instructions Recorded Confirmed Type Allopurinol [Zyloprim] 100 mg PO BID 07/05/16 01/29/22 History Lovastatin [Mevacor] 20 mg PO HS 09/13/17 01/29/22 History Pantoprazole Sodium [Protonix] 40 mg PO BID #60 tablet. 05/08/18 01/29/22 Rx Apixaban [Eliquis] 2.5 mg PO BID 06/10/19 01/29/22 History Metoprolol Tartrate [Lopressor] 25 mg PO TID 09/02/19 01/29/22 History glipiZIDE XL [Glucotrol XL] 5 mg PO W/BRKFST 09/02/19 01/29/22 History amLODIPine [Norvasc] 5 mg PO DAILY 12/28/20 01/29/22 History Docusate [Colace] 100 mg PO BID PRN 01/13/21 01/29/22 History Calcium Carbonate [Tums] 1,000 mg PO TID PRN 01/29/22 01/29/22 History Diclofenac Sodium Gel [Voltaren 2 gm TOPICAL QID PRN 01/29/22 01/29/22 History Gel] Furosemide [Lasix] 20 mg PO DAILY 01/29/22 01/29/22 History Solifenacin Succinate [Vesicare] 10 mg PO DAILY 01/29/22 01/29/22 History Zzzquil Melatonin Gummies 2 tab PO HS PRN 01/29/22 01/29/22 History lisinopriL [Prinivil] 20 mg PO DAILY 01/29/22 01/29/22 History metFORMIN HCL [Glucophage] 500 mg PO BID 01/29/22 01/29/22 History traMADol HCL 50 mg PO HS 01/29/22 01/29/22 History traMADol HCl [Ultram] 50 mg PO Q6HR PRN 01/29/22 01/29/22 History Allergies Allergy/AdvReac Type Severity Reaction Status Date / Time erythromycin base Allergy Severe TONGUE Verified 01/29/22 21:05 SWELLS gatifloxacin [From Tequin] Allergy Severe TONGUE Verified 01/29/22 21:05 SWELLS aspirin AdvReac Nausea Verified 01/29/22 21:05 Physical Exam Vitals: Vital Signs Temp Pulse Pulse Resp BP BP Pulse Ox 01/30/22 07:04 98 F 67 16 137/68 99 01/30/22 07:00 97.4 F L 55 L 16 133/73 97 01/30/22 05:00 96.9 F L 60 18 112/57 96 01/30/22 04:00 60 19 96 01/30/22 03:00 60 18 96 01/30/22 02:00 60 18 01/30/22 01:00 60 18 93/48 97 01/30/22 00:00 59 L 18 97 01/29/22 23:00 97.3 F L 60 18 99/54 96 01/29/22 22:16 98.2 F 60 12 94/54 94 L 01/29/22 20:10 99 F 62 14 125/53 93 L 01/29/22 19:58 102.1 F H 60 24 144/60 87 L Intake and Output 01/29/22 01/30/22 01/30/22 22:59 06:59 14:59 Intake Total 118 Balance 118 Intake: Oral 118 Other: Weight 72.575 kg 72.575 kg Results CBC & Chem 7: 01/30/22 06:29 01/30/22 06:29 Labs: Abnormal Lab Results - Last 24 Hours (Table) 01/29/22 01/29/22 01/29/22 Range/Units 19:57 19:57 19:59 RDW 16.4 H (11.5-15.5) % Neutrophils # 8.3 H (1.3-7.7) k/uL BUN 37 H (7-17) mg/dL Creatinine 1.87 H (0.52-1.04) mg/dL Glucose 217 H (74-99) mg/dL POC Glucose (mg/dL) 211 H (75-99) mg/dL Urine Appearance (Clear) Urine Protein (Negative) Urine Blood (Negative) Ur Leukocyte Esterase (Negative) Urine WBC (0-5) /hpf Urine WBC Clumps (None) /hpf Hyaline Casts (0-2) /lpf Urine Mucus (None) /hpf 01/29/22 01/30/22 01/30/22 Range/Units 20:45 06:29 06:29 RDW 15.7 H (11.5-15.5) % Neutrophils # (1.3-7.7) k/uL BUN 39 H (7-17) mg/dL Creatinine 2.00 H (0.52-1.04) mg/dL Glucose 109 H (74-99) mg/dL POC Glucose (mg/dL) (75-99) mg/dL Urine Appearance Cloudy H (Clear) Urine Protein Trace H (Negative) Urine Blood Trace H (Negative) Ur Leukocyte Esterase Large H (Negative) Urine WBC >182 H (0-5) /hpf Urine WBC Clumps Few H (None) /hpf Hyaline Casts 8 H (0-2) /lpf Urine Mucus Rare H (None) /hpf 01/30/22 Range/Units 07:21 RDW (11.5-15.5) % Neutrophils # (1.3-7.7) k/uL BUN (7-17) mg/dL Creatinine (0.52-1.04) mg/dL Glucose (74-99) mg/dL POC Glucose (mg/dL) 109 H (75-99) mg/dL Urine Appearance (Clear) Urine Protein (Negative) Urine Blood (Negative) Ur Leukocyte Esterase (Negative) Urine WBC (0-5) /hpf Urine WBC Clumps (None) /hpf Hyaline Casts (0-2) /lpf Urine Mucus (None) /hpf Microbiology - Last 24 Hours (Table) 01/29/22 20:45 Urine Culture - Preliminary Urine,Voided Thrombosis Risk Factor Assmnt - Choose All That Apply Any of the Below Risk Factors Present?: Yes Each Factor Represents 1 point: Obesity (BMI >25) Other Risk Factors: Yes Each Risk Factor Represents 3 Points: Age 75 years or older Other congenital or acquired thrombophilia - If yes, enter type in comment: No Thrombosis Risk Factor Assessment Total Risk Factor Score: 4 Thrombosis Risk Factor Assessment Level: Moderate Risk
[2022-01-30] MEDS ORDERED: LORazepam 0.5 MG TAB PO PRN (17:20)
[2022-01-30] MEDS ORDERED: ONDANSETRON 4 MG/2 ML VIAL IVP PRN (17:20)
[2022-01-30] MEDS ORDERED: LACTULOSE 20 GM/30 ML CUP PO PRN (17:20)
[2022-01-30] MEDS: traMADol 50 MG TAB PO SCH (20:29)
[2022-01-30] MEDS: ATORVASTATIN 10 MG TAB PO SCH (20:30)
[2022-01-30 20:47] LABS: Glucose,Whole Blood 174 mg/dL (75-99)
[2022-01-30] MEDS ORDERED: ZOLPIDEM 5 MG TAB PO PRN (21:00)
[2022-01-31 06:59] LABS: Glucose,Whole Blood 170 mg/dL (75-99)
[2022-01-31 07:01] LABS: African American GFR (CKD) 48 (>60 ml/min/1.73 sqM); Anion Gap 5 mmol/L; Blood Urea Nitrogen 28 mg/dL (7-17); Calcium 8.4 mg/dL (8.4-10.2); Carbon Dioxide 27 mmol/L (22-30); Chloride 107 mmol/L (98-107); Glucose 183 mg/dL (74-99); Non-African American GFR(CKD) 41 (>60 ml/min/1.73 sqM); Sodium 139 mmol/L (137-145)
[2022-01-31] MEDS: PANTOPRAZOLE 40 MG TABLET PO SCH ×2 (08:37→20:57)
[2022-01-31] MEDS: SOLIFENACIN SUCCINATE 10 MG PO SCH (08:37)
[2022-01-31] MEDS: METOPROLOL TARTRATE 25 MG TAB PO SCH ×3 (08:37→20:59)
[2022-01-31] MEDS: allopurinoL 100 MG TAB PO SCH ×2 (08:37→20:57)
[2022-01-31] MEDS: APIXABAN 2.5 MG TABLET PO SCH ×2 (08:37→20:57)
[2022-01-31 11:48] LABS: Glucose,Whole Blood 160 mg/dL (75-99)
--- NOTE | 2022-01-31 12:13 | CDI ---
Documentation Clarification Form Date: 01/31/2022 12:02:20 PM From: Flora Conte CCS, CCDs Admit Date: 01/29/2022 11:26:00 PM Patient Name: Deja Bassett Visit Number: [id number] Discharge Date: ATTENTION: The Clinical Documentation Specialists (CDI) and [facility] Coding Staff appreciate your assistance in clarifying documentation. Please respond to the clarification below the line at the bottom and electronically sign. The CDI & [facility] Coding staff will review the response and follow-up if needed. Please note: Queries are made part of the Legal Health Record. If you have any questions, please contact the author of this message via ITS. Dr. Bipin Rivera: Persistent Atrial Flutter Fibrillation is documented in the 01/30 History & Physical without further specificity. Cardiology has not been consulted.. Additional clarification regarding the Type of Atrial Fibrillation and/or Atrial Flutter is requested. History/Risk Factors per the 01/30 H/P: Atrial Flutter Fibrillation nos, CHF, COPD, DM on po Hypoglycemic meds, Fibromyalgia, GERD, Hypertension, Hyperlipidemia, Osteoarthritis Multiple Joints, Permanent Pacemaker for Sick Sinus syndrome, TIA, Diabetic Peripheral Neuropathy, CKD, Urinary Incontinence, Iron Deficiency anemia, Skin Cancer removed, Bilateral Lower Extremity Varicosities, Gout, Chronic Gait Dysfunction. Clinical Indicators: Presented to the ED on 01/29 vis EMS with Altered Mental Status. Patient's daughter found her on her porch sitting in the sun, slumped in her chair, unknown duration, nonverbal for EMS, temp 103. Admit with Collapse, Acute Encephalopathy and UTI 01/29 VS: T 102.1, P 60, R 24, BP 144/60, PO 87 RA - 93 4Lnc 01/29 EKG: R 75 electronic ventricular pacemaker, Abnormal rhythm. Treatment 01/29: Blood glucose monitoring, Telemetry, Fall precautions, Blood cultures x2, urine culture, O2, po Tylenol 650 mg x1, IV Na Cl 1,000 mls @ 100 mls/hr q10H, IV Rocephin 1,000 mg x1 Home meds: Ultram, Melatonin, Mevacor, Colace, Vesicare, Protonix, Lopressor, Glucophage, Prinivil, Glucotrol, Norvasc, Lasix, Eliquis, Phyllis Please clarify the type of Atrial Fibrillation and/or Atrial Flutter, if known: Atrial Fibrillation: [ ] Chronic [ ] Permanent [ ] Paroxysmal [ ] Persistent [ ] Other, please specify: [ ] Unable to determine Atrial Flutter: [ ] Atypical [ ] Typical [ ] Type I [ ] Type II [ ] Other, please specify: [ ] Unable to determine (Template Last Revised: January 2021) Unable to determine due to underlying pacemaker MTDD
--- NOTE | 2022-01-31 16:31 | P.PN ---
Progress Note - Text Progress Note Date: 01/31/22 Chief Complaint: Altered mental status This is a pleasant 76-year-old patient of Dr. Turner. daughter More at the bedside. Chronic stable medical conditions include atrial flutter fibrillation, CHF, COPD, diabetes, fibromyalgia, GERD, hypertension, hyperlipidemia, , permanent pacemaker for sick sinus syndrome, diabetes type 2 with peripheral neuropathy, arthritis of multiple joints, chronic kidney disease stage III, urinary incontinence iron deficiency anemia gout. At her baseline patient is unsteady and does use a cane. She lives by herself. And a baseline has cognitive impairment. Patient is brought into the ER following the patient was found sitting out in the sun. On a chair. Passed out. Found over temperature off 102 on arrival to the ER. Apparently patient walk from the bathroom or to the porch. Computed tomography scan was negative for any stroke. Patient denies anysymptoms. UA was found to be positive. Patient doing a bit better this morning. Tired. Patient admitted with acute UTI with cystitis, pneumonia, acute metabolic encephalopathy, sepsis, acute kidney injury. IV ceftriaxone. IV fluids. January 31: Sitting up in a chair. Eating better. Renal function improving. Care was discussed with the patient and the daughter the bedside. DC IV fluids. Increase activity. Active Medications Acetaminophen (Acetaminophen Tab 325 Mg Tab) 650 mg PO Q6HR PRN PRN Reason: Mild Pain or Fever > 100.5 Allopurinol (Allopurinol 100 Mg Tab) 100 mg PO BID [facility] Last Admin: 01/31/22 08:37 Dose: 100 mg Documented by: Apixaban (Apixaban 2.5 Mg Tablet) 2.5 mg PO BID [facility]; Protocol Last Admin: 01/31/22 08:37 Dose: 2.5 mg Documented by: Atorvastatin Calcium (Atorvastatin 10 Mg Tab) 10 mg PO HS [facility] Last Admin: 01/30/22 20:30 Dose: 10 mg Documented by: Calcium Carbonate/Glycine (Calcium Carbonate 500 Mg Chewable) 1,000 mg PO TID PRN PRN Reason: Heartburn Diclofenac Sodium (Diclofenac Sodium Gel 100 Gm Tube) 2 gm TOPICAL QID PRN; Protocol PRN Reason: Pain Glipizide (Glipizide 2.5 Mg Tab) 2.5 mg PO BID-W/MEALS [facility] Last Admin: 01/31/22 08:37 Dose: 2.5 mg Documented by: Ceftriaxone Sodium 1 gm/ (Sodium Chloride) 50 mls @ 100 mls/hr IVPB Q24HR [facility]; Protocol Last Admin: 01/31/22 08:36 Dose: 100 mls/hr Documented by: Lactulose (Lactulose 20 Gm/30 Ml Cup) 20 gm PO DAILY PRN PRN Reason: Constipation Lorazepam (Lorazepam 0.5 Mg Tab) 0.5 mg PO Q6HR PRN PRN Reason: Anxiety Metoprolol Tartrate (Metoprolol Tartrate 25 Mg Tab) 25 mg PO TID [facility] Last Admin: 01/31/22 08:37 Dose: 25 mg Documented by: Naloxone HCl (Naloxone 0.4 Mg/Ml 1 Ml Vial) 0.2 mg IV Q2M PRN PRN Reason: Opioid Reversal Non-Formulary Medication (Solifenacin Succinate [Vesicare]) 10 mg PO DAILY [facility] Last Admin: 01/31/22 08:37 Dose: Not Given Documented by: Ondansetron HCl (Ondansetron 4 Mg/2 Ml Vial) 4 mg IVP Q8HR PRN PRN Reason: Nausea And Vomiting Pantoprazole Sodium (Pantoprazole 40 Mg Tablet) 40 mg PO BID [facility] Last Admin: 01/31/22 08:37 Dose: 40 mg Documented by: Tramadol HCl (Tramadol 50 Mg Tab) 50 mg PO Q6HR PRN PRN Reason: Pain Tramadol HCl (Tramadol 50 Mg Tab) 50 mg PO HS [facility] Last Admin: 01/30/22 20:29 Dose: 50 mg Documented by: Zolpidem Tartrate (Zolpidem 5 Mg Tab) 2.5 mg PO HS PRN PRN Reason: Insomnia Past medical history to include: Atrial flutter fibrillation, CHF, COPD, diabetes, fibromyalgia, GERD, hypertension, hyperlipidemia, osteoarthritis, permanent pacemaker for sick sinus syndrome, TIA, diabetes type 2 with peripheral neuropathy, arthritis in multiple joints, left rotator cuff problem, chronic kidney disease, urinary incontinence, iron deficiency anemia, skin cancer that was removed, bilateral lower extremity varicosities, gout, chronic gait dysfunction does use a cane Social history: Does use a walker. Lives alone. Patient smoked for 52 years. Packs a day stopped in 2011. No alcohol. Does use CBD ordered. Physical examination: VITAL SIGNS: 98.2, 60, 18, 1 57 x 37, 97% room air GENERAL: Up in a recliner more awake EYES: Pupils equal. Conjunctiva normal. HEENT: External appearance of nose and ears normal, oral cavity grossly normal. NECK: JVD not raised; masses not palpable. HEART: First and second heart sounds are normal; no edema. LUNGS: Respiratory rate normal; clear to auscultation. ABDOMEN: Soft, nontender, liver spleen not palpable, no masses palpable. PSYCH: Answering simple questions MUSCULAR skeletal: Evidence of OA in multiple joints. INVESTIGATIONS, reviewed in the clinical context: January 31: Potassium 4 BUN 28 creatinine 1.26 pro-calcitonin 1.03 White count 9.9 hemoglobin 11.5 platelets 243 potassium 4 BUN 39 creatinine 2.0 UA: Positive for leukoesterase, WBC, WBC clumps. Urine drug screen: Negative EKG tracing personally reviewed by me-ventricular paced rhythm. Rate 75 Chest x-ray film personally reviewed by me-possible infiltrate Computed tomography scan brain: Cerebral atrophy Previous lab: Creatinine 1.19 on 01/16/2021 Assessment and plan: -Patient found unconscious possibly from underlying sepsis/dehydration: Improve -Pneumonia suspected gram-negative organism IV ceftriaxone -Acute UTI with cystitis IV ceftriaxone -Persistent atrial flutter fibrillation. Rate controlled Continue with telemetry. Chronically on eliquis 2.5 mg twice a day -Chronic congestive heart failure. From diastolic dysfunction. EF 55-60%. Hold Lasix -COPD in a previous smoker Uses inhaler when necessary -Diabetes mellitus type 2, chronically on oral hypoglycemic Continue with Glucotrol Follow Accu-Cheks -Diabetic peripheral neuropathy -Chronic fibromyalgia Ultram 50 mg every 6 when necessary -GERD Protonix 40 mg twice a day -Chronic urinary incontinence Vesicare 10 mg daily Hyperlipidemia Mevacor 20 mg daily at bedtime -Essential hypertension Lopressor 25 mg 3 times a day. Start amlodipine today. Lisinopril tomorrow. -Primary osteoarthritis multiple joints Uses Ultram when necessary -Chronic kidney disease likely secondary to diabetic nephropathy and hypertensive nephrosclerosis stage III, at baseline Baseline creatinine 1.19 -Chronic urinary stress incontinence Continue with Vesicare -Bilateral lower extremity varicosities Follow as outpatient -Chronic gout Albuterol 100 mg twice a day -Moderate cognitive impairment likely from the late onset Alzheimer's dementia For further workup as outpatient by family doctor -Chronic gait dysfunction of the baseline patient uses a walker Fall precautions IV ceftriaxone. Stop IV fluids. Hold antihypertensive. Follow Accu-Cheks. Follow labs. Fall precautions. Patient doing better. Repeat labs in the morning. Resume metformin and antihypertensives.
[2022-01-31] MEDS: amLODIPine 5 MG TAB PO SCH (17:02)
[2022-01-31] MEDS: metFORMIN 500 MG TAB PO SCH (17:02)
[2022-01-31 17:21] LABS: Glucose,Whole Blood 126 mg/dL (75-99)
[2022-01-31 20:40] LABS: Glucose,Whole Blood 164 mg/dL (75-99)
[2022-01-31] MEDS: traMADol 50 MG TAB PO SCH (20:58)
[2022-01-31] MEDS: ATORVASTATIN 10 MG TAB PO SCH (20:59)
[2022-02-01 06:55] LABS: Glucose,Whole Blood 159 mg/dL (75-99)
[2022-02-01 07:09] LABS: African American GFR (CKD) 56 (>60 ml/min/1.73 sqM); Anion Gap 9 mmol/L; Blood Urea Nitrogen 20 mg/dL (7-17); Carbon Dioxide 26 mmol/L (22-30); Chloride 103 mmol/L (98-107); Glucose 171 mg/dL (74-99); Non-African American GFR(CKD) 49 (>60 ml/min/1.73 sqM); Potassium 3.6 mmol/L (3.5-5.1); Sodium 138 mmol/L (137-145)
[2022-02-01] MEDS: METOPROLOL TARTRATE 25 MG TAB PO SCH (08:05)
[2022-02-01] MEDS: APIXABAN 2.5 MG TABLET PO SCH (08:05)
[2022-02-01] MEDS: allopurinoL 100 MG TAB PO SCH (08:05)
[2022-02-01] MEDS: metFORMIN 500 MG TAB PO SCH (08:05)
[2022-02-01] MEDS: amLODIPine 5 MG TAB PO SCH (08:05)
[2022-02-01] MEDS: PANTOPRAZOLE 40 MG TABLET PO SCH (08:05)
[2022-02-01] MEDS: SOLIFENACIN SUCCINATE 10 MG PO SCH (08:06)
[2022-02-01] MEDS ORDERED: lisinopriL 20 MG TAB PO SCH (09:00)
[2022-02-01 11:30] LABS: Glucose,Whole Blood 248 mg/dL (75-99)
[2022-02-01 14:02] VITALS: BP 146/78; PULSE 60; RESP 16; TEMP 98.1
--- NOTE | 2022-02-01 20:33 | P.DS ---
Providers Date of admission: 01/29/22 23:26 Expected date of discharge: 02/01/22 Attending physician: Bipin Rivera Primary care physician: David Turner [facility] Course: Chief Complaint: Altered mental status This is a pleasant 76-year-old patient of Dr. Turner. daughter More at the bedside. Chronic stable medical conditions include atrial flutter fibrillation, CHF, COPD, diabetes, fibromyalgia, GERD, hypertension, hyperlipidemia, , permanent pacemaker for sick sinus syndrome, diabetes type 2 with peripheral neuropathy, arthritis of multiple joints, chronic kidney disease stage III, urinary incontinence iron deficiency anemia gout. At her baseline patient is unsteady and does use a cane. She lives by herself. And a baseline has cognitive impairment. Patient is brought into the ER following the patient was found sitting out in the sun. On a chair. Passed out. Found over temperature off 102 on arrival to the ER. Apparently patient walk from the bathroom or to the porch. Computed tomography scan was negative for any stroke. Patient denies anysymptoms. UA was found to be positive. Patient doing a bit better this morning. Tired. Patient admitted with acute UTI with cystitis, pneumonia, acute metabolic encephalopathy, sepsis, acute kidney injury. IV ceftriaxone. IV fluids. January 31: Sitting up in a chair. Eating better. Renal function improving. Care was discussed with the patient and the daughter the bedside. DC IV fluids. Increase activity. February 01: Up in a chair well. Doing well. Oral intake good. Daughter the bedside. Kidney function seemed to be improved. Urine culture negative. Discussion and discharge planning more than 35 minutes Past medical history to include: Atrial flutter fibrillation, CHF, COPD, diabetes, fibromyalgia, GERD, hypertension, hyperlipidemia, osteoarthritis, permanent pacemaker for sick sinus syndrome, TIA, diabetes type 2 with peripheral neuropathy, arthritis in multiple joints, left rotator cuff problem, chronic kidney disease, urinary incontinence, iron deficiency anemia, skin cancer that was removed, bilateral lower extremity varicosities, gout, chronic gait dysfunction does use a cane Social history: Does use a walker. Lives alone. Patient smoked for 52 years. Packs a day stopped in 2011. No alcohol. Does use CBD ordered. Physical examination: VITAL SIGNS: 98.1, 60, 16, 146.78, 96% room air GENERAL: Up in a recliner comfortable EYES: Pupils equal. Conjunctiva normal. HEENT: External appearance of nose and ears normal, oral cavity grossly normal. NECK: JVD not raised; masses not palpable. HEART: First and second heart sounds are normal; no edema. LUNGS: Respiratory rate normal; clear to auscultation. ABDOMEN: Soft, nontender, liver spleen not palpable, no masses palpable. PSYCH: Answering simple questions MUSCULAR skeletal: Evidence of OA in multiple joints. INVESTIGATIONS, reviewed in the clinical context: February 01: Potassium 3.6 creatinine 1.11 January 31: Potassium 4 BUN 28 creatinine 1.26 pro-calcitonin 1.03 White count 9.9 hemoglobin 11.5 platelets 243 potassium 4 BUN 39 creatinine 2.0 UA: Positive for leukoesterase, WBC, WBC clumps. Urine drug screen: Negative EKG tracing personally reviewed by me-ventricular paced rhythm. Rate 75 Chest x-ray film personally reviewed by me-possible infiltrate Computed tomography scan brain: Cerebral atrophy Previous lab: Creatinine 1.19 on 01/16/2021 Assessment and plan: -Patient found unconscious possibly from underlying sepsis/dehydration: Improve -Pneumonia suspected gram-negative organism IV ceftriaxone -Acute UTI with cystitis IV ceftriaxone. Complete course of Keflex -Persistent atrial flutter fibrillation. Rate controlled Continue with telemetry. Chronically on eliquis 2.5 mg twice a day -Chronic congestive heart failure. From diastolic dysfunction. EF 55-60%. DC Lasix -COPD in a previous smoker Uses inhaler when necessary -Diabetes mellitus type 2, chronically on oral hypoglycemic Continue with Glucotrol Follow Accu-Cheks -Diabetic peripheral neuropathy -Chronic fibromyalgia Ultram 50 mg every 6 when necessary -GERD Protonix 40 mg twice a day -Chronic urinary incontinence Vesicare 10 mg daily Hyperlipidemia Mevacor 20 mg daily at bedtime -Essential hypertension Lopressor 25 mg 3 times a day. Start amlodipine today. Lisinopril tomorrow. -Primary osteoarthritis multiple joints Uses Ultram when necessary -Chronic kidney disease likely secondary to diabetic nephropathy and hypertensive nephrosclerosis stage III, at baseline Baseline creatinine 1.19 -Chronic urinary stress incontinence Continue with Vesicare -Bilateral lower extremity varicosities Follow as outpatient -Chronic gout Albuterol 100 mg twice a day -Moderate cognitive impairment likely from the late onset Alzheimer's dementia For further workup as outpatient by family doctor -Chronic gait dysfunction of the baseline patient uses a walker Fall precautions Disposition: Assisted-living/[facility] Plan - Discharge Summary Discharge Rx Participant: No New Discharge Prescriptions: New Chlorthalidone 25 mg PO DAILY #30 tab Cephalexin [Keflex] 500 mg PO Q6HR #12 cap Continue Allopurinol [Zyloprim] 100 mg PO BID Lovastatin [Mevacor] 20 mg PO HS Pantoprazole Sodium [Protonix] 40 mg PO BID #60 tablet. Apixaban [Eliquis] 2.5 mg PO BID Metoprolol Tartrate [Lopressor] 25 mg PO TID glipiZIDE XL [Glucotrol XL] 5 mg PO W/BRKFST traMADol HCl [Ultram] 50 mg PO Q6HR PRN PRN Reason: Pain Calcium Carbonate [Tums] 1,000 mg PO TID PRN PRN Reason: Heartburn metFORMIN HCL [Glucophage] 500 mg PO BID lisinopriL [Prinivil] 20 mg PO DAILY amLODIPine [Norvasc] 5 mg PO DAILY Docusate [Colace] 100 mg PO BID PRN PRN Reason: Constipation Zzzquil Melatonin Gummies 2 tab PO HS PRN PRN Reason: Insomnia Diclofenac Sodium Gel [Voltaren Gel] 2 gm TOPICAL QID PRN PRN Reason: Pain traMADol HCL 50 mg PO HS Solifenacin Succinate [Vesicare] 10 mg PO DAILY Discontinued Furosemide [Lasix] 20 mg PO DAILY Discharge Medication List Allopurinol [Zyloprim] 100 mg PO BID 07/05/16 [History] Lovastatin [Mevacor] 20 mg PO HS 09/13/17 [History] Pantoprazole Sodium [Protonix] 40 mg PO BID #60 tablet. 05/08/18 [Rx] Apixaban [Eliquis] 2.5 mg PO BID 06/10/19 [History] Metoprolol Tartrate [Lopressor] 25 mg PO TID 09/02/19 [History] glipiZIDE XL [Glucotrol XL] 5 mg PO W/BRKFST 09/02/19 [History] amLODIPine [Norvasc] 5 mg PO DAILY 12/28/20 [History] Docusate [Colace] 100 mg PO BID PRN 01/13/21 [History] Calcium Carbonate [Tums] 1,000 mg PO TID PRN 01/29/22 [History] Diclofenac Sodium Gel [Voltaren Gel] 2 gm TOPICAL QID PRN 01/29/22 [History] Solifenacin Succinate [Vesicare] 10 mg PO DAILY 01/29/22 [History] Zzzquil Melatonin Gummies 2 tab PO HS PRN 01/29/22 [History] lisinopriL [Prinivil] 20 mg PO DAILY 01/29/22 [History] metFORMIN HCL [Glucophage] 500 mg PO BID 01/29/22 [History] traMADol HCL 50 mg PO HS 01/29/22 [History] traMADol HCl [Ultram] 50 mg PO Q6HR PRN 01/29/22 [History] Cephalexin [Keflex] 500 mg PO Q6HR #12 cap 02/01/22 [Rx] Chlorthalidone 25 mg PO DAILY #30 tab 02/01/22 [Rx] Follow up Appointment(s)/Referral(s): [facility], [NON-STAFF] - 1-2 Days David Turner, [Primary Care Provider] - 1-2 Days Discharge/Stand Alone Forms: Who Do I Call?, Assisted Living Facilities, Community Resources
== END 2022-02-01 15:30 | disposition home health service (06) | DRG 871 ==
LOC: EC 19:41 → SUPCPDRO 19:41 → 5NMEDONC 23:26 → 6NMEDSUR 01-30 03:55
PROVIDERS: ADMIT Hospitalist; ATTEND Hospitalist
DX: A41.9 Sepsis, unspecified organism (principal); G93.41 Metabolic encephalopathy; J15.6 Pneumonia due to other Gram-negative bacteria; I13.0 Hypertensive heart and chronic kidney disease with heart failure and stage 1 through stage 4 chronic kidney disease, or unspecified chronic kidney disease; I48.92 Unspecified atrial flutter; J44.0 Chronic obstructive pulmonary disease with (acute) lower respiratory infection; N17.9 Acute kidney failure, unspecified; N30.00 Acute cystitis without hematuria; Z20.822 Contact with and (suspected) exposure to COVID-19; D50.9 Iron deficiency anemia, unspecified; E11.22 Type 2 diabetes mellitus with diabetic chronic kidney disease; E11.42 Type 2 diabetes mellitus with diabetic polyneuropathy; E78.5 Hyperlipidemia, unspecified; G47.00 Insomnia, unspecified; F41.9 Anxiety disorder, unspecified; I48.91 Unspecified atrial fibrillation; I49.5 Sick sinus syndrome; I50.9 Heart failure, unspecified; K59.00 Constipation, unspecified; E11.21 Type 2 diabetes mellitus with diabetic nephropathy; I83.90 Asymptomatic varicose veins of unspecified lower extremity; K21.9 Gastro-esophageal reflux disease without esophagitis; M19.042 Primary osteoarthritis, left hand; M19.041 Primary osteoarthritis, right hand; M1A.9XX0 Chronic gout, unspecified, without tophus (tophi); M79.7 Fibromyalgia; G30.1 Alzheimer's disease with late onset; F02.80 Dementia in other diseases classified elsewhere, unspecified severity, without behavioral disturbance, psychotic disturbance, mood disturbance, and anxiety; E86.0 Dehydration; N18.30 Chronic kidney disease, stage 3 unspecified; N39.3 Stress incontinence (female) (male); Z79.01 Long term (current) use of anticoagulants; Z79.84 Long term (current) use of oral hypoglycemic drugs; Z79.899 Other long term (current) drug therapy; Z80.1 Family history of malignant neoplasm of trachea, bronchus and lung; Z85.828 Personal history of other malignant neoplasm of skin; Z86.73 Personal history of transient ischemic attack (TIA), and cerebral infarction without residual deficits; Z90.721 Acquired absence of ovaries, unilateral; Z87.891 Personal history of nicotine dependence; Z90.710 Acquired absence of both cervix and uterus; Z95.0 Presence of cardiac pacemaker; Z88.6 Allergy status to analgesic agent; Z88.1 Allergy status to other antibiotic agents; Z79.891 Long term (current) use of opiate analgesic; M19.90 Unspecified osteoarthritis, unspecified site; Z87.01 Personal history of pneumonia (recurrent)
CPT/HCPCS: 36415; 70450; 71046; 80048; 80053; 80306; 81001; 84145; 84484; 85025; 85610; 85730; 87040; 87086; 87502; 87635; 93005; 96374; 99285

== ENCOUNTER 2022-08-27 14:19 | Inpatient (IN) | payer MEDICARE ==
[2022-08-27 15:21] LABS: INR 1.1 (<1.2); Partial Thromboplastin Time 26.5 sec (22.0-30.0); Prothrombin Time 11.3 sec (9.0-12.0)
[2022-08-27 15:34] LABS: Albumin 4.1 g/dL (3.5-5.0); Calcium 8.8 mg/dL (8.4-10.2); Potassium 3.4 mmol/L (3.5-5.1); Total Bilirubin 0.8 mg/dL (0.2-1.3); Total Protein 7.4 g/dL (6.3-8.2)
[2022-08-27 15:48] LABS: Anisocytosis Slight; Basophils # (A) 0.1 k/uL (0-0.2); Basophils % (A) 1 %; Eosinophils # (A) 0.1 k/uL (0-0.7); Eosinophils % (A) 1 %; HCT 37.9 % (34.0-46.0); HGB 12.2 gm/dL (11.4-16.0); Hypochromasia Slight; Lymphocytes # (A) 1.6 k/uL (1.0-4.8); Lymphocytes % (A) 13 %; MCH 30.7 pg (25.0-35.0); MCHC 32.3 g/dL (31.0-37.0); MCV 94.8 fL (80.0-100.0); Mean Platelet Volume 8.8; Monocytes # (A) 0.6 k/uL (0-1.0); Monocytes % (A) 6 %; Neutrophils # (A) 8.9 k/uL (1.3-7.7); Neutrophils % (A) 77 %; Platelet Count 213 k/uL (150-450); RBC 3.99 m/uL (3.80-5.40); RDW 16.3 % (11.5-15.5); WBC 11.6 k/uL (3.8-10.6)
[2022-08-27] MEDS ORDERED: PANTOPRAZOLE 40 MG/10 ML VIAL IVP STA (16:17)
[2022-08-27] MEDS ORDERED: SODIUM CHLORIDE 0.9% 1,000 ML IV STA ×2 (16:17→17:08)
[2022-08-27 18:30] LABS: Appearance,Urine Cloudy (Clear); Bacteria,Urine Many /hpf; Bilirubin,Urine 1+ (Negative); Blood,Urine Trace (Negative); Color,Urine Dark Yellow; Glucose,Urine (UA) Negative (Negative); Hyaline Casts,Urine 17 /lpf (0-2); Ketones,Urine Negative (Negative); Leukocyte Esterase,Urine Large (Negative); Mucus,Urine Rare /hpf; Nitrite,Urine Positive (Negative); Protein,Urine 1+ (Negative); RBC,Urine 2 /hpf (0-5); Specific Gravity,Urine 1.013 (1.001-1.035); WBC,Urine >182 /hpf (0-5)
[2022-08-27] MEDS ORDERED: NALOXONE 0.4 MG/ML 1 ML VIAL IV PRN (18:38)
--- NOTE | 2022-08-27 20:59 | ED ---
GI Bleed HPI - General Chief complaint: GI Bleed Stated complaint: Blood in stool Time Seen by Provider: 08/27/22 16:11 Source: patient Mode of arrival: ambulatory Limitations: no limitations - History of Present Illness Initial comments: Patient is a 77-year-old female who presents for blood in stool. Patient has dementia and is a poor historian. Her daughter speaks in her behalf. According to daughter the senior living noticed blood in stool today. They described it as bright red streaks with mucus. Patient had an additional episode of blood in stool this afternoon with her daughter. Patient on Eliquis. She has afib and a pacemaker. Denies chronic anti-inflammatory use. She has not complained of any symptoms. She denies fever, chills, chest pain, lightheadedness, dizziness, shortness of breath, abdominal pain, back pain, nausea, vomiting. Daughter also reports vaginal discharge. Patient currently being treated for urinary tract infection. She started Macrobid prescription yesterday. Last colonoscopy unknown. Daughter unsure of last colonoscopy results. Denies family history of colon cancer. - Related Data Home Medications Medication Instructions Recorded Confirmed allopurinoL [Zyloprim] 100 mg PO BID 07/05/16 08/27/22 Lovastatin [Mevacor] 20 mg PO HS 09/13/17 08/27/22 Apixaban [Eliquis] 2.5 mg PO BID 06/10/19 08/27/22 Metoprolol Tartrate [Lopressor] 25 mg PO TID 09/02/19 08/27/22 glipiZIDE XL [Glucotrol XL] 5 mg PO W/BRKFST 09/02/19 08/27/22 amLODIPine [Norvasc] 5 mg PO DAILY 12/28/20 08/27/22 Docusate [Colace] 100 mg PO BID PRN 01/13/21 08/27/22 Calcium Carbonate [Tums] 1,000 mg PO TID PRN 01/29/22 08/27/22 Diclofenac Sodium Gel [Voltaren 2 gm TOPICAL QID PRN 01/29/22 08/27/22 Gel] Solifenacin Succinate [Vesicare] 10 mg PO DAILY 01/29/22 08/27/22 Zzzquil Melatonin Gummies 2 tab PO HS PRN 01/29/22 08/27/22 lisinopriL [Prinivil] 20 mg PO DAILY 01/29/22 08/27/22 metFORMIN HCL [Glucophage] 500 mg PO BID 01/29/22 08/27/22 traMADol HCL 50 mg PO HS 01/29/22 08/27/22 traMADol HCl [Ultram] 50 mg PO Q6HR PRN 01/29/22 08/27/22 Albuterol Sulfate [Albuterol 2 puff PO RT-QID PRN 08/27/22 08/27/22 Sulfate Hfa] Furosemide [Lasix] 20 mg PO DAILY 08/27/22 08/27/22 Insulin Glargine,Hum.rec.anlog 10 units SQ HS 08/27/22 08/27/22 [Lantus Solostar Pen] Lactobacillus Acidophilus 2 cap PO DAILY 08/27/22 08/27/22 [Acidophilus Probiotic] Nitrofurantoin Monohyd/M-Cryst 100 mg PO Q12HR 08/27/22 08/27/22 [Macrobid] Previous Rx's Medication Instructions Recorded Pantoprazole Sodium [Protonix] 40 mg PO BID #60 tablet. 05/08/18 Chlorthalidone 25 mg PO DAILY #30 tab 02/01/22 Allergies Allergy/AdvReac Type Severity Reaction Status Date / Time erythromycin base Allergy Severe TONGUE Verified 08/27/22 14:31 SWELLS gatifloxacin [From Tequin] Allergy Severe TONGUE Verified 08/27/22 14:31 SWELLS levofloxacin Allergy Unknown Verified 08/27/22 17:40 aspirin AdvReac Nausea Verified 08/27/22 14:31 Review of Systems ROS Statement: Those systems with pertinent positive or pertinent negative responses have been documented in the HPI. ROS Other: All systems not noted in ROS Statement are negative. Past Medical History Past Medical History: Atrial Fibrillation, Atrial Flutter, Blood Disorder, Cancer, CVA/TIA, Diabetes Mellitus, Fibromyalgia, GERD/Reflux, Hyperlipidemia, Hypertension, Osteoarthritis (OA), Pneumonia, Renal Disease, Vascular Disorder Additional Past Medical History / Comment(s): 05/2019 admitted with SSS and had pacer insertion, 2011 TIA, NIDDM tyep II, neuropathy bilateral feet, arthritis bilateral hands/knees, L rotator cuff problem, bronchitis, CKD stage III, UTI, urinary leakage at times, anemia with iron infusions in the past, skin cancer with removals, varicosities bilateral legs, constipation, gout bilateral feet, History of Any Multi-Drug Resistant Organisms: None Reported Past Surgical History: Appendectomy, Bladder Surgery, Breast Surgery, Hysterectomy, Tonsillectomy Additional Past Surgical History / Comment(s): 06/15/19 pacemaker, bladder suspension, bilateral breast implants, L oophorectomy, colonoscopies, skin cancer removals, L leg varicose vein stripping, cystoscopy. Past Anesthesia/Blood Transfusion Reactions: No Reported Reaction Past Psychological History: No Psychological Hx Reported Smoking Status: Former smoker Past Alcohol Use History: None Reported Past Drug Use History: None Reported - Past Family History Father History Unknown: Yes Family Medical History: Cancer Additional Family Medical History / Comment(s): Father of lung cancer in his 40s. Mother Family Medical History: No Reported History Additional Family Medical History / Comment(s): Mother is 92 yrs old. General Exam Limitations: no limitations General appearance: alert, in no apparent distress Head exam: Present: atraumatic, normocephalic, normal inspection Eye exam: Present: normal appearance, PERRL, EOMI. Absent: scleral icterus, conjunctival injection, periorbital swelling Respiratory exam: Present: normal lung sounds bilaterally. Absent: respiratory distress, wheezes, rales, rhonchi, stridor Cardiovascular Exam: Present: regular rate, normal rhythm, normal heart sounds. Absent: systolic murmur, diastolic murmur, rubs, gallop, clicks GI/Abdominal exam: Present: soft, normal bowel sounds. Absent: distended, tenderness, guarding, rebound, rigid Rectal exam: Present: normal rectal tone, heme (+) stool, hemorrhoids (External), other (No active bleeding) Extremities exam: Present: normal capillary refill. Absent: pedal edema Neurological exam: Present: alert, CN II-XII intact. Absent: oriented X3 Psychiatric exam: Present: normal affect, normal mood Skin exam: Present: warm, dry, intact, normal color. Absent: rash Course Vital Signs 08/27/22 08/27/22 08/27/22 14:26 17:30 19:00 Pulse Rate 62 60 60 Respiratory 18 18 18 Rate Blood Pressure 120/70 112/50 O2 Sat by Pulse 98 94 L 97 Oximetry Medical Decision Making - Medical Decision Making This is a 77-year-old female presenting with blood in stool. Patient well- appearing and in no apparent distress. Hemodynamically stable. Labatory studies obtained. Hemoglobin stable at 12.2 improved from previous admission at 11.5. Stool occult positive. There is acute on chronic kidney injury, creatinine at 3.05, significantly increased from 1.11 at last admission. BUN elevated at 67. Troponin obtained in triage and is elevated at 0.071, I suspect related to acute kidney injury. Patient does not have chest pain or shortness of breath. Urinalysis reveals significant infection. Patient given fluid bolus, Protonix, Rocephin. Results discussed with patient and daughter. We discussed risks versus benefits of invasive intervention. We discussed scope in detail. Patient would not like scope. Daughter in agreement. Patient to be admitted for management of acute on chronic kidney injury. Case discussed with Dr. Rivera who accepts admission. Dr. Gomez is my attending - Lab Data Result diagrams: 08/27/22 14:45 08/27/22 14:45 Lab Results 08/27/22 08/27/22 08/27/22 Range/Units 14:30 14:45 14:45 WBC 11.6 H (3.8-10.6) k/uL RBC 3.99 (3.80-5.40) m/uL Hgb 12.2 (11.4-16.0) gm/dL Hct 37.9 (34.0-46.0) % MCV 94.8 (80.0-100.0) fL MCH 30.7 (25.0-35.0) pg MCHC 32.3 (31.0-37.0) g/dL RDW 16.3 H (11.5-15.5) % Plt Count 213 (150-450) k/uL MPV 8.8 Neutrophils % 77 % Lymphocytes % 13 % Monocytes % 6 % Eosinophils % 1 % Basophils % 1 % Neutrophils # 8.9 H (1.3-7.7) k/uL Lymphocytes # 1.6 (1.0-4.8) k/uL Monocytes # 0.6 (0-1.0) k/uL Eosinophils # 0.1 (0-0.7) k/uL Basophils # 0.1 (0-0.2) k/uL Hypochromasia Slight Anisocytosis Slight PT 11.3 (9.0-12.0) sec INR 1.1 (<1.2) APTT 26.5 (22.0-30.0) sec Sodium (137-145) mmol/L Potassium (3.5-5.1) mmol/L Chloride (98-107) mmol/L Carbon Dioxide (22-30) mmol/L Anion Gap mmol/L BUN (7-17) mg/dL Creatinine (0.52-1.04) mg/dL Est GFR (CKD-EPI)AfAm (>60 ml/min/1.73 sqM) Est GFR (CKD-EPI)NonAf (>60 ml/min/1.73 sqM) Glucose (74-99) mg/dL Calcium (8.4-10.2) mg/dL Total Bilirubin (0.2-1.3) mg/dL AST (14-36) U/L ALT (4-34) U/L Alkaline Phosphatase (38-126) U/L Troponin I (0.000-0.034) ng/mL Total Protein (6.3-8.2) g/dL Albumin (3.5-5.0) g/dL Stool Occult Blood (Negative) Blood Type A Positive Blood Type Recheck A Pos Bld Type Recheck Status No Antibody Screen NEGATIVE Spec Expiration Date 08/30/2022 - 234408/27/22 08/27/22 08/27/22 Range/Units 14:45 14:45 16:56 WBC (3.8-10.6) k/uL RBC (3.80-5.40) m/uL Hgb (11.4-16.0) gm/dL Hct (34.0-46.0) % MCV (80.0-100.0) fL MCH (25.0-35.0) pg MCHC (31.0-37.0) g/dL RDW (11.5-15.5) % Plt Count (150-450) k/uL MPV Neutrophils % % Lymphocytes % % Monocytes % % Eosinophils % % Basophils % % Neutrophils # (1.3-7.7) k/uL Lymphocytes # (1.0-4.8) k/uL Monocytes # (0-1.0) k/uL Eosinophils # (0-0.7) k/uL Basophils # (0-0.2) k/uL Hypochromasia Anisocytosis PT (9.0-12.0) sec INR (<1.2) APTT (22.0-30.0) sec Sodium 141 (137-145) mmol/L Potassium 3.4 L (3.5-5.1) mmol/L Chloride 99 (98-107) mmol/L Carbon Dioxide 27 (22-30) mmol/L Anion Gap 15 mmol/L BUN 67 H (7-17) mg/dL Creatinine 3.05 H (0.52-1.04) mg/dL Est GFR (CKD-EPI)AfAm 16 (>60 ml/min/1.73 sqM) Est GFR (CKD-EPI)NonAf 14 (>60 ml/min/1.73 sqM) Glucose 154 H (74-99) mg/dL Calcium 8.8 (8.4-10.2) mg/dL Total Bilirubin 0.8 (0.2-1.3) mg/dL AST 24 (14-36) U/L ALT 15 (4-34) U/L Alkaline Phosphatase 87 (38-126) U/L Troponin I 0.071 H* (0.000-0.034) ng/mL Total Protein 7.4 (6.3-8.2) g/dL Albumin 4.1 (3.5-5.0) g/dL Stool Occult Blood Positive H (Negative) Blood Type Blood Type Recheck Bld Type Recheck Status Antibody Screen Spec Expiration Date - EKG Data EKG Comments: EKG taken at 20:29, interpreted by wa Electronic ventricular pacemaker Ventricular rate 60 QRS duration 195 QTc 442 Disposition Clinical Impression: GI bleed, KRISTY (acute kidney injury), UTI (urinary tract infection) Disposition: ADMITTED IP TO THIS HOSP Condition: Good
[2022-08-27 21:12] LABS: Glucose,Whole Blood 77 mg/dL (70-110)
[2022-08-27] MEDS: SODIUM CHLORIDE 0.9% 1,000 ML IV SCH (21:35)
[2022-08-27] MEDS ORDERED: DEXTROSE 50% SYRINGE 50 ML IVP PRN ×2 (21:48)
[2022-08-27] MEDS ORDERED: ALBUTEROL NEBULIZED 2.5 MG/3 ML INHALATION PRN (21:48)
[2022-08-27] MEDS ORDERED: DICLOFENAC SODIUM GEL 100 GM TUBE TOPICAL PRN (22:30)
[2022-08-27] MEDS: traMADol 50 MG TAB PO SCH (23:35)
[2022-08-27] MEDS: TROSPIUM CHLORIDE 20 MG TABLET PO SCH (23:35)
[2022-08-27] MEDS: METOPROLOL TARTRATE 25 MG TAB PO SCH (23:35)
[2022-08-27] MEDS: allopurinoL 100 MG TAB PO SCH (23:35)
[2022-08-28] MEDS ORDERED: traMADol 50 MG TAB PO PRN (06:00)
[2022-08-28 06:28] LABS: Glucose,Whole Blood 78 mg/dL (70-110)
[2022-08-28] MEDS: INSULIN ASPART (NovoLOG) 100 UNIT/ML VIAL SQ SCH ×3 (06:30→17:18)
[2022-08-28 08:07] LABS: Anisocytosis Slight; HCT 30.9 % (34.0-46.0); Hypochromasia Moderate; MCH 30.4 pg (25.0-35.0); MCHC 31.4 g/dL (31.0-37.0); MCV 96.8 fL (80.0-100.0); Platelet Count 192 k/uL (150-450); RBC 3.19 m/uL (3.80-5.40); RDW 16.1 % (11.5-15.5); WBC 7.4 k/uL (3.8-10.6)
[2022-08-28 08:16] LABS: Calcium 7.6 mg/dL (8.4-10.2); Magnesium 1.4 mg/dL (1.6-2.3)
[2022-08-28 08:42] LABS: INR 1.1 (<1.2); Prothrombin Time 11.5 sec (9.0-12.0)
[2022-08-28 08:42] LABS: HGB 9.7 gm/dL (11.4-16.0)
[2022-08-28] MEDS: METOPROLOL TARTRATE 25 MG TAB PO SCH ×3 (08:55→20:54)
[2022-08-28] MEDS: PANTOPRAZOLE 40 MG TABLET PO SCH ×2 (08:55→20:54)
[2022-08-28] MEDS: allopurinoL 100 MG TAB PO SCH ×2 (08:55→20:54)
[2022-08-28] MEDS: SODIUM CHLORIDE 0.9% 1,000 ML IV SCH ×2 (09:25→20:57)
[2022-08-28] MEDS: TROSPIUM CHLORIDE 20 MG TABLET PO SCH (09:33)
[2022-08-28 10:02] LABS: Band Neutrophils % 1 %; Basophils # (M) 0.07 k/uL (0-0.2); Eosinophils # (M) 0.07 k/uL (0-0.7); Lymphocytes # (M) 1.33 k/uL (1.0-4.8); Monocytes # (M) 0.52 k/uL (0-1.0); Myelocytes # (M) 0.07 k/uL (0); Myelocytes % 1 %; Neutrophils % (M) 73 %; Nucleated Red Blood Cells 0 /100 WBC (0-0); Total Cells Counted 200
--- NOTE | 2022-08-28 11:27 | XR ---
EXAMINATION TYPE: XR chest 2V DATE OF EXAM: 08/28/2022 COMPARISON: 01/29/2022 TECHNIQUE: PA and lateral views submitted. HISTORY: Shortness of breath FINDINGS: The lungs are clear and there is no pneumothorax, pleural effusion, or focal pneumonia. Heart size normal. Diffuse interstitial pattern. Cardiac device seen. Diffuse osteopenia with arthrop athy of the shoulders. Atherosclerotic change aorta. Degenerative change of the spine. IMPRESSION: 1. A diffuse interstitial pattern correlate for venous congestion or interstitial pneumonitis.
[2022-08-28] MEDS ORDERED: POTASSIUM CHLORIDE ER 20 MEQ TAB.ER PO STA (11:40)
[2022-08-28 11:56] LABS: Glucose,Whole Blood 81 mg/dL (70-110)
--- NOTE | 2022-08-28 12:06 | P.NPCON ---
History of Present Illness - Reason for Consult acute renal failure, chronic renal failure - History of Present Illness Reason for consultation: Acute kidney injury on chronic kidney disease History of present illness: Patient is a 77-year-old female seen in renal consultation for acute kidney injury on chronic kidney disease. Patient has chronic kidney disease stage IIIB with baseline creatinine near 1.3-1.5 secondary to nephrosclerosis. Patient's creatinine on admission was 3.05 and is 2.5 today. Patient presented to the hospital due to blood in her stool. Patient is not a very reliable historian but her daughter is present at bedside who provides history. The daughter states that she noticed blood in the toilet yesterday morning. She also states that the patient may be constipated. Patient's hemoglobin on admission was 12.2 and is 9.7 today. She denies use of nonsteroidals. She does have history of diabetes. Denies history of coronary artery disease. She is currently receiving IV fluids. Oral intake has been fair. No vomiting or diarrhea. Blood pressure has been on the lower side in the systolic 90s to low 100s. Vital signs are stable. General: Awake. No acute distress. HEENT: Head exam is unremarkable. LUNGS: Breath sounds decreased. HEART: Rate and Rhythm are regular. ABDOMEN: Soft, no distention. EXTREMITITES: No edema. Past Medical History Past Medical History: Atrial Fibrillation, Atrial Flutter, Blood Disorder, Canc er, CVA/TIA, Diabetes Mellitus, Fibromyalgia, GERD/Reflux, Hyperlipidemia, Hypertension, Osteoarthritis (OA), Pneumonia, Renal Disease, Vascular Disorder Additional Past Medical History / Comment(s): 05/2019 admitted with SSS and had pacer insertion, 2011 TIA, NIDDM tyep II, neuropathy bilateral feet, arthritis bilateral hands/knees, L rotator cuff problem, bronchitis, CKD stage III, UTI, urinary leakage at times, anemia with iron infusions in the past, skin cancer with removals, varicosities bilateral legs, constipation, gout bilateral feet History of Any Multi-Drug Resistant Organisms: None Reported Past Surgical History: Appendectomy, Bladder Surgery, Breast Surgery, Hysterectomy, Tonsillectomy Additional Past Surgical History / Comment(s): 06/15/19 pacemaker, bladder suspension, bilateral breast implants, L oophorectomy, colonoscopies, skin cancer removals, L leg varicose vein stripping, cystoscopy. Past Anesthesia/Blood Transfusion Reactions: No Reported Reaction Past Psychological History: No Psychological Hx Reported Additional Psychological History / Comment(s): patient lives at [facility], 1 bed room apartment, assisted living community, gets escorted to meals. Smoking Status: Former smoker Past Alcohol Use History: None Reported Additional Past Alcohol Use History / Comment(s): quit smoking 2011, starting smoking age 15, 2 1/2 PPD Past Drug Use History: None Reported Additional Drug Use History / Comment(s): CBD oil - Past Family History Father History Unknown: Yes Family Medical History: Cancer Additional Family Medical History / Comment(s): Father of lung cancer in his 40s. Mother Family Medical History: No Reported History Additional Family Medical History / Comment(s): Mother is 92 yrs old. Medications and Allergies Home Medications Medication Instructions Recorded Confirmed Type allopurinoL [Zyloprim] 100 mg PO BID 07/05/16 08/27/22 History Lovastatin [Mevacor] 20 mg PO HS 09/13/17 08/27/22 History Pantoprazole Sodium [Protonix] 40 mg PO BID #60 tablet. 05/08/18 08/27/22 Rx Apixaban [Eliquis] 2.5 mg PO BID 06/10/19 08/27/22 History Metoprolol Tartrate [Lopressor] 25 mg PO TID 09/02/19 08/27/22 History glipiZIDE XL [Glucotrol XL] 5 mg PO W/BRKFST 09/02/19 08/27/22 History amLODIPine [Norvasc] 5 mg PO DAILY 12/28/20 08/27/22 History Docusate [Colace] 100 mg PO BID PRN 01/13/21 08/27/22 History Calcium Carbonate [Tums] 1,000 mg PO TID PRN 01/29/22 08/27/22 History Diclofenac Sodium Gel [Voltaren 2 gm TOPICAL QID PRN 01/29/22 08/27/22 History Gel] Solifenacin Succinate [Vesicare] 10 mg PO DAILY 01/29/22 08/27/22 History Zzzquil Melatonin Gummies 2 tab PO HS PRN 01/29/22 08/27/22 History lisinopriL [Prinivil] 20 mg PO DAILY 01/29/22 08/27/22 History metFORMIN HCL [Glucophage] 500 mg PO BID 01/29/22 08/27/22 History traMADol HCL 50 mg PO HS 01/29/22 08/27/22 History traMADol HCl [Ultram] 50 mg PO Q6HR PRN 01/29/22 08/27/22 History Chlorthalidone 25 mg PO DAILY #30 tab 02/01/22 08/27/22 Rx Albuterol Sulfate [Albuterol 2 puff PO RT-QID PRN 08/27/22 08/27/22 History Sulfate Hfa] Furosemide [Lasix] 20 mg PO DAILY 08/27/22 08/27/22 History Insulin Glargine,Hum.rec.anlog 10 units SQ HS 08/27/22 08/27/22 History [Lantus Solostar Pen] Lactobacillus Acidophilus 2 cap PO DAILY 08/27/22 08/27/22 History [Acidophilus Probiotic] Nitrofurantoin Monohyd/M-Cryst 100 mg PO Q12HR 08/27/22 08/27/22 History [Macrobid] Allergies Allergy/AdvReac Type Severity Reaction Status Date / Time erythromycin base Allergy Severe TONGUE Verified 08/27/22 14:31 SWELLS gatifloxacin [From Tequin] Allergy Severe TONGUE Verified 08/27/22 14:31 SWELLS levofloxacin Allergy Unknown Verified 08/27/22 17:40 aspirin AdvReac Nausea Verified 08/27/22 14:31 Physical Exam Vitals: Vital Signs Temp Pulse Pulse Resp BP BP Pulse Ox 08/28/22 08:53 98.1 F 61 18 103/55 91 L 08/28/22 07:50 95 08/28/22 05:00 98.6 F 63 18 100/53 90 L 08/28/22 02:00 60 18 08/27/22 23:57 97.5 F L 60 18 91/52 90 L 08/27/22 21:30 98.2 F 60 16 102/57 90 L 08/27/22 19:00 60 18 112/50 97 08/27/22 17:30 60 18 120/70 94 L 08/27/22 14:26 62 18 98 Intake and Output 08/27/22 08/28/22 08/28/22 22:59 06:59 14:59 Output Total 350 Balance -350 Output: Urine 350 Other: # Voids 1 Weight 72.575 kg 63.5 kg Results - Lab Results Most recent lab results Calcium 7.6 mg/dL (8.4-10.2) L 08/28/22 07:00 Magnesium 1.4 mg/dL (1.6-2.3) L 08/28/22 07:00 08/28/22 06:49 08/28/22 07:00 Assessment and Plan Plan: Assessment: 1. Acute kidney injury mostly prerenal secondary to hypotension, diuretic use and further worsened with the use of NANDO inhibitor, improving with IV hydration. Creatinine 3.05 on admission and is 2.51 today. 2. Hypokalemia secondary to poor intake, diuretic use and hypomagnesemia. 3. Hypomagnesemia from poor intake and use of diuretic. 4. Chronic kidney disease stage IIIB with baseline creatinine 1.4-1.5 secondary to nephrosclerosis. 5. Hypertension with chronic kidney disease. Blood pressure in the lower side. 6. UTI. Plan: Maintain IV fluids. Hold antihypertensives. Replace potassium and magnesium. Check iron studies. Hold metformin due to depressed GFR. Check renal ultrasound. Continue to monitor renal function and urine output. Consider surgery/GI eval. Follow-up urine culture. Thank you for the consultation. I will continue to follow the patient with you during her hospital stay.
[2022-08-28] MEDS: IPRATROPIUM-ALBUTEROL 3 ML NEB INHALATION SCH ×3 (12:33→20:16)
[2022-08-28] MEDS: MAGNESIUM SULFATE-D5W PMX 1 GM in DEXTROSE/WATER 1 100ML.BAG IVPB SCH ×2 (12:55→15:00)
[2022-08-28] MEDS: guaiFENesin 600 MG TABLET.ER PO SCH ×3 (12:56→20:55)
--- NOTE | 2022-08-28 13:15 | US ---
EXAMINATION TYPE: US kidneys/renal and bladder DATE OF EXAM: 08/28/2022 COMPARISON: NONE CLINICAL HISTORY: KRISTY. kristy, pt has no renal history or symptoms EXAM MEASUREMENTS: Right Kidney: 7.9 x 4.1 x 4.5 cm - estimated measurement due to obscuring bowel gas Left Kidney: not seen Right Kidney: very limited views appeared wnl, due t overlying bowel gas Left Kidney: unable to see due to extensive bowel gas Bladder: wnl IMPRESSION: Limited evaluation of the right kidney and nonvisualization of the left kidney, consider CT imaging.
[2022-08-28 16:48] LABS: Glucose,Whole Blood 237 mg/dL (70-110)
[2022-08-28] MEDS ORDERED: DEXTROSE 50% SYRINGE 50 ML IVP PRN ×4 (17:10→17:12)
[2022-08-28] MEDS ORDERED: ONDANSETRON 4 MG/2 ML VIAL IVP PRN (17:10)
[2022-08-28] MEDS ORDERED: CALCIUM CARBONATE 500 MG CHEWABLE PO PRN (17:10)
[2022-08-28] MEDS ORDERED: LACTULOSE 20 GM/30 ML CUP PO PRN (17:10)
[2022-08-28] MEDS ORDERED: MELATONIN 3 MG TABLET PO PRN (17:10)
--- NOTE | 2022-08-28 17:17 | P.HPIM ---
History of Present Illness H&P Date: 08/28/22 Chief Complaint: Blood per rectum This is a pleasant 77-year-old patient of Dr. Turner. Chronic stable medical conditions include atrial flutter fibrillation, CHF, COPD, diabetes, fibromyalgia, GERD, hypertension, hyperlipidemia, , permanent pacemaker for sick sinus syndrome, diabetes type 2 with peripheral neuropathy, arthritis of multiple joints, chronic kidney disease stage III, urinary incontinence, iron deficiency anemia , gout. At her baseline patient is unsteady and does use a walker. has cognitive impairment. Patient is accompanied by her daughter in the room. Yesterday patient was noticed to have a small amount of blood fresh with the stool. Some mucus. She is brought into the ER. In the ER posterior also had a small amount of stool with some blood. Patient denies any pain with defecation. No abdominal pain. No fever no chills. No nausea vomiting. Patient does not want any endoscopy. No prior history of endoscopy. Appetite is fair. Because of dementia patient is a limited historian. Patient does have a congested cough. Patient does have off and on. Review of systems: GEN.: Tired EYES: None HEENT: None NECK: None RESPIRATORY: None CARDIOVASCULAR: None GASTROINTESTINAL: None GENITOURINARY: None MUSCULOSKELETAL: Joint pains LYMPHATICS: None HEMATOLOGICAL: None PSYCHIATRY: Forgetful NEUROLOGICAL: Does use a walker Past medical history to include: Atrial flutter fibrillation, CHF, COPD, diabetes, fibromyalgia, GERD, hyperte nsion, hyperlipidemia, osteoarthritis, permanent pacemaker for sick sinus syndrome, TIA, diabetes type 2 with peripheral neuropathy, arthritis in multiple joints, left rotator cuff problem, chronic kidney disease, urinary incontinence, iron deficiency anemia, skin cancer that was removed, bilateral lower extremity varicosities, gout, chronic gait dysfunction does use a cane Social history: Does use a walker. Lives at [facility]. smoked for 52 years. Packs a day stopped in 2011. No alcohol. Does use CBD oral Physical examination: VITAL SIGNS: 98.2, 60, 16, 102/57, 90% on room air GENERAL: BMI 21.3, reclining, comfortable EYES: Pupils equal. Conjunctiva normal. HEENT: External appearance of nose and ears normal, oral cavity grossly normal. NECK: JVD not raised; masses not palpable. HEART: First and second heart sounds are normal; no edema. LUNGS: Respiratory rate normal; clear to auscultation. ABDOMEN: Soft, nontender, liver spleen not palpable, no masses palpable. Rectal exam: Done in the presence of nurse Taylor and the daughter. Anal tags. Hemorrhoids. PSYCH: Patient answering simple questions MUSCULAR skeletal: Evidence of OA in multiple joints. NEUROLOGICAL: Cranial nerves grossly intact; no facial asymmetry, power and sensation grossly intact. Gait, at baseline a bit unsteady LYMPHATICS: No lymph nodes palpable in the axilla and neck INVESTIGATIONS, reviewed in the clinical context: White count 7.4 hemoglobin 9.7 platelets were 92 potassium 3 BUN 60 creatinine 2.51 magnesia 1.4 Admission labs: Creatinine 3.05 EKG tracing personally reviewed by me-paced rhythm Chest x-ray film personally reviewed by me-probable chronic interstitial fibros is Previous labs: Creatinine 1.11 on January 2022 Assessment and plan: -Acute lower GI bleed likely hemorrhoidal. Amount is small. Also present after wiping. Anusol HC. -Acute kidney injury, probably prerenal from decreased oral intake and also being on diuretics. Patient is also on Prinivil. Hold diuretics. Gentle hydration. Hold NANDO inhibitor. -Chronic kidney disease stage III from diabetic nephropathy and hypertensive nephrosclerosis Baseline creatinine 1.1 -Persistent atrial flutter fibrillation. Rate controlled telemetry. eliquis 2.5 mg twice a day-hold for now -Chronic congestive heart failure. From diastolic dysfunction. EF 55-60%. Hold off diuretics. -COPD in a previous smoker DuoNeb -Diabetes mellitus type 2, chronically on oral hypoglycemic Levemir sliding scale. Hold metformin. Hold Glucotrol Follow Accu-Cheks -Diabetic peripheral neuropathy -Chronic fibromyalgia Ultram 50 mg every 6 when necessary -GERD Protonix 40 mg twice a day -Chronic urinary incontinence Vesicare 10 mg daily Hyperlipidemia Mevacor 20 mg daily at bedtime -Essential hypertension Lopressor 25 mg 3 times a day. Hold lisinopril -Primary osteoarthritis multiple joints Uses Ultram when necessary -Chronic urinary stress incontinence Vesicare -Bilateral lower extremity varicosities Follow as outpatient -Chronic gout Allopurinol 100 mg twice a day -Moderate cognitive impairment likely from the late onset Alzheimer's dementia -Chronic gait dysfunction of the baseline patient uses a walker Fall precautions -DO NOT RESUSCITATE IV fluids. Hold diuretics. Continue Lopressor. Hold lisinopril. Anusol HC. Patient daughter did not want endoscopy. Follow H&H. Hold eliquis for now. Repeat labs tomorrow. Hold Glucotrol. Past Medical History Past Medical History: Atrial Fibrillation, Atrial Flutter, Blood Disorder, Canc er, CVA/TIA, Diabetes Mellitus, Fibromyalgia, GERD/Reflux, Hyperlipidemia, Hypertension, Osteoarthritis (OA), Pneumonia, Renal Disease, Vascular Disorder Additional Past Medical History / Comment(s): 05/2019 admitted with SSS and had pacer insertion, 2011 TIA, NIDDM tyep II, neuropathy bilateral feet, arthritis bilateral hands/knees, L rotator cuff problem, bronchitis, CKD stage III, UTI, urinary leakage at times, anemia with iron infusions in the past, skin cancer with removals, varicosities bilateral legs, constipation, gout bilateral feet History of Any Multi-Drug Resistant Organisms: None Reported Past Surgical History: Appendectomy, Bladder Surgery, Breast Surgery, Hysterectomy, Tonsillectomy Additional Past Surgical History / Comment(s): 06/15/19 pacemaker, bladder suspension, bilateral breast implants, L oophorectomy, colonoscopies, skin cancer removals, L leg varicose vein stripping, cystoscopy. Past Anesthesia/Blood Transfusion Reactions: No Reported Reaction Past Psychological History: No Psychological Hx Reported Additional Psychological History / Comment(s): patient lives at [facility], 1 bed room apartment, assisted living community, gets escorted to meals. Smoking Status: Former smoker Past Alcohol Use History: None Reported Additional Past Alcohol Use History / Comment(s): quit smoking 2011, starting smoking age 15, 2 1/2 PPD Past Drug Use History: None Reported Additional Drug Use History / Comment(s): CBD oil - Past Family History Father History Unknown: Yes Family Medical History: Cancer Additional Family Medical History / Comment(s): Father of lung cancer in his 40s. Mother Family Medical History: No Reported History Additional Family Medical History / Comment(s): Mother is 92 yrs old. Medications and Allergies Home Medications Medication Instructions Recorded Confirmed Type allopurinoL [Zyloprim] 100 mg PO BID 07/05/16 08/27/22 History Lovastatin [Mevacor] 20 mg PO HS 09/13/17 08/27/22 History Pantoprazole Sodium [Protonix] 40 mg PO BID #60 tablet. 05/08/18 08/27/22 Rx Apixaban [Eliquis] 2.5 mg PO BID 06/10/19 08/27/22 History Metoprolol Tartrate [Lopressor] 25 mg PO TID 09/02/19 08/27/22 History glipiZIDE XL [Glucotrol XL] 5 mg PO W/BRKFST 09/02/19 08/27/22 History amLODIPine [Norvasc] 5 mg PO DAILY 12/28/20 08/27/22 History Docusate [Colace] 100 mg PO BID PRN 01/13/21 08/27/22 History Calcium Carbonate [Tums] 1,000 mg PO TID PRN 01/29/22 08/27/22 History Diclofenac Sodium Gel [Voltaren 2 gm TOPICAL QID PRN 01/29/22 08/27/22 History Gel] Solifenacin Succinate [Vesicare] 10 mg PO DAILY 01/29/22 08/27/22 History Zzzquil Melatonin Gummies 2 tab PO HS PRN 01/29/22 08/27/22 History lisinopriL [Prinivil] 20 mg PO DAILY 01/29/22 08/27/22 History metFORMIN HCL [Glucophage] 500 mg PO BID 01/29/22 08/27/22 History traMADol HCL 50 mg PO HS 01/29/22 08/27/22 History traMADol HCl [Ultram] 50 mg PO Q6HR PRN 01/29/22 08/27/22 History Chlorthalidone 25 mg PO DAILY #30 tab 02/01/22 08/27/22 Rx Albuterol Sulfate [Albuterol 2 puff PO RT-QID PRN 08/27/22 08/27/22 History Sulfate Hfa] Furosemide [Lasix] 20 mg PO DAILY 08/27/22 08/27/22 History Insulin Glargine,Hum.rec.anlog 10 units SQ HS 08/27/22 08/27/22 History [Lantus Solostar Pen] Lactobacillus Acidophilus 2 cap PO DAILY 08/27/22 08/27/22 History [Acidophilus Probiotic] Nitrofurantoin Monohyd/M-Cryst 100 mg PO Q12HR 08/27/22 08/27/22 History [Macrobid] Allergies Allergy/AdvReac Type Severity Reaction Status Date / Time erythromycin base Allergy Severe TONGUE Verified 08/27/22 14:31 SWELLS gatifloxacin [From Tequin] Allergy Severe TONGUE Verified 08/27/22 14:31 SWELLS levofloxacin Allergy Unknown Verified 08/27/22 17:40 aspirin AdvReac Nausea Verified 08/27/22 14:31 Physical Exam Vitals: Vital Signs Temp Pulse Pulse Resp BP BP Pulse Ox 08/28/22 08:53 98.1 F 61 18 103/55 91 L 08/28/22 07:50 95 08/28/22 05:00 98.6 F 63 18 100/53 90 L 08/28/22 02:00 60 18 08/27/22 23:57 97.5 F L 60 18 91/52 90 L 08/27/22 21:30 98.2 F 60 16 102/57 90 L 08/27/22 19:00 60 18 112/50 97 08/27/22 17:30 60 18 120/70 94 L 08/27/22 14:26 62 18 98 Intake and Output 08/27/22 08/28/22 08/28/22 22:59 06:59 14:59 Output Total 350 Balance -350 Output: Urine 350 Other: # Voids 1 Weight 72.575 kg 63.5 kg Results CBC & Chem 7: 08/28/22 06:49 08/28/22 07:00 Labs: Abnormal Lab Results - Last 24 Hours (Table) 08/27/22 08/27/22 08/27/22 Range/Units 14:45 14:45 14:45 WBC 11.6 H (3.8-10.6) k/uL RBC (3.80-5.40) m/uL Hgb (11.4-16.0) gm/dL Hct (34.0-46.0) % RDW 16.3 H (11.5-15.5) % Neutrophils # 8.9 H (1.3-7.7) k/uL Myelocytes # (Manual) (0) k/uL Potassium 3.4 L (3.5-5.1) mmol/L BUN 67 H (7-17) mg/dL Creatinine 3.05 H (0.52-1.04) mg/dL Glucose 154 H (74-99) mg/dL Calcium (8.4-10.2) mg/dL Magnesium (1.6-2.3) mg/dL Troponin I 0.071 H* (0.000-0.034) ng/mL Urine Appearance (Clear) Urine Protein (Negative) Urine Blood (Negative) Urine Nitrite (Negative) Urine Bilirubin (Negative) Ur Leukocyte Esterase (Negative) Urine WBC (0-5) /hpf Urine Bacteria (None) /hpf Hyaline Casts (0-2) /lpf Urine Mucus (None) /hpf Stool Occult Blood (Negative) 08/27/22 08/27/22 08/27/22 Range/Units 16:56 18:09 21:22 WBC (3.8-10.6) k/uL RBC (3.80-5.40) m/uL Hgb (11.4-16.0) gm/dL Hct (34.0-46.0) % RDW (11.5-15.5) % Neutrophils # (1.3-7.7) k/uL Myelocytes # (Manual) (0) k/uL Potassium (3.5-5.1) mmol/L BUN (7-17) mg/dL Creatinine (0.52-1.04) mg/dL Glucose (74-99) mg/dL Calcium (8.4-10.2) mg/dL Magnesium (1.6-2.3) mg/dL Troponin I 0.065 H* (0.000-0.034) ng/mL Urine Appearance Cloudy H (Clear) Urine Protein 1+ H (Negative) Urine Blood Trace H (Negative) Urine Nitrite Positive H (Negative) Urine Bilirubin 1+ H (Negative) Ur Leukocyte Esterase Large H (Negative) Urine WBC >182 H (0-5) /hpf Urine Bacteria Many H (None) /hpf Hyaline Casts 17 H (0-2) /lpf Urine Mucus Rare H (None) /hpf Stool Occult Blood Positive H (Negative) 08/28/22 08/28/22 Range/Units 06:49 07:00 WBC (3.8-10.6) k/uL RBC 3.19 L (3.80-5.40) m/uL Hgb 9.7 L D (11.4-16.0) gm/dL Hct 30.9 L (34.0-46.0) % RDW 16.1 H (11.5-15.5) % Neutrophils # (1.3-7.7) k/uL Myelocytes # (Manual) 0.07 H (0) k/uL Potassium 3.0 L (3.5-5.1) mmol/L BUN 60 H (7-17) mg/dL Creatinine 2.51 H (0.52-1.04) mg/dL Glucose 73 L (74-99) mg/dL Calcium 7.6 L (8.4-10.2) mg/dL Magnesium 1.4 L (1.6-2.3) mg/dL Troponin I (0.000-0.034) ng/mL Urine Appearance (Clear) Urine Protein (Negative) Urine Blood (Negative) Urine Nitrite (Negative) Urine Bilirubin (Negative) Ur Leukocyte Esterase (Negative) Urine WBC (0-5) /hpf Urine Bacteria (None) /hpf Hyaline Casts (0-2) /lpf Urine Mucus (None) /hpf Stool Occult Blood (Negative) Microbiology - Last 24 Hours (Table) 08/27/22 18:09 Urine Culture - Preliminary Urine,Voided Thrombosis Risk Factor Assmnt - Choose All That Apply Any of the Below Risk Factors Present?: Yes Each Factor Represents 1 point: Medical pt on bed rest Each Risk Factor Represents 2 Points: Patient confined to bed Each Risk Factor Represents 3 Points: Age 75 years or older Other congenital or acquired thrombophilia - If yes, enter type in comment: No Thrombosis Risk Factor Assessment Total Risk Factor Score: 6 Thrombosis Risk Factor Assessment Level: High Risk
[2022-08-28 19:27] LABS: % Iron Saturation 15.05 (12.00-45.00)
[2022-08-28 20:09] LABS: Glucose,Whole Blood 177 mg/dL (70-110)
[2022-08-28] MEDS: traMADol 50 MG TAB PO SCH (20:53)
[2022-08-28] MEDS: ATORVASTATIN 10 MG TAB PO SCH (20:54)
[2022-08-28] MEDS: INSULIN DETEMIR (LEVEMIR) 100 UNIT/ML SYR SQ SCH (20:54)
[2022-08-28] MEDS: HYDROCORTISONE SUPPOSITORY 25 MG SUPP RECTAL SCH (20:55)
[2022-08-28] MEDS ORDERED: metFORMIN 500 MG TAB PO SCH (21:00)
[2022-08-28] MEDS ORDERED: APIXABAN 2.5 MG TABLET PO SCH (21:00)
[2022-08-28] MEDS: ACETAMINOPHEN TAB 325 MG TAB PO PRN (23:32)
[2022-08-29 06:25] LABS: Glucose,Whole Blood 108 mg/dL (70-110)
[2022-08-29] MEDS: INSULIN ASPART (NovoLOG) 100 UNIT/ML VIAL SQ SCH ×3 (06:27→17:02)
[2022-08-29 08:50] LABS: Calcium 8.5 mg/dL (8.4-10.2); Magnesium 2.1 mg/dL (1.6-2.3); Potassium 3.8 mmol/L (3.5-5.1)
[2022-08-29] MEDS: IPRATROPIUM-ALBUTEROL 3 ML NEB INHALATION SCH ×4 (09:06→20:16)
[2022-08-29 09:24] LABS: Basophils % (A) 0 %; Eosinophils # (A) 0.2 k/uL (0-0.7); Eosinophils % (A) 2 %; HCT 35.1 % (34.0-46.0); HGB 11.4 gm/dL (11.4-16.0); Hypochromasia Slight; Lymphocytes # (A) 1.4 k/uL (1.0-4.8); Lymphocytes % (A) 16 %; MCH 30.8 pg (25.0-35.0); MCHC 32.5 g/dL (31.0-37.0); MCV 94.8 fL (80.0-100.0); Mean Platelet Volume 9.3; Monocytes # (A) 0.5 k/uL (0-1.0); Monocytes % (A) 5 %; Neutrophils # (A) 6.7 k/uL (1.3-7.7); Neutrophils % (A) 75 %; Platelet Count 230 k/uL (150-450); RBC 3.71 m/uL (3.80-5.40); RDW 15.9 % (11.5-15.5)
[2022-08-29] MEDS: PANTOPRAZOLE 40 MG TABLET PO SCH ×2 (09:32→19:58)
[2022-08-29] MEDS: allopurinoL 100 MG TAB PO SCH ×2 (09:32→19:58)
[2022-08-29] MEDS: METOPROLOL TARTRATE 25 MG TAB PO SCH ×3 (09:32→19:58)
[2022-08-29] MEDS: HYDROCORTISONE SUPPOSITORY 25 MG SUPP RECTAL SCH ×2 (09:32→21:44)
--- NOTE | 2022-08-29 11:26 | P.PN ---
Subjective Patient is seen in follow-up for acute kidney injury on chronic kidney disease. Renal function continues to improve with IV fluids. Hemoglobin 11.4 today. No active bleeding. Blood pressure stable. Patient is not a reliable historian. Daughter present at bedside. Vital signs are stable. General: Awake. No acute distress. HEENT: Head exam is unremarkable. LUNGS: Breath sounds decreased. HEART: Rate and Rhythm are regular. ABDOMEN: Soft, no distention. EXTREMITITES: No edema. Objective - Vital Signs Vital signs: Vital Signs Temp 98.1 F 08/29/22 04:00 Pulse 75 08/29/22 09:21 Resp 18 08/29/22 04:00 BP 123/71 08/29/22 04:00 Pulse Ox 93 L 08/29/22 04:00 FiO2 Intake & Output 08/28/22 08/29/22 08/29/22 18:59 06:59 18:59 Intake Total 118 1210 118 Output Total 1100 Balance 118 110 118 Intake: IV 1210 Invasive Line 1 10 Magnesium Sulfate-D5w Pmx 200 1 gm In Dextrose/Water 1 100ml.bag @ 100 mls/hr IVPB Q1H [facility] Rx#: [id number] Sodium Chloride 0.9% 1, 900 000 ml @ 75 mls/hr IV . [id number] [facility] Rx#:[id number] 1 gm In 100 Sodium Chloride 0.9% 50 ml @ 100 mls/hr IVPB Q24HR [facility] Rx#:[id number] Oral 118 118 Output: Urine 1100 Other: Voiding Method External Catheter - Labs CBC & Chem 7: 08/29/22 07:25 08/29/22 07:25 Labs: Abnormal Lab Results - Last 24 Hours (Table) 08/28/22 08/28/22 08/28/22 Range/Units 06:49 07:00 16:41 RBC (3.80-5.40) m/uL RDW (11.5-15.5) % BUN (7-17) mg/dL Creatinine (0.52-1.04) mg/dL POC Glucose (mg/dL) 237 H (70-110) mg/dL Hemoglobin A1c 7.3 H (0.0-6.0) % Iron 34 L (50-170) ug/dL TIBC 223 L (228-460) ug/dL Transferrin 159.0 L (204.0-354.0) mg/dL 08/28/22 08/29/22 08/29/22 Range/Units 20:02 07:25 07:25 RBC 3.71 L (3.80-5.40) m/uL RDW 15.9 H (11.5-15.5) % BUN 41 H (7-17) mg/dL Creatinine 1.61 H (0.52-1.04) mg/dL POC Glucose (mg/dL) 177 H (70-110) mg/dL Hemoglobin A1c (0.0-6.0) % Iron (50-170) ug/dL TIBC (228-460) ug/dL Transferrin (204.0-354.0) mg/dL Microbiology - Last 24 Hours (Table) 08/27/22 18:09 Urine Culture - Preliminary Urine,Voided Gram Neg Bacilli Assessment and Plan Plan: Assessment: 1. Acute kidney injury mostly prerenal secondary to hypotension, diuretic use and further worsened with the use of NANDO inhibitor, improving with IV hydration. Creatinine 3.05 on admission and is 1.61 today. Kidneys were not visualized properly on renal ultrasound due to bowel gas. Right kidney noted to be small in size. 2. Hypokalemia secondary to poor intake, diuretic use and hypomagnesemia. Replaced. Better. 3. Hypomagnesemia from poor intake and use of diuretic. Replaced. Better. 4. Chronic kidney disease stage IIIB with baseline creatinine 1.4-1.5 secondary to nephrosclerosis. 5. Hypertension with chronic kidney disease. Uncontrolled. 6. UTI. Urine culture positive for gram-negative bacilli. On antibiotics. 7. Iron deficiency. 8. GI bleed. Possibly hemorrhoidal bleed. Hemoglobin stable. Plan: Maintain IV fluids. IV iron today. Continue to monitor renal function and urine output. Follow-up urine culture. Advised follow-up with urology outpatient for frequent UTIs.
[2022-08-29 11:51] LABS: Glucose,Whole Blood 135 mg/dL (70-110)
[2022-08-29] MEDS ORDERED: SODIUM FERRIC GLUCONAT-SUCROSE 125 MG in SODIUM CHLORIDE 0.9% 100 ML IVPB ONE (12:00)
[2022-08-29] MEDS: guaiFENesin 600 MG TABLET.ER PO SCH ×4 (12:27→19:55)
[2022-08-29] MEDS: SODIUM CHLORIDE 0.9% 1,000 ML IV SCH (12:31)
--- NOTE | 2022-08-29 15:29 | P.PN ---
Progress Note - Text Progress Note Date: 08/29/22 Chief Complaint: Blood per rectum This is a pleasant 77-year-old patient of Dr. Turner. Chronic stable medical conditions include atrial flutter fibrillation, CHF, COPD, diabetes, fibromyalgia, GERD, hypertension, hyperlipidemia, , permanent pacemaker for sick sinus syndrome, diabetes type 2 with peripheral neuropathy, arthritis of multiple joints, chronic kidney disease stage III, urinary incontinence, iron deficiency anemia , gout. At her baseline patient is unsteady and does use a walker. has cognitive impairment. Patient is accompanied by her daughter in the room. Yesterday patient was noticed to have a small amount of blood fresh with the stool. Some mucus. She is brought into the ER. In the ER posterior also had a small amount of stool with some blood. Patient denies any pain with defecation. No abdominal pain. No fever no chills. No nausea vomiting. Patient does not want any endoscopy. No prior history of endoscopy. Appetite is fair. Because of dementia patient is a limited historian. Patient does have a congested cough. Patient does have off and on. Admitted with acute GI bleed felt to be hemorrhoidal. Acute kidney injury. Given IV fluids. Anusol added. Possible UTI. On IV ceftriaxone. 08/29/2022: Reclining in bed. Comfortable. Feels a bit tired. Creatinine coming down. Length discussion with the patient and daughter at the bedside. We'll try for rehab. 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 Active Medications Acetaminophen (Acetaminophen Tab 325 Mg Tab) 650 mg PO Q6HR PRN PRN Reason: Mild Pain or Fever > 100.5 Last Admin: 08/28/22 23:32 Dose: 650 mg Albuterol Sulfate (Albuterol Nebulized 2.5 Mg/3 Ml) 2.5 mg INHALATION RT-QID PRN PRN Reason: Shortness Of Breath Albuterol/Ipratropium (Ipratropium-Albuterol 3 Ml Neb) 3 ml INHALATION RT-QID [facility] Last Admin: 08/29/22 12:06 Dose: 3 ml Allopurinol (Allopurinol 100 Mg Tab) 100 mg PO BID [facility] Last Admin: 08/29/22 09:32 Dose: 100 mg Atorvastatin Calcium (Atorvastatin 10 Mg Tab) 10 mg PO HS [facility] Last Admin: 08/28/22 20:54 Dose: 10 mg Calcium Carbonate/Glycine (Calcium Carbonate 500 Mg Chewable) 1,000 mg PO Q4HR PRN PRN Reason: Dyspepsia Dextrose/Water (Dextrose 50% Syringe 50 Ml) 25 ml IVP PER PROTOCOL PRN; Protocol PRN Reason: Hypoglycemia Dextrose/Water (Dextrose 50% Syringe 50 Ml) 50 ml IVP PER PROTOCOL PRN; Protocol PRN Reason: Hypoglycemia Diclofenac Sodium (Diclofenac Sodium Gel 100 Gm Tube) 2 gm TOPICAL QID PRN; Protocol PRN Reason: Pain Gabapentin (Gabapentin 100 Mg Cap) 100 mg PO DAILY [facility] Guaifenesin (Guaifenesin 600 Mg Tablet.Er) 600 mg PO QID [facility] Last Admin: 08/29/22 12:31 Dose: Not Given Hydrocortisone Acetate (Hydrocortisone Suppository 25 Mg Supp) 25 mg RECTAL BID [facility] Last Admin: 08/29/22 09:32 Dose: 25 mg Sodium Chloride (Saline 0.9%) 1,000 mls @ 75 mls/hr IV .[id number] [facility] Last Admin: 08/29/22 12:31 Dose: Not Given Ceftriaxone Sodium 1 gm/ (Sodium Chloride) 50 mls @ 100 mls/hr IVPB Q24HR [facility]; Protocol Stop: 08/31/22 12:31 Last Admin: 08/29/22 09:32 Dose: 100 mls/hr Insulin Aspart (Insulin Aspart (Novolog) 100 Unit/Ml Vial) 0 unit SQ AC-TID [facility]; Protocol Last Admin: 08/29/22 12:31 Dose: Not Given Insulin Detemir (Insulin Detemir (Levemir) 100 Unit/Ml Syr) 10 unit SQ HS [facility] Last Admin: 08/28/22 20:54 Dose: 10 unit Lactulose (Lactulose 20 Gm/30 Ml Cup) 20 gm PO DAILY PRN PRN Reason: Constipation Melatonin (Melatonin 3 Mg Tablet) 3 mg PO HS PRN PRN Reason: Insomnia Metoprolol Tartrate (Metoprolol Tartrate 25 Mg Tab) 25 mg PO TID [facility] Last Admin: 08/29/22 09:32 Dose: 25 mg Naloxone HCl (Naloxone 0.4 Mg/Ml 1 Ml Vial) 0.2 mg IV Q2M PRN PRN Reason: Opioid Reversal Ondansetron HCl (Ondansetron 4 Mg/2 Ml Vial) 4 mg IVP Q8HR PRN PRN Reason: Nausea And Vomiting Pantoprazole Sodium (Pantoprazole 40 Mg Tablet) 40 mg PO BID [facility] Last Admin: 08/29/22 09:32 Dose: 40 mg Tramadol HCl (Tramadol 50 Mg Tab) 50 mg PO HS [facility] Last Admin: 08/28/22 20:53 Dose: 50 mg Tramadol HCl (Tramadol 50 Mg Tab) 50 mg PO Q6HR PRN PRN Reason: Pain Past medical history to include: Atrial flutter fibrillation, CHF, COPD, diabetes, fibromyalgia, GERD, hypertension, hyperlipidemia, osteoarthritis, permanent pacemaker for sick sinus syndrome, TIA, diabetes type 2 with peripheral neuropathy, arthritis in multiple joints, left rotator cuff problem, chronic kidney disease, urinary incontinence, iron deficiency anemia, skin cancer that was removed, bilateral lower extremity varicosities, gout, chronic gait dysfunction does use a cane Social history: Does use a walker. Lives at [facility]. smoked for 52 years. Packs a day stopped in 2011. No alcohol. Does use CBD oral Physical examination: VITAL SIGNS: 98.1, 74, 18, 142/84, 92% room air GENERAL: Reclining in bed, eating lunch comfortable EYES: Pupils equal. Conjunctiva normal. HEENT: External appearance of nose and ears normal, oral cavity grossly normal. NECK: JVD not raised; masses not palpable. HEART: First and second heart sounds are normal; no edema. LUNGS: Respiratory rate normal; clear to auscultation. ABDOMEN: Soft, nontender, liver spleen not palpable, no masses palpable. Rectal exam: Done in the presence of nurse Taylor and the daughter. Anal tags. Hemorrhoids. PSYCH: Patient answering simple questions MUSCULAR skeletal: Evidence of OA in multiple joints. NEUROLOGICAL: Cranial nerves grossly intact; no facial asymmetry, power and sensation grossly intact. Gait, at baseline a bit unsteady INVESTIGATIONS, reviewed in the clinical context: 08/29/2022: White count 9 hemoglobin 11.4 percussion 3.8 BUN 41 creatinine 1.61 White count 7.4 hemoglobin 9.7 platelets were 92 potassium 3 BUN 60 creatinine 2.51 magnesia 1.4 Admission labs: Creatinine 3.05 EKG tracing personally reviewed by me-paced rhythm Chest x-ray film personally reviewed by me-probable chronic interstitial fibrosis Previous labs: Creatinine 1.11 on January 2022 Assessment and plan: -Acute lower GI bleed likely hemorrhoidal. Amount is small. Also present after wiping. Anusol HC. -Acute kidney injury, probably prerenal from decreased oral intake and also being on diuretics. Patient is also on Prinivil.: Improving slowly Hold diuretics. Gentle hydration. Hold NANDO inhibitor. -Chronic kidney disease stage III from diabetic nephropathy and hypertensive nephrosclerosis Baseline creatinine 1.1 -Persistent atrial flutter fibrillation. Rate controlled telemetry. eliquis 2.5 mg twice a day-hold for now -Chronic congestive heart failure. From diastolic dysfunction. EF 55-60%. Hold off diuretics. -COPD in a previous smoker DuoNeb -Diabetes mellitus type 2, chronically on oral hypoglycemic Levemir sliding scale. Hold metformin. Hold Glucotrol Follow Accu-Cheks -Diabetic peripheral neuropathy -Chronic fibromyalgia Ultram 50 mg every 6 when necessary -GERD Protonix 40 mg twice a day -Chronic urinary incontinence Vesicare 10 mg daily Hyperlipidemia Mevacor 20 mg daily at bedtime -Essential hypertension Lopressor 25 mg 3 times a day. Hold lisinopril -Primary osteoarthritis multiple joints Uses Ultram when necessary -Acute UTI with cystitis IV ceftriaxone -Chronic urinary stress incontinence Vesicare -Bilateral lower extremity varicosities Follow as outpatient -Chronic gout Allopurinol 100 mg twice a day -Moderate cognitive impairment likely from the late onset Alzheimer's dementia -Chronic gait dysfunction of the baseline patient uses a walker Fall precautions -DO NOT RESUSCITATE IV fluids. Hold diuretics. Anusol HC. He had PT OT to evaluate for rehab. Discussed length with patient daughter the bedside. Case management involved. Total time spent about 40 minutes with over 25 minutes of discussion.
[2022-08-29] MEDS: GABAPENTIN 100 MG CAP PO SCH (15:43)
[2022-08-29 16:21] LABS: Glucose,Whole Blood 265 mg/dL (70-110)
[2022-08-29] MEDS: traMADol 50 MG TAB PO SCH (19:58)
[2022-08-29] MEDS: ATORVASTATIN 10 MG TAB PO SCH (19:58)
[2022-08-29] MEDS: ACETAMINOPHEN TAB 325 MG TAB PO PRN (19:59)
[2022-08-29] MEDS: INSULIN DETEMIR (LEVEMIR) 100 UNIT/ML SYR SQ SCH (20:04)
[2022-08-29 20:05] LABS: Glucose,Whole Blood 139 mg/dL (70-110)
[2022-08-30] MEDS: SODIUM CHLORIDE 0.9% 1,000 ML IV SCH ×2 (02:20→14:24)
[2022-08-30] MEDS: INSULIN ASPART (NovoLOG) 100 UNIT/ML VIAL SQ SCH ×3 (06:18→16:56)
[2022-08-30 06:20] LABS: Glucose,Whole Blood 98 mg/dL (70-110)
[2022-08-30] MEDS: ACETAMINOPHEN TAB 325 MG TAB PO PRN ×2 (06:21→19:59)
[2022-08-30] MEDS: IPRATROPIUM-ALBUTEROL 3 ML NEB INHALATION SCH ×4 (07:57→20:26)
[2022-08-30 09:18] LABS: Calcium 8.2 mg/dL (8.4-10.2); Magnesium 1.7 mg/dL (1.6-2.3); Potassium 3.3 mmol/L (3.5-5.1)
[2022-08-30] MEDS: allopurinoL 100 MG TAB PO SCH ×2 (09:35→19:58)
[2022-08-30] MEDS: PANTOPRAZOLE 40 MG TABLET PO SCH ×2 (09:35→19:58)
[2022-08-30] MEDS: HYDROCORTISONE SUPPOSITORY 25 MG SUPP RECTAL SCH ×2 (09:35→19:58)
[2022-08-30] MEDS: guaiFENesin 600 MG TABLET.ER PO SCH ×4 (09:35→19:58)
[2022-08-30] MEDS: METOPROLOL TARTRATE 25 MG TAB PO SCH ×3 (09:35→19:58)
[2022-08-30] MEDS: GABAPENTIN 100 MG CAP PO SCH (09:35)
[2022-08-30] MEDS ORDERED: POTASSIUM CHLORIDE ER 20 MEQ TAB.ER PO STA (11:27)
--- NOTE | 2022-08-30 11:29 | P.PN ---
Subjective Patient is seen in follow-up for acute kidney injury on chronic kidney disease. Renal function continues to improve with IV fluids. No active bleeding. Blood pressure stable. Patient is not a reliable historian. Daughter present at bedside. Vital signs are stable. General: Awake. No acute distress. HEENT: Head exam is unremarkable. LUNGS: Breath sounds decreased. HEART: Rate and Rhythm are regular. ABDOMEN: Soft, no distention. EXTREMITITES: No edema. Objective - Vital Signs Vital signs: Vital Signs Temp 98.3 F 08/30/22 07:32 Pulse 69 08/30/22 10:36 Resp 19 08/30/22 10:36 BP 162/69 08/30/22 07:32 Pulse Ox 94 L 08/30/22 07:57 FiO2 Intake & Output 08/29/22 08/30/22 08/30/22 18:59 06:59 18:59 Intake Total 298 Output Total 250 2000 400 Balance 48 -2000 -400 Intake: Oral 298 Output: Urine 250 2000 400 Other: Voiding Method External Catheter External Catheter External Catheter - Labs CBC & Chem 7: 08/29/22 07:25 08/30/22 08:32 Labs: Abnormal Lab Results - Last 24 Hours (Table) 08/29/22 08/29/22 08/29/22 Range/Units 11:44 16:20 20:04 Potassium (3.5-5.1) mmol/L BUN (7-17) mg/dL Creatinine (0.52-1.04) mg/dL Glucose (74-99) mg/dL POC Glucose (mg/dL) 135 H 265 H 139 H (70-110) mg/dL Calcium (8.4-10.2) mg/dL 08/30/22 Range/Units 08:32 Potassium 3.3 L (3.5-5.1) mmol/L BUN 21 H (7-17) mg/dL Creatinine 1.26 H (0.52-1.04) mg/dL Glucose 104 H (74-99) mg/dL POC Glucose (mg/dL) (70-110) mg/dL Calcium 8.2 L (8.4-10.2) mg/dL Microbiology - Last 24 Hours (Table) 08/27/22 18:09 Urine Culture - Final Urine,Voided Morganella morganii Assessment and Plan Plan: Assessment: 1. Acute kidney injury mostly prerenal secondary to hypotension, diuretic use and further worsened with the use of NANDO inhibitor, improving with IV hydration. Creatinine 3.05 on admission and is 1.26 today. Kidneys were not visualized properly on renal ultrasound due to bowel gas. Right kidney noted to be small in size. 2. Hypokalemia secondary to poor intake. 3. Hypomagnesemia from poor intake and use of diuretic. 4. Chronic kidney disease stage IIIB with baseline creatinine 1.4-1.5 secondary to nephrosclerosis. 5. Hypertension with chronic kidney disease. Uncontrolled. 6. UTI. Urine culture positive for Morganella. On antibiotics. 7. Iron deficiency. 8. GI bleed. Possibly hemorrhoidal bleed. Hemoglobin stable as of yesterday. Plan: Decrease rate of IV fluids. Repeat IV iron today. Continue to monitor renal function and urine output. Advised follow-up with urology outpatient for frequent UTIs. Add oral magnesium oxide. Replace potassium.
[2022-08-30] MEDS: MAGNESIUM OXIDE 400 MG TAB PO SCH (11:49)
[2022-08-30] MEDS ORDERED: SODIUM FERRIC GLUCONAT-SUCROSE 125 MG in SODIUM CHLORIDE 0.9% 100 ML IVPB ONE (12:00)
[2022-08-30 12:05] LABS: Glucose,Whole Blood 99 mg/dL (70-110)
[2022-08-30 16:51] LABS: Glucose,Whole Blood 183 mg/dL (70-110)
--- NOTE | 2022-08-30 18:23 | P.PN ---
Progress Note - Text Progress Note Date: 08/30/22 Chief Complaint: Blood per rectum This is a pleasant 77-year-old patient of Dr. Turner. Chronic stable medical conditions include atrial flutter fibrillation, CHF, COPD, diabetes, fibromyalgia, GERD, hypertension, hyperlipidemia, , permanent pacemaker for sick sinus syndrome, diabetes type 2 with peripheral neuropathy, arthritis of multiple joints, chronic kidney disease stage III, urinary incontinence, iron deficiency anemia , gout. At her baseline patient is unsteady and does use a walker. has cognitive impairment. Patient is accompanied by her daughter in the room. Yesterday patient was noticed to have a small amount of blood fresh with the stool. Some mucus. She is brought into the ER. In the ER posterior also had a small amount of stool with some blood. Patient denies any pain with defecation. No abdominal pain. No fever no chills. No nausea vomiting. Patient does not want any endoscopy. No prior history of endoscopy. Appetite is fair. Because of dementia patient is a limited historian. Patient does have a congested cough. Patient does have off and on. Admitted with acute GI bleed felt to be hemorrhoidal. Acute kidney injury. Given IV fluids. Anusol added. Possible UTI. On IV ceftriaxone. 08/29/2022: Reclining in bed. Comfortable. Feels a bit tired. Creatinine coming down. Length discussion with the patient and daughter at the bedside. We'll try for rehab. 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 08/30/2022: Comfortable. Resting. Oral intake satisfactory. Creatinine coming down. Received IV iron. Pending authorization to rehab. Active Medications Acetaminophen (Acetaminophen Tab 325 Mg Tab) 650 mg PO Q6HR PRN PRN Reason: Mild Pain or Fever > 100.5 Last Admin: 08/30/22 06:21 Dose: 650 mg Albuterol Sulfate (Albuterol Nebulized 2.5 Mg/3 Ml) 2.5 mg INHALATION RT-QID PRN PRN Reason: Shortness Of Breath Albuterol/Ipratropium (Ipratropium-Albuterol 3 Ml Neb) 3 ml INHALATION RT-QID [facility] Last Admin: 08/30/22 16:01 Dose: 3 ml Allopurinol (Allopurinol 100 Mg Tab) 100 mg PO BID [facility] Last Admin: 08/30/22 09:35 Dose: 100 mg Atorvastatin Calcium (Atorvastatin 10 Mg Tab) 10 mg PO HS [facility] Last Admin: 08/29/22 19:58 Dose: 10 mg Calcium Carbonate/Glycine (Calcium Carbonate 500 Mg Chewable) 1,000 mg PO Q4HR PRN PRN Reason: Dyspepsia Dextrose/Water (Dextrose 50% Syringe 50 Ml) 25 ml IVP PER PROTOCOL PRN; Protocol PRN Reason: Hypoglycemia Dextrose/Water (Dextrose 50% Syringe 50 Ml) 50 ml IVP PER PROTOCOL PRN; Protocol PRN Reason: Hypoglycemia Diclofenac Sodium (Diclofenac Sodium Gel 100 Gm Tube) 2 gm TOPICAL QID PRN; Protocol PRN Reason: Pain Gabapentin (Gabapentin 100 Mg Cap) 100 mg PO DAILY [facility] Last Admin: 08/30/22 09:35 Dose: 100 mg Guaifenesin (Guaifenesin 600 Mg Tablet.Er) 600 mg PO QID [facility] Last Admin: 08/30/22 17:07 Dose: Not Given Hydrocortisone Acetate (Hydrocortisone Suppository 25 Mg Supp) 25 mg RECTAL BID [facility] Last Admin: 08/30/22 09:35 Dose: 25 mg Sodium Chloride (Saline 0.9%) 1,000 mls @ 50 mls/hr IV .Q20H [facility] Last Admin: 08/30/22 14:24 Dose: Not Given Ceftriaxone Sodium 1 gm/ (Sodium Chloride) 50 mls @ 100 mls/hr IVPB Q24HR [facility]; Protocol Stop: 08/31/22 12:31 Last Admin: 08/30/22 09:35 Dose: 100 mls/hr Insulin Aspart (Insulin Aspart (Novolog) 100 Unit/Ml Vial) 0 unit SQ AC-TID [facility]; Protocol Last Admin: 08/30/22 16:56 Dose: 2 unit Insulin Detemir (Insulin Detemir (Levemir) 100 Unit/Ml Syr) 10 unit SQ HS [facility] Last Admin: 08/29/22 20:04 Dose: 10 unit Lactulose (Lactulose 20 Gm/30 Ml Cup) 20 gm PO DAILY PRN PRN Reason: Constipation Magnesium Oxide (Magnesium Oxide 400 Mg Tab) 400 mg PO DAILY [facility] Last Admin: 08/30/22 11:49 Dose: 400 mg Melatonin (Melatonin 3 Mg Tablet) 3 mg PO HS PRN PRN Reason: Insomnia Metoprolol Tartrate (Metoprolol Tartrate 25 Mg Tab) 25 mg PO TID [facility] Last Admin: 08/30/22 15:41 Dose: 25 mg Naloxone HCl (Naloxone 0.4 Mg/Ml 1 Ml Vial) 0.2 mg IV Q2M PRN PRN Reason: Opioid Reversal Ondansetron HCl (Ondansetron 4 Mg/2 Ml Vial) 4 mg IVP Q8HR PRN PRN Reason: Nausea And Vomiting Pantoprazole Sodium (Pantoprazole 40 Mg Tablet) 40 mg PO BID [facility] Last Admin: 08/30/22 09:35 Dose: 40 mg Past medical history to include: Atrial flutter fibrillation, CHF, COPD, diabetes, fibromyalgia, GERD, hypertension, hyperlipidemia, osteoarthritis, permanent pacemaker for sick sinus syndrome, TIA, diabetes type 2 with peripheral neuropathy, arthritis in multiple joints, left rotator cuff problem, chronic kidney disease, urinary incontinence, iron deficiency anemia, skin cancer that was removed, bilateral lower extremity varicosities, gout, chronic gait dysfunction does use a cane Social history: Does use a walker. Lives at [facility]. smoked for 52 years. Packs a day stopped in 2011. No alcohol. Does use CBD oral Physical examination: VITAL SIGNS: 97.9, 68, 19, 147% 3, 96% on 2 L GENERAL: As in bed, comfortable EYES: Pupils equal. Conjunctiva normal. HEENT: External appearance of nose and ears normal, oral cavity grossly normal. NECK: JVD not raised; masses not palpable. HEART: First and second heart sounds are normal; no edema. LUNGS: Respiratory rate normal; clear to auscultation. ABDOMEN: Soft, nontender, liver spleen not palpable, no masses palpable. Rectal exam: Done in the presence of nurse Taylor and the daughter. Anal tags. Hemorrhoids. PSYCH: Patient answering simple questions MUSCULAR skeletal: Evidence of OA in multiple joints. NEUROLOGICAL: Cranial nerves grossly intact; no facial asymmetry, power and sensation grossly intact. Gait, at baseline a bit unsteady INVESTIGATIONS, reviewed in the clinical context: 08/30/2022: Potassium 3.3 BUN 21 and 1.26 08/29/2022: White count 9 hemoglobin 11.4 percussion 3.8 BUN 41 creatinine 1.61 White count 7.4 hemoglobin 9.7 platelets were 92 potassium 3 BUN 60 creatinine 2.51 magnesia 1.4 Admission labs: Creatinine 3.05 EKG tracing personally reviewed by me-paced rhythm Chest x-ray film personally reviewed by me-probable chronic interstitial fibrosis Previous labs: Creatinine 1.11 on January 2022 Assessment and plan: -Acute lower GI bleed likely hemorrhoidal. Amount is small. Also present after wiping. Anusol HC. -Acute kidney injury, probably prerenal from decreased oral intake and also being on diuretics. Patient is also on Prinivil.: Improving Hold diuretics. Gentle hydration. Hold NANDO inhibitor. -Chronic kidney disease stage III from diabetic nephropathy and hypertensive nephrosclerosis Baseline creatinine 1.1 -Persistent atrial flutter fibrillation. Rate controlled telemetry. eliquis 2.5 mg twice a date, resume -Chronic congestive heart failure. From diastolic dysfunction. EF 55-60%. Hold off diuretics. -COPD in a previous smoker DuoNeb -Diabetes mellitus type 2, chronically on oral hypoglycemic Levemir sliding scale. Hold metformin. Hold Glucotrol Follow Accu-Cheks -Diabetic peripheral neuropathy -Chronic fibromyalgia Ultram 50 mg every 6 when necessary -GERD Protonix 40 mg twice a day -Chronic urinary incontinence Vesicare 10 mg daily Hyperlipidemia Mevacor 20 mg daily at bedtime -Essential hypertension Lopressor 25 mg 3 times a day. Hold lisinopril -Primary osteoarthritis multiple joints Uses Ultram when necessary -Acute UTI with cystitis IV ceftriaxone -Chronic urinary stress incontinence Vesicare -Bilateral lower extremity varicosities Follow as outpatient -Chronic gout Allopurinol 100 mg twice a day -Moderate cognitive impairment likely from the late onset Alzheimer's dementia -Chronic gait dysfunction of the baseline patient uses a walker Fall precautions -DO NOT RESUSCITATE IV fluids. Hold diuretics. Anusol HC. Doing better. Creatinine improving. Pending authorization to go to rehab.
[2022-08-30] MEDS: APIXABAN 2.5 MG TABLET PO SCH (19:58)
[2022-08-30] MEDS: ATORVASTATIN 10 MG TAB PO SCH (19:58)
[2022-08-30 20:07] LABS: Glucose,Whole Blood 144 mg/dL (70-110)
[2022-08-30] MEDS: INSULIN DETEMIR (LEVEMIR) 100 UNIT/ML SYR SQ SCH (20:09)
[2022-08-31 07:37] LABS: Glucose,Whole Blood 109 mg/dL (70-110)
[2022-08-31] MEDS: INSULIN ASPART (NovoLOG) 100 UNIT/ML VIAL SQ SCH ×3 (08:42→18:15)
[2022-08-31] MEDS: allopurinoL 100 MG TAB PO SCH ×2 (08:44→22:27)
[2022-08-31] MEDS: HYDROCORTISONE SUPPOSITORY 25 MG SUPP RECTAL SCH ×2 (08:44→23:00)
[2022-08-31] MEDS: METOPROLOL TARTRATE 25 MG TAB PO SCH ×3 (08:45→22:26)
[2022-08-31] MEDS: PANTOPRAZOLE 40 MG TABLET PO SCH ×2 (08:45→22:27)
[2022-08-31] MEDS: APIXABAN 2.5 MG TABLET PO SCH ×2 (08:45→22:26)
[2022-08-31] MEDS: GABAPENTIN 100 MG CAP PO SCH (08:45)
[2022-08-31] MEDS: MAGNESIUM OXIDE 400 MG TAB PO SCH (08:45)
[2022-08-31] MEDS: guaiFENesin 600 MG TABLET.ER PO SCH ×4 (08:45→22:26)
[2022-08-31] MEDS: SODIUM CHLORIDE 0.9% 1,000 ML IV SCH (09:03)
[2022-08-31] MEDS: IPRATROPIUM-ALBUTEROL 3 ML NEB INHALATION SCH ×4 (09:23→19:55)
--- NOTE | 2022-08-31 11:13 | P.PN ---
Subjective Patient is seen in follow-up for acute kidney injury on chronic kidney disease. Renal function continues to improve with IV fluids. No active bleeding. Blood pressure stable. Patient is not a reliable historian. Vital signs are stable. General: Awake. No acute distress. HEENT: Head exam is unremarkable. LUNGS: Breath sounds decreased. HEART: Rate and Rhythm are regular. ABDOMEN: Soft, no distention. EXTREMITITES: No edema. Objective - Vital Signs Vital signs: Vital Signs Temp 98.2 F 08/31/22 05:00 Pulse 60 08/31/22 09:33 Resp 16 08/31/22 05:00 BP 146/74 08/31/22 05:00 Pulse Ox 91 L 08/31/22 09:23 FiO2 Intake & Output 08/30/22 08/31/22 08/31/22 18:59 06:59 18:59 Output Total 500 600 Balance -500 -600 Output: Urine 500 600 Other: Voiding Method External Catheter External Catheter External Catheter # Voids 1 - Labs CBC & Chem 7: 08/29/22 07:25 08/30/22 08:32 Labs: Abnormal Lab Results - Last 24 Hours (Table) 08/30/22 08/30/22 Range/Units 16:46 20:06 POC Glucose (mg/dL) 183 H 144 H (70-110) mg/dL Assessment and Plan Plan: Assessment: 1. Acute kidney injury mostly prerenal secondary to hypotension, diuretic use and further worsened with the use of NANDO inhibitor, improving with IV hydration. Creatinine 3.05 on admission and is 1.26 yesterday. Kidneys were not visualized properly on renal ultrasound due to bowel gas. Right kidney noted to be small in size. 2. Hypokalemia secondary to poor intake. Replaced. 3. Hypomagnesemia from poor intake and use of diuretic. On oral magnesium oxide. 4. Chronic kidney disease stage IIIB with baseline creatinine 1.4-1.5 secondary to nephrosclerosis. 5. Hypertension with chronic kidney disease. Stable. 6. UTI. Urine culture positive for Morganella. On antibiotics. 7. Iron deficiency. Status post IV iron. 8. GI bleed. Possibly hemorrhoidal bleed. Hemoglobin stable as of yesterday. Plan: Maintain normal saline at 50 mL an hour. Continue to monitor renal function and urine output. Advised follow-up with urology outpatient for frequent UTIs. Morning labs pending.
[2022-08-31 12:21] LABS: Chloride 105 mmol/L (98-107)
[2022-08-31 12:23] LABS: African American GFR (CKD) 56 (>60 ml/min/1.73 sqM); Anion Gap 8 mmol/L; Blood Urea Nitrogen 18 mg/dL (7-17); Calcium 8.4 mg/dL (8.4-10.2); Carbon Dioxide 24 mmol/L (22-30); Glucose 189 mg/dL (74-99); Magnesium 1.7 mg/dL (1.6-2.3); Non-African American GFR(CKD) 49 (>60 ml/min/1.73 sqM); Potassium 3.9 mmol/L (3.5-5.1); Sodium 137 mmol/L (137-145)
[2022-08-31 13:17] LABS: Glucose,Whole Blood 184 mg/dL (70-110)
--- NOTE | 2022-08-31 14:45 | P.PN ---
Progress Note - Text Progress Note Date: 08/31/22 Chief Complaint: Blood per rectum This is a pleasant 77-year-old patient of Dr. Turner. Chronic stable medical conditions include atrial flutter fibrillation, CHF, COPD, diabetes, fibromyalgia, GERD, hypertension, hyperlipidemia, , permanent pacemaker for sick sinus syndrome, diabetes type 2 with peripheral neuropathy, arthritis of multiple joints, chronic kidney disease stage III, urinary incontinence, iron deficiency anemia , gout. At her baseline patient is unsteady and does use a walker. has cognitive impairment. Patient is accompanied by her daughter in the room. Yesterday patient was noticed to have a small amount of blood fresh with the stool. Some mucus. She is brought into the ER. In the ER posterior also had a small amount of stool with some blood. Patient denies any pain with defecation. No abdominal pain. No fever no chills. No nausea vomiting. Patient does not want any endoscopy. No prior history of endoscopy. Appetite is fair. Because of dementia patient is a limited historian. Patient does have a congested cough. Patient does have off and on. Admitted with acute GI bleed felt to be hemorrhoidal. Acute kidney injury. Given IV fluids. Anusol added. Possible UTI. On IV ceftriaxone. 08/29/2022: Reclining in bed. Comfortable. Feels a bit tired. Creatinine coming down. Length discussion with the patient and daughter at the bedside. We'll try for rehab. 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 08/30/2022: Comfortable. Resting. Oral intake satisfactory. Creatinine coming down. Received IV iron. Pending authorization to rehab. 08/31/2022: Comfortable. No further lower GI bleeding reported. Awaiting authorization to rehab. Patient comfortable. Oral intake fair. Active Medications Acetaminophen (Acetaminophen Tab 325 Mg Tab) 650 mg PO Q6HR PRN PRN Reason: Mild Pain or Fever > 100.5 Last Admin: 08/30/22 19:59 Dose: 650 mg Albuterol Sulfate (Albuterol Nebulized 2.5 Mg/3 Ml) 2.5 mg INHALATION RT-QID PRN PRN Reason: Shortness Of Breath Albuterol/Ipratropium (Ipratropium-Albuterol 3 Ml Neb) 3 ml INHALATION RT-QID [facility] Last Admin: 08/31/22 12:19 Dose: 3 ml Allopurinol (Allopurinol 100 Mg Tab) 100 mg PO BID [facility] Last Admin: 08/31/22 08:44 Dose: 100 mg Apixaban (Apixaban 2.5 Mg Tablet) 2.5 mg PO BID [facility]; Protocol Last Admin: 08/31/22 08:45 Dose: 2.5 mg Atorvastatin Calcium (Atorvastatin 10 Mg Tab) 10 mg PO HS [facility] Last Admin: 08/30/22 19:58 Dose: 10 mg Calcium Carbonate/Glycine (Calcium Carbonate 500 Mg Chewable) 1,000 mg PO Q4HR PRN PRN Reason: Dyspepsia Dextrose/Water (Dextrose 50% Syringe 50 Ml) 25 ml IVP PER PROTOCOL PRN; Protocol PRN Reason: Hypoglycemia Dextrose/Water (Dextrose 50% Syringe 50 Ml) 50 ml IVP PER PROTOCOL PRN; Protocol PRN Reason: Hypoglycemia Diclofenac Sodium (Diclofenac Sodium Gel 100 Gm Tube) 2 gm TOPICAL QID PRN; Protocol PRN Reason: Pain Gabapentin (Gabapentin 100 Mg Cap) 100 mg PO DAILY [facility] Last Admin: 08/31/22 08:45 Dose: 100 mg Guaifenesin (Guaifenesin 600 Mg Tablet.Er) 600 mg PO QID [facility] Last Admin: 08/31/22 13:37 Dose: 600 mg Hydrocortisone Acetate (Hydrocortisone Suppository 25 Mg Supp) 25 mg RECTAL BID [facility] Last Admin: 08/31/22 08:44 Dose: 25 mg Sodium Chloride (Saline 0.9%) 1,000 mls @ 50 mls/hr IV .Q20H [facility] Last Admin: 08/31/22 09:03 Dose: 50 mls/hr Insulin Aspart (Insulin Aspart (Novolog) 100 Unit/Ml Vial) 0 unit SQ AC-TID [facility]; Protocol Last Admin: 08/31/22 13:36 Dose: 2 unit Insulin Detemir (Insulin Detemir (Levemir) 100 Unit/Ml Syr) 10 unit SQ HS [facility] Last Admin: 08/30/22 20:09 Dose: 10 unit Lactulose (Lactulose 20 Gm/30 Ml Cup) 20 gm PO DAILY PRN PRN Reason: Constipation Magnesium Oxide (Magnesium Oxide 400 Mg Tab) 400 mg PO DAILY [facility] Last Admin: 08/31/22 08:45 Dose: 400 mg Melatonin (Melatonin 3 Mg Tablet) 3 mg PO HS PRN PRN Reason: Insomnia Metoprolol Tartrate (Metoprolol Tartrate 25 Mg Tab) 25 mg PO TID [facility] Last Admin: 08/31/22 08:45 Dose: 25 mg Naloxone HCl (Naloxone 0.4 Mg/Ml 1 Ml Vial) 0.2 mg IV Q2M PRN PRN Reason: Opioid Reversal Ondansetron HCl (Ondansetron 4 Mg/2 Ml Vial) 4 mg IVP Q8HR PRN PRN Reason: Nausea And Vomiting Pantoprazole Sodium (Pantoprazole 40 Mg Tablet) 40 mg PO BID [facility] Last Admin: 08/31/22 08:45 Dose: 40 mg Past medical history to include: Atrial flutter fibrillation, CHF, COPD, diabetes, fibromyalgia, GERD, hypertension, hyperlipidemia, osteoarthritis, permanent pacemaker for sick sinus syndrome, TIA, diabetes type 2 with peripheral neuropathy, arthritis in multiple joints, left rotator cuff problem, chronic kidney disease, urinary incontinence, iron deficiency anemia, skin cancer that was removed, bilateral lower extremity varicosities, gout, chronic gait dysfunction does use a cane Social history: Does use a walker. Lives at [facility]. smoked for 52 years. Packs a day stopped in 2011. No alcohol. Does use CBD oral Physical examination: VITAL SIGNS: 98.2, 60, 16, 124/67, respiratory GENERAL: Reclining bed, comfortable EYES: Pupils equal. Conjunctiva normal. HEENT: External appearance of nose and ears normal, oral cavity grossly normal. NECK: JVD not raised; masses not palpable. HEART: First and second heart sounds are normal; no edema. LUNGS: Respiratory rate normal; clear to auscultation. ABDOMEN: Soft, nontender, liver spleen not palpable, no masses palpable. Rectal exam: Done in the presence of nurse Taylor and the daughter. Anal tags. Hemorrhoids. PSYCH: Patient answering simple questions MUSCULAR skeletal: Evidence of OA in multiple joints. NEUROLOGICAL: Cranial nerves grossly intact; no facial asymmetry, power and sensation grossly intact. Gait, at baseline a bit unsteady INVESTIGATIONS, reviewed in the clinical context: 08/31/2022: Creatinine 1.1 White count 7.4 hemoglobin 9.7 platelets were 92 potassium 3 BUN 60 creatinine 2.51 magnesia 1.4 Admission labs: Creatinine 3.05 EKG tracing personally reviewed by me-paced rhythm Chest x-ray film personally reviewed by me-probable chronic interstitial fibrosis Previous labs: Creatinine 1.11 on January 2022 Assessment and plan: -Acute lower GI bleed likely hemorrhoidal. Amount is small. Also present after wiping.: Stabilized Anusol HC. -Acute kidney injury, probably prerenal from decreased oral intake and also being on diuretics. Patient is also on Prinivil.: Improved Hold diuretics. Gentle hydration. Hold NANDO inhibitor. -Chronic kidney disease stage III from diabetic nephropathy and hypertensive nephrosclerosis Baseline creatinine 1.1 -Persistent atrial flutter fibrillation. Rate controlled telemetry. eliquis 2.5 mg twice a date, resume -Chronic congestive heart failure. From diastolic dysfunction. EF 55-60%. Hold off diuretics. -COPD in a previous smoker DuoNeb -Diabetes mellitus type 2, chronically on oral hypoglycemic Levemir discontinue. sliding scale. Hold metformin. Resume Glucotrol -Diabetic peripheral neuropathy -Chronic fibromyalgia Ultram 50 mg every 6 when necessary -GERD Protonix 40 mg twice a day -Chronic urinary incontinence Vesicare 10 mg daily Hyperlipidemia Mevacor 20 mg daily at bedtime -Essential hypertension Lopressor 25 mg 3 times a day. Hold lisinopril -Primary osteoarthritis multiple joints Uses Ultram when necessary -Acute UTI with cystitis IV ceftriaxone -Chronic urinary stress incontinence Vesicare -Bilateral lower extremity varicosities Follow as outpatient -Chronic gout Allopurinol 100 mg twice a day -Moderate cognitive impairment likely from the late onset Alzheimer's dementia -Chronic gait dysfunction of the baseline patient uses a walker Fall precautions -DO NOT RESUSCITATE DC IV fluids. DC Levemir. Resume Glucotrol 5 mg. Other medications to continue.
[2022-08-31 17:49] LABS: Glucose,Whole Blood 126 mg/dL (70-110)
[2022-08-31 20:20] LABS: Glucose,Whole Blood 96 mg/dL (70-110)
[2022-08-31] MEDS: ATORVASTATIN 10 MG TAB PO SCH (22:27)
[2022-09-01] MEDS: SODIUM CHLORIDE 0.9% 1,000 ML IV SCH (06:36)
[2022-09-01 07:39] LABS: Glucose,Whole Blood 92 mg/dL (70-110)
[2022-09-01] MEDS: INSULIN ASPART (NovoLOG) 100 UNIT/ML VIAL SQ SCH ×3 (07:54→17:59)
[2022-09-01] MEDS: METOPROLOL TARTRATE 25 MG TAB PO SCH ×3 (07:55→21:10)
[2022-09-01] MEDS: HYDROCORTISONE SUPPOSITORY 25 MG SUPP RECTAL SCH ×2 (07:55→21:11)
[2022-09-01] MEDS: GABAPENTIN 100 MG CAP PO SCH (07:55)
[2022-09-01] MEDS: APIXABAN 2.5 MG TABLET PO SCH ×2 (07:55→21:11)
[2022-09-01] MEDS: guaiFENesin 600 MG TABLET.ER PO SCH ×4 (07:55→21:11)
[2022-09-01] MEDS: allopurinoL 100 MG TAB PO SCH ×2 (07:55→21:11)
[2022-09-01] MEDS: PANTOPRAZOLE 40 MG TABLET PO SCH ×2 (07:55→21:10)
[2022-09-01] MEDS: MAGNESIUM OXIDE 400 MG TAB PO SCH (07:55)
[2022-09-01] MEDS: IPRATROPIUM-ALBUTEROL 3 ML NEB INHALATION SCH ×4 (08:52→20:19)
[2022-09-01 09:56] LABS: African American GFR (CKD) 62.9 (60.0-200.0); Anion Gap 11.3 mmol/L (10.00-18.00); BUN/Creat Ratio 15.2 Ratio (12.00-20.00); Blood Urea Nitrogen 15.2 mg/dL (9.0-27.0); Calcium 8.9 mg/dL (8.7-10.3); Carbon Dioxide 24.7 mmol/L (20.0-27.5); Magnesium 1.8 mg/dL (1.5-2.4); Non-African American GFR(CKD) 54.3 (60.0-200.0); Potassium 3.8 mmol/L (3.5-5.5)
--- NOTE | 2022-09-01 11:12 | P.PN ---
Subjective Patient is seen in follow-up for acute kidney injury on chronic kidney disease. Renal function continues to improve with IV fluids. Creatinine 1.0 today. Blood pressure stable. Patient is not a reliable historian. No changes overnight. Vital signs are stable. General: Awake. No acute distress. HEENT: Head exam is unremarkable. LUNGS: Breath sounds decreased. HEART: Rate and Rhythm are regular. ABDOMEN: Soft, no distention. EXTREMITITES: No edema. Objective - Vital Signs Vital signs: Vital Signs Temp 97.8 F 09/01/22 04:36 Pulse 68 09/01/22 09:02 Resp 16 09/01/22 04:36 BP 159/72 09/01/22 04:36 Pulse Ox 94 L 09/01/22 08:52 FiO2 Intake & Output 08/31/22 09/01/22 09/01/22 18:59 06:59 18:59 Output Total 600 Balance -600 Output: Urine 600 Other: Voiding Method External Catheter External Catheter # Voids 3 - Labs CBC & Chem 7: 08/29/22 07:25 09/01/22 05:44 Labs: Abnormal Lab Results - Last 24 Hours (Table) 08/31/22 08/31/22 08/31/22 Range/Units 11:36 13:16 17:48 BUN 18 H (7-17) mg/dL Creatinine 1.10 H (0.52-1.04) mg/dL Est GFR (CKD-EPI)NonAf (60.0-200.0) Glucose 189 H (74-99) mg/dL POC Glucose (mg/dL) 184 H 126 H (70-110) mg/dL 09/01/22 Range/Units 05:44 BUN (7-17) mg/dL Creatinine (0.52-1.04) mg/dL Est GFR (CKD-EPI)NonAf 54.3 L (60.0-200.0) Glucose 120 H (74-99) mg/dL POC Glucose (mg/dL) (70-110) mg/dL Assessment and Plan Plan: Assessment: 1. Acute kidney injury mostly prerenal secondary to hypotension, diuretic use and further worsened with the use of NANDO inhibitor, improving with IV hydration. Creatinine 3.05 on admission and is 1.0 today. Kidneys were not visualized pr operly on renal ultrasound due to bowel gas. Right kidney noted to be small in size. 2. Hypokalemia secondary to poor intake. Replaced. 3. Hypomagnesemia from poor intake and use of diuretic. On oral magnesium oxide. 4. Chronic kidney disease stage IIIa secondary to nephrosclerosis. Baseline creatinine appears to be 1-1.3. 5. Hypertension with chronic kidney disease. 6. UTI. Urine culture positive for Morganella. s/p antibiotics. 7. Iron deficiency. Status post IV iron. 8. GI bleed. Possibly hemorrhoidal bleed. Hemoglobin 11.4 dated 08/29/2022. Plan: Maintain normal saline at 50 mL an hour. Continue to monitor renal function and urine output. Advised follow-up with urology outpatient for frequent UTIs. Follow-up outpatient in 1-2 weeks post discharge.
[2022-09-01 11:54] LABS: Glucose,Whole Blood 108 mg/dL (70-110)
--- NOTE | 2022-09-01 16:23 | P.PN ---
Progress Note - Text Progress Note Date: 09/01/22 Chief Complaint: Blood per rectum This is a pleasant 77-year-old patient of Dr. Turner. Chronic stable medical conditions include atrial flutter fibrillation, CHF, COPD, diabetes, fibromyalgia, GERD, hypertension, hyperlipidemia, , permanent pacemaker for sick sinus syndrome, diabetes type 2 with peripheral neuropathy, arthritis of multiple joints, chronic kidney disease stage III, urinary incontinence, iron deficiency anemia , gout. At her baseline patient is unsteady and does use a walker. has cognitive impairment. Patient is accompanied by her daughter in the room. Yesterday patient was noticed to have a small amount of blood fresh with the stool. Some mucus. She is brought into the ER. In the ER posterior also had a small amount of stool with some blood. Patient denies any pain with defecation. No abdominal pain. No fever no chills. No nausea vomiting. Patient does not want any endoscopy. No prior history of endoscopy. Appetite is fair. Because of dementia patient is a limited historian. Patient does have a congested cough. Patient does have off and on. Admitted with acute GI bleed felt to be hemorrhoidal. Acute kidney injury. Given IV fluids. Anusol added. Possible UTI. On IV ceftriaxone. 08/29/2022: Reclining in bed. Comfortable. Feels a bit tired. Creatinine coming down. Length discussion with the patient and daughter at the bedside. We'll try for rehab. 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 08/30/2022: Comfortable. Resting. Oral intake satisfactory. Creatinine coming down. Received IV iron. Pending authorization to rehab. 08/31/2022: Comfortable. No further lower GI bleeding reported. Awaiting authorization to rehab. Patient comfortable. Oral intake fair. 09/01/2022: Oral intake fair. Stable. Pending to go to rehab. No new issues. DC IV fluids. Cutback Glucotrol to 2.5 mg daily. From twice a day. Active Medications Acetaminophen (Acetaminophen Tab 325 Mg Tab) 650 mg PO Q6HR PRN PRN Reason: Mild Pain or Fever > 100.5 Last Admin: 08/30/22 19:59 Dose: 650 mg Albuterol Sulfate (Albuterol Nebulized 2.5 Mg/3 Ml) 2.5 mg INHALATION RT-QID PRN PRN Reason: Shortness Of Breath Albuterol/Ipratropium (Ipratropium-Albuterol 3 Ml Neb) 3 ml INHALATION RT-QID [facility] Last Admin: 09/01/22 11:52 Dose: 3 ml Allopurinol (Allopurinol 100 Mg Tab) 100 mg PO BID [facility] Last Admin: 09/01/22 07:55 Dose: 100 mg Apixaban (Apixaban 2.5 Mg Tablet) 2.5 mg PO BID [facility]; Protocol Last Admin: 09/01/22 07:55 Dose: 2.5 mg Atorvastatin Calcium (Atorvastatin 10 Mg Tab) 10 mg PO HS [facility] Last Admin: 08/31/22 22:27 Dose: 10 mg Calcium Carbonate/Glycine (Calcium Carbonate 500 Mg Chewable) 1,000 mg PO Q4HR PRN PRN Reason: Dyspepsia Dextrose/Water (Dextrose 50% Syringe 50 Ml) 25 ml IVP PER PROTOCOL PRN; Protocol PRN Reason: Hypoglycemia Dextrose/Water (Dextrose 50% Syringe 50 Ml) 50 ml IVP PER PROTOCOL PRN; Protocol PRN Reason: Hypoglycemia Diclofenac Sodium (Diclofenac Sodium Gel 100 Gm Tube) 2 gm TOPICAL QID PRN; Protocol PRN Reason: Pain Gabapentin (Gabapentin 100 Mg Cap) 100 mg PO DAILY [facility] Last Admin: 09/01/22 07:55 Dose: 100 mg Glipizide (Glipizide 2.5 Mg Tab) 2.5 mg PO BID [facility] Last Admin: 09/01/22 07:55 Dose: 2.5 mg Guaifenesin (Guaifenesin 600 Mg Tablet.Er) 600 mg PO QID [facility] Last Admin: 09/01/22 13:00 Dose: 600 mg Hydrocortisone Acetate (Hydrocortisone Suppository 25 Mg Supp) 25 mg RECTAL BID [facility] Last Admin: 09/01/22 07:55 Dose: 25 mg Sodium Chloride (Saline 0.9%) 1,000 mls @ 50 mls/hr IV .Q20H [facility] Last Admin: 09/01/22 06:36 Dose: 50 mls/hr Insulin Aspart (Insulin Aspart (Novolog) 100 Unit/Ml Vial) 0 unit SQ AC-TID [facility]; Protocol Last Admin: 09/01/22 12:07 Dose: Not Given Lactulose (Lactulose 20 Gm/30 Ml Cup) 20 gm PO DAILY PRN PRN Reason: Constipation Magnesium Oxide (Magnesium Oxide 400 Mg Tab) 400 mg PO DAILY [facility] Last Admin: 09/01/22 07:55 Dose: 400 mg Melatonin (Melatonin 3 Mg Tablet) 3 mg PO HS PRN PRN Reason: Insomnia Metoprolol Tartrate (Metoprolol Tartrate 25 Mg Tab) 25 mg PO TID [facility] Last Admin: 09/01/22 07:55 Dose: 25 mg Naloxone HCl (Naloxone 0.4 Mg/Ml 1 Ml Vial) 0.2 mg IV Q2M PRN PRN Reason: Opioid Reversal Ondansetron HCl (Ondansetron 4 Mg/2 Ml Vial) 4 mg IVP Q8HR PRN PRN Reason: Nausea And Vomiting Pantoprazole Sodium (Pantoprazole 40 Mg Tablet) 40 mg PO BID [facility] Last Admin: 09/01/22 07:55 Dose: 40 mg Past medical history to include: Atrial flutter fibrillation, CHF, COPD, diabetes, fibromyalgia, GERD, hypertension, hyperlipidemia, osteoarthritis, permanent pacemaker for sick sinus syndrome, TIA, diabetes type 2 with peripheral neuropathy, arthritis in multiple joints, left rotator cuff problem, chronic kidney disease, urinary incontinence, iron deficiency anemia, skin cancer that was removed, bilateral lower extremity varicosities, gout, chronic gait dysfunction does use a cane Social history: Does use a walker. Lives at [facility]. smoked for 52 years. Packs a day stopped in 2011. No alcohol. Does use CBD oral Physical examination: VITAL SIGNS: 98.7, 67, 18, 153 with 71, 94% on 3 L GENERAL: Reclining bed, comfortable EYES: Pupils equal. Conjunctiva normal. HEENT: External appearance of nose and ears normal, oral cavity grossly normal. NECK: JVD not raised; masses not palpable. HEART: First and second heart sounds are normal; no edema. LUNGS: Respiratory rate normal; clear to auscultation. ABDOMEN: Soft, nontender, liver spleen not palpable, no masses palpable. Rectal exam: Done in the presence of nurse Taylor and the daughter. Anal tags. Hemorrhoids. PSYCH: Patient answering simple questions MUSCULAR skeletal: Evidence of OA in multiple joints. INVESTIGATIONS, reviewed in the clinical context: 09/01/2022: Creatinine 1.0 08/31/2022: Creatinine 1.1 White count 7.4 hemoglobin 9.7 platelets were 92 potassium 3 BUN 60 creatinine 2.51 magnesia 1.4 Admission labs: Creatinine 3.05 EKG tracing personally reviewed by nc-paced rhythm Chest x-ray film personally reviewed by me-probable chronic interstitial fibrosis Previous labs: Creatinine 1.11 on January 2022 Assessment and plan: -Acute lower GI bleed likely hemorrhoidal. Amount is small. Also present after wiping.: Stabilized Anusol HC. -Acute kidney injury, probably prerenal from decreased oral intake and also being on diuretics. Patient is also on Prinivil.: Improved Hold diuretics. Gentle hydration. Hold NANDO inhibitor. -Chronic kidney disease stage III from diabetic nephropathy and hypertensive nephrosclerosis Baseline creatinine 1.1 -Persistent atrial flutter fibrillation. Rate controlled telemetry. eliquis 2.5 mg twice a date, resume -Chronic congestive heart failure. From diastolic dysfunction. EF 55-60%. Hold off diuretics. -COPD in a previous smoker DuoNeb -Diabetes mellitus type 2, chronically on oral hypoglycemic Levemir discontinue. sliding scale. Hold metformin. Cutback Glucotrol to 2.5 mg daily. -Diabetic peripheral neuropathy -Chronic fibromyalgia Ultram 50 mg every 6 when necessary -GERD Protonix 40 mg twice a day -Chronic urinary incontinence Vesicare 10 mg daily Hyperlipidemia Mevacor 20 mg daily at bedtime -Essential hypertension Lopressor 25 mg 3 times a day. Hold lisinopril -Primary osteoarthritis multiple joints Uses Ultram when necessary -Acute UTI with cystitis IV ceftriaxone discontinued -Chronic urinary stress incontinence Vesicare -Bilateral lower extremity varicosities Follow as outpatient -Chronic gout Allopurinol 100 mg twice a day -Moderate cognitive impairment likely from the late onset Alzheimer's dementia -Chronic gait dysfunction of the baseline patient uses a walker Fall precautions -DO NOT RESUSCITATE DC IV fluids. Decrease Glucotrol to 2.5 mg daily. Other medications to continue. Pending rehab
[2022-09-01 17:17] LABS: Glucose,Whole Blood 120 mg/dL (70-110)
[2022-09-01 19:45] VITALS: RESP 16
[2022-09-01 20:37] LABS: Glucose,Whole Blood 158 mg/dL (70-110)
[2022-09-01] MEDS: ATORVASTATIN 10 MG TAB PO SCH (21:11)
[2022-09-01] MEDS: ACETAMINOPHEN TAB 325 MG TAB PO PRN (21:17)
[2022-09-02 07:06] LABS: Glucose,Whole Blood 130 mg/dL (70-110)
[2022-09-02] MEDS: IPRATROPIUM-ALBUTEROL 3 ML NEB INHALATION SCH ×2 (07:39→11:32)
[2022-09-02] MEDS: GABAPENTIN 100 MG CAP PO SCH (07:50)
[2022-09-02] MEDS: PANTOPRAZOLE 40 MG TABLET PO SCH (07:50)
[2022-09-02] MEDS: APIXABAN 2.5 MG TABLET PO SCH (07:50)
[2022-09-02] MEDS: allopurinoL 100 MG TAB PO SCH (07:51)
[2022-09-02] MEDS: ACETAMINOPHEN TAB 325 MG TAB PO PRN (07:51)
[2022-09-02] MEDS: METOPROLOL TARTRATE 25 MG TAB PO SCH (07:51)
[2022-09-02] MEDS: HYDROCORTISONE SUPPOSITORY 25 MG SUPP RECTAL SCH (07:51)
[2022-09-02] MEDS: guaiFENesin 600 MG TABLET.ER PO SCH ×2 (07:51→13:10)
[2022-09-02] MEDS: MAGNESIUM OXIDE 400 MG TAB PO SCH (07:52)
[2022-09-02] MEDS: INSULIN ASPART (NovoLOG) 100 UNIT/ML VIAL SQ SCH ×2 (07:52→13:10)
[2022-09-02 11:25] LABS: Glucose,Whole Blood 205 mg/dL (70-110)
[2022-09-02 12:00] VITALS: BP 118/79; PULSE 59; TEMP 97.7
[2022-09-02] MEDS ORDERED: amLODIPine 5 MG TAB PO SCH (12:00)
--- NOTE | 2022-09-02 12:22 | P.PN ---
Subjective Patient is seen in follow-up for acute kidney injury on chronic kidney disease. Renal function at baseline. Creatinine 1.0 yesterday. Blood pressure stable. Patient is not a reliable historian. No changes overnight. Has external catheter. Nonoliguric. Vital signs are stable. General: Awake. No acute distress. HEENT: Head exam is unremarkable. LUNGS: Breath sounds decreased. HEART: Rate and Rhythm are regular. ABDOMEN: Soft, no distention. EXTREMITITES: No edema. Objective - Vital Signs Vital signs: Vital Signs Temp 97.7 F 09/02/22 11:18 Pulse 66 09/02/22 11:42 Resp 16 09/02/22 11:18 BP 118/79 09/02/22 11:18 Pulse Ox 96 09/02/22 11:18 FiO2 Intake & Output 09/01/22 09/02/22 09/02/22 18:59 06:59 18:59 Output Total 1100 1000 Balance -1100 -1000 Output: Urine 1100 1000 Other: Voiding Method External Catheter External Catheter External Catheter # Voids 1 - Labs CBC & Chem 7: 08/29/22 07:25 09/01/22 05:44 Labs: Abnormal Lab Results - Last 24 Hours (Table) 09/01/22 09/01/22 09/02/22 Range/Units 17:15 20:35 07:05 POC Glucose (mg/dL) 120 H 158 H 130 H (70-110) mg/dL Coronavirus (PCR) (Not Detectd) 09/02/22 09/02/22 Range/Units 11:04 11:24 POC Glucose (mg/dL) 205 H (70-110) mg/dL Coronavirus (PCR) Detected A (Not Detectd) Assessment and Plan Plan: Assessment: 1. Acute kidney injury mostly prerenal secondary to hypotension, diuretic use and further worsened with the use of NANDO inhibitor, improving with IV hydration. Creatinine 3.05 on admission and down to 1.0 yesterday. Kidneys were not visualized properly on renal ultrasound due to bowel gas. Right kidney noted to be small in size. 2. Hypokalemia secondary to poor intake. Replaced. 3. Hypomagnesemia from poor intake and use of diuretic. On oral magnesium oxide. 4. Chronic kidney disease stage IIIa secondary to nephrosclerosis. Baseline creatinine appears to be 1-1.3. 5. Hypertension with chronic kidney disease. Controlled. 6. UTI. Urine culture positive for Morganella. s/p antibiotics. 7. Iron deficiency. Status post IV iron. 8. GI bleed. Possibly hemorrhoidal bleed. Hemoglobin 11.4 dated 08/29/2022. 9. COVID-19 infection. Plan: Off IV fluids. Continue to monitor renal function and urine output. Advised follow-up with urology outpatient for frequent UTIs. Follow-up outpatient in 1-2 weeks post discharge.
--- NOTE | 2022-09-02 14:06 | P.DS ---
Providers Date of admission: 08/27/22 18:03 Expected date of discharge: 09/02/22 Attending physician: Bipin Rivera Primary care physician: David Turner [facility] Course: Chief Complaint: Blood per rectum This is a pleasant 77-year-old patient of Dr. Turner. Chronic stable medical conditions include atrial flutter fibrillation, CHF, COPD, diabetes, fibromyalgia, GERD, hypertension, hyperlipidemia, , permanent pacemaker for sick sinus syndrome, diabetes type 2 with peripheral neuropathy, arthritis of multiple joints, chronic kidney disease stage III, urinary incontinence, iron deficiency anemia , gout. At her baseline patient is unsteady and does use a walker. has cognitive impairment. Patient is accompanied by her daughter in the room. Yesterday patient was noticed to have a small amount of blood fresh with the stool. Some mucus. She is brought into the ER. In the ER posterior also had a small amount of stool with some blood. Patient denies any pain with defecation. No abdominal pain. No fever no chills. No nausea vomiting. Patient does not want any endoscopy. No prior history of endoscopy. Appetite is fair. Because of dementia patient is a limited historian. Patient does have a congested cough. Patient does have off and on. Admitted with acute GI bleed felt to be hemorrhoidal. Acute kidney injury. Given IV fluids. Anusol added. Possible UTI. On IV ceftriaxone. 08/29/2022: Reclining in bed. Comfortable. Feels a bit tired. Creatinine coming down. Length discussion with the patient and daughter at the bedside. We'll try for rehab. back shoe worker involved. 08/30/2022: Comfortable. Resting. Oral intake satisfactory. Creatinine coming down. Received IV iron. Pending authorization to rehab. 08/31/2022: Comfortable. No further lower GI bleeding reported. Awaiting authorization to rehab. Patient comfortable. Oral intake fair. 09/01/2022: Oral intake fair. Stable. Pending to go to rehab. No new issues. DC IV fluids. Cutback Glucotrol to 2.5 mg daily. From twice a day. 09/02/2022: Patient did come back positive for COVID. Breathing well. Comfortable. Has a chronic cough. Resume metformin. Glucotrol XL 5 mg with breakfast daily. Discussion and discharge planning more than 35 minutes Past medical history to include: Atrial flutter fibrillation, CHF, COPD, diabetes, fibromyalgia, GERD, hypertension, hyperlipidemia, osteoarthritis, permanent pacemaker for sick sinus syndrome, TIA, diabetes type 2 with peripheral neuropathy, arthritis in multiple joints, left rotator cuff problem, chronic kidney disease, urinary incontinence, iron deficiency anemia, skin cancer that was removed, bilateral lower extremity varicosities, gout, chronic gait dysfunction does use a cane Social history: Does use a walker. Lives at [facility]. smoked for 52 years. Packs a day stopped in 2011. No alcohol. Does use CBD oral Physical examination: VITAL SIGNS: 97.7, 59, 16, 11 8 x 79, 96% on 2 L GENERAL: Reclining bed, comfortable EYES: Pupils equal. Conjunctiva normal. HEENT: External appearance of nose and ears normal, oral cavity grossly normal. NECK: JVD not raised; masses not palpable. HEART: First and second heart sounds are normal; no edema. LUNGS: Respiratory rate normal; clear to auscultation. ABDOMEN: Soft, nontender, liver spleen not palpable, no masses palpable. Rectal exam: Done in the presence of nurse Taylor and the daughter. Anal tags. Hemorrhoids. PSYCH: Patient answering simple questions MUSCULAR skeletal: Evidence of OA in multiple joints. INVESTIGATIONS, reviewed in the clinical context: Urine culture: Morganella morganii 09/02/2022: COVID 19 positive 09/01/2022: Creatinine 1.0 08/31/2022: Creatinine 1.1 White count 7.4 hemoglobin 9.7 platelets were 92 potassium 3 BUN 60 creatinine 2 .51 magnesia 1.4 Admission labs: Creatinine 3.05 EKG tracing personally reviewed by me-paced rhythm Chest x-ray film personally reviewed by me-probable chronic interstitial fibrosis Previous labs: Creatinine 1.11 on January 2022 Assessment and plan: -Acute lower GI bleed likely hemorrhoidal. Amount is small. Also present after wiping.: Stabilized Anusol HC. -Acute kidney injury, probably prerenal from decreased oral intake and also being on diuretics. Patient is also on Prinivil.: Improved Hold diuretics. Gentle hydration. Discontinue NANDO inhibitor. -Chronic kidney disease stage III from diabetic nephropathy and hypertensive nephrosclerosis Baseline creatinine 1.1 -Persistent atrial flutter fibrillation. Rate controlled telemetry. eliquis 2.5 mg twice a date, resume -Chronic congestive heart failure. From diastolic dysfunction. EF 55-60%. Hold off diuretics. -COPD in a previous smoker DuoNeb -Diabetes mellitus type 2, chronically on oral hypoglycemic Levemir discontinue. sliding scale. Resume metformin. Glucotrol 5 mg a day -Diabetic peripheral neuropathy -Chronic fibromyalgia Ultram 50 mg every 6 when necessary -GERD Protonix 40 mg twice a day -Chronic urinary incontinence Vesicare 10 mg daily Hyperlipidemia Mevacor 20 mg daily at bedtime -Essential hypertension Lopressor 25 mg 3 times a day. Hold lisinopril -Primary osteoarthritis multiple joints Uses Ultram when necessary -Acute UTI with cystitis from Morganella morganii 90 IV ceftriaxone discontinued -Chronic urinary stress incontinence Vesicare -Bilateral lower extremity varicosities Follow as outpatient -Chronic gout Allopurinol 100 mg twice a day -Moderate cognitive impairment likely from the late onset Alzheimer's dementia -Chronic gait dysfunction of the baseline patient uses a walker Fall precautions -DO NOT RESUSCITATE Disposition: F/[facility] Patient Condition at Discharge: Good Plan - Discharge Summary Discharge Rx Participant: Yes New Discharge Prescriptions: New Hydrocortisone Suppository [Anusol-Hc] 25 mg RECTAL BID suppositor Ipratropium-Albuterol Nebulize [Duoneb 0.5 mg-3 mg/3 ml Soln] 3 ml INHALATION RT-QID each Gabapentin [Neurontin] 100 mg PO DAILY #3 cap Acetaminophen Tab [Tylenol] 650 mg PO Q6HR PRN tab PRN Reason: Mild Pain Or Fever > 100.5 Magnesium Oxide [Mag-Ox] 400 mg PO DAILY tab Melatonin 3 mg PO HS #1 tablet Continue allopurinoL [Zyloprim] 100 mg PO BID Lovastatin [Mevacor] 20 mg PO HS Pantoprazole Sodium [Protonix] 40 mg PO BID #60 tablet. Apixaban [Eliquis] 2.5 mg PO BID Metoprolol Tartrate [Lopressor] 25 mg PO TID glipiZIDE XL [Glucotrol XL] 5 mg PO W/BRKFST Calcium Carbonate [Tums] 1,000 mg PO TID PRN PRN Reason: Heartburn metFORMIN HCL [Glucophage] 500 mg PO BID Lactobacillus Acidophilus [Acidophilus Probiotic] 2 cap PO DAILY amLODIPine [Norvasc] 5 mg PO DAILY Diclofenac Sodium Gel [Voltaren Gel] 2 gm TOPICAL QID PRN PRN Reason: Pain Solifenacin Succinate [Vesicare] 10 mg PO DAILY traMADol HCL 50 mg PO HS #3 tab traMADol HCl [Ultram] 50 mg PO Q6HR PRN #12 tab PRN Reason: Pain Discontinued lisinopriL [Prinivil] 20 mg PO DAILY Furosemide [Lasix] 20 mg PO DAILY Docusate [Colace] 100 mg PO BID PRN PRN Reason: Constipation Zzzquil Melatonin Gummies 2 tab PO HS PRN PRN Reason: Insomnia Chlorthalidone 25 mg PO DAILY #30 tab Albuterol Sulfate [Albuterol Sulfate Hfa] 2 puff PO RT-QID PRN PRN Reason: Shortness Of Breath Nitrofurantoin Monohyd/M-Cryst [Macrobid] 100 mg PO Q12HR Insulin Glargine,Hum.rec.anlog [Lantus Solostar Pen] 10 units SQ HS Discharge Medication List allopurinoL [Zyloprim] 100 mg PO BID 07/05/16 [History] Lovastatin [Mevacor] 20 mg PO HS 09/13/17 [History] Pantoprazole Sodium [Protonix] 40 mg PO BID #60 tablet. 05/08/18 [Rx] Apixaban [Eliquis] 2.5 mg PO BID 06/10/19 [History] Metoprolol Tartrate [Lopressor] 25 mg PO TID 09/02/19 [History] glipiZIDE XL [Glucotrol XL] 5 mg PO W/BRKFST 09/02/19 [History] amLODIPine [Norvasc] 5 mg PO DAILY 12/28/20 [History] Calcium Carbonate [Tums] 1,000 mg PO TID PRN 01/29/22 [History] Diclofenac Sodium Gel [Voltaren Gel] 2 gm TOPICAL QID PRN 01/29/22 [History] Solifenacin Succinate [Vesicare] 10 mg PO DAILY 01/29/22 [History] metFORMIN HCL [Glucophage] 500 mg PO BID 01/29/22 [History] Lactobacillus Acidophilus [Acidophilus Probiotic] 2 cap PO DAILY 08/27/22 [History] Acetaminophen Tab [Tylenol] 650 mg PO Q6HR PRN tab 09/02/22 [Rx] Gabapentin [Neurontin] 100 mg PO DAILY #3 cap 09/02/22 [Rx] Hydrocortisone Suppository [Anusol-Hc] 25 mg RECTAL BID suppositor 09/02/22 [Rx] Ipratropium-Albuterol Nebulize [Duoneb 0.5 mg-3 mg/3 ml Soln] 3 ml INHALATION RT-QID each 09/02/22 [Rx] Magnesium Oxide [Mag-Ox] 400 mg PO DAILY tab 09/02/22 [Rx] Melatonin 3 mg PO HS #1 tablet 09/02/22 [Rx] traMADol HCL 50 mg PO HS #3 tab 09/02/22 [Rx] traMADol HCl [Ultram] 50 mg PO Q6HR PRN #12 tab 09/02/22 [Rx] Follow up Appointment(s)/Referral(s): David Turner DO [Primary Care Provider] - 1 Week
== END 2022-09-02 14:54 | DRG 682 ==
LOC: EC 14:19 → 3SCARD 18:03 → 5NMEDONC 08-30 20:03
PROVIDERS: ADMIT Hospitalist; ATTEND Hospitalist
DX: N17.9 Acute kidney failure, unspecified (principal); U07.1 COVID-19; I13.0 Hypertensive heart and chronic kidney disease with heart failure and stage 1 through stage 4 chronic kidney disease, or unspecified chronic kidney disease; F02.818 Dementia in other diseases classified elsewhere, unspecified severity, with other behavioral disturbance; I50.32 Chronic diastolic (congestive) heart failure; I48.19 Other persistent atrial fibrillation; I48.92 Unspecified atrial flutter; N30.00 Acute cystitis without hematuria; E11.649 Type 2 diabetes mellitus with hypoglycemia without coma; D63.1 Anemia in chronic kidney disease; G30.1 Alzheimer's disease with late onset; I95.9 Hypotension, unspecified; I49.5 Sick sinus syndrome; E11.22 Type 2 diabetes mellitus with diabetic chronic kidney disease; E11.42 Type 2 diabetes mellitus with diabetic polyneuropathy; N18.32 Chronic kidney disease, stage 3b; J44.9 Chronic obstructive pulmonary disease, unspecified; Z79.4 Long term (current) use of insulin; Z66 Do not resuscitate; K64.9 Unspecified hemorrhoids; R26.9 Unspecified abnormalities of gait and mobility; B96.4 Proteus (mirabilis) (morganii) as the cause of diseases classified elsewhere; E83.42 Hypomagnesemia; E87.6 Hypokalemia; M79.7 Fibromyalgia; E78.5 Hyperlipidemia, unspecified; N39.3 Stress incontinence (female) (male); D50.9 Iron deficiency anemia, unspecified; G47.00 Insomnia, unspecified; K21.9 Gastro-esophageal reflux disease without esophagitis; K59.00 Constipation, unspecified; M19.042 Primary osteoarthritis, left hand; M19.041 Primary osteoarthritis, right hand; M17.0 Bilateral primary osteoarthritis of knee; I83.93 Asymptomatic varicose veins of bilateral lower extremities; M1A.9XX0 Chronic gout, unspecified, without tophus (tophi); Z79.01 Long term (current) use of anticoagulants; Z79.84 Long term (current) use of oral hypoglycemic drugs; Z79.891 Long term (current) use of opiate analgesic; Z79.899 Other long term (current) drug therapy; Z95.0 Presence of cardiac pacemaker; Z87.891 Personal history of nicotine dependence; Z85.828 Personal history of other malignant neoplasm of skin; Z87.440 Personal history of urinary (tract) infections; Z86.73 Personal history of transient ischemic attack (TIA), and cerebral infarction without residual deficits; Z88.6 Allergy status to analgesic agent; Z88.1 Allergy status to other antibiotic agents
CPT/HCPCS: 36415; 71046; 76770; 80048; 80053; 81001; 82272; 82728; 83036; 83540; 83550; 83735; 84484; 85025; 85610; 85730; 86850; 86900; 86901; 87077; 87086; 87186; 87635; 93005; 94640; 94760; 96365; 96375; 99285

== ENCOUNTER 2023-11-07 09:51 | Emergency (ER) | payer MEDICARE ==
[2023-11-07 10:25] VITALS: TEMP 98.1
--- NOTE | 2023-11-07 10:59 | ED ---
General Adult HPI - General Chief complaint: Fall Stated complaint: Fall Time Seen by Provider: 11/07/23 10:06 Source: patient, family, EMS, RN notes reviewed Mode of arrival: EMS Limitations: altered mental status, physical limitation - History of Present Illness Initial comments: 78-year-old female presents to the emergency department from her assisted living facility for evaluation of fall. Patient was found on the ground around 5:30 AM this morning. She was on the ground for around 1 hour or less. Patient reports that she attempted to get out of bed and she fell. She does not remember if she hit her head. She is on blood thinners. Patient has bruising to nose. - Related Data Home Medications Medication Instructions Recorded Confirmed allopurinoL [Zyloprim] 100 mg PO BID 07/05/16 11/07/23 Lovastatin [Mevacor] 20 mg PO HS 09/13/17 11/07/23 Apixaban [Eliquis] 2.5 mg PO BID 06/10/19 11/07/23 Metoprolol Tartrate [Lopressor] 25 mg PO TID 09/02/19 11/07/23 glipiZIDE XL [Glucotrol XL] 5 mg PO W/BRKFST 09/02/19 11/07/23 amLODIPine [Norvasc] 5 mg PO DAILY 12/28/20 11/07/23 Calcium Carbonate [Tums] 1,000 mg PO TID PRN 01/29/22 11/07/23 Diclofenac Sodium Gel [Voltaren 1% 2 gm TOPICAL QID PRN 01/29/22 11/07/23 Gel] Solifenacin Succinate [Vesicare] 10 mg PO DAILY 01/29/22 11/07/23 metFORMIN HCL [Glucophage] 500 mg PO BID 01/29/22 11/07/23 Lactobacillus Acidophilus 2 cap PO DAILY 08/27/22 11/07/23 [Acidophilus Probiotic] Acetaminophen-Codeine 300-30mg 1 tab PO Q4H PRN 11/07/23 11/07/23 [Tylenol w/codeine #3] Albuterol Sulfate [Albuterol 2 puff PO RT-QID PRN 11/07/23 11/07/23 Sulfate Hfa] Chlorhexidine Gluconate [Peridex] 15 ml PO BID 11/07/23 11/07/23 Chlorthalidone [Hygroton] 25 mg PO DAILY 11/07/23 11/07/23 Cholecalciferol [Vitamin D3 (25 25 mcg PO DAILY 11/07/23 11/07/23 Mcg = 1000 Iu)] Docusate Sodium [Dok] 100 mg PO BID PRN 11/07/23 11/07/23 Insulin Glargine,Hum.rec.anlog 10 units SQ HS 11/07/23 11/07/23 [Lantus Solostar Pen] Sennosides/Docusate Sodium [Senna 1 cap PO BID 11/07/23 11/07/23 Plus 8.6-50 mg Softgel] Zzzquil Gummies 2 tab PO HS PRN 11/07/23 11/07/23 lisinopriL [Zestril] 20 mg PO DAILY 11/07/23 11/07/23 Previous Rx's Medication Instructions Recorded Pantoprazole Sodium [Protonix] 40 mg PO BID #60 tablet. 05/08/18 Ipratropium-Albuterol Nebulize 3 ml INHALATION RT-QID each 09/02/22 [Duoneb 0.5 mg-3 mg/3 ml Soln] Magnesium Oxide [Mag-Ox] 400 mg PO DAILY tab 09/02/22 traMADol HCL 50 mg PO HS #3 tab 09/02/22 traMADol HCl [Ultram] 50 mg PO Q6HR PRN #12 tab 09/02/22 Allergies Allergy/AdvReac Type Severity Reaction Status Date / Time erythromycin base Allergy Severe TONGUE Verified 11/07/23 11:15 SWELLS gatifloxacin [From Tequin] Allergy Severe TONGUE Verified 11/07/23 11:15 SWELLS levofloxacin Allergy Unknown Verified 11/07/23 11:15 aspirin AdvReac Nausea Verified 11/07/23 11:15 Review of Systems ROS Statement: Those systems with pertinent positive or pertinent negative responses have been documented in the HPI. ROS Other: All systems not noted in ROS Statement are negative. Past Medical History Past Medical History: Atrial Fibrillation, Atrial Flutter, Blood Disorder, Cancer, CVA/TIA, Diabetes Mellitus, Fibromyalgia, GERD/Reflux, Hyperlipidemia, Hypertension, Osteoarthritis (OA), Pneumonia, Renal Disease, Vascular Disorder Additional Past Medical History / Comment(s): 05/2019 admitted with SSS and had pacer insertion, 2011 TIA, NIDDM tyep II, neuropathy bilateral feet, arthritis bilateral hands/knees, L rotator cuff problem, bronchitis, CKD stage III, UTI, urinary leakage at times, anemia with iron infusions in the past, skin cancer with removals, varicosities bilateral legs, constipation, gout bilateral feet History of Any Multi-Drug Resistant Organisms: None Reported Past Surgical History: Appendectomy, Bladder Surgery, Breast Surgery, Hysterectomy, Tonsillectomy Additional Past Surgical History / Comment(s): 06/15/19 pacemaker, bladder suspension, bilateral breast implants, L oophorectomy, colonoscopies, skin cancer removals, L leg varicose vein stripping, cystoscopy. Past Anesthesia/Blood Transfusion Reactions: No Reported Reaction Past Psychological History: No Psychological Hx Reported Smoking Status: Former smoker Past Alcohol Use History: None Reported Past Drug Use History: None Reported - Past Family History Father History Unknown: Yes Family Medical History: Cancer Additional Family Medical History / Comment(s): Father of lung cancer in his 40s. Mother Family Medical History: No Reported History Additional Family Medical History / Comment(s): Mother is 92 yrs old. General Exam Limitations: altered mental status, physical limitation General appearance: alert, in no apparent distress Head exam: Present: other (ecchymosis to bridge of nose) Eye exam: Present: normal appearance, PERRL, EOMI. Absent: scleral icterus, conjunctival injection, periorbital swelling ENT exam: Present: mucous membranes dry Respiratory exam: Present: normal lung sounds bilaterally. Absent: respiratory distress, wheezes, rales, rhonchi, stridor Cardiovascular Exam: Present: regular rate, normal rhythm, normal heart sounds. Absent: systolic murmur, diastolic murmur, rubs, gallop, clicks GI/Abdominal exam: Present: soft, normal bowel sounds. Absent: distended, tenderness, guarding, rebound, rigid Extremities exam: Present: normal inspection, full ROM, normal capillary refill. Absent: tenderness, pedal edema, joint swelling, calf tenderness Back exam: Present: normal inspection Psychiatric exam: Present: normal affect, normal mood Skin exam: Present: warm, dry, intact, normal color. Absent: rash Course Vital Signs 11/07/23 11/07/23 11/07/23 09:53 10:48 11:58 Temperature 98.1 F Pulse Rate 72 60 66 Respiratory 18 18 18 Rate Blood Pressure 151/84 174/86 172/82 O2 Sat by Pulse 95 95 98 Oximetry 11/07/23 14:47 Temperature Pulse Rate 73 Respiratory 17 Rate Blood Pressure 148/85 O2 Sat by Pulse 96 Oximetry Medical Decision Making - Medical Decision Making Was pt. sent in by a medical professional or institution ([facility] Cohen, [facility], urgent care, hospital, or jail...) When possible be specific @ -No Did you speak to anyone other than the patient for history (EMS, parent, family, police, friend...)? What history was obtained from this source @ -Patient's son accompanying her Did you review nursing and triage notes (agree or disagree)? Why? @ -I reviewed and agree with nursing and triage notes Were old charts reviewed (outside hosp., previous admission, EMS record, old EKG, old radiological studies, urgent care reports/EKG's, jail records)? Report findings @ -No old charts were reviewed Differential Diagnosis (chest pain, altered mental status, abdominal pain women, abdominal pain men, vaginal bleeding, weakness, fever, dyspnea, syncope, headache, dizziness, GI bleed, back pain, seizure, CVA, palpatations, mental health, musculoskeletal)? @ -Fall, head injury, elbow fracture, this is not all inclusive EKG interpreted by me (3pts min.). @ -EKG at 1020 shows sinus rhythm rate 61, MD 241, QRS 126, QT/QTc 476/479 X-rays interpreted by me (1pt min.). @ -Shoulder, hip, elbow x-rays obtained on the right show no evidence of acute fracture, joint effusion present on the elbow CT interpreted by me (1pt min.). @ -CT brain and C-spine obtained which shows no acute intracranial process, no acute C-spine fracture or traumatic malalignment U/S interpreted by me (1pt. min.). @ -None done What testing was considered but not performed or refused? (CT, X-rays, U/S, labs)? Why? @ -None What meds were considered but not given or refused? Why? @ -None Did you discuss the management of the patient with other professionals (professionals i.e. , DEEPA, [employer] [employer], lab, RT, psych nurse, psychosocial rehabilitation counselor, material planner, teacher, immigration services officer, pillowcase cutter)? Give summary @ -No Was smoking cessation discussed for >3mins.? @ -No Was critical care preformed (if so, how long)? @ -No Were there social determinants of health that impacted care today? How? (Homelessness, low income, unemployed, alcoholism, drug addiction, transportation, low edu. Level, literacy, decrease access to med. care, usp, rehab)? @ -No Was there de-escalation of care discussed even if they declined (Discuss DNR or withdrawal of care, Hospice)? DNR status @ -No What co-morbidities impacted this encounter? (DM, HTN, Smoking, COPD, CAD, Cancer, CVA, ARF, Chemo, Hep., AIDS, mental health diagnosis, sleep apnea, morbid obesity)? @ -None Was patient admitted / discharged? Hospital course, mention meds given and route, prescriptions, significant lab abnormalities, going to OR and other pe rtinent info. @ -Discharged. Patient presented to the emergency department for evaluation of fall. Patient comes in from her assisted living facility. X-rays were obtained which show no acute fracture. X-ray of the elbow shows joint effusions present on the elbow. Patient will be placed in a long-arm splint. CT brain and C- spine obtained which shows no acute intracranial process, no acute C-spine fracture or traumatic malalignment. Discussed with case management the possibility of home health care. Patient will need to have an appointment with her PCP to set this up. An appointment was set up for her primary care provider. Patient will be discharged back to her assisted living facility. Patient family understand agreeable with plan. Patient stable at time of discharge. Case discussed with Dr. Hudson Undiagnosed new problem with uncertain prognosis? @ -No Drug Therapy requiring intensive monitoring for toxicity (Heparin, Nitro, Insulin, Cardizem)? @ -No Were any procedures done? @ -No Diagnosis/symptom? @ -Fall Acute, or Chronic, or Acute on Chronic? @ -acute Uncomplicated (without systemic symptoms) or Complicated (systemic symptoms)? @ -uncomplicated Side effects of treatment? @ -No Exacerbation, Progression, or Severe Exacerbation? @ -No Poses a threat to life or bodily function? How? (Chest pain, USA, MD, pneumonia, PE, COPD, DKA, ARF, appy, cholecystitis, CVA, Diverticulitis, Homicidal, Suicidal, threat to staff... and all critical care pts) @ -No - Lab Data Result diagrams: 11/07/23 10:51 11/07/23 10:51 Lab Results 11/07/23 11/07/23 11/07/23 Range/Units 10:51 10:51 10:51 WBC 9.9 (3.8-10.6) k/uL RBC 4.16 (3.80-5.40) m/uL Hgb 12.1 (11.4-16.0) gm/dL Hct 37.7 (34.0-46.0) % MCV 90.6 (80.0-100.0) fL MCH 29.1 (25.0-35.0) pg MCHC 32.1 (31.0-37.0) g/dL RDW 16.6 H (11.5-15.5) % Plt Count 230 (150-450) k/uL MPV 8.0 Neutrophils % 81 % Lymphocytes % 10 % Monocytes % 6 % Eosinophils % 1 % Basophils % 0 % Neutrophils # 8.0 H (1.3-7.7) k/uL Lymphocytes # 1.0 (1.0-4.8) k/uL Monocytes # 0.6 (0-1.0) k/uL Eosinophils # 0.1 (0-0.7) k/uL Basophils # 0.0 (0-0.2) k/uL Anisocytosis Slight PT 11.4 (10.0-12.5) sec INR 1.1 (<1.2) APTT 25.9 (22.0-30.0) sec Sodium 140 (137-145) mmol/L Potassium 3.8 (3.5-5.1) mmol/L Chloride 106 (98-107) mmol/L Carbon Dioxide 25 (22-30) mmol/L Anion Gap 9 mmol/L BUN 37 H (7-17) mg/dL Creatinine 1.07 H (0.52-1.04) mg/dL Est GFR (CKD-EPI)AfAm 58 (>60 ml/min/1.73 sqM) Est GFR (CKD-EPI)NonAf 50 (>60 ml/min/1.73 sqM) Glucose 124 H (74-99) mg/dL Calcium 9.6 (8.4-10.2) mg/dL Total Bilirubin 0.8 (0.2-1.3) mg/dL AST 20 (14-36) U/L ALT 13 (4-34) U/L Alkaline Phosphatase 58 (38-126) U/L Total Protein 7.2 (6.3-8.2) g/dL Albumin 4.1 (3.5-5.0) g/dL Disposition Clinical Impression: Fall, Head injury, Elbow pain Disposition: HOME SELF-CARE Condition: Stable Instructions (If sedation given, give patient instructions): Fall Prevention (ED) Additional Instructions: Please follow up with Dr. Turner to set up home care and orthopedics for elbow evaluation. Return to the emergency department for new or worsening symptoms. Is patient prescribed a controlled substance at d/c from ED?: No Referrals: David Turner DO [Primary Care Provider] - 11/12/23 12:00 pm (Office would like you to see them prior to home care orders. ) Lamin Herring MD [Medical Doctor] - 1-2 days Time of Disposition: 14:43
[2023-11-07 11:17] LABS: Anisocytosis Slight; Basophils % (A) 0 %; Eosinophils # (A) 0.1 k/uL (0-0.7); Eosinophils % (A) 1 %; HCT 37.7 % (34.0-46.0); HGB 12.1 gm/dL (11.4-16.0); Lymphocytes % (A) 10 %; MCH 29.1 pg (25.0-35.0); MCHC 32.1 g/dL (31.0-37.0); MCV 90.6 fL (80.0-100.0); Monocytes # (A) 0.6 k/uL (0-1.0); Monocytes % (A) 6 %; Neutrophils % (A) 81 %; Platelet Count 230 k/uL (150-450); RBC 4.16 m/uL (3.80-5.40); RDW 16.6 % (11.5-15.5); WBC 9.9 k/uL (3.8-10.6)
[2023-11-07 11:49] LABS: ALT 13 U/L (4-34); AST 20 U/L (14-36); African American GFR (CKD) 58 (>60 ml/min/1.73 sqM); Albumin 4.1 g/dL (3.5-5.0); Alkaline Phosphatase 58 U/L (38-126); Anion Gap 9 mmol/L; Blood Urea Nitrogen 37 mg/dL (7-17); Calcium 9.6 mg/dL (8.4-10.2); Carbon Dioxide 25 mmol/L (22-30); Chloride 106 mmol/L (98-107); Glucose 124 mg/dL (74-99); Non-African American GFR(CKD) 50 (>60 ml/min/1.73 sqM); Potassium 3.8 mmol/L (3.5-5.1); Sodium 140 mmol/L (137-145); Total Bilirubin 0.8 mg/dL (0.2-1.3); Total Protein 7.2 g/dL (6.3-8.2)
--- NOTE | 2023-11-07 11:58 | CT ---
EXAMINATION TYPE: CT brain cspine wo con, CT facial bones wo con DATE OF EXAM: 11/07/2023 COMPARISON: None available. HISTORY: Fall on thinners. CT DLP: 906.4 mGycm Automated exposure control for dose reduction was used. TECHNIQUE: CT scan of the head and cervical spine are performed without contrast. FINDINGS: There is no acute intracranial hemorrhage, mass effect, or midline shift identified. The ventricles and sulci are within normal limits in size. The globes are intact and the visualized sin uses are clear. Age-related atrophy is noted. Cervical spine is visualized in its entirety from C1 through upper thoracic levels and demonstrates s atisfactory alignment without evidence of acute fracture or dislocation. Prevertebral soft tissue ap pears within normal limits. The C1-C2 articulation is unremarkable. No facial bone fractures are seen. IMPRESSION: 1. There is no acute fracture or dislocation evident in the cervical spine. 2. No acute intracranial hemorrhage, mass effect, or midline shift is seen. 3. No definitive facial fractures identified.
[2023-11-07 12:25] LABS: INR 1.1 (<1.2); Partial Thromboplastin Time 25.9 sec (22.0-30.0); Prothrombin Time 11.4 sec (10.0-12.5)
--- NOTE | 2023-11-07 12:54 | XR ---
EXAMINATION TYPE: XR shoulder 3 views complete RT, XR Hip 2 views RT and AP Pelvis, XR elbow complete 3 views RT DATE OF EXAM: 11/07/2023 Comparison: None Clinical History: 78-year-old female with pain after fall Findings: Right shoulder: Mild degenerative change AC joint. Moderate degenerative changes lateral humeral joint with degenerat juan manuel spurring, subarticular bony irregularity, joint space narrowing. Some sclerosis is present at the greater tuberosity. No evident narrowing of the subacromial space. No acute fracture, subluxation, d islocation. Right elbow: There is underlying elbow joint effusion but no acute fracture, subluxation, or dislocation seen. Chr onic corticated ossific density along the lateral aspect of the elbow suggesting sequela of old injur y to the common extensor tendon origin. Pelvis and right hip: Mild degenerative change bilaterally. Limited by osteopenia. A metal clip is present in the left para median upper pelvis. Moderate to large stool in the rectum. Vascular calcifications noted. No displac ed fracture identified. Impression: 1. Right shoulder: Mild AC joint OA. Moderate glenohumeral joint OA. No acute osseous abnormality see n. 2. Right elbow: Underlying elbow joint effusion which may be reactive to the patient's injury or coul d reflect occult internal derangement. No acute osseous abnormality seen. Consider follow-up in 10-14 days to reassess. If symptoms warrant, MRI can also be considered. 3. Pelvis and right hip: Osteopenia with mild bilateral hip OA. No displaced fracture identified.
[2023-11-07 15:07] VITALS: BP 148/85; PULSE 73; RESP 17
== END 2023-11-07 15:31 | disposition home or self-care (01) ==
LOC: EC 09:51
DX: S00.33XA Contusion of nose, initial encounter (principal); S09.90XA Unspecified injury of head, initial encounter; M25.521 Pain in right elbow; I44.0 Atrioventricular block, first degree; I48.91 Unspecified atrial fibrillation; E78.5 Hyperlipidemia, unspecified; E11.22 Type 2 diabetes mellitus with diabetic chronic kidney disease; I12.9 Hypertensive chronic kidney disease with stage 1 through stage 4 chronic kidney disease, or unspecified chronic kidney disease; N18.30 Chronic kidney disease, stage 3 unspecified; Z87.891 Personal history of nicotine dependence; Z79.899 Other long term (current) drug therapy; Z79.84 Long term (current) use of oral hypoglycemic drugs; Z79.4 Long term (current) use of insulin; Z79.01 Long term (current) use of anticoagulants; Z88.1 Allergy status to other antibiotic agents; Z88.8 Allergy status to other drugs, medicaments and biological substances; W06.XXXA Fall from bed, initial encounter
CPT/HCPCS: 36415; 70450; 70486; 72125; 73502; 80053; 85025; 85610; 85730; 93005; 99285

== ENCOUNTER 2023-12-18 10:49 | Inpatient (IN) | payer MEDICARE ==
[2023-12-18] MEDS: PANTOPRAZOLE 40 MG/10 ML VIAL IVP STA (11:48)
[2023-12-18] MEDS: METOPROLOL TARTRATE 5 MG/5 ML VIAL IVP STA (11:53)
[2023-12-18] MEDS: ONDANSETRON 4 MG/2 ML VIAL IVP STA (11:53)
[2023-12-18 11:57] LABS: INR 1.1 (<1.2); Partial Thromboplastin Time 24.9 sec (22.0-30.0); Prothrombin Time 11.5 sec (10.0-12.5)
[2023-12-18 12:07] LABS: Anisocytosis Slight; Basophils % (A) 0 %; Eosinophils # (A) 0.1 k/uL (0-0.7); Eosinophils % (A) 1 %; HCT 45.5 % (34.0-46.0); HGB 14.1 gm/dL (11.4-16.0); Lymphocytes # (A) 0.5 k/uL (1.0-4.8); Lymphocytes % (A) 4 %; MCH 28.8 pg (25.0-35.0); MCHC 31.1 g/dL (31.0-37.0); MCV 92.8 fL (80.0-100.0); Mean Platelet Volume 8.9; Monocytes # (A) 0.6 k/uL (0-1.0); Monocytes % (A) 5 %; Neutrophils # (A) 10.7 k/uL (1.3-7.7); Neutrophils % (A) 89 %; Platelet Count 242 k/uL (150-450); RDW 16.1 % (11.5-15.5); WBC 11.9 k/uL (3.8-10.6)
[2023-12-18] MEDS: SODIUM CHLORIDE 0.9% 1,000 ML IV STA ×2 (12:07→15:02)
[2023-12-18 12:15] LABS: ALT 12 U/L (4-34); AST 19 U/L (14-36); African American GFR (CKD) 48 (>60 ml/min/1.73 sqM); Albumin 4.2 g/dL (3.5-5.0); Alkaline Phosphatase 71 U/L (38-126); Amylase 46 U/L (30-110); Anion Gap 12 mmol/L; Blood Urea Nitrogen 41 mg/dL (7-17); Calcium 9.6 mg/dL (8.4-10.2); Carbon Dioxide 27 mmol/L (22-30); Chloride 102 mmol/L (98-107); Glucose 173 mg/dL (74-99); Lipase 68 U/L (23-300); Non-African American GFR(CKD) 42 (>60 ml/min/1.73 sqM); Sodium 141 mmol/L (137-145); Total Protein 7.5 g/dL (6.3-8.2)
--- NOTE | 2023-12-18 13:11 | CT ---
EXAMINATION TYPE: CT brain wo con CT DLP: 1138.4 mGycm, Automated exposure control for dose reduction was used. DATE OF EXAM: 12/18/2023 1:00 PM COMPARISON: 11/07/2023. CLINICAL INDICATION:Female, 78 years old with history of confusion, Altered mental status TECHNIQUE: Brain: Axial CT images of the brain were obtained with coronal and sagittal reformats created and rev iewed. Contrast used: None. Oral contrast used: None. FINDINGS: Brain: FINDINGS: There is no acute intracranial hemorrhage, mass effect, or midline shift identified. The ventricles and sulci are within normal limits in size. The globes are intact and the visualized sinuses are clear. Age-related atrophy is noted. IMPRESSION: No acute intracranial process.
--- NOTE | 2023-12-18 13:14 | XR ---
EXAMINATION TYPE: XR chest 2V DATE OF EXAM: 12/18/2023 COMPARISON: 08/28/2022 INDICATION: Abdominal pain and acute mental status changes TECHNIQUE: Frontal and lateral views of the chest are obtained. FINDINGS: The heart size is normal. Asymmetric overlies left chest The pulmonary vasculature is somewhat prominent. The lungs are clear. Degenerative changes at the left shoulder. IMPRESSION: 1. No acute pulmonary process. Follow-up can be performed as clinically indicated
--- NOTE | 2023-12-18 13:43 | CT ---
EXAMINATION TYPE: CT abdomen pelvis w con CT DLP: 759.1 mGycm, Automated exposure control for dose reduction was used. DATE OF EXAM: 12/18/2023 1:00 PM COMPARISON: CT abdomen pelvis most recent from CLINICAL INDICATION:Female, 78 years old with history of abdominal pain; vomiting TECHNIQUE: Axial CT abdomen pelvis w con;Sagittal and coronal reformats were created on a separate w orkstation. Contrast used:80 mL of Isovue 300 with IV Contrast, (none if empty) Oral contrast used: without Oral Contrast (none if empty) FINDINGS: LOWER CHEST: Atelectasis or airspace disease in the dependent right lung base. ABDOMEN LIVER: Unremarkable GALLBLADDER AND BILE DUCTS: Unremarkable. PANCREAS: Unremarkable. SPLEEN: Unremarkable. ADRENAL GLANDS: Unremarkable. KIDNEYS AND URETERS: No evidence of hydronephrosis or renal calculus. The ureters are unremarkable. PELVIS BLADDER: Unremarkable REPRODUCTIVE: Unremarkable. ABDOMEN & PELVIS STOMACH AND BOWEL: Mildly fluid-filled and mildly dilated numerous loops of small bowel are present s uggesting either ileus, enteritis or early or partial small bowel obstruction. PERITONEUM/RETROPERITONEUM: No evidence of pneumoperitoneum or free fluid. VASCULATURE: No evidence of aortic aneurysm. MUSCULOSKELETAL: No acute osseous abnormalities LYMPH NODES: No gross evidence for lymphadenopathy. SOFT TISSUE/ABDOMINAL WALL: Unremarkable IMPRESSION: 1. Mildly fluid-filled and mildly dilated numerous loops of small bowel are present suggesting eithe r ileus, enteritis or early or partial small bowel obstruction. 2. Atelectasis or airspace disease in the dependent right lung base.
[2023-12-18 13:58] LABS: Appearance,Urine Clear (Clear); Bilirubin,Urine Negative (Negative); Blood,Urine Negative (Negative); Color,Urine Light Yellow; Glucose,Urine (UA) Negative (Negative); Ketones,Urine Negative (Negative); Leukocyte Esterase,Urine Negative (Negative); Nitrite,Urine Negative (Negative); Protein,Urine Negative (Negative); Specific Gravity,Urine 1.016 (1.001-1.035); Urobilinogen,Urine <2.0 mg/dL (<2.0)
[2023-12-18] MEDS ORDERED: ACETAMINOPHEN TAB 325 MG TAB PO PRN (15:39)
[2023-12-18] MEDS ORDERED: ONDANSETRON 4 MG/2 ML VIAL IVP PRN (15:39)
[2023-12-18] MEDS ORDERED: NALOXONE 0.4 MG/ML 1 ML VIAL IV PRN (15:39)
--- NOTE | 2023-12-18 15:39 | ED ---
General Adult HPI - General Chief complaint: Altered Mental Status Stated complaint: Vomitting Time Seen by Provider: 12/18/23 15:31 Source: patient, family, EMS, RN notes reviewed, old records reviewed Mode of arrival: EMS Limitations: altered mental status - History of Present Illness Initial comments: Patient is a 78-year-old female presents emergency department after being sent from her nursing facility for vomiting of feculent material. Has a history of constipation. Has a history of dementia. Baseline is ANO x 1 to at most 2. Has a history of chronic constipation. Presents with daughter who is concerned for constipation at this time. Has been compliant with medications except for this morning due to emesis. Has been more weak over the last 5 days or so. Denies any falls per daughter. Patient otherwise acting relatively normally. Presents for further evaluation at this time. Patient's daughter states patient is DNR. - Related Data Home Medications Medication Instructions Recorded Confirmed allopurinoL [Zyloprim] 100 mg PO BID 07/05/16 12/18/23 Lovastatin [Mevacor] 20 mg PO HS 09/13/17 12/18/23 Apixaban [Eliquis] 2.5 mg PO BID 06/10/19 12/18/23 Metoprolol Tartrate [Lopressor] 25 mg PO TID 09/02/19 12/18/23 amLODIPine [Norvasc] 5 mg PO DAILY 12/28/20 12/18/23 Calcium Carbonate [Tums] 1,000 mg PO TID PRN 01/29/22 12/18/23 Diclofenac Sodium Gel [Voltaren 1% 2 gm TOPICAL QID PRN 01/29/22 12/18/23 Gel] Solifenacin Succinate [Vesicare] 10 mg PO DAILY 01/29/22 12/18/23 metFORMIN HCL [Glucophage] 500 mg PO BID 01/29/22 12/18/23 Acetaminophen-Codeine 300-30mg 1 tab PO Q4H PRN 11/07/23 12/18/23 [Tylenol w/codeine #3] Albuterol Sulfate [Albuterol 2 puff INHALATION RT-QID PRN 11/07/23 12/18/23 Sulfate Hfa] Chlorthalidone [Hygroton] 25 mg PO DAILY 11/07/23 12/18/23 Cholecalciferol [Vitamin D3 (25 25 mcg PO DAILY 11/07/23 12/18/23 Mcg = 1000 Iu)] Docusate Sodium [Dok] 100 mg PO DAILY 11/07/23 12/18/23 Zzzquil Gummies 2 tab PO HS PRN 11/07/23 12/18/23 lisinopriL [Zestril] 20 mg PO DAILY 11/07/23 12/18/23 Acidophilus-Pectin Capsule 2 cap PO DAILY 12/18/23 12/18/23 Docusate [Colace] 100 mg PO BID PRN 12/18/23 12/18/23 Pantoprazole Sodium 40 mg PO BID 12/18/23 12/18/23 Sennosides/Docusate Sodium 1 tab PO BID 12/18/23 12/18/23 [Senna-S 8.6-50 mg Tablet] Previous Rx's Medication Instructions Recorded Ipratropium-Albuterol Nebulize 3 ml INHALATION RT-QID each 09/02/22 [Duoneb 0.5 mg-3 mg/3 ml Soln] Magnesium Oxide [Mag-Ox] 400 mg PO DAILY tab 09/02/22 Allergies Allergy/AdvReac Type Severity Reaction Status Date / Time erythromycin base Allergy Severe TONGUE Verified 12/18/23 12:31 SWELLS gatifloxacin [From Tequin] Allergy Severe TONGUE Verified 12/18/23 12:31 SWELLS levofloxacin Allergy Unknown Verified 12/18/23 12:31 aspirin AdvReac Nausea Verified 12/18/23 12:31 Review of Systems ROS Statement: Those systems with pertinent positive or pertinent negative responses have been documented in the HPI. ROS Other: All systems not noted in ROS Statement are negative. Past Medical History Past Medical History: Atrial Fibrillation, Atrial Flutter, Blood Disorder, Cancer, CVA/TIA, Diabetes Mellitus, Fibromyalgia, GERD/Reflux, Hyperlipidemia, Hypertension, Osteoarthritis (OA), Pneumonia, Renal Disease, Vascular Disorder Additional Past Medical History / Comment(s): 05/2019 admitted with SSS and had pacer insertion, 2011 TIA, NIDDM tyep II, neuropathy bilateral feet, arthritis bilateral hands/knees, L rotator cuff problem, bronchitis, CKD stage III, UTI, urinary leakage at times, anemia with iron infusions in the past, skin cancer with removals, varicosities bilateral legs, constipation, gout bilateral feet History of Any Multi-Drug Resistant Organisms: None Reported Past Surgical History: Appendectomy, Bladder Surgery, Breast Surgery, Hysterectomy, Tonsillectomy Additional Past Surgical History / Comment(s): 06/15/19 pacemaker, bladder suspension, bilateral breast implants, L oophorectomy, colonoscopies, skin cancer removals, L leg varicose vein stripping, cystoscopy. Past Anesthesia/Blood Transfusion Reactions: No Reported Reaction Past Psychological History: No Psychological Hx Reported Smoking Status: Former smoker Past Alcohol Use History: None Reported Past Drug Use History: None Reported - Past Family History Father History Unknown: Yes Family Medical History: Cancer Additional Family Medical History / Comment(s): Father of lung cancer in his 40s. Mother Family Medical History: No Reported History Additional Family Medical History / Comment(s): Mother is 92 yrs old. General Exam - General Exam Comments Initial Comments: General: Appears in no acute distress. HEAD: Normal with no signs of head trauma. EYES: PERRLA, EOMI, conjunctiva normal, no discharge. Pulls are 3 mm and equal bilaterally. ENT: Hearing grossly intact, normal oropharynx. RESPIRATORY: Clear breath sounds bilaterally. No wheezes, rales, or rhonchi. C/V: Irregular rate and rhythm. S1 and S2 auscultated, no edema, peripheral pulses 2+ and intact throughout ABD: Abd is soft, nontender, nondistended. No obvious masses. No obvious pain. EXT: Normal range of motion, no obvious deformity SKIN: No rashes or lesions observed on exposed skin. NEURO: Alert and oriented x 1. Moving all 4 extremities. Limitations: altered mental status Course Vital Signs 12/18/23 12/18/23 12/18/23 10:56 11:18 12:09 Temperature 97.9 F Pulse Rate 110 H 125 H 87 Respiratory 16 18 16 Rate Blood Pressure 133/106 121/91 134/83 O2 Sat by Pulse 92 L 79 L Oximetry 12/18/23 12/18/23 13:24 14:21 Temperature Pulse Rate 86 112 H Respiratory 18 20 Rate Blood Pressure 147/110 121/73 O2 Sat by Pulse 96 100 Oximetry Medical Decision Making - Medical Decision Making Was pt. sent in by a medical professional or institution (, PA, GRINDING MILL OPERATOR, urgent care, hospital, or [facility]...) When possible be specific @ -Sent from [facility] over concern for vomiting brown emesis. Did you speak to anyone other than the patient for history (EMS, parent, family, police, friend...)? What history was obtained from this source @ -Patient's daughter is the primary historian. Did you review nursing and triage notes (agree or disagree)? Why? @ -I reviewed and agree with nursing and triage notes Were old charts reviewed (outside hosp., previous admission, EMS record, old EKG, old radiological studies, urgent care reports/EKG's, [facility] records)? Report findings @ -Old charts reviewed Differential Diagnosis (chest pain, altered mental status, abdominal pain women, abdominal pain men, vaginal bleeding, weakness, fever, dyspnea, syncope, headache, dizziness, GI bleed, back pain, seizure, CVA, palpatations, mental health, musculoskeletal)? @ -Differential Abdominal Pain Women: Appendicitis, Cholecystitis, diverticulosis, ischemic bowel, pancreatitis, hepatitis, UTI, gastroenteritis, AAA, incarcerated hernia, bowel obstruction, constipation, inflammatory bowel, hepatitis, peptic ulcer disease, splenic infarction, perforated viscus, vulvitis, ovarian torsion, PID, kidney stone, placenta abruption, this is not meant to be an all-inclusive list EKG interpreted by me (3pts min.). @ -As above X-rays interpreted by me (1pt min.). @ -Chest x-ray reveals no obvious acute cardiopulmonary process. CT interpreted by me (1pt min.). @ -Brain CT shows no obvious acute intracranial process. CT abdomen pelvis shows possible enteritis versus ileus versus partial small bowel obstruction. Patient is constipated. U/S interpreted by me (1pt. min.). @ -None done What testing was considered but not performed or refused? (CT, X-rays, U/S, labs)? Why? @ -None What meds were considered but not given or refused? Why? @ -None Did you discuss the management of the patient with other professionals (professionals i.e. , PA, GRINDING MILL OPERATOR, lab, RT, psych nurse, social insurance specialist, air conditioning mechanic industrial, teacher, lead security officer, wrapper caser)? Give summary @ -Discussed with Dr. Smith who reviewed imaging and was in agreement with plan for bowel rest, IV fluid hydration, as well as treatment of constipation. Discussed with admitting physician Dr. Rivera who accepted the admission. Was smoking cessation discussed for >3mins.? @ -No Was critical care preformed (if so, how long)? @ -No Were there social determinants of health that impacted care today? How? (Homelessness, low income, unemployed, alcoholism, drug addiction, transportation, low edu. Level, literacy, decrease access to med. care, custodial, rehab)? @ -No Was there de-escalation of care discussed even if they declined (Discuss DNR or withdrawal of care, Hospice)? DNR status @ -Confirmed DNR status. Confirmed with the patient's daughter who is at bedside What co-morbidities impacted this encounter? (DM, HTN, Smoking, COPD, CAD, Cancer, CVA, ARF, Chemo, Hep., AIDS, mental health diagnosis, sleep apnea, morbid obesity)? @ -Dementia Was patient admitted / discharged? Hospital course, mention meds given and route, prescriptions, significant lab abnormalities, going to OR and other pertinent info. @ -Based on patient's presentation and physical exam, I am concerned for possible small bowel obstruction or other intra-abdominal pathology at this time. We will obtain abdominal labs, CT imaging, brain CT. Patient will be given IV fluids. She is currently in A-fib with RVR she did not take her morning metoprolol. I will provide her with a dose of IV metoprolol 1 time. Patient's daughter and patient were in agreement this plan. She is at her baseline mental status but cannot provide any additional history. Laboratory studies are all within acceptable limits except for slight white count of 11.9. EKG shows A-fib with RVR. CT brain unremarkable. CT abdomen pelvis shows enteritis versus ileus versus partial small bowel obstruction. Also shows constipation. Chest x-ray unremarkable. On reevaluation, patient's vital signs is improved after metoprolol a dministration. Patient was slightly hypoxic however is chronically mildly hypoxic and has as needed oxygen at her facility. Hypoxia proved on her baseline 2 L nasal cannula. Discussed results with the patient as well as her daughter. She will be admitted to the hospital at this time for bowel rest, treatment of constipation. I discussed the plan with the on-call surgeon Dr. Smith who reviewed images and was in agreement this plan. I also spoke with the admitting physician Dr. Rivera who accepted the patient. Undiagnosed new problem with uncertain prognosis? @ -No Drug Therapy requiring intensive monitoring for toxicity (Heparin, Nitro, Insulin, Cardizem)? @ -No Were any procedures done? @ -No Diagnosis/symptom? @ -Constipation, enteritis Acute, or Chronic, or Acute on Chronic? @ -Acute Uncomplicated (without systemic symptoms) or Complicated (systemic symptoms)? @ -Complicated Side effects of treatment? @ -No Exacerbation, Progression, or Severe Exacerbation? @ -No Poses a threat to life or bodily function? How? (Chest pain, [place], [place], pneumonia, PE, COPD, DKA, ARF, appy, cholecystitis, CVA, Diverticulitis, Homicidal, Suicidal, threat to staff... and all critical care pts) @ -Yes Diagnosis/symptom? @ -Atrial fibrillation Acute, or Chronic, or Acute on Chronic? @ -Chronic Uncomplicated (without systemic symptoms) or Complicated (systemic symptoms)? @ -Uncomplicated Side effects of treatment? @ -None Exacerbation, Progression, or Severe Exacerbation] @ -No Poses a threat to life or bodily function? @ -No - Lab Data Result diagrams: 12/18/23 11:33 12/18/23 11:33 Lab Results 12/18/23 12/18/23 12/18/23 Range/Units 11:33 11:33 11:33 WBC 11.9 H (3.8-10.6) k/uL RBC 4.90 (3.80-5.40) m/uL Hgb 14.1 (11.4-16.0) gm/dL Hct 45.5 (34.0-46.0) % MCV 92.8 (80.0-100.0) fL MCH 28.8 (25.0-35.0) pg MCHC 31.1 (31.0-37.0) g/dL RDW 16.1 H (11.5-15.5) % Plt Count 242 (150-450) k/uL MPV 8.9 Neutrophils % 89 % Lymphocytes % 4 % Monocytes % 5 % Eosinophils % 1 % Basophils % 0 % Neutrophils # 10.7 H (1.3-7.7) k/uL Lymphocytes # 0.5 L (1.0-4.8) k/uL Monocytes # 0.6 (0-1.0) k/uL Eosinophils # 0.1 (0-0.7) k/uL Basophils # 0.0 (0-0.2) k/uL Anisocytosis Slight PT 11.5 (10.0-12.5) sec INR 1.1 (<1.2) APTT 24.9 (22.0-30.0) sec Sodium (137-145) mmol/L Potassium (3.5-5.1) mmol/L Chloride (98-107) mmol/L Carbon Dioxide (22-30) mmol/L Anion Gap mmol/L BUN (7-17) mg/dL Creatinine (0.52-1.04) mg/dL Est GFR (CKD-EPI)AfAm (>60 ml/min/1.73 sqM) Est GFR (CKD-EPI)NonAf (>60 ml/min/1.73 sqM) Glucose (74-99) mg/dL Plasma Lactic Acid Ariel (0.7-2.0) mmol/L Calcium (8.4-10.2) mg/dL Total Bilirubin (0.2-1.3) mg/dL AST (14-36) U/L ALT (4-34) U/L Alkaline Phosphatase (38-126) U/L Total Protein (6.3-8.2) g/dL Albumin (3.5-5.0) g/dL Amylase (30-110) U/L Lipase (23-300) U/L Urine Color Light Yellow Urine Appearance Clear (Clear) Urine pH 7.0 (5.0-8.0) Ur Specific [place] 1.016 (1.001-1.035) Urine Protein Negative (Negative) Urine Glucose (UA) Negative (Negative) Urine Ketones Negative (Negative) Urine Blood Negative (Negative) Urine Nitrite Negative (Negative) Urine Bilirubin Negative (Negative) Urine Urobilinogen <2.0 (<2.0) mg/dL Ur Leukocyte Esterase Negative (Negative) Influenza Type A (PCR) (Not Detectd) Influenza Type B (PCR) (Not Detectd) RSV (PCR) (Not Detectd) SARS-CoV-2 (PCR) (Not Detectd) 12/18/23 12/18/23 12/18/23 Range/Units 11:33 11:33 11:33 WBC (3.8-10.6) k/uL RBC (3.80-5.40) m/uL Hgb (11.4-16.0) gm/dL Hct (34.0-46.0) % MCV (80.0-100.0) fL MCH (25.0-35.0) pg MCHC (31.0-37.0) g/dL RDW (11.5-15.5) % Plt Count (150-450) k/uL MPV Neutrophils % % Lymphocytes % % Monocytes % % Eosinophils % % Basophils % % Neutrophils # (1.3-7.7) k/uL Lymphocytes # (1.0-4.8) k/uL Monocytes # (0-1.0) k/uL Eosinophils # (0-0.7) k/uL Basophils # (0-0.2) k/uL Anisocytosis PT (10.0-12.5) sec INR (<1.2) APTT (22.0-30.0) sec Sodium 141 (137-145) mmol/L Potassium 4.0 (3.5-5.1) mmol/L Chloride 102 (98-107) mmol/L Carbon Dioxide 27 (22-30) mmol/L Anion Gap 12 mmol/L BUN 41 H (7-17) mg/dL Creatinine 1.24 H (0.52-1.04) mg/dL Est GFR (CKD-EPI)AfAm 48 (>60 ml/min/1.73 sqM) Est GFR (CKD-EPI)NonAf 42 (>60 ml/min/1.73 sqM) Glucose 173 H (74-99) mg/dL Plasma Lactic Acid Ariel 1.9 (0.7-2.0) mmol/L Calcium 9.6 (8.4-10.2) mg/dL Total Bilirubin 1.0 (0.2-1.3) mg/dL AST 19 (14-36) U/L ALT 12 (4-34) U/L Alkaline Phosphatase 71 (38-126) U/L Total Protein 7.5 (6.3-8.2) g/dL Albumin 4.2 (3.5-5.0) g/dL Amylase 46 (30-110) U/L Lipase 68 (23-300) U/L Urine Color Urine Appearance (Clear) Urine pH (5.0-8.0) Ur Specific [place] (1.001-1.035) Urine Protein (Negative) Urine Glucose (UA) (Negative) Urine Ketones (Negative) Urine Blood (Negative) Urine Nitrite (Negative) Urine Bilirubin (Negative) Urine Urobilinogen (<2.0) mg/dL Ur Leukocyte Esterase (Negative) Influenza Type A (PCR) Not Detected (Not Detectd) Influenza Type B (PCR) Not Detected (Not Detectd) RSV (PCR) Not Detected (Not Detectd) SARS-CoV-2 (PCR) Not Detected (Not Detectd) - EKG Data -: EKG Interpreted by Me EKG Comments: 12-lead Electrocardiogram Interpretation Note EKG was reviewed and interpreted by myself. 12-lead ECG performed at 1137 is interpreted by me as revealing atrial fibrillation with RVR at a rate of 121 beats per minute. [place] is is borderline left deviation. QRS duration is 95 ms, QTc is 395 ms.. There were no ST or T wave abnormalities to suggest myocardial ischemia or injury. R wave progression across the precordium was satisfactory. By my interpretation this EKG is non-diagnostic for acute ischemia. Disposition Clinical Impression: Constipation, Enteritis, Atrial fibrillation Disposition: ADMITTED IP TO THIS HOSP Condition: Stable Referrals: David Turner DO [Primary Care Provider] - 1-2 days Time of Disposition: 03:39
[2023-12-18] MEDS ORDERED: ALBUTEROL NEBULIZED 2.5 MG/3 ML INHALATION PRN (15:42)
[2023-12-18] MEDS ORDERED: Acetaminophen-Codeine 300-30mg TAB PO PRN (15:42)
[2023-12-18] MEDS ORDERED: DOCUSATE 100 MG CAP PO PRN (15:43)
[2023-12-18] MEDS: IPRATROPIUM-ALBUTEROL 3 ML NEB INHALATION SCH (16:29)
[2023-12-18] MEDS: MAGNESIUM CITRATE 296 ML BOTTLE PO ONE (16:33)
[2023-12-18] MEDS: SODIUM CHLORIDE 0.9% 1,000 ML IV SCH (16:40)
--- NOTE | 2023-12-18 16:49 | P.GSCN ---
History of Present Illness Consult date: 12/18/23 Reason for Consult: Vomiting History of present illness: 78-year-old female presents to the hospital with episodes of vomiting. Patient has had poor oral intake. She has had ongoing issues with constipation. Usually has a bowel movement every week or so. Patient's daughter says that the stools are quite hard and firm. Patient is usually confused. Unable to provide significant history. Not eating well because of issues with poor dentition. They have tried a variety of different stool softeners. Apparently the patient often will spit the medication out. After coming to the ER she had a CAT scan performed showing mildly dilated small bowel loops and colon. There is a large volume of feces throughout the colon. The patient's bladder is significantly distended. No definite transition point or definite obstruction seen. No rectal bleeding or melena per daughter. Mild tachycardia. Mild leukocytosis. Review of Systems ROS unobtainable: due to mental status Past Medical History Past Medical History: Atrial Fibrillation, Atrial Flutter, Blood Disorder, Cancer, CVA/TIA, Diabetes Mellitus, Fibromyalgia, GERD/Reflux, Hyperlipidemia, Hypertension, Osteoarthritis (OA), Pneumonia, Renal Disease, Vascular Disorder Additional Past Medical History / Comment(s): 05/2019 admitted with SSS and had pacer insertion, 2011 TIA, NIDDM tyep II, neuropathy bilateral feet, arthritis bilateral hands/knees, L rotator cuff problem, bronchitis, CKD stage III, UTI, urinary leakage at times, anemia with iron infusions in the past, skin cancer with removals, varicosities bilateral legs, constipation, gout bilateral feet History of Any Multi-Drug Resistant Organisms: None Reported Past Surgical History: Appendectomy, Bladder Surgery, Breast Surgery, Hysterectomy, Tonsillectomy Additional Past Surgical History / Comment(s): 06/15/19 pacemaker, bladder jesus alberto pension, bilateral breast implants, L oophorectomy, colonoscopies, skin cancer removals, L leg varicose vein stripping, cystoscopy. Past Anesthesia/Blood Transfusion Reactions: No Reported Reaction Past Psychological History: No Psychological Hx Reported Smoking Status: Former smoker Past Alcohol Use History: None Reported Past Drug Use History: None Reported - Past Family History Father History Unknown: Yes Family Medical History: Cancer Additional Family Medical History / Comment(s): Father of lung cancer in his 40s. Mother Family Medical History: No Reported History Additional Family Medical History / Comment(s): Mother is 92 yrs old. Medications and Allergies Home Medications Medication Instructions Recorded Confirmed Type allopurinoL [Zyloprim] 100 mg PO BID 07/05/16 12/18/23 History Lovastatin [Mevacor] 20 mg PO HS 09/13/17 12/18/23 History Apixaban [Eliquis] 2.5 mg PO BID 06/10/19 12/18/23 History Metoprolol Tartrate [Lopressor] 25 mg PO TID 09/02/19 12/18/23 History amLODIPine [Norvasc] 5 mg PO DAILY 12/28/20 12/18/23 History Calcium Carbonate [Tums] 1,000 mg PO TID PRN 01/29/22 12/18/23 History Diclofenac Sodium Gel [Voltaren 1% 2 gm TOPICAL QID PRN 01/29/22 12/18/23 History Gel] Solifenacin Succinate [Vesicare] 10 mg PO DAILY 01/29/22 12/18/23 History metFORMIN HCL [Glucophage] 500 mg PO BID 01/29/22 12/18/23 History Ipratropium-Albuterol Nebulize 3 ml INHALATION RT-QID each 09/02/22 12/18/23 Rx [Duoneb 0.5 mg-3 mg/3 ml Soln] Magnesium Oxide [Mag-Ox] 400 mg PO DAILY tab 09/02/22 12/18/23 Rx Acetaminophen-Codeine 300-30mg 1 tab PO Q4H PRN 11/07/23 12/18/23 History [Tylenol w/codeine #3] Albuterol Sulfate [Albuterol 2 puff INHALATION RT-QID PRN 11/07/23 12/18/23 History Sulfate Hfa] Chlorthalidone [Hygroton] 25 mg PO DAILY 11/07/23 12/18/23 History Cholecalciferol [Vitamin D3 (25 25 mcg PO DAILY 11/07/23 12/18/23 History Mcg = 1000 Iu)] Docusate Sodium [Dok] 100 mg PO DAILY 11/07/23 12/18/23 History Zzzquil Gummies 2 tab PO HS PRN 11/07/23 12/18/23 History lisinopriL [Zestril] 20 mg PO DAILY 11/07/23 12/18/23 History Acidophilus-Pectin Capsule 2 cap PO DAILY 12/18/23 12/18/23 History Docusate [Colace] 100 mg PO BID PRN 12/18/23 12/18/23 History Pantoprazole Sodium 40 mg PO BID 12/18/23 12/18/23 History Sennosides/Docusate Sodium 1 tab PO BID 12/18/23 12/18/23 History [Senna-S 8.6-50 mg Tablet] Allergies Allergy/AdvReac Type Severity Reaction Status Date / Time erythromycin base Allergy Severe TONGUE Verified 12/18/23 12:31 SWELLS gatifloxacin [From Tequin] Allergy Severe TONGUE Verified 12/18/23 12:31 SWELLS levofloxacin Allergy Unknown Verified 12/18/23 12:31 aspirin AdvReac Nausea Verified 12/18/23 12:31 Surgical - Exam Vital Signs Temp Pulse Resp BP Pulse Ox 97.9 F 110 H 16 133/106 92 L 12/18/23 10:56 12/18/23 10:56 12/18/23 10:56 12/18/23 10:56 12/18/23 10:56 Physical exam: General: Cachectic elderly female appears malnourished and confused HEENT: Normocephalic, sclerae nonicteric Abdomen: Nontender, nondistended Extremities: No edema Neuro: Somewhat lethargic Results - Labs 12/18/23 11:33 12/18/23 11:33 Abnormal Lab Results - Last 24 Hours (Table) 12/18/23 12/18/23 Range/Units 11:33 11:33 WBC 11.9 H (3.8-10.6) k/uL RDW 16.1 H (11.5-15.5) % Neutrophils # 10.7 H (1.3-7.7) k/uL Lymphocytes # 0.5 L (1.0-4.8) k/uL BUN 41 H (7-17) mg/dL Creatinine 1.24 H (0.52-1.04) mg/dL Glucose 173 H (74-99) mg/dL Diabetes panel 12/18/23 Range/Units 11:33 Sodium 141 (137-145) mmol/L Potassium 4.0 (3.5-5.1) mmol/L Chloride 102 (98-107) mmol/L Carbon Dioxide 27 (22-30) mmol/L BUN 41 H (7-17) mg/dL Creatinine 1.24 H (0.52-1.04) mg/dL Glucose 173 H (74-99) mg/dL Calcium 9.6 (8.4-10.2) mg/dL AST 19 (14-36) U/L ALT 12 (4-34) U/L Alkaline Phosphatase 71 (38-126) U/L Total Protein 7.5 (6.3-8.2) g/dL Albumin 4.2 (3.5-5.0) g/dL Calcium panel 12/18/23 Range/Units 11:33 Calcium 9.6 (8.4-10.2) mg/dL Albumin 4.2 (3.5-5.0) g/dL Pituitary panel 12/18/23 Range/Units 11:33 Sodium 141 (137-145) mmol/L Potassium 4.0 (3.5-5.1) mmol/L Chloride 102 (98-107) mmol/L Carbon Dioxide 27 (22-30) mmol/L BUN 41 H (7-17) mg/dL Creatinine 1.24 H (0.52-1.04) mg/dL Glucose 173 H (74-99) mg/dL Calcium 9.6 (8.4-10.2) mg/dL Adrenal panel 12/18/23 Range/Units 11:33 Sodium 141 (137-145) mmol/L Potassium 4.0 (3.5-5.1) mmol/L Chloride 102 (98-107) mmol/L Carbon Dioxide 27 (22-30) mmol/L BUN 41 H (7-17) mg/dL Creatinine 1.24 H (0.52-1.04) mg/dL Glucose 173 H (74-99) mg/dL Calcium 9.6 (8.4-10.2) mg/dL Total Bilirubin 1.0 (0.2-1.3) mg/dL AST 19 (14-36) U/L ALT 12 (4-34) U/L Alkaline Phosphatase 71 (38-126) U/L Total Protein 7.5 (6.3-8.2) g/dL Albumin 4.2 (3.5-5.0) g/dL Assessment and Plan (1) Abdominal pain Narrative/Plan: 78-year-old female with episodes of vomiting. CAT scan shows significant const ipation. Suspect generalized ileus and slow bowel motility because of decreased oral intake and decreased activity. Begin soapsuds enemas this evening. Increased stool softeners and cathartics. No surgical intervention planned. Case discussed with the patient's daughter by phone. Will follow. Current Visit: No Status: Acute Code(s): R10.9 - UNSPECIFIED ABDOMINAL PAIN SNOMED Code(s): 69043532
[2023-12-18] MEDS: METOPROLOL TARTRATE 25 MG TAB PO SCH (17:08)
[2023-12-18] MEDS ORDERED: CALCIUM CARBONATE 500 MG CHEWABLE PO PRN (17:11)
[2023-12-18] MEDS ORDERED: MELATONIN 3 MG TABLET PO PRN (17:11)
[2023-12-18] MEDS ORDERED: ALPRAZolam 0.25 MG TAB PO PRN (17:11)
--- NOTE | 2023-12-18 17:22 | P.HPIM ---
History of Present Illness H&P Date: 12/18/23 Chief Complaint: Constipation nausea vomiting This is a pleasant 78-year-old patient of Dr. Turner. Chronic stable medical conditions include atrial flutter fibrillation-on Eliquis, CHF, COPD, diabetes, fibromyalgia, GERD, hypertension, hyperlipidemia, , permanent pacemaker for sick sinus syndrome, diabetes type 2 with peripheral neuropathy, arthritis of multiple joints, chronic kidney disease stage III, urinary incontinence, iron deficiency anemia , gout. baseline- use a walker, walks about 50 to 75 feet.. has cognitive impairment. Has recurrent hemorrhoidal bleeding. Chronically constipated. Patient lives at [facility]. Able to walk to the dining room about 50 to 75 feet. Slowly though. Does eat with some assistance. At the baseline has a bowel movement once every 5 to 7 days. Chronically constipated. Decreased activity in the last few weeks. Brought in because of patient vomited yesterday. Decreased appetite weight loss. Patient also has pain in several joints. But because of renal function not able to take NSAIDs. Patient's memory is also failing. Has been losing weight. Patient's heart rate/atrial flutter fibrillation was uncontrolled in the ER. Given 1 dose of IV beta- jed. Had not taken a Lopressor since morning. Patient has intermittent hemorrhoidal bleeding also. Review of systems: See above Past medical history to include: Atrial flutter fibrillation, CHF, COPD, diabetes, fibromyalgia, GERD, hypertension, hyperlipidemia, osteoarthritis, permanent pacemaker for sick sinus syndrome, TIA, diabetes type 2 with peripheral neuropathy, arthritis in multiple joints, left rotator cuff problem, chronic kidney disease, urinary incontinence, iron deficiency anemia, skin cancer that was removed, bilateral lower extremity varicosities, gout, chronic gait dysfunction-uses a walker Social history: Does use a walker. Lives at [facility]. smoked for 52 years. Packs a day stopped in 2011. No alcohol. Does use CBD oral Physical examination: VITAL SIGNS: 97.9, 112, 20, 121 x 73, 100% on 2 L GENERAL: Reclining bed, tired. Loss of subcutaneous mass and muscle mass. EYES: Pupils equal. Conjunctiva normal. HEENT: External appearance of nose and ears normal, oral cavity grossly normal. NECK: JVD not raised; masses not palpable. HEART: First and second heart sounds are normal; no edema. LUNGS: Respiratory rate normal; decreased breath sounds ABDOMEN: Soft, nontender, liver spleen not palpable, no masses palpable. PSYCH: Will answer occasional question MUSCULAR skeletal: Evidence of OA in multiple joints. Loss of muscle mass. INVESTIGATIONS, reviewed in the clinical context: December 17: White count 9.9 hemoglobin 14.1 platelets 242 potassium 4 BUN 41 creatinine 1.24 UA: Negative Influenza type A, B, RSV, COVID-19: Not detected Chest x-ray film, personally reviewed by me: Some chronic changes CT scan abdomen pelvis: Mildly fluid-filled and mildly dilated numerous loops of small bowel. Atelectasis in the dependent right lung base Previous labs: Creatinine 1.11 on January 2022 Assessment and plan: -Possible small bowel obstruction could be partial from severe obstipation. Patient normally has a bowel movement maybe once a week. Poor activity. Precipitates the same. -Chronic constipation multifactorial Stop Colace. Add lactulose 20 g every other day. Senokot-S daily. Metamucil 6 g twice daily. -Chronic kidney disease stage III from diabetic nephropathy and hypertensive nephrosclerosis Baseline creatinine 1.1 -Persistent atrial flutter fibrillation. Rate uncontrolled on presentation. Lopressor 2.5 mg IV x 1 given in the ER Telemetry. eliquis 2.5 mg twice a date, -Chronic congestive heart failure. From diastolic dysfunction. EF 55-60%. Hold off diuretics, due to poor oral intake. -COPD in a previous smoker DuoNeb -Diabetes mellitus type 2, chronically on oral hypoglycemic Levemir discontinue. sliding scale. Resume metformin. Glucotrol 5 mg a day -Diabetic peripheral neuropathy -Chronic fibromyalgia Ultram 50 mg every 6 when necessary -GERD Protonix 40 mg twice a day -Chronic urinary incontinence Vesicare 10 mg daily Hyperlipidemia Mevacor 20 mg daily at bedtime -Essential hypertension Lopressor 25 mg 3 times a day. lisinopril -Primary osteoarthritis multiple joints Uses Ultram when necessary Diclofenac gel to both of upper and lower extremity. -Chronic urinary stress incontinence Vesicare -Bilateral lower extremity varicosities Follow as outpatient -Chronic gout Allopurinol 100 mg twice a day -Moderate cognitive impairment likely from the late onset Alzheimer's dementia -Chronic gait dysfunction of the baseline patient uses a walker Fall precautions -Medical POA. Daughter: Sharon Zuñiga -DO NOT RESUSCITATE Lengthy discussion was held with the daughter at the bedside. IV fluids. Prognosis guarded. Surgery consulted. Clear liquids. Given patient's multiple comorbidities severe obstipation and possible bowel obstruction patient need at least 2 nights in the hospital. Past Medical History Past Medical History: Atrial Fibrillation, Atrial Flutter, Blood Disorder, Cancer, CVA/TIA, Diabetes Mellitus, Fibromyalgia, GERD/Reflux, Hyperlipidemia, Hypertension, Osteoarthritis (OA), Pneumonia, Renal Disease, Vascular Disorder Additional Past Medical History / Comment(s): 05/2019 admitted with SSS and had pacer insertion, 2011 TIA, NIDDM tyep II, neuropathy bilateral feet, arthritis bilateral hands/knees, L rotator cuff problem, bronchitis, CKD stage III, UTI, urinary leakage at times, anemia with iron infusions in the past, skin cancer with removals, varicosities bilateral legs, constipation, gout bilateral feet History of Any Multi-Drug Resistant Organisms: None Reported Past Surgical History: Appendectomy, Bladder Surgery, Breast Surgery, Hysterectomy, Tonsillectomy Additional Past Surgical History / Comment(s): 06/15/19 pacemaker, bladder suspension, bilateral breast implants, L oophorectomy, colonoscopies, skin cancer removals, L leg varicose vein stripping, cystoscopy. Past Anesthesia/Blood Transfusion Reactions: No Reported Reaction Past Psychological History: No Psychological Hx Reported Smoking Status: Former smoker Past Alcohol Use History: None Reported Past Drug Use History: None Reported - Past Family History Father History Unknown: Yes Family Medical History: Cancer Additional Family Medical History / Comment(s): Father of lung cancer in his 40s. Mother Family Medical History: No Reported History Additional Family Medical History / Comment(s): Mother is 92 yrs old. Medications and Allergies Home Medications Medication Instructions Recorded Confirmed Type allopurinoL [Zyloprim] 100 mg PO BID 07/05/16 12/18/23 History Lovastatin [Mevacor] 20 mg PO HS 09/13/17 12/18/23 History Apixaban [Eliquis] 2.5 mg PO BID 06/10/19 12/18/23 History Metoprolol Tartrate [Lopressor] 25 mg PO TID 09/02/19 12/18/23 History amLODIPine [Norvasc] 5 mg PO DAILY 12/28/20 12/18/23 History Calcium Carbonate [Tums] 1,000 mg PO TID PRN 01/29/22 12/18/23 History Diclofenac Sodium Gel [Voltaren 1% 2 gm TOPICAL QID PRN 01/29/22 12/18/23 History Gel] Solifenacin Succinate [Vesicare] 10 mg PO DAILY 01/29/22 12/18/23 History metFORMIN HCL [Glucophage] 500 mg PO BID 01/29/22 12/18/23 History Ipratropium-Albuterol Nebulize 3 ml INHALATION RT-QID each 09/02/22 12/18/23 Rx [Duoneb 0.5 mg-3 mg/3 ml Soln] Magnesium Oxide [Mag-Ox] 400 mg PO DAILY tab 09/02/22 12/18/23 Rx Acetaminophen-Codeine 300-30mg 1 tab PO Q4H PRN 11/07/23 12/18/23 History [Tylenol w/codeine #3] Albuterol Sulfate [Albuterol 2 puff INHALATION RT-QID PRN 11/07/23 12/18/23 History Sulfate Hfa] Chlorthalidone [Hygroton] 25 mg PO DAILY 11/07/23 12/18/23 History Cholecalciferol [Vitamin D3 (25 25 mcg PO DAILY 11/07/23 12/18/23 History Mcg = 1000 Iu)] Docusate Sodium [Dok] 100 mg PO DAILY 11/07/23 12/18/23 History Zzzquil Gummies 2 tab PO HS PRN 11/07/23 12/18/23 History lisinopriL [Zestril] 20 mg PO DAILY 11/07/23 12/18/23 History Acidophilus-Pectin Capsule 2 cap PO DAILY 12/18/23 12/18/23 History Docusate [Colace] 100 mg PO BID PRN 12/18/23 12/18/23 History Pantoprazole Sodium 40 mg PO BID 12/18/23 12/18/23 History Sennosides/Docusate Sodium 1 tab PO BID 12/18/23 12/18/23 History [Senna-S 8.6-50 mg Tablet] Allergies Allergy/AdvReac Type Severity Reaction Status Date / Time erythromycin base Allergy Severe TONGUE Verified 12/18/23 12:31 SWELLS gatifloxacin [From Tequin] Allergy Severe TONGUE Verified 12/18/23 12:31 SWELLS levofloxacin Allergy Unknown Verified 12/18/23 12:31 aspirin AdvReac Nausea Verified 12/18/23 12:31 Physical Exam Vitals: Vital Signs Temp Pulse Resp BP Pulse Ox 12/18/23 16:42 90 18 145/78 97 12/18/23 16:30 101 H 18 97 12/18/23 14:21 112 H 20 121/73 100 12/18/23 13:24 86 18 147/110 96 12/18/23 12:09 87 16 134/83 79 L 12/18/23 11:18 125 H 18 121/91 12/18/23 10:56 97.9 F 110 H 16 133/106 92 L Intake and Output 12/18/23 12/18/23 12/18/23 06:59 14:59 22:59 Other: Weight 65.771 kg Results CBC & Chem 7: 12/18/23 11:33 12/18/23 11:33 Labs: Abnormal Lab Results - Last 24 Hours (Table) 12/18/23 12/18/23 Range/Units 11:33 11:33 WBC 11.9 H (3.8-10.6) k/uL RDW 16.1 H (11.5-15.5) % Neutrophils # 10.7 H (1.3-7.7) k/uL Lymphocytes # 0.5 L (1.0-4.8) k/uL BUN 41 H (7-17) mg/dL Creatinine 1.24 H (0.52-1.04) mg/dL Glucose 173 H (74-99) mg/dL
[2023-12-18] MEDS: LACTULOSE 20 GM/30 ML CUP PO SCH (18:27)
[2023-12-18] MEDS: SENNOSIDES-DOCUSATE SODIUM 1 EACH TAB PO SCH (23:04)
[2023-12-18] MEDS: APIXABAN 2.5 MG TABLET PO SCH (23:04)
[2023-12-18] MEDS: PSYLLIUM HUSK 100% 6 GM PACKET PO SCH (23:04)
[2023-12-18] MEDS: metFORMIN 500 MG TAB PO SCH (23:04)
[2023-12-18] MEDS: ATORVASTATIN 10 MG TAB PO SCH (23:04)
[2023-12-18] MEDS: DICLOFENAC SODIUM GEL 100 GM TUBE TOPICAL SCH ×2 (23:40→23:41)
[2023-12-18] MEDS: PANTOPRAZOLE SODIUM 40 MG GRANULE PKT PO SCH (23:41)
[2023-12-19] MEDS ORDERED: DOCUSATE 100 MG CAP PO SCH (09:00)
[2023-12-19] MEDS ORDERED: PANTOPRAZOLE 40 MG/10 ML VIAL IV SCH (09:00)
[2023-12-19] MEDS ORDERED: CHLORTHALIDONE 25 MG TAB PO SCH (09:00)
[2023-12-19] MEDS: lisinopriL 20 MG TAB PO SCH (09:11)
[2023-12-19] MEDS: MAGNESIUM OXIDE 400 MG TAB PO SCH (09:11)
[2023-12-19] MEDS: amLODIPine 5 MG TAB PO SCH (09:11)
--- NOTE | 2023-12-19 09:27 | P.PN ---
Subjective Progress Note Date: 12/19/23 Principal diagnosis: Constipation 70-year-old female admitted yesterday evening with vomiting, possible abdominal pain, and constipation by CAT scan. Apparently did not retain much of the liquid with the enema last night. She did take lactulose yesterday. No obvious pain or discomfort today. Tolerating some of her liquids. Daughter at bedside. Objective - Vital Signs Vital signs: Vital Signs Temp 99.0 F 12/19/23 07:00 Pulse 80 12/19/23 09:24 Resp 15 12/19/23 07:00 BP 132/74 12/19/23 07:00 Pulse Ox 94 L 12/19/23 09:24 FiO2 Intake & Output 12/18/23 12/19/23 12/19/23 18:59 06:59 18:59 Output Total 300 Balance -300 Weight 65.771 kg 65.771 kg Output: Urine 300 Other: Voiding Method External Catheter # Voids 2 - Exam Abdomen: Soft, minimal distention, nontender - Labs CBC & Chem 7: 12/18/23 11:33 12/18/23 11:33 Labs: Abnormal Lab Results - Last 24 Hours (Table) 12/18/23 12/18/23 Range/Units 11:33 11:33 WBC 11.9 H (3.8-10.6) k/uL RDW 16.1 H (11.5-15.5) % Neutrophils # 10.7 H (1.3-7.7) k/uL Lymphocytes # 0.5 L (1.0-4.8) k/uL BUN 41 H (7-17) mg/dL Creatinine 1.24 H (0.52-1.04) mg/dL Glucose 173 H (74-99) mg/dL Assessment and Plan (1) Abdominal pain Narrative/Plan: 78-year-old female with constipation thought to be contributing to mild abdominal discomforts and vomiting. We'll try fleets mineral oil enema today. Begin lactulose twice a day. Advance to regular diet. Will follow. Current Visit: No Status: Acute Code(s): R10.9 - UNSPECIFIED ABDOMINAL PAIN SNOMED Code(s): 68670537
[2023-12-19] MEDS: MINERAL OIL 133 ML ENEMA RECTAL STA (10:37)
[2023-12-19] MEDS: LACTULOSE 20 GM/30 ML CUP PO SCH (10:37)
[2023-12-19 11:17] LABS: Basophils # (A) 0.05 X 10*3/uL (0.00-0.10); Basophils % (A) 0.6 %; Eosinophils # (A) 0.11 X 10*3/uL (0.04-0.35); Eosinophils % (A) 1.3 %; HCT 35.8 % (37.2-46.3); HGB 11.3 g/dL (12.0-15.0); Lymphocytes # (A) 0.68 X 10*3/uL (0.90-5.00); Lymphocytes % (A) 7.8 %; MCH 28.3 pg (27.0-32.0); MCHC 31.6 g/dL (32.0-37.0); MCV 89.7 FL (80.0-97.0); Mean Platelet Volume 10.6 FL (9.5-12.2); Monocytes # (A) 0.81 X 10*3/uL (0.20-1.00); Monocytes % (A) 9.3 %; NRBC Per 100 WBC 0 X 10*3/uL (0.00-0.01); Neutrophils % (A) 80.8 %; Platelet Count 215 X 10*3/uL (140-440); RBC 3.99 X 10*6/uL (4.10-5.20); RDW 16.4 % (11.5-14.5); WBC 8.67 X 10*3/uL (4.50-10.00)
[2023-12-19 11:21] LABS: Blood Urea Nitrogen 37.4 mg/dL (9.0-27.0); Calcium 8.6 mg/dL (8.7-10.3); Carbon Dioxide 26.3 mmol/L (21.6-31.8); Chloride 108 mmol/L (96-109); Glucose 141 mg/dL (70-110); Potassium 4.1 mmol/L (3.5-5.5); Sodium 145 mmol/L (135-145)
--- NOTE | 2023-12-19 13:51 | P.PN ---
Progress Note - Text Progress Note Date: 12/19/23 Chief Complaint: Constipation nausea vomiting This is a pleasant 78-year-old patient of Dr. Turner. Chronic stable medical conditions include atrial flutter fibrillation-on Eliquis, CHF, COPD, diabetes, fibromyalgia, GERD, hypertension, hyperlipidemia, , permanent pacemaker for sick sinus syndrome, diabetes type 2 with peripheral neuropathy, arthritis of multiple joints, chronic kidney disease stage III, urinary incontinence, iron deficiency anemia , gout. baseline- use a walker, walks about 50 to 75 feet.. has cognitive impairment. Has recurrent hemorrhoidal bleeding. Chronically constipated. Patient lives at assisted living. Able to walk to the dining room about 50 to 75 feet. Slowly though. Does eat with some assistance. At the baseline has a bowel movement once every 5 to 7 days. Chronically constipated. Decreased activity in the last few weeks. Brought in because of patient vomited yesterday. Decreased appetite weight loss. Patient also has pain in several joints. But because of renal function not able to take NSAIDs. Patient's ced ry is also failing. Has been losing weight. Patient's heart rate/atrial flutter fibrillation was uncontrolled in the ER. Given 1 dose of IV beta- jed. Had not taken a Lopressor since morning. Patient has intermittent hemorrhoidal bleeding also. December 18: Patient had no bowel movement yesterday. Was given lactulose, Metamucil, did not respond to enema. No abdominal distention or discomfort. Surgery is ordered Fleet mineral oil enema. Lactulose increased to twice daily. Diet has been advanced by surgery. Spoke to the daughter about guarded prognosis. Did touch on the topic of hospice. Consultation to hospice for informational visit only done. Active Medications Acetaminophen (Acetaminophen Tab 325 Mg Tab) 650 mg PO Q6HR PRN PRN Reason: Mild Pain or Fever > 100.5 Acetaminophen/Codeine Phosphate (Acetaminophen-Codeine 300-30mg Tab) 1 each PO Q4H PRN PRN Reason: Pain Albuterol Sulfate (Albuterol Nebulized 2.5 Mg/3 Ml) 2.5 mg INHALATION RT-QID PRN PRN Reason: Shortness Of Breath Albuterol/Ipratropium (Ipratropium-Albuterol 3 Ml Neb) 3 ml INHALATION RT-QID [facility] Last Admin: 12/19/23 12:13 Dose: Not Given Alprazolam (Alprazolam 0.25 Mg Tab) 0.25 mg PO Q6HR PRN PRN Reason: Anxiety Amlodipine Besylate (Amlodipine 5 Mg Tab) 5 mg PO DAILY [facility] Last Admin: 12/19/23 09:11 Dose: 5 mg Apixaban (Apixaban 2.5 Mg Tablet) 2.5 mg PO BID [facility]; Protocol Last Admin: 12/19/23 09:10 Dose: 2.5 mg Atorvastatin Calcium (Atorvastatin 10 Mg Tab) 10 mg PO HS [facility] Last Admin: 12/18/23 23:04 Dose: 10 mg Calcium Carbonate/Glycine (Calcium Carbonate 500 Mg Chewable) 1,000 mg PO Q4HR PRN PRN Reason: Dyspepsia Diclofenac Sodium (Diclofenac Sodium Gel 100 Gm Tube) 4 gm TOPICAL TID [facility]; Protocol Last Admin: 12/19/23 09:11 Dose: 4 gm Diclofenac Sodium (Diclofenac Sodium Gel 100 Gm Tube) 2 gm TOPICAL TID [facility]; Protocol Last Admin: 12/19/23 09:13 Dose: 2 gm Sodium Chloride (Saline 0.9%) 1,000 mls @ 130 mls/hr IV .Q7H42M [facility] Last Admin: 12/19/23 09:11 Dose: 130 mls/hr Lactulose (Lactulose 20 Gm/30 Ml Cup) 20 gm PO TID [facility] Last Admin: 12/19/23 10:37 Dose: 20 gm Lisinopril (Lisinopril 20 Mg Tab) 20 mg PO DAILY [facility] Last Admin: 12/19/23 09:11 Dose: 20 mg Magnesium Oxide (Magnesium Oxide 400 Mg Tab) 400 mg PO DAILY [facility] Last Admin: 12/19/23 09:11 Dose: 400 mg Melatonin (Melatonin 3 Mg Tablet) 3 mg PO HS PRN PRN Reason: Insomnia Metformin HCl (Metformin 500 Mg Tab) 500 mg PO BID [facility] Last Admin: 12/19/23 09:11 Dose: 500 mg Metoprolol Tartrate (Metoprolol Tartrate 25 Mg Tab) 25 mg PO TID [facility] Last Admin: 12/19/23 09:11 Dose: 25 mg Naloxone HCl (Naloxone 0.4 Mg/Ml 1 Ml Vial) 0.2 mg IV Q2M PRN PRN Reason: Opioid Reversal Ondansetron HCl (Ondansetron 4 Mg/2 Ml Vial) 4 mg IVP Q8HR PRN PRN Reason: Nausea And Vomiting Pantoprazole Sodium (Pantoprazole Sodium 40 Mg Granule Pkt) 40 mg PO BID [facility] Last Admin: 12/19/23 09:11 Dose: 40 mg Psyllium Hydrophilic Mucilloid (Psyllium Husk 100% 6 Gm Packet) 6 gm PO BID [facility] Last Admin: 12/19/23 09:10 Dose: 6 gm Senna/Docusate Sodium (Sennosides-Docusate Sodium 1 Each Tab) 1 each PO BID [facility] Last Admin: 12/19/23 09:10 Dose: 1 each Past medical history to include: Atrial flutter fibrillation, CHF, COPD, diabetes, fibromyalgia, GERD, hypertension, hyperlipidemia, osteoarthritis, permanent pacemaker for sick sinus syndrome, TIA, diabetes type 2 with peripheral neuropathy, arthritis in multiple joints, left rotator cuff problem, chronic kidney disease, urinary incontinence, iron deficiency anemia, skin cancer that was removed, bilateral lower extremity varicosities, gout, chronic gait dysfunction-uses a walker Social history: Does use a walker. Lives at [facility]. smoked for 52 years. Packs a day stopped in 2011. No alcohol. Does use CBD oral Physical examination: VITAL SIGNS: 99, 82, 15, 132 x 74, 93% room air GENERAL: Reclining bed, tired. Loss of subcutaneous mass and muscle mass. EYES: Pupils equal. Conjunctiva normal. HEENT: External appearance of nose and ears normal, oral cavity grossly normal. NECK: JVD not raised; masses not palpable. HEART: First and second heart sounds are normal; no edema. LUNGS: Respiratory rate normal; decreased breath sounds ABDOMEN: Soft, nontender, liver spleen not palpable, no masses palpable. PSYCH: Will answer occasional question MUSCULAR skeletal: Evidence of OA in multiple joints. Loss of muscle mass. INVESTIGATIONS, reviewed in the clinical context: December 18: White count 8.6 hemoglobin 9.3 platelets 215 sodium 145 potassium 4.1 creatinine 1.1 December 17: White count 9.9 hemoglobin 14.1 platelets 242 potassium 4 BUN 41 creatinine 1.24 UA: Negative Influenza type A, B, RSV, COVID-19: Not detected Chest x-ray film, personally reviewed by me: Some chronic changes CT scan abdomen pelvis: Mildly fluid-filled and mildly dilated numerous loops of small bowel. Atelectasis in the dependent right lung base Previous labs: Creatinine 1.11 on January 2022 Assessment and plan: -Possible small bowel obstruction could be partial from severe obstipation.: Not responding Being followed by surgery. Increase lactulose to twice daily. Mineral oil enema ordered. -Chronic constipation multifactorial Metamucil. Lactulose. Mineral oil enema. -Chronic kidney disease stage III from diabetic nephropathy and hypertensive nephrosclerosis Baseline creatinine 1.1 -Persistent atrial flutter fibrillation. Rate uncontrolled on presentation. Lopressor 2.5 mg IV x 1 given in the ER Telemetry. eliquis 2.5 mg twice a date, -Chronic congestive heart failure. From diastolic dysfunction. EF 55-60%. Hold off diuretics, due to poor oral intake. -COPD in a previous smoker DuoNeb -Diabetes mellitus type 2, chronically on oral hypoglycemic Levemir discontinue. sliding scale. Resume metformin. Glucotrol 5 mg a day -Diabetic peripheral neuropathy -Chronic fibromyalgia Ultram 50 mg every 6 when necessary -GERD Protonix 40 mg twice a day -Chronic urinary incontinence Vesicare 10 mg daily Hyperlipidemia Mevacor 20 mg daily at bedtime -Essential hypertension Lopressor 25 mg 3 times a day. lisinopril -Primary osteoarthritis multiple joints Uses Ultram when necessary Diclofenac gel to both of upper and lower extremity. -Chronic urinary stress incontinence Vesicare -Bilateral lower extremity varicosities Follow as outpatient -Chronic gout Allopurinol 100 mg twice a day -Moderate cognitive impairment likely from the late onset Alzheimer's dementia -Chronic gait dysfunction of the baseline patient uses a walker Fall precautions -Medical POA. Daughter: Sharon Zuñiga -DO NOT RESUSCITATE Change in laxatives as above. Prognosis guarded. Touched on the topic of hospice. Informational visit with hospice team. Past Medical History Past Medical History: Atrial Fibrillation, Atrial Flutter, Blood Disorder, Cancer, CVA/TIA, Diabetes Mellitus, Fibromyalgia, GERD/Reflux, Hyperlipidemia, Hypertension, Osteoarthritis (OA), Pneumonia, Renal Disease, Vascular Disorder Additional Past Medical History / Comment(s): 05/2019 admitted with SSS and had pacer insertion, 2011 TIA, NIDDM tyep II, neuropathy bilateral feet, arthritis bilateral hands/knees, L rotator cuff problem, bronchitis, CKD stage III, UTI, urinary leakage at times, anemia with iron infusions in the past, skin cancer with removals, varicosities bilateral legs, constipation, gout bilateral feet History of Any Multi-Drug Resistant Organisms: None Reported Past Surgical History: Appendectomy, Bladder Surgery, Breast Surgery, Hysterectomy, Tonsillectomy Additional Past Surgical History / Comment(s): 06/15/19 pacemaker, bladder suspension, bilateral breast implants, L oophorectomy, colonoscopies, skin cancer removals, L leg varicose vein stripping, cystoscopy. Past Anesthesia/Blood Transfusion Reactions: No Reported Reaction Past Psychological History: No Psychological Hx Reported Smoking Status: Former smoker Past Alcohol Use History: None Reported Past Drug Use History: None Reported
[2023-12-19 17:03] VITALS: BMI 22.7
--- NOTE | 2023-12-20 09:43 | P.PN ---
Progress Note - Text Progress Note Date: 12/20/23 Chief Complaint: Constipation nausea vomiting This is a pleasant 78-year-old patient of Dr. Turner. Chronic stable medical conditions include atrial flutter fibrillation-on Eliquis, CHF, COPD, diabetes, fibromyalgia, GERD, hypertension, hyperlipidemia, , permanent pacemaker for sick sinus syndrome, diabetes type 2 with peripheral neuropathy, arthritis of multiple joints, chronic kidney disease stage III, urinary incontinence, iron deficiency anemia , gout. baseline- use a walker, walks about 50 to 75 feet.. has cognitive impairment. Has recurrent hemorrhoidal bleeding. Chronically constipated. Patient lives at assisted living. Able to walk to the dining room about 50 to 75 feet. Slowly though. Does eat with some assistance. At the baseline has a bowel movement once every 5 to 7 days. Chronically constipated. Decreased activity in the last few weeks. Brought in because of patient vomited yesterday. Decreased appetite weight loss. Patient also has pain in several joints. But because of renal function not able to take NSAIDs. Patient's ced ry is also failing. Has been losing weight. Patient's heart rate/atrial flutter fibrillation was uncontrolled in the ER. Given 1 dose of IV beta- jed. Had not taken a Lopressor since morning. Patient has intermittent hemorrhoidal bleeding also. December 18: Patient had no bowel movement yesterday. Was given lactulose, Metamucil, did not respond to enema. No abdominal distention or discomfort. Surgery is ordered Fleet mineral oil enema. Lactulose increased to twice daily. Diet has been advanced by surgery. Spoke to the daughter about guarded prognosis. Did touch on the topic of hospice. Consultation to hospice for informational visit only done. December 19: Received mineral oil enema yesterday evening. Some BM with that. Amount unknown. Patient more awake today. Not in distress. Daughter at the bedside. Feeding the patient. No nausea vomiting. Abdominal distention. Active Medications Acetaminophen (Acetaminophen Tab 325 Mg Tab) 650 mg PO Q6HR PRN PRN Reason: Mild Pain or Fever > 100.5 Acetaminophen/Codeine Phosphate (Acetaminophen-Codeine 300-30mg Tab) 1 each PO Q4H PRN PRN Reason: Pain Albuterol Sulfate (Albuterol Nebulized 2.5 Mg/3 Ml) 2.5 mg INHALATION RT-QID PRN PRN Reason: Shortness Of Breath Albuterol/Ipratropium (Ipratropium-Albuterol 3 Ml Neb) 3 ml INHALATION RT-QID [facility] Last Admin: 12/20/23 09:29 Dose: 3 ml Alprazolam (Alprazolam 0.25 Mg Tab) 0.25 mg PO Q6HR PRN PRN Reason: Anxiety Amlodipine Besylate (Amlodipine 5 Mg Tab) 5 mg PO DAILY [facility] Last Admin: 12/20/23 08:54 Dose: 5 mg Apixaban (Apixaban 2.5 Mg Tablet) 2.5 mg PO BID [facility]; Protocol Last Admin: 12/20/23 08:54 Dose: 2.5 mg Atorvastatin Calcium (Atorvastatin 10 Mg Tab) 10 mg PO HS [facility] Last Admin: 12/19/23 21:26 Dose: 10 mg Calcium Carbonate/Glycine (Calcium Carbonate 500 Mg Chewable) 1,000 mg PO Q4HR PRN PRN Reason: Dyspepsia Diclofenac Sodium (Diclofenac Sodium Gel 100 Gm Tube) 4 gm TOPICAL TID [facility]; Protocol Last Admin: 12/19/23 21:27 Dose: 4 gm Diclofenac Sodium (Diclofenac Sodium Gel 100 Gm Tube) 2 gm TOPICAL TID [facility]; Protocol Last Admin: 12/19/23 21:28 Dose: 2 gm Sodium Chloride (Saline 0.9%) 1,000 mls @ 130 mls/hr IV .Q7H42M [facility] Last Admin: 12/20/23 06:28 Dose: 130 mls/hr Lactulose (Lactulose 20 Gm/30 Ml Cup) 20 gm PO TID [facility] Last Admin: 12/19/23 21:57 Dose: 20 gm Lisinopril (Lisinopril 20 Mg Tab) 20 mg PO DAILY [facility] Last Admin: 12/20/23 08:54 Dose: 20 mg Magnesium Oxide (Magnesium Oxide 400 Mg Tab) 400 mg PO DAILY [facility] Last Admin: 12/20/23 08:56 Dose: 400 mg Melatonin (Melatonin 3 Mg Tablet) 3 mg PO HS PRN PRN Reason: Insomnia Metformin HCl (Metformin 500 Mg Tab) 500 mg PO BID [facility] Last Admin: 12/20/23 08:56 Dose: 500 mg Metoprolol Tartrate (Metoprolol Tartrate 25 Mg Tab) 25 mg PO TID [facility] Last Admin: 12/20/23 08:56 Dose: 25 mg Naloxone HCl (Naloxone 0.4 Mg/Ml 1 Ml Vial) 0.2 mg IV Q2M PRN PRN Reason: Opioid Reversal Ondansetron HCl (Ondansetron 4 Mg/2 Ml Vial) 4 mg IVP Q8HR PRN PRN Reason: Nausea And Vomiting Pantoprazole Sodium (Pantoprazole Sodium 40 Mg Granule Pkt) 40 mg PO BID [facility] Last Admin: 12/20/23 08:56 Dose: 40 mg Psyllium Hydrophilic Mucilloid (Psyllium Husk 100% 6 Gm Packet) 6 gm PO BID [facility] Last Admin: 12/20/23 08:56 Dose: 6 gm Senna/Docusate Sodium (Sennosides-Docusate Sodium 1 Each Tab) 1 each PO BID [facility] Last Admin: 12/20/23 08:56 Dose: 1 each Past medical history to include: Atrial flutter fibrillation, CHF, COPD, diabetes, fibromyalgia, GERD, hypertension, hyperlipidemia, osteoarthritis, permanent pacemaker for sick sinus syndrome, TIA, diabetes type 2 with peripheral neuropathy, arthritis in multiple joints, left rotator cuff problem, chronic kidney disease, urinary incontinence, iron deficiency anemia, skin cancer that was removed, bilateral lower extremity varicosities, gout, chronic gait dysfunction-uses a walker Social history: Does use a walker. Lives at [facility] smoked for 52 years. Packs a day stopped in 2011. No alcohol. Does use CBD oral Physical examination: VITAL SIGNS: 97.6, 94, 17, 141 x 83, 91% on 2 L GENERAL: Reclining bed,-being fed by daughter. Loss of subcutaneous mass and muscle mass. EYES: Pupils equal. Conjunctiva normal. HEENT: External appearance of nose and ears normal, oral cavity grossly normal. NECK: JVD not raised; masses not palpable. HEART: First and second heart sounds are normal; no edema. LUNGS: Respiratory rate normal; decreased breath sounds ABDOMEN: Soft, nontender, liver spleen not palpable, no masses palpable. PSYCH: Will answer occasional question MUSCULAR skeletal: Evidence of OA in multiple joints. Loss of muscle mass. INVESTIGATIONS, reviewed in the clinical context: December 18: White count 8.6 hemoglobin 9.3 platelets 215 sodium 145 potassium 4.1 creatinine 1.1 December 17: White count 9.9 hemoglobin 14.1 platelets 242 potassium 4 BUN 41 creatinine 1.24 UA: Negative Influenza type A, B, RSV, COVID-19: Not detected Chest x-ray film, personally reviewed by me: Some chronic changes CT scan abdomen pelvis: Mildly fluid-filled and mildly dilated numerous loops of small bowel. Atelectasis in the dependent right lung base Previous labs: Creatinine 1.11 on January 2022 Assessment and plan: -Possible small bowel obstruction could be partial from severe obstipation.: Some response Being followed by surgery. Increase lactulose to twice daily. Mineral oil enema ordered. -Chronic constipation multifactorial: Some bowel movement Metamucil. Lactulose. Mineral oil enema. -Chronic kidney disease stage III from diabetic nephropathy and hypertensive nephrosclerosis Baseline creatinine 1.1 -Persistent atrial flutter fibrillation. Rate uncontrolled on presentation. Lopressor 2.5 mg IV x 1 given in the ER Telemetry. eliquis 2.5 mg twice a date, -Chronic congestive heart failure. From diastolic dysfunction. EF 55-60%. Hold off diuretics, due to poor oral intake. -COPD in a previous smoker DuoNeb -Diabetes mellitus type 2, chronically on oral hypoglycemic Levemir discontinue. sliding scale. Resume metformin. Glucotrol 5 mg a day -Diabetic peripheral neuropathy -Chronic fibromyalgia Ultram 50 mg every 6 when necessary -GERD Protonix 40 mg twice a day -Chronic urinary incontinence Vesicare 10 mg daily Hyperlipidemia Mevacor 20 mg daily at bedtime -Essential hypertension Lopressor 25 mg 3 times a day. lisinopril -Primary osteoarthritis multiple joints Uses Ultram when necessary Diclofenac gel to both of upper and lower extremity. -Chronic urinary stress incontinence Vesicare -Bilateral lower extremity varicosities Follow as outpatient -Chronic gout Allopurinol 100 mg twice a day -Moderate cognitive impairment likely from the late onset Alzheimer's dementia -Chronic gait dysfunction of the baseline patient uses a walker Fall precautions -Medical POA. Daughter: Sharon Zuñiga -DO NOT RESUSCITATE Discussed with daughter. Feeding as tolerated. Prognosis guarded. Follow with surgery. Past Medical History Past Medical History: Atrial Fibrillation, Atrial Flutter, Blood Disorder, Cancer, CVA/TIA, Diabetes Mellitus, Fibromyalgia, GERD/Reflux, Hyperlipidemia, Hypertension, Osteoarthritis (OA), Pneumonia, Renal Disease, Vascular Disorder Additional Past Medical History / Comment(s): 05/2019 admitted with SSS and had pacer insertion, 2011 TIA, NIDDM tyep II, neuropathy bilateral feet, arthritis bilateral hands/knees, L rotator cuff problem, bronchitis, CKD stage III, UTI, urinary leakage at times, anemia with iron infusions in the past, skin cancer with removals, varicosities bilateral legs, constipation, gout bilateral feet History of Any Multi-Drug Resistant Organisms: None Reported Past Surgical History: Appendectomy, Bladder Surgery, Breast Surgery, Hysterectomy, Tonsillectomy Additional Past Surgical History / Comment(s): 06/15/19 pacemaker, bladder suspension, bilateral breast implants, L oophorectomy, colonoscopies, skin cancer removals, L leg varicose vein stripping, cystoscopy. Past Anesthesia/Blood Transfusion Reactions: No Reported Reaction Past Psychological History: No Psychological Hx Reported Smoking Status: Former smoker Past Alcohol Use History: None Reported Past Drug Use History: None Reported
--- NOTE | 2023-12-21 03:52 | P.PN ---
Subjective Progress Note Date: 12/20/23 Principal diagnosis: Constipation December 18: Patient had no bowel movement yesterday. Was given lactulose, Metamucil, did not respond to enema. No abdominal distention or discomfort. Surgery is ordered Fleet mineral oil enema. Lactulose increased to twice daily. Diet has been advanced by surgery. Spoke to the daughter about guarded prognosis. Did touch on the topic of hospice. Consultation to hospice for informational visit only done. December 19: Received mineral oil enema yesterday evening. Some BM with that. Amount unknown. Patient more awake today. Not in distress. Daughter at the bedside. Feeding the patient. No nausea vomiting. Abdominal distention. December 19: 3 large bowel movements, passing flatus, abdomen much less distended, no abdominal pain Objective - Vital Signs Vital signs: Vital Signs Temp 98.6 F 12/20/23 20:00 Pulse 84 12/20/23 20:00 Resp 16 12/20/23 20:00 BP 158/82 12/20/23 20:00 Pulse Ox 96 12/20/23 20:00 FiO2 Intake & Output 12/20/23 12/20/23 12/21/23 06:59 18:59 06:59 Intake Total 118 Output Total 500 Balance -382 Intake: Oral 118 Output: Stool 500 Other: Voiding Method External Catheter Diaper Diaper Incontinent Incontinent # Voids 1 2 # Bowel Movements 1 - Labs CBC & Chem 7: 12/19/23 06:23 12/19/23 06:23 Assessment and Plan (1) Enteritis Current Visit: Yes Status: Acute Code(s): K52.9 - NONINFECTIVE GASTROENTERITIS AND COLITIS, UNSPECIFIED SNOMED Code(s): 25108436 Plan: repeat soapsuds enema today, followed by 2 L tap water enema. repeat X-Ray tomorrow once released will start PO regiment before discharge home no immediate surgical intervention needed.
--- NOTE | 2023-12-21 09:55 | P.PN ---
Subjective Progress Note Date: 12/21/23 patient [place] stable. She's had some bowel movement. On exam vital signs are stable. Abdomen soft. Patient be followed up with Dr. Campbell tomorrow. Objective - Vital Signs Vital signs: Vital Signs Temp 97.3 F L 12/21/23 07:36 Pulse 72 12/21/23 08:45 Resp 16 12/21/23 08:45 BP 177/70 12/21/23 07:36 Pulse Ox 91 L 12/21/23 08:45 FiO2 Intake & Output 12/20/23 12/21/23 12/21/23 18:59 06:59 18:59 Intake Total 118 Output Total 500 Balance -382 Intake: Oral 118 Output: Stool 500 Other: Voiding Method Diaper Diaper Incontinent Incontinent # Voids 2 2 # Bowel Movements 1 - Labs CBC & Chem 7: 12/19/23 06:23 12/19/23 06:23
--- NOTE | 2023-12-21 18:26 | P.PN ---
Progress Note - Text Progress Note Date: 12/21/23 Chief Complaint: Constipation nausea vomiting This is a pleasant 78-year-old patient of Dr. Turner. Chronic stable medical conditions include atrial flutter fibrillation-on Eliquis, CHF, COPD, diabetes, fibromyalgia, GERD, hypertension, hyperlipidemia, , permanent pacemaker for sick sinus syndrome, diabetes type 2 with peripheral neuropathy, arthritis of multiple joints, chronic kidney disease stage III, urinary incontinence, iron deficiency anemia , gout. baseline- use a walker, walks about 50 to 75 feet.. has cognitive impairment. Has recurrent hemorrhoidal bleeding. Chronically constipated. Patient lives at assisted living. Able to walk to the dining room about 50 to 75 feet. Slowly though. Does eat with some assistance. At the baseline has a bowel movement once every 5 to 7 days. Chronically constipated. Decreased activity in the last few weeks. Brought in because of patient vomited yesterday. Decreased appetite weight loss. Patient also has pain in several joints. But because of renal function not able to take NSAIDs. Patient's ced ry is also failing. Has been losing weight. Patient's heart rate/atrial flutter fibrillation was uncontrolled in the ER. Given 1 dose of IV beta- jed. Had not taken a Lopressor since morning. Patient has intermittent hemorrhoidal bleeding also. December 18: Patient had no bowel movement yesterday. Was given lactulose, Metamucil, did not respond to enema. No abdominal distention or discomfort. Surgery is ordered Fleet mineral oil enema. Lactulose increased to twice daily. Diet has been advanced by surgery. Spoke to the daughter about guarded prognosis. Did touch on the topic of hospice. Consultation to hospice for informational visit only done. December 19: Received mineral oil enema yesterday evening. Some BM with that. Amount unknown. Patient more awake today. Not in distress. Daughter at the bedside. Feeding the patient. No nausea vomiting. Abdominal distention. December 20: Patient's had good bowel movements. Spoke to the nurse yesterday who checked with the nurse was present the day before. Daughter at the bedside. Patient ate very little this morning. Tired. Daughter does understand prognosis guarded. She is not inclined for hospice when the patient gets back to assisted living. Active Medications Acetaminophen (Acetaminophen Tab 325 Mg Tab) 650 mg PO Q6HR PRN PRN Reason: Mild Pain or Fever > 100.5 Acetaminophen/Codeine Phosphate (Acetaminophen-Codeine 300-30mg Tab) 1 each PO Q4H PRN PRN Reason: Pain Albuterol Sulfate (Albuterol Nebulized 2.5 Mg/3 Ml) 2.5 mg INHALATION RT-QID PRN PRN Reason: Shortness Of Breath Albuterol/Ipratropium (Ipratropium-Albuterol 3 Ml Neb) 3 ml INHALATION RT-QID [facility] Last Admin: 12/21/23 14:58 Dose: 3 ml Alprazolam (Alprazolam 0.25 Mg Tab) 0.25 mg PO Q6HR PRN PRN Reason: Anxiety Amlodipine Besylate (Amlodipine 5 Mg Tab) 5 mg PO DAILY [facility] Last Admin: 12/21/23 08:43 Dose: 5 mg Apixaban (Apixaban 2.5 Mg Tablet) 2.5 mg PO BID [facility]; Protocol Last Admin: 12/21/23 08:43 Dose: 2.5 mg Atorvastatin Calcium (Atorvastatin 10 Mg Tab) 10 mg PO HS [facility] Last Admin: 12/20/23 20:47 Dose: 10 mg Calcium Carbonate/Glycine (Calcium Carbonate 500 Mg Chewable) 1,000 mg PO Q4HR PRN PRN Reason: Dyspepsia Diclofenac Sodium (Diclofenac Sodium Gel 100 Gm Tube) 4 gm TOPICAL TID [facility]; Protocol Last Admin: 12/21/23 15:42 Dose: 4 gm Diclofenac Sodium (Diclofenac Sodium Gel 100 Gm Tube) 2 gm TOPICAL TID [facility]; Protocol Last Admin: 12/21/23 15:42 Dose: 2 gm Sodium Chloride (Saline 0.9%) 1,000 mls @ 130 mls/hr IV .[id number] [facility] Last Admin: 12/21/23 13:27 Dose: 130 mls/hr Lactulose (Lactulose 20 Gm/30 Ml Cup) 20 gm PO TID [facility] Last Admin: 12/21/23 15:51 Dose: 20 gm Lisinopril (Lisinopril 20 Mg Tab) 20 mg PO DAILY [facility] Last Admin: 12/21/23 08:43 Dose: 20 mg Magnesium Oxide (Magnesium Oxide 400 Mg Tab) 400 mg PO DAILY [facility] Last Admin: 12/21/23 08:43 Dose: 400 mg Melatonin (Melatonin 3 Mg Tablet) 3 mg PO HS PRN PRN Reason: Insomnia Metformin HCl (Metformin 500 Mg Tab) 500 mg PO BID [facility] Last Admin: 12/21/23 08:43 Dose: 500 mg Metoprolol Tartrate (Metoprolol Tartrate 25 Mg Tab) 25 mg PO TID [facility] Last Admin: 12/21/23 15:51 Dose: 25 mg Naloxone HCl (Naloxone 0.4 Mg/Ml 1 Ml Vial) 0.2 mg IV Q2M PRN PRN Reason: Opioid Reversal Ondansetron HCl (Ondansetron 4 Mg/2 Ml Vial) 4 mg IVP Q8HR PRN PRN Reason: Nausea And Vomiting Pantoprazole Sodium (Pantoprazole Sodium 40 Mg Granule Pkt) 40 mg PO BID [facility] Last Admin: 12/21/23 08:43 Dose: 40 mg Psyllium Hydrophilic Mucilloid (Psyllium Husk 100% 6 Gm Packet) 6 gm PO BID [facility] Last Admin: 12/21/23 08:43 Dose: 6 gm Senna/Docusate Sodium (Sennosides-Docusate Sodium 1 Each Tab) 1 each PO BID [facility] Last Admin: 12/21/23 08:43 Dose: 1 each Past medical history to include: Atrial flutter fibrillation, CHF, COPD, diabetes, fibromyalgia, GERD, hypertension, hyperlipidemia, osteoarthritis, permanent pacemaker for sick sinus syndrome, TIA, diabetes type 2 with peripheral neuropathy, arthritis in multiple joints, left rotator cuff problem, chronic kidney disease, urinary incontinence, iron deficiency anemia, skin cancer that was removed, bilateral lower extremity varicosities, gout, chronic gait dysfunction-uses a walker Social history: Does use a walker. [facility] at [facility]. smoked for 52 years. Packs a day stopped in 2011. No alcohol. Does use CBD oral Physical examination: VITAL SIGNS: 99.7, 69, 20, 145 x 95, 90% on 3 L GENERAL: Reclining bed, tired. Loss of subcutaneous mass and muscle mass. EYES: Pupils equal. Conjunctiva normal. HEENT: External appearance of nose and ears normal, oral cavity grossly normal. NECK: JVD not raised; masses not palpable. HEART: First and second heart sounds are normal; no edema. LUNGS: Respiratory rate normal; decreased breath sounds ABDOMEN: Soft, nontender, liver spleen not palpable, no masses palpable. PSYCH: Will answer occasional question MUSCULAR skeletal: Evidence of OA in multiple joints. Loss of muscle mass. INVESTIGATIONS, reviewed in the clinical context: December 18: White count 8.6 hemoglobin 9.3 platelets 215 sodium 145 potassium 4.1 creatinine 1.1 December 17: White count 9.9 hemoglobin 14.1 platelets 242 potassium 4 BUN 41 creatinine 1.24 UA: Negative Influenza type A, B, RSV, COVID-19: Not detected Chest x-ray film, personally reviewed by me: Some chronic changes CT scan abdomen pelvis: Mildly fluid-filled and mildly dilated numerous loops of small bowel. Atelectasis in the dependent right lung base Previous labs: Creatinine 1.11 on January 2022 Assessment and plan: -Possible small bowel obstruction could be partial from severe obstipation.: Clinically resolved Being followed by surgery. Laxatives. -Chronic constipation multifactorial: Clinically resolved Metamucil. Lactulose. Mineral oil enema. -Chronic kidney disease stage III from diabetic nephropathy and hypertensive nephrosclerosis Baseline creatinine 1.1 -Persistent atrial flutter fibrillation. Rate uncontrolled on presentation. Lopressor 2.5 mg IV x 1 given in the ER Telemetry. eliquis 2.5 mg twice a date, -Chronic congestive heart failure. From diastolic dysfunction. EF 55-60%. Hold off diuretics, due to poor oral intake. -COPD in a previous smoker DuoNeb -Diabetes mellitus type 2, chronically on oral hypoglycemic Levemir discontinue. sliding scale. Resume metformin. Glucotrol 5 mg a day -Diabetic peripheral neuropathy -Chronic fibromyalgia Ultram 50 mg every 6 when necessary -GERD Protonix 40 mg twice a day -Chronic urinary incontinence Vesicare 10 mg daily Hyperlipidemia Mevacor 20 mg daily at bedtime -Essential hypertension Lopressor 25 mg 3 times a day. lisinopril -Primary osteoarthritis multiple joints Uses Ultram when necessary Diclofenac gel to both of upper and lower extremity. -Chronic urinary stress incontinence Vesicare -Bilateral lower extremity varicosities Follow as outpatient -Chronic gout Allopurinol 100 mg twice a day -Moderate cognitive impairment likely from the late onset Alzheimer's dementia -Chronic gait dysfunction of the baseline patient uses a walker Fall precautions -Medical POA. Daughter: Sharon Zuñiga -DO NOT RESUSCITATE Discussed with daughter at the bedside. Prognosis poor. She is looking at patient returning to assisted living with probable hospice Past Medical History Past Medical History: Atrial Fibrillation, Atrial Flutter, Blood Disorder, Cancer, CVA/TIA, Diabetes Mellitus, Fibromyalgia, GERD/Reflux, Hyperlipidemia, Hypertension, Osteoarthritis (OA), Pneumonia, Renal Disease, Vascular Disorder Additional Past Medical History / Comment(s): 05/2019 admitted with SSS and had pacer insertion, 2011 TIA, NIDDM tyep II, neuropathy bilateral feet, arthritis bilateral hands/knees, L rotator cuff problem, bronchitis, CKD stage III, UTI, urinary leakage at times, anemia with iron infusions in the past, skin cancer with removals, varicosities bilateral legs, constipation, gout bilateral feet History of Any Multi-Drug Resistant Organisms: None Reported Past Surgical History: Appendectomy, Bladder Surgery, Breast Surgery, Hysterectomy, Tonsillectomy Additional Past Surgical History / Comment(s): 06/15/19 pacemaker, bladder suspension, bilateral breast implants, L oophorectomy, colonoscopies, skin cancer removals, L leg varicose vein stripping, cystoscopy. Past Anesthesia/Blood Transfusion Reactions: No Reported Reaction Past Psychological History: No Psychological Hx Reported Smoking Status: Former smoker Past Alcohol Use History: None Reported Past Drug Use History: None Reported
[2023-12-22 08:22] VITALS: BP 155/71; RESP 16; TEMP 98.3
[2023-12-22 09:49] VITALS: PULSE 72
--- NOTE | 2023-12-22 12:43 | P.PN ---
Subjective Progress Note Date: 12/22/23 Principal diagnosis: Constipation Patient did fairly well over the weekend. She had multiple bowel movements although never quite loose. Still with very poor oral intake. Family considering hospice. They are not interested in PEG tube placement. Patient denies pain. Objective - Vital Signs Vital signs: Vital Signs Temp 98.3 F 12/22/23 08:00 Pulse 72 12/22/23 09:27 Resp 16 12/22/23 08:00 BP 155/71 12/22/23 08:00 Pulse Ox 95 12/22/23 08:00 FiO2 Intake & Output 12/21/23 12/22/23 12/22/23 18:59 06:59 18:59 Intake Total 300 Balance 300 Intake: Oral 300 Other: Voiding Method Diaper Diaper Diaper Incontinent Incontinent Incontinent # Voids 3 3 # Bowel Movements 1 - Exam Abdomen: Soft, nontender, nondistended - Labs CBC & Chem 7: 12/19/23 06:23 12/19/23 06:23 Assessment and Plan (1) Abdominal pain Narrative/Plan: Patient with initial presentation of abdominal pain and constipation. She is having bowel function although would like to see some further loose stools. Continue lactulose 3 times daily for now. Continue evaluation for possible hospice. No surgical intervention planned. Will sign off. Please call if needed. Current Visit: No Status: Acute Code(s): R10.9 - UNSPECIFIED ABDOMINAL PAIN SNOMED Code(s): 72138464
--- NOTE | 2023-12-22 15:19 | P.DS ---
Providers Date of admission: 12/18/23 15:42 Expected date of discharge: 12/22/23 Attending physician: Bipin Rivera Primary care physician: David Turner [facility] Course: Chief Complaint: Constipation nausea vomiting This is a pleasant 78-year-old patient of Dr. Turner. Chronic stable medical conditions include atrial flutter fibrillation-on Eliquis, CHF, COPD, diabetes, fibromyalgia, GERD, hypertension, hyperlipidemia, , permanent pacemaker for sick sinus syndrome, diabetes type 2 with peripheral neuropathy, arthritis of multiple joints, chronic kidney disease stage III, urinary incontinence, iron deficiency anemia , gout. baseline- use a walker, walks about 50 to 75 feet.. has cognitive impairment. Has recurrent hemorrhoidal bleeding. Chronically constipated. Patient lives at assisted living. Able to walk to the dining room about 50 to 75 feet. Slowly though. Does eat with some assistance. At the baseline has a bowel movement once every 5 to 7 days. Chronically constipated. Decreased activity in the last few weeks. Brought in because of patient vomited yesterday. Decreased appetite weight loss. Patient also has pain in several joints. But because of renal function not able to take NSAIDs. Patient's memory is also failing. Has been losing weight. Patient's heart rate/atrial flutter fibrillation was uncontrolled in the ER. Given 1 dose of IV beta- jed. Had not taken a Lopressor since morning. Patient has intermittent hemorrhoidal bleeding also. December 18: Patient had no bowel movement yesterday. Was given lactulose, Metamucil, did not respond to enema. No abdominal distention or discomfort. Surgery is ordered Fleet mineral oil enema. Lactulose increased to twice daily. Diet has been advanced by surgery. Spoke to the daughter about guarded prognosis. Did touch on the topic of hospice. Consultation to hospice for informational visit only done. December 19: Received mineral oil enema yesterday evening. Some BM with that. Amount unknown. Patient more awake today. Not in distress. Daughter at the bedside. Feeding the patient. No nausea vomiting. Abdominal distention. December 20: Patient's had good bowel movements. Spoke to the nurse yesterday who checked with the nurse was present the day before. Daughter at the bedside. Patient ate very little this morning. Tired. Daughter does understand prognosis guarded. She is not inclined for hospice when the patient gets back to assisted living. December 21: Bit more awake. Daughter at the bedside. Patient ate a little bit today. Hospice team in to see the patient today. Spoke to the daughter. Will discharge to assisted living with hospice. Seen by PT OT. Needed assistance to get up in a chair. Discussion and discharge planning more than 35 minutes Past medical history to include: Atrial flutter fibrillation, CHF, COPD, diabetes, fibromyalgia, GERD, hypertension, hyperlipidemia, osteoarthritis, permanent pacemaker for sick sinus syndrome, TIA, diabetes type 2 with peripheral neuropathy, arthritis in multiple joints, left rotator cuff problem, chronic kidney disease, urinary incontinence, iron deficiency anemia, skin cancer that was removed, bilateral lower extremity varicosities, gout, chronic gait dysfunction-uses a walker Social history: Does use a walker[facility]. Packs a day stopped in 2011. No alcohol. Does use CBD oral Physical examination: VITAL SIGNS: 98.3, 69, 16, 155 x 71, 95% on 2 L GENERAL: Up in a chair, tired. Loss of subcutaneous mass and muscle mass. EYES: Pupils equal. Conjunctiva normal. HEENT: External appearance of nose and ears normal, oral cavity grossly normal. NECK: JVD not raised; masses not palpable. HEART: First and second heart sounds are normal; no edema. LUNGS: Respiratory rate normal; decreased breath sounds ABDOMEN: Soft, nontender, liver spleen not palpable, no masses palpable. PSYCH: Will answer occasional question MUSCULAR skeletal: Evidence of OA in multiple joints. Loss of muscle mass. INVESTIGATIONS, reviewed in the clinical context: December 18: White count 8.6 hemoglobin 9.3 platelets 215 sodium 145 potassium 4.1 creatinine 1.1 December 17: White count 9.9 hemoglobin 14.1 platelets 242 potassium 4 BUN 41 creatinine 1.24 UA: Negative Influenza type A, B, RSV, COVID-19: Not detected Chest x-ray film, personally reviewed by me: Some chronic changes CT scan abdomen pelvis: Mildly fluid-filled and mildly dilated numerous loops of small bowel. Atelectasis in the dependent right lung base Previous labs: Creatinine 1.11 on January 2022 Assessment and plan: -Possible small bowel obstruction could be partial from severe obstipation.: Clinically resolved Being followed by surgery. Laxatives. -Chronic constipation multifactorial: Clinically resolved Metamucil. Lactulose. Mineral oil enema. -Chronic kidney disease stage III from diabetic nephropathy and hypertensive nephrosclerosis Baseline creatinine 1.1 -Persistent atrial flutter fibrillation. Rate uncontrolled on presentation. Lopressor 2.5 mg IV x 1 given in the ER Telemetry. eliquis 2.5 mg twice a date, -Chronic congestive heart failure. From diastolic dysfunction. EF 55-60%. Hold off diuretics, due to poor oral intake. -COPD in a previous smoker DuoNeb -Diabetes mellitus type 2, chronically on oral hypoglycemic Levemir discontinue. sliding scale. Resume metformin. Glucotrol 5 mg a day -Diabetic peripheral neuropathy -Chronic fibromyalgia Ultram 50 mg every 6 when necessary -GERD Protonix 40 mg twice a day -Chronic urinary incontinence Vesicare 10 mg daily Hyperlipidemia Mevacor 20 mg daily at bedtime -Essential hypertension Lopressor 25 mg 3 times a day. lisinopril -Primary osteoarthritis multiple joints Uses Ultram when necessary Diclofenac gel to both of upper and lower extremity. -Normocytic anemia likely nutritional -Chronic urinary stress incontinence Vesicare -Bilateral lower extremity varicosities Follow as outpatient -Chronic gout Allopurinol 100 mg twice a day -Moderate cognitive impairment likely from the late onset Alzheimer's dementia -Chronic gait dysfunction of the baseline patient uses a walker Fall precautions -Medical POA. Daughter: Sharon Zuñiga -DO NOT RESUSCITATE/hospice upon discharge Disposition: [facility] with hospice Past Medical History Past Medical History: Atrial Fibrillation, Atrial Flutter, Blood Disorder, Cancer, CVA/TIA, Diabetes Mellitus, Fibromyalgia, GERD/Reflux, Hyperlipidemia, Hypertension, Osteoarthritis (OA), Pneumonia, Renal Disease, Vascular Disorder Additional Past Medical History / Comment(s): 05/2019 admitted with SSS and had pacer insertion, 2011 TIA, NIDDM tyep II, neuropathy bilateral feet, arthritis bilateral hands/knees, L rotator cuff problem, bronchitis, CKD stage III, UTI, urinary leakage at times, anemia with iron infusions in the past, skin cancer with removals, varicosities bilateral legs, constipation, gout bilateral feet History of Any Multi-Drug Resistant Organisms: None Reported Past Surgical History: Appendectomy, Bladder Surgery, Breast Surgery, Hysterectomy, Tonsillectomy Additional Past Surgical History / Comment(s): 06/15/19 pacemaker, bladder suspension, bilateral breast implants, L oophorectomy, colonoscopies, skin cancer removals, L leg varicose vein stripping, cystoscopy. Past Anesthesia/Blood Transfusion Reactions: No Reported Reaction Past Psychological History: No Psychological Hx Reported Smoking Status: Former smoker Past Alcohol Use History: None Reported Past Drug Use History: None Reported Plan - Discharge Summary Discharge Rx Participant: No New Discharge Prescriptions: New Psyllium Husk 100% [Metamucil Packet] 6 gm PO BID packet Continue allopurinoL [Zyloprim] 100 mg PO BID Lovastatin [Mevacor] 20 mg PO HS Apixaban [Eliquis] 2.5 mg PO BID Metoprolol Tartrate [Lopressor] 25 mg PO TID Calcium Carbonate [Tums] 1,000 mg PO TID PRN PRN Reason: Heartburn Ipratropium-Albuterol Nebulize [Duoneb 0.5 mg-3 mg/3 ml Soln] 3 ml INHALATION RT-QID each lisinopriL [Zestril] 20 mg PO DAILY Pantoprazole Sodium 40 mg PO BID amLODIPine [Norvasc] 5 mg PO DAILY Diclofenac Sodium Gel [Voltaren 1% Gel] 2 gm TOPICAL QID PRN PRN Reason: Pain Solifenacin Succinate [Vesicare] 10 mg PO DAILY Zzzquil Gummies 2 tab PO HS PRN PRN Reason: Insomnia Albuterol Sulfate [Albuterol Sulfate Hfa] 2 puff INHALATION RT-QID PRN PRN Reason: Shortness Of Breath Acetaminophen-Codeine 300-30mg [Tylenol w/codeine #3] 1 tab PO Q4H PRN PRN Reason: Pain Acidophilus-Pectin Capsule 2 cap PO DAILY Sennosides/Docusate Sodium [Senna-S 8.6-50 mg Tablet] 1 tab PO BID Discontinued metFORMIN HCL [Glucophage] 500 mg PO BID Docusate Sodium [Dok] 100 mg PO DAILY Cholecalciferol [Vitamin D3 (25 Mcg = 1000 Iu)] 25 mcg PO DAILY Docusate [Colace] 100 mg PO BID PRN PRN Reason: Constipation Magnesium Oxide [Mag-Ox] 400 mg PO DAILY tab Chlorthalidone [Hygroton] 25 mg PO DAILY Discharge Medication List allopurinoL [Zyloprim] 100 mg PO BID 07/05/16 [History] Lovastatin [Mevacor] 20 mg PO HS 09/13/17 [History] Apixaban [Eliquis] 2.5 mg PO BID 06/10/19 [History] Metoprolol Tartrate [Lopressor] 25 mg PO TID 09/02/19 [History] amLODIPine [Norvasc] 5 mg PO DAILY 12/28/20 [History] Calcium Carbonate [Tums] 1,000 mg PO TID PRN 01/29/22 [History] Diclofenac Sodium Gel [Voltaren 1% Gel] 2 gm TOPICAL QID PRN 01/29/22 [History] Solifenacin Succinate [Vesicare] 10 mg PO DAILY 01/29/22 [History] Ipratropium-Albuterol Nebulize [Duoneb 0.5 mg-3 mg/3 ml Soln] 3 ml INHALATION RT-QID each 09/02/22 [Rx] Acetaminophen-Codeine 300-30mg [Tylenol w/codeine #3] 1 tab PO Q4H PRN 11/07/23 [History] Albuterol Sulfate [Albuterol Sulfate Hfa] 2 puff INHALATION RT-QID PRN 11/07/23 [History] Zzzquil Gummies 2 tab PO HS PRN 11/07/23 [History] lisinopriL [Zestril] 20 mg PO DAILY 11/07/23 [History] Acidophilus-Pectin Capsule 2 cap PO DAILY 12/18/23 [History] Pantoprazole Sodium 40 mg PO BID 12/18/23 [History] Sennosides/Docusate Sodium [Senna-S 8.6-50 mg Tablet] 1 tab PO BID 12/18/23 [History] Psyllium Husk 100% [Metamucil Packet] 6 gm PO BID packet 12/22/23 [Rx] Follow up Appointment(s)/Referral(s): David Turner DO [Primary Care Provider] - As Needed (Hospice ) Deborah Mckoy [NON-STAFF] - 1 Week Patient Instructions/Handouts: Constipation (DC), Hospice (DC)
== END 2023-12-22 13:12 | disposition hospice, inpatient (51) | DRG 389 ==
LOC: EC 10:49 → 6NMEDSUR 15:41 → OBSVTOIN 15:42 → 6NMEDSUR 16:15
PROVIDERS: ADMIT Hospitalist; ATTEND Hospitalist
DX: K56.600 Partial intestinal obstruction, unspecified as to cause (principal); F02.818 Dementia in other diseases classified elsewhere, unspecified severity, with other behavioral disturbance; I13.0 Hypertensive heart and chronic kidney disease with heart failure and stage 1 through stage 4 chronic kidney disease, or unspecified chronic kidney disease; I48.19 Other persistent atrial fibrillation; I48.92 Unspecified atrial flutter; I50.32 Chronic diastolic (congestive) heart failure; G30.1 Alzheimer's disease with late onset; K59.09 Other constipation; E78.5 Hyperlipidemia, unspecified; E11.22 Type 2 diabetes mellitus with diabetic chronic kidney disease; M79.7 Fibromyalgia; J44.9 Chronic obstructive pulmonary disease, unspecified; I49.5 Sick sinus syndrome; E11.42 Type 2 diabetes mellitus with diabetic polyneuropathy; N18.30 Chronic kidney disease, stage 3 unspecified; Z79.01 Long term (current) use of anticoagulants; Z98.82 Breast implant status; Z95.0 Presence of cardiac pacemaker; Z87.19 Personal history of other diseases of the digestive system; G47.00 Insomnia, unspecified; I25.10 Atherosclerotic heart disease of native coronary artery without angina pectoris; K21.9 Gastro-esophageal reflux disease without esophagitis; M19.041 Primary osteoarthritis, right hand; D53.9 Nutritional anemia, unspecified; M19.042 Primary osteoarthritis, left hand; M1A.9XX0 Chronic gout, unspecified, without tophus (tophi); N73.9 Female pelvic inflammatory disease, unspecified; Z79.84 Long term (current) use of oral hypoglycemic drugs; Z79.899 Other long term (current) drug therapy; Z86.73 Personal history of transient ischemic attack (TIA), and cerebral infarction without residual deficits; Z90.710 Acquired absence of both cervix and uterus; Z85.828 Personal history of other malignant neoplasm of skin; I83.93 Asymptomatic varicose veins of bilateral lower extremities; Z90.721 Acquired absence of ovaries, unilateral; Z88.1 Allergy status to other antibiotic agents; Z88.8 Allergy status to other drugs, medicaments and biological substances
CPT/HCPCS: 36415; 70450; 71046; 74177; 80048; 80053; 81003; 82150; 83605; 83690; 85025; 85610; 85730; 87636; 93005; 94640; 94760; 96361; 96374; 96375; 99285